=== PATIENT | female | born 1975 | race African-American/Black ===

== ENCOUNTER 2024-06-27 07:28 | Inpatient (IN) | payer OTHER, SELFPAY ==
[2024-06-27 07:33] VITALS: BP 136/72; PULSE 70; O2SAT 98
[2024-06-27 07:38] VITALS: BP 147/93; PULSE 77; RESP 19; TEMP 36.6; O2SAT 98; BMI 24.4
[2024-06-27 08:40] LABS: Appearance Urine Clear; Color Urine Yellow; Glucose Urine UA Negative (Negative); Leukocyte Esterase Urine Moderate (2+) (Negative); Nitrite Urine Negative (Negative); UMIC TRIGGER UACC YES; Urine Blood Trace (Negative); Urine Ketones Negative (Negative); Urine Protein Negative (Neg-Trace)
[2024-06-27 08:43] LABS: Bacteria Urine None Seen (None Seen); Hyaline Casts Urine 0-2 /LPF (0-2); RBC Urine 0-2 /HPF (0-2); UACC Culture Trigger YES
--- NOTE | 2024-06-27 08:45 | ED.PSYCH ---
HPI - Psych General Chief Complaint: Psychiatric Symptoms Stated Complaint: SI and psych issues from HPD OD last night Time Seen by Provider: 06/27/24 08:44 Source: patient Mode of arrival: EMS Limitations: no limitations History of Present Illness ED Provider: Dr. Raf Thayer HPI Narrative: 48-year-old female with a history of diabetes mellitus, depression, anxiety, PTSD, insomnia who is currently living in a sober house for 2 months who presents emergency department for evaluation increased depression, suicidal ideation, suicide attempt and not feeling safe. Patient states that she snorted fentanyl yesterday around 16:00 hours. She states she was trying to intentionally kill herself by using fentanyl. She states that this morning, she was feeling unsafe and came to the emergency department by ambulance for a crisis evaluation. Related Data Home Medications ?Medication ?Instructions ?Recorded ?Confirmed benztropine 1 mg tablet 1 mg PO DAILY 06/27/24 06/27/24 buprenorphine 8 mg-naloxone 2 mg 1 film sublingual BID 06/27/24 06/27/24 sublingual film bupropion HCl 300 mg 24 hr tablet, 300 mg PO DAILY 06/27/24 06/27/24 extended release gabapentin 800 mg tablet 800 mg PO TID 06/27/24 06/27/24 insulin glargine 100 unit/mL (3 30 unit subcut BEDTIME 06/27/24 06/27/24 mL) subcutaneous pen (Lantus Solostar U-100 Insulin) loratadine 10 mg tablet 10 mg PO DAILY 06/27/24 06/27/24 quetiapine 400 mg tablet 400 mg PO BEDTIME 06/27/24 06/27/24 sertraline 100 mg tablet 100 mg PO DAILY 06/27/24 06/27/24 Allergies Allergy/AdvReac Type Severity Reaction Status Date / Time No Known Allergies Allergy Verified 06/27/24 07:42 Review of Systems Review of Systems: Yes all other systems are reviewed and are negative [facility] Past Medical History [facility] Narrative: Social history: She is currently living at a sober nursing home house. She does smoke cigarettes. She denies alcohol use. She admits to using crack cocaine and intranasal opiates. Social History Social History Alcohol intake: never Use of substances other than those prescribed or required for medical reasons: Yes Substance Use Type: Crack/Cocaine and Heroin Substance Use Frequency: Occasionally Last Used Substance: Hours (ago) Any prior treatment program specific to substance use: Yes Advance Directives: No Advance Directives Information Provided: Yes Do you have a plan to hurt others: No Plan Physical Exam Vital Signs: Vital Signs: Last Vital Signs Temp 98.1 F 06/27/24 16:34 Pulse 69 06/27/24 16:34 Resp 16 06/27/24 16:34 BP 112/68 06/27/24 16:34 Pulse Ox 100 06/27/24 16:34 O2 Del Method Room Air 06/27/24 16:34 BMI result Body Mass Index 24.4 ANCA morning vital signs revealed an elevated blood pressure of 147/93 Exam: General: Awake, alert in no distress Head: Normocephalic, atraumatic EENT: PERRL, Lids normal, sclera normal, conjunctiva normal, nose normal , ears normal, throat without erythema or exudates Neck: Supple, no adenopathy Lung: breath sounds symmetric, no wheezing, rales or rhonchi Chest: symmetric movement, nontender Heart: regular rate and rhythm, normal S1, S2 no murmurs or rubs Abdomen: soft, non-tender, nondistended, normal bowel sounds Back: no vertebral tenderness, no CVAT Extremities: no deformities, moves all extremities symmetrically Neuro: Awake, alert, oriented, normal speech, cranial nerves intact, moves all extremities symmetrically Psych: Pleasant, cooperative Medications Administered Generic Name Dose Route Start Last Admin Trade Name Freq PRN Reason Stop Dose Admin Benztropine Mesylate 1 mg 06/27/24 11:30 06/27/24 12:04 Benztropine Mesylate 1 Mg Tablet PO 1 mg DAILY SHARATH Administration Bupropion HCl 300 mg 06/27/24 11:45 06/27/24 12:04 Bupropion Hcl Xl 300 Mg Tab.Er.24h PO 300 mg DAILY SHARATH Administration Loratadine 10 mg 06/27/24 11:30 06/27/24 12:03 Loratadine 10 Mg Tablet PO 10 mg DAILY SHARATH Administration Sertraline HCl 100 mg 06/27/24 11:30 06/27/24 12:04 Sertraline Hcl 100 Mg Tablet PO 100 mg DAILY SHARATH Administration Medical Decision Making Medical Decision Making MDM Narrative: 48-year-old female with a history of diabetes mellitus, depression, anxiety, PTSD, insomnia who is currently living in a sober nursing home house for 2 months who presents emergency department for evaluation increased depression, suicidal ideation, suicide attempt and not feeling safe. Patient states she tried to kill herself yesterday by snorting fentanyl around 16:00 hours. This morning she was feeling unsafe so she came to the emergency department by ambulance for crisis evaluation. Vital signs did reveal an elevated blood pressure otherwise unremarkable. Exam was unremarkable. Differential diagnosis: ?Includes but is not limited to depression, anxiety, suicidal ideation, suicide attempt, opiate use, electrolyte abnormalities, anemia Following evaluation was ordered: CBC, CMP, lipase, COVID-19, influenza, RSV, drug screen urine, ethanol level Course: 12:10 Urine tox screen was positive for opiates, buprenorphine, fentanyl and cocaine. Alcohol was below detectable limits. Urinalysis was positive but microscopic does not support urinary tract infection. Patient was been seen by the care team and she will be made in in-patient bed search for depression with suicidal ideation and suicide attempt. Patient was medically cleared and was seen by the care team specialist who felt that the patient does meet inpatient criteria for further treatment. Patient was placed on a Section 12 and there is a bed available here at [facility]. 13:55 hours The patient's 12 EKG did reveal inverted T-waves in leads 3, V1 through V4 with no old EKG for comparison. I did add a high ensitive troponin I to the person's initial blood draw at 09:47 hours and the troponin was elevated at 70.7, therefore I ordered a troponin for now which is greater than 3 hours after the initial troponin. 17:35 hours: Patient's repeat troponin was 47.7 which is very reassuring suggesting that she was not had myocardial injury. Patient's EKG changes are most likely chronic. Patient was medically cleared for psychiatric admission. Admission/Observation Consideration of admission/observation: Escalation of care including admission/observation considered Consult Healthcare Provider Management of the patient was discussed with: Behavioral Health Provider Lab Data MDM Lab Attestation statement: I reviewed the patient's lab results. My independent interpretation patient's laboratory evaluation is as follows: Urinalysis positive for blood and leukocyte esterase. Microscopic 0-2 RBCs, 6-10 WBCs 6-10 squamous cells with no bacteria-this is a non clean catch specimen and does not support diagnosis of urinary tract infection. Urine tox screen was positive for opiates, buprenorphine, fentanyl and cocaine. CBC was normal. Glucose was elevated 235. COVID-19, influenza and RSV were negative. Alcohol was below detectable limits. 06/27/24 09:47 06/27/24 09:47 Labs: Lab Results 06/27/24 06/27/24 06/27/24 Range/Units 08:29 09:47 13:13 WBC 8.0 (4.8-10.8) X10*3/uL RBC 4.42 (4.20-5.50) X10*6/uL Hgb 12.8 (12.0-16.0) g/dl Hct 38.0 (37.0-47.0) % MCV 86.0 (80.0-98.0) fL MCH 29.0 (27.0-33.0) pg MCHC 33.7 (31.0-35.0) g/dl RDW 12.5 (11.0-16.0) % Plt Count 236 (160-400) X10*3/uL MPV 10.0 (9.4-12.3) fL Immature Gran % (Auto) 0.3 (0.0-0.4) % Neut % (Auto) 76.2 H (45-73) % Lymph % (Auto) 17.4 L (20-40) % [place] % (Auto) 4.9 (2-11) % Eos % (Auto) 0.9 (0-4) % Baso % (Auto) 0.3 (0-2) % Lymph # (Auto) 1.4 (1.2-4.9) X10*3/uL [place] # (Auto) 0.4 (0.1-1.2) X10*3/uL Eos # (Auto) 0.1 (0.0-0.4) X10*3/uL Baso # (Auto) 0.0 (0.0-0.2) X10*3/uL Abs Immat Gran (auto) 0.02 (0.00-0.03) X10*3/uL Absolute Neuts (auto) 6.1 (2.0-8.3) x10*3/uL Absolute Nucleated RBC 0.000 (0.0-0.012) X10*3/uL Nucleated RBC % (auto) 0.0 (0.0-0.2) /100WBC Sodium 138 (135-145) mmol/L Potassium 4.1 (3.3-5.1) mmol/L Chloride 103 (96-108) mmol/L Carbon Dioxide 27 (22-29) mmol/L Anion Gap 12 (12-20) BUN 8 L (9-16) mg/dL Creatinine 0.76 (0.5-1.4) mg/dL Estim Creat Clear Calc 96.6 Estimated GFR > 60 POC Glucose 115 (60-115) mg/dL Random Glucose 235 H (60-115) mg/dL Calcium 9.4 (8.4-10.2) mg/dL Total Bilirubin 0.6 (0.0-1.0) mg/dL AST 31 (5-31) U/L ALT 16 (0-31) U/L Alkaline Phosphatase 109 (39-117) U/L Troponin I High Sens 70.7 H* (<3.5-17.0) ng/L Total Protein 7.5 (6.5-8.0) g/dL Albumin 4.0 (3.5-5.0) g/dL Lipase 5 L (8-78) U/L Urine Color Yellow Urine Appearance Clear Urine pH 6.0 (5.0-9.0) Ur Specific [place] 1.010 (1.005-1.025) Urine Protein Negative (Neg-Trace) mg/dL Urine Glucose (UA) Negative (Negative) mg/dL Urine Ketones Negative (Negative) mg/dL Urine Blood Trace H (Negative) Urine Nitrite Negative (Negative) Ur Leukocyte Esterase Moderate (2+) H (Negative) Urine RBC 0-2 (0-2) /HPF Urine WBC 6-10 H (0-5) /HPF Ur Squamous Epith Cells 6-10 (0-2) /HPF Urine Bacteria None Seen (None Seen) Hyaline Casts 0-2 (0-2) /LPF Urine Test NEGATIVE (NEGATIVE) Urine Opiates Screen POSITIVE H (Not Detect) Ur Buprenorphine Scrn Positive H (Not Detect) ng/mL Ur Oxycodone Screen Not Detected (Not Detect) ng/mL Urine Methadone Screen Not Detected (Not Detect) ng/mL Urine Fentanyl Screen POSITIVE H (Not Detect) Ur Barbiturates Screen Not Detected (Not Detect) Ur Phencyclidine Scrn Not Detected (Not Detect) Ur Amphetamines Screen Not Detected (Not Detect) U Benzodiazepines Scrn Not Detected (Not Detect) Urine Cocaine Screen POSITIVE H (Not Detect) U Marijuana (THC) Screen Not Detected (Not Detect) Ethyl Alcohol < 10 mg/dL Influenza Type A (PCR) NEGATIVE (Negative) Influenza Type B (PCR) NEGATIVE (Negative) RSV RNA Qual (PCR) NEGATIVE (Negative) SARS-CoV-2 RNA (RT-PCR) NEGATIVE (Negative) 06/27/24 Range/Units 14:06 WBC (4.8-10.8) X10*3/uL RBC (4.20-5.50) X10*6/uL Hgb (12.0-16.0) g/dl Hct (37.0-47.0) % MCV (80.0-98.0) fL MCH (27.0-33.0) pg MCHC (31.0-35.0) g/dl RDW (11.0-16.0) % Plt Count (160-400) X10*3/uL MPV (9.4-12.3) fL Immature Gran % (Auto) (0.0-0.4) % Neut % (Auto) (45-73) % Lymph % (Auto) (20-40) % [place] % (Auto) (2-11) % Eos % (Auto) (0-4) % Baso % (Auto) (0-2) % Lymph # (Auto) (1.2-4.9) X10*3/uL [place] # (Auto) (0.1-1.2) X10*3/uL Eos # (Auto) (0.0-0.4) X10*3/uL Baso # (Auto) (0.0-0.2) X10*3/uL Abs Immat Gran (auto) (0.00-0.03) X10*3/uL Absolute Neuts (auto) (2.0-8.3) x10*3/uL Absolute Nucleated RBC (0.0-0.012) X10*3/uL Nucleated RBC % (auto) (0.0-0.2) /100WBC Sodium (135-145) mmol/L Potassium (3.3-5.1) mmol/L Chloride (96-108) mmol/L Carbon Dioxide (22-29) mmol/L Anion Gap (12-20) BUN (9-16) mg/dL Creatinine (0.5-1.4) mg/dL Estim Creat Clear Calc Estimated GFR POC Glucose (60-115) mg/dL Random Glucose (60-115) mg/dL Calcium (8.4-10.2) mg/dL Total Bilirubin (0.0-1.0) mg/dL AST (5-31) U/L ALT (0-31) U/L Alkaline Phosphatase (39-117) U/L Troponin I High Sens 47.7 H (<3.5-17.0) ng/L Total Protein (6.5-8.0) g/dL Albumin (3.5-5.0) g/dL Lipase (8-78) U/L Urine Color Urine Appearance Urine pH (5.0-9.0) Ur Specific [place] (1.005-1.025) Urine Protein (Neg-Trace) mg/dL Urine Glucose (UA) (Negative) mg/dL Urine Ketones (Negative) mg/dL Urine Blood (Negative) Urine Nitrite (Negative) Ur Leukocyte Esterase (Negative) Urine RBC (0-2) /HPF Urine WBC (0-5) /HPF Ur Squamous Epith Cells (0-2) /HPF Urine Bacteria (None Seen) Hyaline Casts (0-2) /LPF Urine Test (NEGATIVE) Urine Opiates Screen (Not Detect) Ur Buprenorphine Scrn (Not Detect) ng/mL Ur Oxycodone Screen (Not Detect) ng/mL Urine Methadone Screen (Not Detect) ng/mL Urine Fentanyl Screen (Not Detect) Ur Barbiturates Screen (Not Detect) Ur Phencyclidine Scrn (Not Detect) Ur Amphetamines Screen (Not Detect) U Benzodiazepines Scrn (Not Detect) Urine Cocaine Screen (Not Detect) U Marijuana (THC) Screen (Not Detect) Ethyl Alcohol mg/dL Influenza Type A (PCR) (Negative) Influenza Type B (PCR) (Negative) RSV RNA Qual (PCR) (Negative) SARS-CoV-2 RNA (RT-PCR) (Negative) Chronic Conditions Patient?s care impacted by: Diabetes Discharge Plan Discharge Clinical Impression: Suicidal ideation, Depression, Suicide attempt Patient Disposition: Admitted As Inpatient Interventions: [place]-Suicide Risk Severity Scale Last Done: 06/27/24 08:47 Print Language: [place] Leonean
[2024-06-27 08:46] LABS: UPreg QC Valid YES; Urine Pregnancy NEGATIVE (NEGATIVE)
[2024-06-27 08:49] LABS: Amphetamine Screen Urine Not Detected (Not Detect); Barbiturates, Urine Not Detected (Not Detect); Benzodiazepines Screen Urine Not Detected (Not Detect); Buprenorphine Scr Positive (Not Detect); Cannabinoid Screen Urine Not Detected (Not Detect); Cocaine Screen Urine POSITIVE (Not Detect); Fentanyl, urine POSITIVE (Not Detect); Methadone Screen, Urine Not Detected (Not Detect); Opiate Screen Urine POSITIVE (Not Detect); Oxycodone Screen Urine Not Detected (Not Detect); Phencyclidine Screen Urine Not Detected (Not Detect)
--- NOTE | 2024-06-27 09:43 | ECG_ITS ---
Test Reason : check prolong qt Blood Pressure : / mmHG Vent. Rate : 063 BPM Atrial Rate : 063 BPM P-R Int : 148 ms QRS Dur : 092 ms QT Int : 482 ms P-R-T Axes : 148 179 186 degrees QTc Int : 493 ms Suspect limb lead reversal, interpretation assumes no reversal Unusual P axis, possible ectopic atrial rhythm Incomplete right bundle branch block Inferior infarct , age undetermined Anterolateral infarct , age undetermined Abnormal ECG No previous ECGs available Referred By: Raf Thayer Electronically Signed By:JUSTIN CHRISTINE
[2024-06-27 09:54] LABS: MANUAL DIFF FLAG NO
[2024-06-27 09:57] LABS: Basophils Percent Auto 0.3 % (0-2); Eosinophils Absolute Auto 0.1 X10*3/uL (0.0-0.4); Eosinophils Percent Auto 0.9 % (0-4); Hemoglobin 12.8 g/dl (12.0-16.0); Imm Gran Abs Auto 0.02 X10*3/uL (0.00-0.03); Imm Gran Pct Auto 0.3 % (0.0-0.4); Lymphocytes Absolute Auto 1.4 X10*3/uL (1.2-4.9); Lymphocytes Percent Auto 17.4 % (20-40); Mean Corpuscular HGB Conc 33.7 g/dl (31.0-35.0); Monocytes Absolute Auto 0.4 X10*3/uL (0.1-1.2); Monocytes Percent Auto 4.9 % (2-11); Neutrophils Absolute Auto 6.1 x10*3/uL (2.0-8.3); Neutrophils Percent Auto 76.2 % (45-73); Platelet Count 236 X10*3/uL (160-400); Red Blood Count 4.42 X10*6/uL (4.20-5.50); Red Cell Distribution Width 12.5 % (11.0-16.0)
[2024-06-27 10:10] LABS: Ethanol < 10 mg/dL
[2024-06-27 10:23] LABS: Alanine Aminotransferase 16 U/L (0-31); Alkaline Phosphatase 109 U/L (39-117); Anion Gap 12 (12-20); Aspartate Amino Transferase 31 U/L (5-31); Blood Urea Nitrogen 8 mg/dL (9-16); Calcium 9.4 mg/dL (8.4-10.2); Carbon Dioxide 27 mmol/L (22-29); Chloride 103 mmol/L (96-108); Creatinine Clr Calc Pharmacy 96.6; Estimated Glomerular Filt Rate > 60; Glucose Random 235 mg/dL (60-115); Lipase 5 U/L (8-78); Potassium 4.1 mmol/L (3.3-5.1); Sodium 138 mmol/L (135-145); Total Protein 7.5 g/dL (6.5-8.0)
[2024-06-27 10:33] LABS: Influenza A PCR NEGATIVE (Negative); Influenza B PCR NEGATIVE (Negative); Resp Syncy Virus RNA Qual PCR NEGATIVE (Negative); SARS COV2 PCR INHOUSE NEGATIVE (Negative)
[2024-06-27 11:46] LABS: Bilirubin Total 0.6 mg/dL (0.0-1.0)
[2024-06-27] MEDS: Loratadine 10 MG TABLET PO (12:03)
[2024-06-27] MEDS: buPROPion HCl XL 300 MG TAB.ER.24H PO (12:04)
[2024-06-27] MEDS: Benztropine Mesylate 1 MG TABLET PO (12:04)
[2024-06-27] MEDS: Sertraline HCL 100 MG TABLET PO (12:04)
--- NOTE | 2024-06-27 12:25 | PHA.MEDREC ---
Pharmacy Consult ? Medication Reconciliation Pharmacy has completed the medication reconciliation. Changed NF med that nurse entered to show correctly in med rec. All med matched claim history
--- NOTE | 2024-06-27 12:52 | ECG_ITS ---
Test Reason : check prolong qt Blood Pressure : / mmHG Vent. Rate : 062 BPM Atrial Rate : 062 BPM P-R Int : 154 ms QRS Dur : 094 ms QT Int : 488 ms P-R-T Axes : 036 003 000 degrees QTc Int : 495 ms Normal sinus rhythm Incomplete right bundle branch block Cannot rule out Inferior infarct (cited on or before 27-JUN-2024) Anterior infarct (cited on or before 27-JUN-2024) Abnormal ECG When compared with ECG of 27-JUN-2024 12:50, Sinus rhythm has replaced Ectopic atrial rhythm QRS axis Shifted left Questionable change in initial forces of Inferior leads Referred By: Raf Thayer Electronically Signed By:JUSTIN CHRISTINE
[2024-06-27 13:17] LABS: Glucose, Whole Blood 115 mg/dL (60-115)
[2024-06-27 13:43] LABS: Troponin-I High Sensitivity 70.7 ng/L (<3.5-17.0)
[2024-06-27 14:38] LABS: Troponin-I High Sensitivity 47.7 ng/L (<3.5-17.0)
[2024-06-27 16:34] VITALS: BP 112/68; PULSE 69; RESP 16; TEMP 36.7; O2SAT 100
[2024-06-27 17:55] LABS: Glucose, Whole Blood 115 mg/dL (60-115)
--- NOTE | 2024-06-27 19:02 | PC.NURSE ---
patient appears to remain at rest presently respirations are even and unlabored patient appears in no distress
[2024-06-27 21:01] LABS: Glucose, Whole Blood 149 mg/dL (60-115)
[2024-06-27] MEDS: Insulin Glargine,Hum.rec.anlog 100 UNIT/ML 10 ML VIAL 30 UNIT SUBCUT (21:01)
[2024-06-27] MEDS: Gabapentin 400 MG CAPSULE 800 MG PO (21:02)
[2024-06-27] MEDS: QUEtiapine Fumarate 400 MG TABLET PO (21:02)
[2024-06-27] MEDS: Prazosin HCL 1 MG CAPSULE PO (21:17)
--- NOTE | 2024-06-28 00:54 | PC.NURSE ---
Took report from off-going RN at 2300 hrs. Pt is a 48 y/o female who presents for thoughts of SI and an overdose on fentanyl. Pt is calm and cooperative, appropriate with staff. Easily arousable with verbal stimuli. Pt has been evaluated by care team and pending admission.
--- NOTE | 2024-06-28 04:24 | PC.NURSE ---
Pt has been sleeping most of the shift, appears comfortable and changes positions independently as desired. Pt is easily arousable with verbal stimulli, calm, cooperative, and appropriate with staff. No acute distress observed. Safety checks have been ongoing every 15 min since 2300 hrs. Will contiue to monitor to monitor for any changes.
[2024-06-28 06:10] VITALS: BP 122/64; PULSE 81; RESP 16; TEMP 37.2; O2SAT 96
[2024-06-28 07:04] LABS: Glucose, Whole Blood 111 mg/dL (60-115)
[2024-06-28] MEDS: Loratadine 10 MG TABLET PO (09:27)
[2024-06-28] MEDS: Benztropine Mesylate 1 MG TABLET PO (09:27)
[2024-06-28] MEDS: buPROPion HCl XL 300 MG TAB.ER.24H PO (09:27)
[2024-06-28] MEDS: Sertraline HCL 100 MG TABLET PO (09:27)
[2024-06-28] MEDS: Buprenorphine/Naloxone 8/2 mg FILM 1 FILM SUBLINGUAL ×2 (09:27→21:19)
[2024-06-28] MEDS: Gabapentin 400 MG CAPSULE 800 MG PO ×3 (09:27→21:19)
[2024-06-28 13:26] LABS: Glucose, Whole Blood 157 mg/dL (60-115)
[2024-06-28] MEDS: LORazepam 1 MG TABLET 2 MG PO (13:42)
[2024-06-28 18:40] VITALS: BP 132/61; PULSE 89; RESP 16; TEMP 36.6; O2SAT 98
[2024-06-28 18:40] LABS: Glucose, Whole Blood 155 mg/dL (60-115)
--- NOTE | 2024-06-28 19:21 | PC.NURSE ---
patient appears to remain at rest at present respirations are even and unlabored patient appears in no distress.
--- NOTE | 2024-06-28 20:58 | PC.NURSE ---
patient came out of room with head scarf on which she did not have in her posession yesterday, apparently during the day client saw peer with headscarf on and desired her own. patient was apparently allowed this by prior staff and became agitated when we stated she could not have it in this area. unfortunately we did not have a safe facsimile to provide. patient became mildly escalated after, and offered medication which client declined, rocking to herself in room and mildly tearful. offered also non medicinal soothing items. will continue to monitor.
[2024-06-28 21:19] VITALS: BP 132/61
[2024-06-28] MEDS: Prazosin HCL 1 MG CAPSULE PO (21:19)
[2024-06-28] MEDS: QUEtiapine Fumarate 400 MG TABLET PO (21:20)
--- NOTE | 2024-06-28 21:24 | PC.NURSE ---
patient who had been previously agitated by limit setting of staff made a self harming gesture of wrapping a pillowcase in a longslim lnegth and began to wrap cloeth around neck, staff intervened and removed item, patient placed on close obs status for the time being (informally) until patient presentation changes. patient declined accucheck pre lantus.
[2024-06-28] MEDS: Insulin Glargine,Hum.rec.anlog 100 UNIT/ML 10 ML VIAL 30 UNIT SUBCUT (22:38)
[2024-06-28 22:44] LABS: Glucose, Whole Blood 92 mg/dL (60-115)
[2024-06-29 06:20] VITALS: BP 101/50; PULSE 67; RESP 16; TEMP 36.4; O2SAT 97
--- NOTE | 2024-06-29 06:58 | PC.NURSE ---
Assumed care of patient at 0645, patient appears to be sleeping, respirations even and unlabored, no apparent distress noted. Continue plan of care for inpatient bedsearch on section 12a
[2024-06-29 07:43] LABS: Glucose, Whole Blood 128 mg/dL (60-115)
[2024-06-29] MEDS: buPROPion HCl XL 300 MG TAB.ER.24H PO (09:23)
[2024-06-29] MEDS: Loratadine 10 MG TABLET PO (09:23)
[2024-06-29] MEDS: Benztropine Mesylate 1 MG TABLET PO (09:23)
[2024-06-29] MEDS: Gabapentin 400 MG CAPSULE 800 MG PO ×3 (09:24→20:12)
[2024-06-29] MEDS: Buprenorphine/Naloxone 8/2 mg FILM 1 FILM SUBLINGUAL ×2 (09:24→20:12)
[2024-06-29] MEDS: Sertraline HCL 100 MG TABLET PO (09:24)
[2024-06-29] MEDS: LORazepam 1 MG TABLET 2 MG PO (10:34)
[2024-06-29] MEDS: hydrOXYzine HCL 25 MG TABLET PO ×2 (12:27→20:10)
[2024-06-29 14:29] VITALS: BP 116/69; PULSE 73; RESP 18; TEMP 37.2; O2SAT 96
--- NOTE | 2024-06-29 19:03 | PC.NURSE ---
patient appears ot remain at rest presently respirations are even and unlabored patient appears in no distress.
[2024-06-29 19:42] VITALS: BP 134/80; PULSE 65; RESP 18; TEMP 36.6; O2SAT 96
[2024-06-29] MEDS: QUEtiapine Fumarate 400 MG TABLET PO (20:12)
[2024-06-29 20:13] VITALS: BP 134/80
[2024-06-29] MEDS: Insulin Glargine,Hum.rec.anlog 100 UNIT/ML 10 ML VIAL 30 UNIT SUBCUT (20:13)
[2024-06-29] MEDS: Prazosin HCL 1 MG CAPSULE PO (20:13)
[2024-06-29 20:29] LABS: Glucose, Whole Blood 127 mg/dL (60-115)
--- NOTE | 2024-06-30 | ECG_ITS ---
Test Reason : REPEAT Blood Pressure : / mmHG Vent. Rate : 062 BPM Atrial Rate : 062 BPM P-R Int : 154 ms QRS Dur : 088 ms QT Int : 484 ms P-R-T Axes : 040 003 -12 degrees QTc Int : 491 ms Normal sinus rhythm T wave abnormality, consider anterior ischemia Prolonged QT Abnormal ECG When compared with ECG of 27-JUN-2024 12:52, Minimal criteria for Inferior infarct are no longer Present Referred By: Generic ED Physician Electronically Signed By:JUSTIN CHRISTINE
[2024-06-30 06:04] VITALS: BP 117/70; PULSE 72; RESP 16; TEMP 36.4; O2SAT 98
[2024-06-30 06:56] LABS: Glucose, Whole Blood 79 mg/dL (60-115)
[2024-06-30] MEDS: Ibuprofen 400 MG TABLET PO ×2 (07:13→18:15)
[2024-06-30] MEDS: Buprenorphine/Naloxone 8/2 mg FILM 1 FILM SUBLINGUAL ×2 (08:27→20:30)
[2024-06-30] MEDS: Benztropine Mesylate 1 MG TABLET PO (08:27)
[2024-06-30] MEDS: Loratadine 10 MG TABLET PO (08:27)
[2024-06-30] MEDS: Gabapentin 400 MG CAPSULE 800 MG PO ×3 (08:27→20:31)
[2024-06-30] MEDS: Sertraline HCL 100 MG TABLET PO (08:27)
[2024-06-30] MEDS: buPROPion HCl XL 300 MG TAB.ER.24H PO (08:27)
[2024-06-30] MEDS: LORazepam 1 MG TABLET PO ×2 (11:06→17:39)
[2024-06-30 11:41] LABS: Glucose, Whole Blood 94 mg/dL (60-115)
[2024-06-30 12:57] VITALS: BP 124/66; PULSE 63; RESP 14; TEMP 36.3; O2SAT 97
[2024-06-30 15:30] VITALS: BP 127/80; PULSE 80; RESP 18; TEMP 36.6; O2SAT 97
[2024-06-30] MEDS: Nicotine Polacrilex 2 MG GUM 4 MG BUCCAL (17:09)
[2024-06-30] MEDS: hydrOXYzine HCL 25 MG TABLET PO (17:09)
[2024-06-30 17:54] LABS: Glucose, Whole Blood 115 mg/dL (60-115)
--- NOTE | 2024-06-30 18:20 | PC.ADMIT ---
Henna arrived to the unit at [address] [facility] ED pod via wheelchair. Skin check done upon arrival, skin appears intact. Met with Dr. Mcallister, signed condition al voluntary. Upon approach she is calm and pleasant, reports endorsing anxiety and depression, when asked if she had any thoughts of wanting to hurt self stated No not right now, she then stated I just don't feel safe. When asked if she ws hearing voices stated I hear them, but not right now, she denied visual hallucinations. She reports she came to the hospital because she wants Something better for my life, she reports she relapsed afster being six months clean stated I have been drinking half of pint for the last month, reports her last drink was on , she also reports she relapsed a day prior to coming to the hospital on fentanyl and crack/cocaine. Henna appears sad, per assessment she presented via ambulance secondary to intentionally overdosing on fentanyl in a suicide attempt. She reported increased depression and anxiety causing her to relapse and overdose. Henna reported that she had a disagreement with staff and another resident in the [facility] that she is currently residing on causing her to leave and intentionally overdose on fentanyl. She is currently on 15 minute checks.
[2024-06-30 20:15] VITALS: BP 111/60; PULSE 70; RESP 16; TEMP 36.8; O2SAT 97
[2024-06-30 20:30] VITALS: BP 130/69
[2024-06-30 20:30] LABS: Glucose, Whole Blood 103 mg/dL (60-115)
[2024-06-30] MEDS: Prazosin HCL 1 MG CAPSULE PO (20:30)
[2024-06-30] MEDS: QUEtiapine Fumarate 400 MG TABLET PO (20:31)
[2024-06-30] MEDS: Insulin Glargine,Hum.rec.anlog 100 UNIT/ML 10 ML VIAL 30 UNIT SUBCUT (20:51)
[2024-07-01 07:48] VITALS: BMI 26.0
[2024-07-01 08:00] VITALS: BP 130/70; PULSE 72; RESP 18; TEMP 36.7; O2SAT 98
--- NOTE | 2024-07-01 08:29 | HO.PSYADMNOT ---
HPI Date of Service: 07/01/24 Chief Complaint: Depression Sources of Information: patient interviewed, chart reviewed and crisis/core team assessment reviewed HPI Subjective Notes: Ferrer Warning and Conditional Voluntary Narrative: Pt is 48 year old female with history schizoaffective disorder, PTSD, cocaine/fentanyl/alcohol use disorder who self presents for worsening depression and SI following suicide attempt by overdose. Patient reports that she was overall doing okay, sober for 6 months, on current medication regimen; she still would have manic and depressive episodes but they were not severe. About a month ago patient's mood started to worsen as the 1 year anniversary of her sister's was approaching; she moved into a sober housing establishment where there was an increase in psychosocial stressors. She started drinking though not every day. At the housing, initially staff told people to come forward with their problems; however patient found the reality was that staff instead were not interested in talking with client's and give a very clear message to keep their problems to themselves; patient felt more and more isolated and drinking increased to about 1/2 pt of vodka more days than not. This past week, patient had a 3 or 4 day mild manic episode after which her depression further worsened, which is typical; patient was bullied by a peer and feeling marginalized and in despair, left the house and for the 1st time in 6 months used crack and fentanyl, wanting to numb herself; she accidentally overdosed and was Narcan. On regaining consciousness she had thoughts that she would have been better off and intentionally tried to overdose on crack and fentanyl over the next day. She says God must have a plan because she did not overdose and so instead self presented to come to the hospital, saying she wanted to get help before it got worse. Patient reports distinct manic episodes that can last anywhere from 3 or 4 days to 2 weeks and very in intensity, during which time she is talking fast, racing mind too fast to write her thoughts down or get her words out, cleaning and re-cleaning excessively, does not sleep, going from project to project, stealing which is very out of character and done without any tact at all; such episodes are typically followed by a depressive episode. Patient endorses AH; she is not sure if it is her own voice and it varies in intensity depending on her mood but is present even when mood is stable, saying words like you are no good, you are worthless, people do not like you and then sometimes escalating to stab yourself, cut yourself. Patient has been consistent on her medication regimen. Past Psychiatric History: last psych admission 1 year ago Medical Evaluation Reviewed: Yes COUNTS INCLUDE 234 BEDS AT THE [facility] Medical History (Updated 07/02/24 @ 09:10 by Padilla Mcallister MD) Opioid use disorder Cocaine use disorder Alcohol use disorder PTSD (post-traumatic stress disorder) Schizoaffective disorder, bipolar type Family History: Sister: from alcoholism Social History: Born in [place], grew up in [place]; moved here 10 years ago with her parents with whom she finds supportive Sister a year ago from alcoholism Substance History: Cocaine/fentanyl abuse; intermittent alcohol abuse Trauma History: Positive trauma history; did not discuss details Diagnostics Vital Signs (24Hr): Vital Signs - 24 hr 06/30/24 12:57 06/30/24 15:30 06/30/24 20:15 Temperature 97.4 F 97.8 F 98.2 F Pulse Rate 63 80 70 Respiratory Rate 14 18 16 Blood Pressure 124/66 127/80 111/60 Pulse Oximetry 97 97 97 Oxygen Delivery Method Room Air Room Air Room Air 06/30/24 20:30 Temperature Pulse Rate Respiratory Rate Blood Pressure 130/69 Pulse Oximetry Oxygen Delivery Method BMI result Body Mass Index 26.0 Labs 06/27/24 09:47 06/27/24 09:47 Labs: Laboratory Results - last 48 hr 06/29/24 06/30/24 06/30/24 20:26 06:52 11:37 POC Glucose 127 H 79 94 06/30/24 06/30/24 17:50 20:26 POC Glucose 115 103 Meds/Allergies Meds Home Medications ?Medication ?Instructions ?Recorded ?Confirmed ?Type benztropine 1 mg tablet 1 mg PO DAILY 06/27/24 06/27/24 History buprenorphine 8 mg-naloxone 2 mg 1 film sublingual BID 06/27/24 06/27/24 History sublingual film bupropion HCl 300 mg 24 hr tablet, 300 mg PO DAILY 06/27/24 06/27/24 History extended release gabapentin 800 mg tablet 800 mg PO TID 06/27/24 06/27/24 History insulin glargine 100 unit/mL (3 30 unit subcut BEDTIME 06/27/24 06/27/24 History mL) subcutaneous pen (Lantus Solostar U-100 Insulin) loratadine 10 mg tablet 10 mg PO DAILY 06/27/24 06/27/24 History quetiapine 400 mg tablet 400 mg PO BEDTIME 06/27/24 06/27/24 History sertraline 100 mg tablet 100 mg PO DAILY 06/27/24 06/27/24 History Allergies Allergies Allergy/AdvReac Type Severity Reaction Status Date / Time No Known Allergies Allergy Verified 06/27/24 07:42 Mental Status Exam Mental Status Exam Narrative: Pt is alert and oriented; behavior is anxious, bouncing legs, cooperative, reticent but friendly on approach; patient is not in distress; dressed in casual attire with adequate hygiene; mood is described as anxious... Depressed and affect congruent; eye contact appropriate; Speech is normal rate, volume and prosody and not pressured; some of both psychomotor agitation/retardation present; thought process is organized and goal directed; Thought content is on intermittent passive wish, her sister; tx; otherwise pertinent to relevant topics and without any delusional content, paranoid ideations or grandiosity; intermittent passive SI/no HI; intermittent AH. Patients insight and judgment impaired Assessment & Plan Assessment & Plan (1) Schizoaffective disorder, bipolar type: Status: Acute Code(s): F25.0 - Schizoaffective disorder, bipolar type (2) PTSD (post-traumatic stress disorder): Status: Acute Code(s): F43.10 - Post-traumatic stress disorder, unspecified (3) Alcohol use disorder: Status: Acute Code(s): F10.90 - Alcohol use, unspecified, uncomplicated (4) Cocaine use disorder: Status: Acute Code(s): F14.10 - Cocaine abuse, uncomplicated (5) Opioid use disorder: Status: Acute Code(s): F11.90 - Opioid use, unspecified, uncomplicated Plan Pt is 48 year old female with history schizoaffective disorder, PTSD, cocaine/fentanyl/alcohol use disorder who self presents for worsening depression and SI following suicide attempt by overdose. Patient reports that she was overall doing okay, sober for 6 months, on current medication regimen; she still would have manic and depressive episodes but they were not severe. About a month ago patient's mood started to worsen as the 1 year anniversary of her sister's was approaching; she moved into a sober housing establishment where there was an increase in psychosocial stressors. She started drinking though not every day. At the housing, initially staff told people to come forward with their problems; however patient found the reality was that staff instead were not interested in talking with client's and give a very clear message to keep their problems to themselves; patient felt more and more isolated and drinking increased to about 1/2 pt of vodka more days than not. This past week, patient had a 3 or 4 day mild manic episode after which her depression further worsened, which is typical; patient was bullied by a peer and feeling marginalized and in despair, left the house and for the 1st time in 6 months used crack and fentanyl, wanting to numb herself; she accidentally overdosed and was Narcan. On regaining consciousness she had thoughts that she would have been better off and intentionally tried to overdose on crack and fentanyl over the next day. She says God must have a plan because she did not overdose and so instead self presented to come to the hospital, saying she wanted to get help before it got worse. Patient reports distinct manic episodes that can last anywhere from 3 or 4 days to 2 weeks and very in intensity, during which time she is talking fast, racing mind too fast to write her thoughts down or get her words out, cleaning and re-cleaning excessively, does not sleep, going from project to project, stealing which is very out of character and done without any tact at all; such episodes are typically followed by a depressive episode. Patient endorses AH; she is not sure if it is her own voice and it varies in intensity depending on her mood but is present even when mood is stable, saying words like you are no good, you are worthless, people do not like you and then sometimes escalating to stab yourself, cut yourself. Patient has been consistent on her medication regimen. Formulation/clinical reasoning: Patient is only partially treated with current medication regimen as she continues to have both manic and depressive episodes, both of which induced relapse. Patient is no longer suicidal and is trying to regain hope that she can get back to sobriety and improve mood. Thoroughly reviewed medication history and patient would like to get back on Risperdal despite her experience side effect of galactorrhea, because it was very helpful in stopping manic episodes. She has been on both Risperdal and Seroquel simultaneously and wants to remain on Seroquel, finding the combination helpful and needing Seroquel for sleep; reviewed risks/side effects of being on 2 antipsychotics however patient feels that the benefit outweighs the risk (also considered was Latuda, lithium, Abilify, Depakote...); patient feels that Wellbutrin has also helped her depression and so will remain on this; Zoloft started only a month or 2 ago and has not been helpful. Patient has some mild withdrawal and so will start Ativan taper; no need for CIWA. Regarding diagnosis, patient reports AH even when mood is stable at which time she can ignore it; when depression worsens AH becomes more intense. Patient is not sure if it is her own voice or not but it remains chronically persistent and patient meets criteria for schizoaffective disorder Plan: CV Q 15 minute checks Ativan taper initiated Start Risperdal 2 mg q.h.s.; patient used to be at about 4 mg in the past Continue Seroquel 400 q.h.s. continue Wellbutrin XL 300 mg daily DC zoloft: started 4 months ago, no benefit Will make Andi p.r.n.; she said on some medication she was getting muscle twitches but she is not on that medication anymore Continue Suboxone 8/2 mg b.i.d. Continue prazosin 1 mg q.h.s. Continue gabapentin 800 mg t.i.d. Med trial Hx: mirtazpine: Not effective for depression prozac: Not effective for depression celexa (partially helpful but was discontinued due to theoretical concern for QTC prolongation and switched to Lexapro; not sure of effectiveness) thorazine: Only partially helpful depakote: Does not remember efficacy Newborn: only 2 weeks; thinks she had a side effect Risperdal 4-5mg total (plus seroquel): working well, no manic episodes, but gallatorhea but tolerable Abilify: partially helpful Zyprexa; partially helpful seroquel: helps with sleep (but does not prevent alexandro or depression) Latuda: partially helpful; on it a few months ago; helped with depression, but still had manic episodes Patient educated on: diagnosis, medication risk/benefits, substance abuse and therapeutic strategies Informed Consent: understands Reason for continued inpatient stay Substantial Risk for: rapid decompensation Statement Statement: I have reviewed the history and physical and performed a pertinent examination on my patient. No changes have occurred unless specified. If the History and Physical was not performed prior to admission, the Hospitalist's service will be consulted for completing the admission physical. Time Spent With Patient Time: Total time managing care of this patient today ____ minutes.
[2024-07-01 08:36] LABS: Estimated Average Glucose 123 mg/dL; Hemoglobin A1c % 5.9 % (<6.0)
[2024-07-01 08:40] LABS: Cholesterol 180 mg/dL (<200); HDL Cholesterol 57 mg/dL (>40); LDL Cholesterol Calculated 92 mg/dL (<100); Triglycerides 158 mg/dL (<150)
[2024-07-01] MEDS: Sertraline HCL 100 MG TABLET PO (08:40)
[2024-07-01] MEDS: buPROPion HCl XL 300 MG TAB.ER.24H PO (08:40)
[2024-07-01] MEDS: Gabapentin 400 MG CAPSULE 800 MG PO ×3 (08:40→21:01)
[2024-07-01] MEDS: Loratadine 10 MG TABLET PO (08:40)
[2024-07-01] MEDS: Benztropine Mesylate 1 MG TABLET PO (08:40)
[2024-07-01] MEDS: Buprenorphine/Naloxone 8/2 mg FILM 1 FILM SUBLINGUAL ×2 (08:40→21:01)
[2024-07-01 08:46] LABS: Glucose, Whole Blood 117 mg/dL (60-115)
[2024-07-01] MEDS: hydrOXYzine HCL 25 MG TABLET PO (10:27)
[2024-07-01] MEDS: LORazepam 1 MG TABLET PO ×3 (12:20→21:02)
[2024-07-01 20:00] VITALS: BP 128/68; PULSE 67; TEMP 36.4; O2SAT 99
[2024-07-01 21:02] VITALS: BP 119/64
[2024-07-01] MEDS: risperiDONE 2 MG TABLET PO (21:02)
[2024-07-01] MEDS: QUEtiapine Fumarate 400 MG TABLET PO (21:02)
[2024-07-01] MEDS: Prazosin HCL 1 MG CAPSULE PO (21:02)
[2024-07-01] MEDS: Insulin Glargine,Hum.rec.anlog 100 UNIT/ML 10 ML VIAL 30 UNIT SUBCUT (21:19)
[2024-07-01 21:28] LABS: Glucose, Whole Blood 146 mg/dL (60-115)
[2024-07-02 08:00] VITALS: BP 114/59; PULSE 65; RESP 18; TEMP 36.8; O2SAT 98
[2024-07-02 08:22] LABS: Glucose, Whole Blood 102 mg/dL (60-115)
[2024-07-02] MEDS: LORazepam 1 MG TABLET PO ×3 (08:42→20:29)
[2024-07-02] MEDS: Buprenorphine/Naloxone 8/2 mg FILM 1 FILM SUBLINGUAL ×2 (08:42→20:30)
[2024-07-02] MEDS: Gabapentin 400 MG CAPSULE 800 MG PO ×3 (08:42→20:29)
[2024-07-02] MEDS: buPROPion HCl XL 300 MG TAB.ER.24H PO (08:42)
[2024-07-02] MEDS: Loratadine 10 MG TABLET PO (08:42)
--- NOTE | 2024-07-02 09:21 | P.PNPSI_ITS ---
Subjective Subjective Date of Service: 07/02/24 Reason For Visit: Depression Interim History: Met with patient; discussed with team Patient reports that she is ... Okay .. Surviving. She remains depressed with intermittent SI, trying to challenge it. She continues to have auditory hallucinations that are bothersome and she is trying to ignore them. There saying over and over run in front of a car, run in front of a car.. Patient says that she has been seeing a therapist for while and has learned coping skills it is just that depression makes it harder to combat them. Discussed medication again and patient feels that given her 3 main medications, Risperdal, Seroquel and Wellbutrin, Wellbutrin has been the most helpful for curbing her depression and asks for an increased dose. She also would like Risperdal to be increased but wants to give current dose a little bit longer to work. Says 1st drank alcohol a month ago to cope with symptoms, hoping that it was the Lesser of 2 evils. And that it would help her refrain from cocaine/fentanyl Talked about struggles of sober living, dealing with multiple personalities, bullies; patient said that she has come a long way in the past she would fight people but now has much more able to keep herself in behavioral control Mental Status Exam Mental Status Exam Narrative: Pt is alert and oriented; behavior is quiet, cooperative, reticent but friendly on approach; patient is not in distress; dressed in casual attire with adequate hygiene; mood is described as surviving and affect congruent; eye contact appropriate, downcast; Speech is normal rate, volume and prosody and not pressured; some of both psychomotor retardation present; thought process is organized and goal directed; Thought content is on intermittent passive wish, dealing with AH, her sister; tx; otherwise pertinent to relevant topics and without any delusional content, paranoid ideations or grandiosity; intermittent passive SI/no HI; intermittent AH. Patients insight and judgment impaired but improving Diagnostics Vital Signs (24Hr): Vital Signs - 24 hr 07/01/24 20:00 07/01/24 21:02 Temperature 97.6 F Pulse Rate 67 Blood Pressure 128/68 119/64 Pulse Oximetry 99 Oxygen Delivery Method Room Air BMI result Body Mass Index 26.0 Labs 06/27/24 09:47 06/27/24 09:47 Labs: Laboratory Results - last 48 hr 06/30/24 06/30/24 06/30/24 11:37 17:50 20:26 POC Glucose 94 115 103 Estimat Average Glucose Hemoglobin A1c % Triglycerides Cholesterol LDL Cholesterol, Calc HDL Cholesterol 07/01/24 07/01/24 07/01/24 08:12 08:39 21:11 POC Glucose 117 H 146 H Estimat Average Glucose 123 Hemoglobin A1c % 5.9 Triglycerides 158 H Cholesterol 180 LDL Cholesterol, Calc 92 HDL Cholesterol 57 07/02/24 08:17 POC Glucose 102 Estimat Average Glucose Hemoglobin A1c % Triglycerides Cholesterol LDL Cholesterol, Calc HDL Cholesterol Medications Medications Current Medications Acetaminophen (Acetaminophen 325 Mg Tablet) 650 mg PO Q6H PRN PRN Reason: Headache/Pain Mild Scale (1-3) Al Hydroxide/Mg Hydroxide (Magnesium Hydrox/Alum Hydrox 30 Ml Oral.Susp) 30 ml PO Q6H PRN PRN Reason: Heartburn/Nausea Benztropine Mesylate (Benztropine Mesylate 0.5 Mg Tablet) 0.5 mg PO BID PRN PRN Reason: EPS Buprenorphine/Naloxone (Buprenorphine/Naloxone 8/2 Mg Film) 1 film SUBLINGUAL BID [facility] Last Admin: 07/02/24 08:42 Dose: 1 film Bupropion HCl (Bupropion Hcl Xl 300 Mg Tab.Er.24h) 300 mg PO DAILY [facility] Last Admin: 07/02/24 08:42 Dose: 300 mg Clonidine HCl (Clonidine Hcl 0.1 Mg Tablet) 0.1 mg PO Q4H PRN; Protocol PRN Reason: anxiety Famotidine (Famotidine 20 Mg Tablet) 20 mg PO BID [facility] Gabapentin (Gabapentin 400 Mg Capsule) 800 mg PO TID [facility] Last Admin: 07/02/24 08:42 Dose: 800 mg Glucose (Glucose Gel 15 Gm Gel..Gram.) 15 gm PO Q15M PRN; Protocol PRN Reason: per Hypoglycemia Standing Ord. Hydroxyzine HCl (Hydroxyzine Hcl 25 Mg Tablet) 25 mg PO TID PRN PRN Reason: Anxiety, agitation Last Admin: 07/01/24 10:27 Dose: 25 mg Ibuprofen (Ibuprofen 400 Mg Tablet) 400 mg PO TID PRN PRN Reason: Pain, Moderate(Pain Scale 4-6) Last Admin: 06/30/24 18:15 Dose: 400 mg Insulin Glargine (Insulin Glargine,Hum.Rec.Anlog 100 Unit/Ml 10 Ml Vial) 30 unit SUBCUT BEDTIME [facility] Last Admin: 07/01/24 21:19 Dose: 30 unit Loratadine (Loratadine 10 Mg Tablet) 10 mg PO DAILY [facility] Last Admin: 07/02/24 08:42 Dose: 10 mg Lorazepam (Lorazepam 1 Mg Tablet) 1 mg PO TID [facility] Stop: 07/02/24 23:00 Last Admin: 07/02/24 08:42 Dose: 1 mg Lorazepam (Lorazepam 1 Mg Tablet) 1 mg PO BID [facility] Stop: 07/04/24 23:00 Magnesium Hydroxide (Milk Of Magnesia 30 Ml Oral.Susp) 30 ml PO DAILY PRN PRN Reason: Constipation Nicotine (Nicotine 21 Mg Patch.Td24) 21 mg TRANSDERMA DAILY PRN PRN Reason: smoking cessation Nicotine Polacrilex (Nicotine Polacrilex 2 Mg Gum) 4 mg BUCCAL Q2H PRN PRN Reason: Nicotine Cravings Last Admin: 06/30/24 17:09 Dose: 4 mg Prazosin HCl (Prazosin Hcl 1 Mg Capsule) 1 mg PO BEDTIME [facility]; Protocol Last Admin: 07/01/24 21:02 Dose: 1 mg Quetiapine Fumarate (Quetiapine Fumarate 400 Mg Tablet) 400 mg PO BEDTIME [facility] Last Admin: 07/01/24 21:02 Dose: 400 mg Risperidone (Risperidone 2 Mg Tablet) 2 mg PO BEDTIME [facility] Last Admin: 07/01/24 21:02 Dose: 2 mg Trazodone HCl (Trazodone Hcl 50 Mg Tablet) 50 mg PO BEDTIME MRX1 PRN PRN Reason: Insomnia Allergies Allergies Allergy/AdvReac Type Severity Reaction Status Date / Time No Known Allergies Allergy Verified 06/27/24 07:42 Assessment & Plan Assessment & Plan (1) Schizoaffective disorder, bipolar type: Status: Acute Code(s): F25.0 - Schizoaffective disorder, bipolar type (2) PTSD (post-traumatic stress disorder): Status: Acute Code(s): F43.10 - Post-traumatic stress disorder, unspecified (3) Alcohol use disorder: Status: Acute Code(s): F10.90 - Alcohol use, unspecified, uncomplicated (4) Cocaine use disorder: Status: Acute Code(s): F14.10 - Cocaine abuse, uncomplicated (5) Opioid use disorder: Status: Acute Code(s): F11.90 - Opioid use, unspecified, uncomplicated Plan Pt is 48 year old female with history schizoaffective disorder, PTSD, cocaine/fentanyl/alcohol use disorder who self presents for worsening depression and SI following suicide attempt by overdose. Patient reports that she was overall doing okay, sober for 6 months, on current medication regimen; she still would have manic and depressive episodes but they were not severe. About a month ago patient's mood started to worsen as the 1 year anniversary of her sister's was approaching; she moved into a sober housing establishment where there was an increase in psychosocial stressors. She started drinking though not every day. At the housing, initially staff told people to come forward with their problems; however patient found the reality was that staff instead were not interested in talking with client's and give a very clear message to keep their problems to themselves; patient felt more and more isolated and drinking increased to about 1/2 pt of vodka more days than not. This past week, patient had a 3 or 4 day mild manic episode after which her depression further worsened, which is typical; patient was bullied by a peer and feeling marginalized and in despair, left the house and for the 1st time in 6 months used crack and fentanyl, wanting to numb herself; she accidentally overdosed and was Narcan. On regaining consciousness she had thoughts that she would have been better off and intentionally tried to overdose on crack and fentanyl over the next day. She says God must have a plan because she did not overdose and so instead self presented to come to the hospital, saying she wanted to get help before it got worse. Patient reports distinct manic episodes that can last anywhere from 3 or 4 days to 2 weeks and very in intensity, during which time she is talking fast, racing mind too fast to write her thoughts down or get her words out, cleaning and re-cleaning excessively, does not sleep, going from project to project, stealing which is very out of character and done without any tact at all; such episodes are typically followed by a depressive episode. Patient endorses AH; she is not sure if it is her own voice and it varies in intensity depending on her mood but is present even when mood is stable, saying words like you are no good, you are worthless, people do not like you and then sometimes escalating to stab yourself, cut yourself. Patient has been consistent on her medication regimen. Formulation/clinical reasoning: Patient is only partially treated with current medication regimen as she continues to have both manic and depressive episodes, both of which induced relapse. Patient is no longer suicidal and is trying to regain hope that she can get back to sobriety and improve mood. Thoroughly reviewed medication history and patient would like to get back on Risperdal despite her experience side effect of galactorrhea, because it was very helpful in stopping manic episodes. She has been on both Risperdal and Seroquel simultaneously and wants to remain on Seroquel, finding the combination helpful and needing Seroquel for sleep; reviewed risks/side effects of being on 2 antipsychotics however patient feels that the benefit outweighs the risk (also considered was Latuda, lithium, Abilify, Depakote...); patient feels that Wellbutrin has also helped her depression and so will remain on this; Zoloft started only a month or 2 ago and has not been helpful. Patient has some mild withdrawal and so will start Ativan taper; no need for CIWA. Regarding diagnosis, patient reports AH even when mood is stable at which time she can ignore it; when depression worsens AH becomes more intense. Patient is not sure if it is her own voice or not but it remains chronically persistent and patient meets criteria for schizoaffective disorder Hospital course: 07/02 remains depressed and still with intermittent SI but not as bad as before; AH remain troublesome. Asks for Wellbutrin to be increased 1st to help with depression and then Risperdal; says she used to be on Wellbutrin b.i.d. which she prefers but will try long-acting now. Patient working on using coping skills that she has learned in therapy to challenge AH; she will tell herself it is not true, it is just lies... Plan: CV Q 15 minute checks Ativan taper initiated Continue Risperdal 2 mg q.h.s.; patient used to be at about 4 mg in the past Continue Seroquel 400 q.h.s. Increase to Wellbutrin XL 450 mg daily DC zoloft: started 4 months ago, no benefit Will make Andi renteria; she said on some medication she was getting muscle twitches but she is not on that medication anymore Continue Suboxone 8/2 mg b.i.d. Continue prazosin 1 mg q.h.s. Continue gabapentin 800 mg t.i.d. Started famotidine 20 mg b.i.d. for GERD; patient used to be on omeprazole, will try famotidine instead Med trial Hx: mirtazpine: Not effective for depression prozac: Not effective for depression celexa (partially helpful but was discontinued due to theoretical concern for QTC prolongation and switched to Lexapro; not sure of effectiveness) thorazine: Only partially helpful depakote: Does not remember efficacy [place]: only 2 weeks; thinks she had a side effect Risperdal 4-5mg total (plus seroquel): working well, no manic episodes, but gallatorhea but tolerable Abilify: partially helpful Zyprexa; partially helpful seroquel: helps with sleep (but does not prevent alexandro or depression) Latuda: partially helpful; on it a few months ago; helped with depression, but still had manic episodes Patient educated on: diagnosis, medication risk/benefits, substance abuse and therapeutic strategies Informed Consent: understands Reason for continued inpatient stay Substantial Risk for: harm to self and rapid decompensation Time Spent With Patient Time: Total time managing care of this patient today ____ minutes.
[2024-07-02] MEDS: Famotidine 20 MG TABLET PO ×2 (09:30→20:30)
--- NOTE | 2024-07-02 09:37 | MHC.RECOVRN ---
AUDIT-C?Brief Intervention Pt had positive screen for unhealthy alcohol use on admission, subsequently met with t/w to discuss alcohol use and recovery supports/options. Pt voices concern regarding alcohol use and is aware that drinking at unhealthy levels is known to increase risk of alcohol related health problems. Pt reports Drinking 1 pint of vodka daily. Pt expresses how alcohol use has impacted health, including negative impact on her living situation and drug use . Discussed risk reduction strategies including drinking below the recommended limit. Provided pt with written resources including information on inpatient and outpatient treatment, PJ, harm reduction, and recovery coaching. Pt plans to continue at [facility], and look into TSS/CSS options, she also expressed interest in our care at [facility]. Pt provided with t/w contact information if questions or concerns arise. Denies other questions or concerns at this time.?
[2024-07-02] MEDS: hydrOXYzine HCL 25 MG TABLET PO (11:33)
[2024-07-02] MEDS: Ibuprofen 400 MG TABLET PO ×2 (13:29→20:29)
[2024-07-02] MEDS: buPROPion HCl XL 150 MG TAB.ER.24H PO (13:29)
[2024-07-02] MEDS: Fluticasone Propionate Nasal 16 GM SPRAY 1 SPRAY NOSTRIL-B (14:22)
[2024-07-02 17:13] LABS: Glucose, Whole Blood 141 mg/dL (60-115)
[2024-07-02 20:00] VITALS: BP 117/64; PULSE 82; RESP 16; TEMP 36.8; O2SAT 99
[2024-07-02] MEDS: risperiDONE 2 MG TABLET PO (20:29)
[2024-07-02 20:30] VITALS: BP 117/64
[2024-07-02] MEDS: QUEtiapine Fumarate 400 MG TABLET PO (20:30)
[2024-07-02] MEDS: Prazosin HCL 1 MG CAPSULE PO (20:30)
[2024-07-02] MEDS: Insulin Glargine,Hum.rec.anlog 100 UNIT/ML 10 ML VIAL 30 UNIT SUBCUT (21:01)
[2024-07-02 21:29] LABS: Glucose, Whole Blood 227 mg/dL (60-115)
[2024-07-03 07:00] VITALS: BMI 25.8
[2024-07-03 07:54] LABS: Glucose, Whole Blood 111 mg/dL (60-115)
[2024-07-03 08:00] VITALS: BP 108/63; PULSE 68; RESP 16; TEMP 36.8; O2SAT 100
[2024-07-03] MEDS: Fluticasone Propionate Nasal 16 GM SPRAY 1 SPRAY NOSTRIL-B (09:11)
[2024-07-03] MEDS: Famotidine 20 MG TABLET PO ×2 (09:12→20:24)
[2024-07-03] MEDS: LORazepam 1 MG TABLET PO ×2 (09:12→20:23)
[2024-07-03] MEDS: Buprenorphine/Naloxone 8/2 mg FILM 1 FILM SUBLINGUAL ×2 (09:12→20:25)
[2024-07-03] MEDS: Gabapentin 400 MG CAPSULE 800 MG PO ×3 (09:12→20:23)
[2024-07-03] MEDS: Loratadine 10 MG TABLET PO (09:12)
[2024-07-03] MEDS: buPROPion HCl XL 150 MG TAB.ER.24H 450 MG PO (09:12)
--- NOTE | 2024-07-03 09:25 | HO.PSYCHPN ---
Subjective Subjective Date of Service: 07/03/24 Reason For Visit: Depression Interim History: Met with Patient; discussed with team very sad, tearful, rocking back and forth, wishing she were ; says missing her sister very much. Pt reports overwhelmed with self-deprecating thoughts, says 6months sober and all ruined in one day... Did CBT exercise regarding automatic thoughts; pt said she would try to realize she is not a loser. Discussed medications more and pt agreed to retry lithium; in hindsight, she thinks maybe she did not have an actual side-effect (hair loss). Will hold risperdal Mental Status Exam Mental Status Exam Narrative: Pt is alert and oriented; behavior is exceedingly anxious, rocking in the chair, tearful; patient is not in distress; dressed in hospital attire with adequate hygiene; mood is described as I am a loser and affect congruent, downcast, tearful; eye contact avoidant; Speech is slow, soft; some of both psychomotor agitation/retardation present; thought process is organized and goal directed; Thought content is on self-deprecating thoughts, passive wish, dealing with AH, her sister; tx; otherwise pertinent to relevant topics and without any delusional content, paranoid ideations or grandiosity; intermittent passive SI/no HI; intermittent AH. Patients insight and judgment impaired Diagnostics Vital Signs (24Hr): Vital Signs - 24 hr 07/02/24 20:00 07/02/24 20:30 07/03/24 08:00 Temperature 98.2 F 98.2 F Pulse Rate 82 68 Respiratory Rate 16 16 Blood Pressure 117/64 117/64 108/63 Pulse Oximetry 99 100 Oxygen Delivery Method Room Air Room Air BMI result Body Mass Index 26.0 Labs 06/27/24 09:47 06/27/24 09:47 Labs: Laboratory Results - last 48 hr 07/01/24 07/02/24 07/02/24 21:11 08:17 17:09 POC Glucose 146 H 102 141 H 07/02/24 07/03/24 21:23 07:50 POC Glucose 227 H 111 Medications Medications Current Medications Acetaminophen (Acetaminophen 325 Mg Tablet) 650 mg PO Q6H PRN PRN Reason: Headache/Pain Mild Scale (1-3) Al Hydroxide/Mg Hydroxide (Magnesium Hydrox/Alum Hydrox 30 Ml Oral.Susp) 30 ml PO Q6H PRN PRN Reason: Heartburn/Nausea Benztropine Mesylate (Benztropine Mesylate 0.5 Mg Tablet) 0.5 mg PO BID PRN PRN Reason: EPS Buprenorphine/Naloxone (Buprenorphine/Naloxone 8/2 Mg Film) 1 film SUBLINGUAL BID [facility] Last Admin: 07/03/24 09:12 Dose: 1 film Bupropion HCl (Bupropion Hcl Xl 150 Mg Tab.Er.24h) 450 mg PO DAILY [facility] Last Admin: 07/03/24 09:12 Dose: 450 mg Clonidine HCl (Clonidine Hcl 0.1 Mg Tablet) 0.1 mg PO Q4H PRN; Protocol PRN Reason: anxiety Famotidine (Famotidine 20 Mg Tablet) 20 mg PO BID [facility] Last Admin: 07/03/24 09:12 Dose: 20 mg Fluticasone Propionate (Fluticasone Propionate Nasal 16 Gm [place]) 1 spray NOSTRIL-B DAILY PRN PRN Reason: nasal congestion Last Admin: 07/03/24 09:11 Dose: 1 spray Gabapentin (Gabapentin 400 Mg Capsule) 800 mg PO TID [facility] Last Admin: 07/03/24 09:12 Dose: 800 mg Glucose (Glucose Gel 15 Gm Gel..Gram.) 15 gm PO Q15M PRN; Protocol PRN Reason: per Hypoglycemia Standing Ord. Hydroxyzine HCl (Hydroxyzine Hcl 25 Mg Tablet) 25 mg PO TID PRN PRN Reason: Anxiety, agitation Last Admin: 07/02/24 11:33 Dose: 25 mg Ibuprofen (Ibuprofen 400 Mg Tablet) 400 mg PO TID PRN PRN Reason: Pain, Moderate(Pain Scale 4-6) Last Admin: 07/02/24 20:29 Dose: 400 mg Insulin Glargine (Insulin Glargine,Hum.Rec.Anlog 100 Unit/Ml 10 Ml Vial) 30 unit SUBCUT BEDTIME [facility] Last Admin: 07/02/24 21:01 Dose: 30 unit Loratadine (Loratadine 10 Mg Tablet) 10 mg PO DAILY [facility] Last Admin: 07/03/24 09:12 Dose: 10 mg Lorazepam (Lorazepam 1 Mg Tablet) 1 mg PO BID [facility] Stop: 07/04/24 23:00 Last Admin: 07/03/24 09:12 Dose: 1 mg Magnesium Hydroxide (Milk Of Magnesia 30 Ml Oral.Susp) 30 ml PO DAILY PRN PRN Reason: Constipation Nicotine (Nicotine 21 Mg Patch.Td24) 21 mg TRANSDERMA DAILY PRN PRN Reason: smoking cessation Nicotine Polacrilex (Nicotine Polacrilex 2 Mg Gum) 4 mg BUCCAL Q2H PRN PRN Reason: Nicotine Cravings Last Admin: 06/30/24 17:09 Dose: 4 mg Prazosin HCl (Prazosin Hcl 1 Mg Capsule) 1 mg PO BEDTIME [place]ARATH; Protocol Last Admin: 07/02/24 20:30 Dose: 1 mg Quetiapine Fumarate (Quetiapine Fumarate 400 Mg Tablet) 400 mg PO BEDTIME SHARATH Last Admin: 07/02/24 20:30 Dose: 400 mg Risperidone (Risperidone 2 Mg Tablet) 2 mg PO BEDTIME SHARATH Last Admin: 07/02/24 20:29 Dose: 2 mg Trazodone HCl (Trazodone Hcl 50 Mg Tablet) 50 mg PO BEDTIME MRX1 PRN PRN Reason: Insomnia Allergies Allergies Allergy/AdvReac Type Severity Reaction Status Date / Time No Known Allergies Allergy Verified 06/27/24 07:42 Assessment & Plan Assessment & Plan (1) Schizoaffective disorder, bipolar type: Status: Acute Code(s): F25.0 - Schizoaffective disorder, bipolar type (2) PTSD (post-traumatic stress disorder): Status: Acute Code(s): F43.10 - Post-traumatic stress disorder, unspecified (3) Alcohol use disorder: Status: Acute Code(s): F10.90 - Alcohol use, unspecified, uncomplicated (4) Cocaine use disorder: Status: Acute Code(s): F14.10 - Cocaine abuse, uncomplicated (5) Opioid use disorder: Status: Acute Code(s): F11.90 - Opioid use, unspecified, uncomplicated Plan Pt is 48 year old female with history schizoaffective disorder, PTSD, cocaine/fentanyl/alcohol use disorder who self presents for worsening depression and SI following suicide attempt by overdose. Patient reports that she was overall doing okay, sober for 6 months, on current medication regimen; she still would have manic and depressive episodes but they were not severe. About a month ago patient's mood started to worsen as the 1 year anniversary of her sister's was approaching; she moved into a sober housing establishment where there was an increase in psychosocial stressors. She started drinking though not every day. At the housing, initially staff told people to come forward with their problems; however patient found the reality was that staff instead were not interested in talking with client's and give a very clear message to keep their problems to themselves; patient felt more and more isolated and drinking increased to about 1/2 pt of vodka more days than not. This past week, patient had a 3 or 4 day mild manic episode after which her depression further worsened, which is typical; patient was bullied by a peer and feeling marginalized and in despair, left the house and for the 1st time in 6 months used crack and fentanyl, wanting to numb herself; she accidentally overdosed and was Narcan. On regaining consciousness she had thoughts that she would have been better off and intentionally tried to overdose on crack and fentanyl over the next day. She says God must have a plan because she did not overdose and so instead self presented to come to the hospital, saying she wanted to get help before it got worse. Patient reports distinct manic episodes that can last anywhere from 3 or 4 days to 2 weeks and very in intensity, during which time she is talking fast, racing mind too fast to write her thoughts down or get her words out, cleaning and re-cleaning excessively, does not sleep, going from project to project, stealing which is very out of character and done without any tact at all; such episodes are typically followed by a depressive episode. Patient endorses AH; she is not sure if it is her own voice and it varies in intensity depending on her mood but is present even when mood is stable, saying words like you are no good, you are worthless, people do not like you and then sometimes escalating to stab yourself, cut yourself. Patient has been consistent on her medication regimen. Formulation/clinical reasoning: Patient is only partially treated with current medication regimen as she continues to have both manic and depressive episodes, both of which induced relapse. Patient is no longer suicidal and is trying to regain hope that she can get back to sobriety and improve mood. Thoroughly reviewed medication history and patient would like to get back on Risperdal despite her experience side effect of galactorrhea, because it was very helpful in stopping manic episodes. She has been on both Risperdal and Seroquel simultaneously and wants to remain on Seroquel, finding the combination helpful and needing Seroquel for sleep; reviewed risks/side effects of being on 2 antipsychotics however patient feels that the benefit outweighs the risk (also considered was Latuda, lithium, Abilify, Depakote...); patient feels that Wellbutrin has also helped her depression and so will remain on this; Zoloft started only a month or 2 ago and has not been helpful. Patient has some mild withdrawal and so will start Ativan taper; no need for CIWA. Regarding diagnosis, patient reports AH even when mood is stable at which time she can ignore it; when depression worsens AH becomes more intense. Patient is not sure if it is her own voice or not but it remains chronically persistent and patient meets criteria for schizoaffective disorder Hospital course: 07/02 remains depressed and still with intermittent SI but not as bad as before; AH remain troublesome. Asks for Wellbutrin to be increased 1st to help with depression and then Risperdal; says she used to be on Wellbutrin b.i.d. which she prefers but will try long-acting now. Patient working on using coping skills that she has learned in therapy to challenge AH; she will tell herself it is not true, it is just lies... 07/03 very sad, tearful, rocking back and forth, wishing she were ; says missing her sister very much. Pt reports overwhelmed with self-deprecating thoughts, says 6months sober and all ruined in one day... Did CBT exercise regarding automatic thoughts; pt said she would try to realize she is not a loser. Discussed medications more and pt agreed to retry lithium; in hindsight, she thinks maybe she did not have an actual side-effect (hair loss). Will hold risperdal Plan: CV Q 15 minute checks Ativan taper and DC START [place] ER 600mg qhs DC Risperdal 2 mg q.h.s.; may need to restart but will see given new medication lithium (patient used to be at about 4 mg in the past) Changing Wellbutrin XL (to how pt took in past) -Wellbutrin XL 300 mg daily -Wellbutrin XL 150 mg Q 1400 Continue Seroquel 400 q.h.s. DC zoloft: started 4 months ago, no benefit Will make Andi renteria; she said on some medication she was getting muscle twitches but she is not on that medication anymore Continue Suboxone 8/2 mg b.i.d. Continue prazosin 1 mg q.h.s. Continue gabapentin 800 mg t.i.d. Started famotidine 20 mg b.i.d. for GERD; patient used to be on omeprazole, will try famotidine instead Med trial Hx: mirtazpine: Not effective for depression prozac: Not effective for depression celexa (partially helpful but was discontinued due to theoretical concern for QTC prolongation and switched to Lexapro; not sure of effectiveness) thorazine: Only partially helpful depakote: Does not remember efficacy [place]: only 2 weeks; thinks she had a side effect Risperdal 4-5mg total (plus seroquel): working well, no manic episodes, but gallatorhea but tolerable Abilify: partially helpful Zyprexa; partially helpful seroquel: helps with sleep (but does not prevent alexandro or depression) Latuda: partially helpful; on it a few months ago; helped with depression, but still had manic episodes Patient educated on: diagnosis, medication risk/benefits, substance abuse and therapeutic strategies Informed Consent: understands and further education needed Reason for continued inpatient stay Substantial Risk for: inability to function and rapid decompensation Time Spent With Patient Time: Total time managing care of this patient today ____ minutes.
[2024-07-03] MEDS: Ibuprofen 400 MG TABLET PO ×2 (11:34→20:22)
[2024-07-03] MEDS: Nicotine Polacrilex 2 MG GUM 4 MG BUCCAL (11:35)
[2024-07-03] MEDS: hydrOXYzine HCL 25 MG TABLET PO (14:49)
[2024-07-03] MEDS: risperiDONE 0.5 MG TABLET PO (16:24)
[2024-07-03 20:05] VITALS: BP 116/75; PULSE 92; RESP 16; TEMP 36.6; O2SAT 99
[2024-07-03] MEDS: Lithium Carbonate ER 300 MG TABLET.ER 600 MG PO (20:23)
[2024-07-03 20:24] VITALS: BP 116/75
[2024-07-03] MEDS: QUEtiapine Fumarate 400 MG TABLET PO (20:24)
[2024-07-03] MEDS: Prazosin HCL 1 MG CAPSULE PO (20:24)
[2024-07-03] MEDS: Insulin Glargine,Hum.rec.anlog 100 UNIT/ML 10 ML VIAL 30 UNIT SUBCUT (20:25)
[2024-07-04 07:55] VITALS: BP 127/65; PULSE 76; RESP 18; TEMP 36.8; O2SAT 96
[2024-07-04] MEDS: Famotidine 20 MG TABLET PO ×2 (08:10→20:26)
[2024-07-04] MEDS: Gabapentin 400 MG CAPSULE 800 MG PO ×3 (08:10→20:26)
[2024-07-04] MEDS: buPROPion HCl XL 300 MG TAB.ER.24H PO (08:10)
[2024-07-04] MEDS: LORazepam 1 MG TABLET PO ×2 (08:10→20:25)
[2024-07-04] MEDS: Loratadine 10 MG TABLET PO (08:10)
[2024-07-04] MEDS: Ibuprofen 400 MG TABLET PO ×2 (08:33→20:25)
[2024-07-04] MEDS: Buprenorphine/Naloxone 8/2 mg FILM 1 FILM SUBLINGUAL ×2 (08:33→20:25)
[2024-07-04] MEDS: Nicotine Polacrilex 2 MG GUM 4 MG BUCCAL ×2 (08:38→20:54)
[2024-07-04] MEDS: risperiDONE 1 MG TABLET PO ×2 (13:09→15:42)
[2024-07-04] MEDS: buPROPion HCl XL 150 MG TAB.ER.24H PO (13:09)
--- NOTE | 2024-07-04 13:16 | HO.PSYCHPN ---
Subjective Subjective Date of Service: 07/04/24 Reason For Visit: Depression Interim History: Met with patient; discussed with team Patient reports still quite depressed but doing a little better today, fighting to be hopeful. AH to kill herself but patient does not want to . Slept better with lithium. Discussed medication and patient agrees that she probably needs to be on Risperdal as well to deal with AH. Agreed to schedule it 1 mg a day with 1 mg as a p.r.n.. Mental Status Exam Mental Status Exam Narrative: Pt is alert and oriented; behavior is more calm; patient is not in distress; dressed in hospital attire with adequate hygiene; mood is described as depressed and affect congruent, still downcast, but less so and not tearful; eye contact appropriate; Speech is normal volume, rate and prosody; some psychomotor retardation present; thought process is organized and goal directed; Thought content is on trying to be hopeful; psychosocial stressors, treatment, dealing with AH, her sister; otherwise pertinent to relevant topics and without any delusional content, paranoid ideations or grandiosity; intermittent passive SI/no HI; intermittent AH. Patients insight and judgment impaired but seems to be improving Diagnostics Vital Signs (24Hr): Vital Signs - 24 hr 07/03/24 20:05 07/03/24 20:24 07/04/24 07:55 Temperature 97.8 F 98.2 F Pulse Rate 92 76 Respiratory Rate 16 18 Blood Pressure 116/75 116/75 127/65 Pulse Oximetry 99 96 Oxygen Delivery Method Room Air Room Air BMI result Body Mass Index 25.8 Labs 06/27/24 09:47 06/27/24 09:47 Labs: Laboratory Results - last 48 hr 07/02/24 07/02/24 07/03/24 17:09 21:23 07:50 POC Glucose 141 H 227 H 111 Medications Medications Current Medications Acetaminophen (Acetaminophen 325 Mg Tablet) 650 mg PO Q6H PRN PRN Reason: Headache/Pain Mild Scale (1-3) Al Hydroxide/Mg Hydroxide (Magnesium Hydrox/Alum Hydrox 30 Ml Oral.Susp) 30 ml PO Q6H PRN PRN Reason: Heartburn/Nausea Benztropine Mesylate (Benztropine Mesylate 0.5 Mg Tablet) 0.5 mg PO BID PRN PRN Reason: EPS Buprenorphine/Naloxone (Buprenorphine/Naloxone 8/2 Mg Film) 1 film SUBLINGUAL BID [facility] Last Admin: 07/04/24 08:33 Dose: 1 film Bupropion HCl (Bupropion Hcl Xl 300 Mg Tab.Er.24h) 300 mg PO DAILY [facility] Last Admin: 07/04/24 08:10 Dose: 300 mg Bupropion HCl (Bupropion Hcl Xl 150 Mg Tab.Er.24h) 150 mg PO DAILY@1400 [facility] Last Admin: 07/04/24 13:09 Dose: 150 mg Famotidine (Famotidine 20 Mg Tablet) 20 mg PO BID [facility] Last Admin: 07/04/24 08:10 Dose: 20 mg Fluticasone Propionate (Fluticasone Propionate Nasal 16 [address] [place]) 1 spray NOSTRIL-B DAILY PRN PRN Reason: nasal congestion Last Admin: 07/03/24 09:11 Dose: 1 spray Gabapentin (Gabapentin 400 Mg Capsule) 800 mg PO TID [facility] Last Admin: 07/04/24 08:10 Dose: 800 mg Glucose (Glucose Gel 15 Gm Gel..Gram.) 15 gm PO Q15M PRN; Protocol PRN Reason: per Hypoglycemia Standing Ord. Hydroxyzine HCl (Hydroxyzine Hcl 50 Mg Tablet) 50 mg PO TID PRN PRN Reason: Anxiety, agitation Ibuprofen (Ibuprofen 400 Mg Tablet) 400 mg PO TID PRN PRN Reason: Pain, Moderate(Pain Scale 4-6) Last Admin: 07/04/24 08:33 Dose: 400 mg Insulin Glargine (Insulin Glargine,Hum.Rec.Anlog 100 Unit/Ml 10 Ml Vial) 30 unit SUBCUT BEDTIME [facility] Last Admin: 07/03/24 20:25 Dose: 30 unit [place] Carbonate ([place] Carbonate Er 300 Mg Tablet.Er) 600 mg PO BEDTIME [facility] Last Admin: 07/03/24 20:23 Dose: 600 mg Loratadine (Loratadine 10 Mg Tablet) 10 mg PO DAILY [facility] Last Admin: 07/04/24 08:10 Dose: 10 mg Lorazepam (Lorazepam 1 Mg Tablet) 1 mg PO BID [facility] Stop: 07/04/24 23:00 Last Admin: 07/04/24 08:10 Dose: 1 mg Magnesium Hydroxide (Milk Of Magnesia 30 Ml Oral.Susp) 30 ml PO DAILY PRN PRN Reason: Constipation Nicotine (Nicotine 21 Mg Patch.Td24) 21 mg TRANSDERMA DAILY PRN PRN Reason: smoking cessation Nicotine Polacrilex (Nicotine Polacrilex 2 Mg Gum) 4 mg BUCCAL Q2H PRN PRN Reason: Nicotine Cravings Last Admin: 07/04/24 08:38 Dose: 4 mg Prazosin HCl (Prazosin Hcl 1 Mg Capsule) 1 mg PO BEDTIME SHARATH; Protocol Last Admin: 07/03/24 20:24 Dose: 1 mg Quetiapine Fumarate (Quetiapine Fumarate 400 Mg Tablet) 400 mg PO BEDTIME [facility] Last Admin: 07/03/24 20:24 Dose: 400 mg Risperidone (Risperidone 1 Mg Tablet) 1 mg PO DAILY PRN PRN Reason: AH/anxiety Risperidone (Risperidone 1 Mg Tablet) 1 mg PO DAILY [facility] Last Admin: 07/04/24 13:09 Dose: 1 mg Trazodone HCl (Trazodone Hcl 50 Mg Tablet) 50 mg PO BEDTIME MRX1 PRN PRN Reason: Insomnia Allergies Allergies Allergy/AdvReac Type Severity Reaction Status Date / Time No Known Allergies Allergy Verified 06/27/24 07:42 Assessment & Plan Assessment & Plan (1) Schizoaffective disorder, bipolar type: Status: Acute Code(s): F25.0 - Schizoaffective disorder, bipolar type (2) PTSD (post-traumatic stress disorder): Status: Acute Code(s): F43.10 - Post-traumatic stress disorder, unspecified (3) Alcohol use disorder: Status: Acute Code(s): F10.90 - Alcohol use, unspecified, uncomplicated (4) Cocaine use disorder: Status: Acute Code(s): F14.10 - Cocaine abuse, uncomplicated (5) Opioid use disorder: Status: Acute Code(s): F11.90 - Opioid use, unspecified, uncomplicated Plan Pt is 48 year old female with history schizoaffective disorder, PTSD, cocaine/fentanyl/alcohol use disorder who self presents for worsening depression and SI following suicide attempt by overdose. Patient reports that she was overall doing okay, sober for 6 months, on current medication regimen; she still would have manic and depressive episodes but they were not severe. About a month ago patient's mood started to worsen as the 1 year anniversary of her sister's was approaching; she moved into a sober housing establishment where there was an increase in psychosocial stressors. She started drinking though not every day. At the housing, initially staff told people to come forward with their problems; however patient found the reality was that staff instead were not interested in talking with client's and give a very clear message to keep their problems to themselves; patient felt more and more isolated and drinking increased to about 1/2 pt of vodka more days than not. This past week, patient had a 3 or 4 day mild manic episode after which her depression further worsened, which is typical; patient was bullied by a peer and feeling marginalized and in despair, left the house and for the 1st time in 6 months used crack and fentanyl, wanting to numb herself; she accidentally overdosed and was Narcan. On regaining consciousness she had thoughts that she would have been better off and intentionally tried to overdose on crack and fentanyl over the next day. She says God must have a plan because she did not overdose and so instead self presented to come to the hospital, saying she wanted to get help before it got worse. Patient reports distinct manic episodes that can last anywhere from 3 or 4 days to 2 weeks and very in intensity, during which time she is talking fast, racing mind too fast to write her thoughts down or get her words out, cleaning and re-cleaning excessively, does not sleep, going from project to project, stealing which is very out of character and done without any tact at all; such episodes are typically followed by a depressive episode. Patient endorses AH; she is not sure if it is her own voice and it varies in intensity depending on her mood but is present even when mood is stable, saying words like you are no good, you are worthless, people do not like you and then sometimes escalating to stab yourself, cut yourself. Patient has been consistent on her medication regimen. Formulation/clinical reasoning: Patient is only partially treated with current medication regimen as she continues to have both manic and depressive episodes, both of which induced relapse. Patient is no longer suicidal and is trying to regain hope that she can get back to sobriety and improve mood. Thoroughly reviewed medication history and patient would like to get back on Risperdal despite her experience side effect of galactorrhea, because it was very helpful in stopping manic episodes. She has been on both Risperdal and Seroquel simultaneously and wants to remain on Seroquel, finding the combination helpful and needing Seroquel for sleep; reviewed risks/side effects of being on 2 antipsychotics however patient feels that the benefit outweighs the risk (also considered was Latuda, lithium, Abilify, Depakote...); patient feels that Wellbutrin has also helped her depression and so will remain on this; Zoloft started only a month or 2 ago and has not been helpful. Patient has some mild withdrawal and so will start Ativan taper; no need for CIWA. Regarding diagnosis, patient reports AH even when mood is stable at which time she can ignore it; when depression worsens AH becomes more intense. Patient is not sure if it is her own voice or not but it remains chronically persistent and patient meets criteria for schizoaffective disorder Hospital course: 07/02 remains depressed and still with intermittent SI but not as bad as before; AH remain troublesome. Asks for Wellbutrin to be increased 1st to help with depression and then Risperdal; says she used to be on Wellbutrin b.i.d. which she prefers but will try long-acting now. Patient working on using coping skills that she has learned in therapy to challenge AH; she will tell herself it is not true, it is just lies... 07/03 very sad, tearful, rocking back and forth, wishing she were ; says missing her sister very much. Pt reports overwhelmed with self-deprecating thoughts, says 6months sober and all ruined in one day... Did CBT exercise regarding automatic thoughts; pt said she would try to realize she is not a loser. Discussed medications more and pt agreed to retry lithium; in hindsight, she thinks maybe she did not have an actual side-effect (hair loss). Will hold risperdal 07/04 depressed but little better today, fighting to be hopeful. AH to kill herself but patient does not want to . Slept better with lithium. Pt agrees needs some Risperdal for AH. Plan: CV Q 15 minute checks DC Ativan Continue [place] ER 600mg qhs Labs ordered Risperdal 1 mg daily Risperdal 1 mg daily p.r.n. for AH (used to be at about 4 mg in the past) -Wellbutrin XL 300 mg daily -Wellbutrin XL 150 mg Q 1400 Continue Seroquel 400 q.h.s. DC zoloft: started 4 months ago, no benefit Will make Andi renteria; she said on some medication she was getting muscle twitches but she is not on that medication anymore Continue Suboxone 8/2 mg b.i.d. Continue prazosin 1 mg q.h.s. Continue gabapentin 800 mg t.i.d. Started famotidine 20 mg b.i.d. for GERD; patient used to be on omeprazole, will try famotidine instead Med trial Hx: mirtazpine: Not effective for depression prozac: Not effective for depression celexa (partially helpful but was discontinued due to theoretical concern for QTC prolongation and switched to Lexapro; not sure of effectiveness) thorazine: Only partially helpful depakote: Does not remember efficacy [place]: only 2 weeks; thinks she had a side effect Risperdal 4-5mg total (plus seroquel): working well, no manic episodes, but gallatorhea but tolerable Abilify: partially helpful Zyprexa; partially helpful seroquel: helps with sleep (but does not prevent alexandro or depression) Latuda: partially helpful; on it a few months ago; helped with depression, but still had manic episodes Patient educated on: diagnosis, medication risk/benefits and therapeutic strategies Informed Consent: understands Reason for continued inpatient stay Substantial Risk for: rapid decompensation Time Spent With Patient Time: Total time managing care of this patient today ____ minutes.
[2024-07-04 20:00] VITALS: BP 137/70; PULSE 90; RESP 18; TEMP 36.9; O2SAT 100
[2024-07-04 20:26] VITALS: BP 137/70
[2024-07-04] MEDS: Lithium Carbonate ER 300 MG TABLET.ER 600 MG PO (20:26)
[2024-07-04] MEDS: Fluticasone Propionate Nasal 16 GM SPRAY 1 SPRAY NOSTRIL-B (20:26)
[2024-07-04] MEDS: Prazosin HCL 1 MG CAPSULE PO (20:26)
[2024-07-04] MEDS: QUEtiapine Fumarate 400 MG TABLET PO (20:26)
[2024-07-04 21:52] LABS: Glucose, Whole Blood 234 mg/dL (60-115)
[2024-07-04] MEDS: Insulin Glargine,Hum.rec.anlog 100 UNIT/ML 10 ML VIAL 30 UNIT SUBCUT (21:59)
[2024-07-05 08:00] VITALS: BP 119/62; PULSE 74; RESP 18; TEMP 36.8; O2SAT 96
[2024-07-05] MEDS: Gabapentin 400 MG CAPSULE 800 MG PO ×3 (08:30→20:34)
[2024-07-05] MEDS: buPROPion HCl XL 300 MG TAB.ER.24H PO (08:30)
[2024-07-05] MEDS: Famotidine 20 MG TABLET PO ×2 (08:30→20:34)
[2024-07-05] MEDS: Loratadine 10 MG TABLET PO (08:30)
[2024-07-05] MEDS: Buprenorphine/Naloxone 8/2 mg FILM 1 FILM SUBLINGUAL (08:30)
[2024-07-05] MEDS: risperiDONE 1 MG TABLET PO ×2 (08:31→12:34)
[2024-07-05 09:27] LABS: Glucose, Whole Blood 179 mg/dL (60-115)
--- NOTE | 2024-07-05 09:55 | HO.PSYCHPN ---
Subjective Subjective Date of Service: 07/05/24 Reason For Visit: Depression Subjective Notes: Conditional Voluntary Healthcare Proxy: No Guardianship: No Medical Problems Affecting Mental Status: No Interim History: 48 yo improving re presenting sys no ah/vh, still isolative, poor eye contact with staff, seemed better with thtis provider, staff reported small smile at joke Pt co anxiety , and tremor she has had for a year -up making her bed- has raised head of bed- discussed prn of risperidone for anxiety - said she already had that- but looks like it was 1mg/day and I broke it down to 0.5 tid prn - instead- might cover anxiety better Medication Compliance: Yes Side effects from medications: No (?tremor not witnesssed by provider) Attending Groups: Intermittent Review of Systems Acute medical concerns: No Medical Review of Systems: unchanged Mental Status Exam Mental Status Exam Narrative: dressed in pepe, showered Patient Appearance: Appropriate Patient Orientation: Person, Place, Time and Situation Level of Consciousness: Awake and Alert Patient Behavior: Appropriate, Guarded, Cooperative and Poor Eye Contact (untill she came out to ask me about anxiety again then good eye contact with provider) Mood Description: Calm and Apprehensive Affect Description: Blunted Patient Cognition Impaired: No Ability to Follow Directions: Fair Speech Pattern: Clear Thought Process: Intact and Rumination Thought Content: positive for Perseveration Depressive Symptoms: Increased Anxiety, Muscle Tension, Unhappiness and Difficulty Concentrating Abnormal Motor Activity Signs and Symptoms: Restlessness Judgement: Fair Diagnostics Vital Signs (24Hr): Vital Signs - 24 hr 07/04/24 20:00 07/04/24 20:26 07/05/24 08:00 Temperature 98.5 F 98.2 F Pulse Rate 90 74 Respiratory Rate 18 18 Blood Pressure 137/70 137/70 119/62 Pulse Oximetry 100 96 Oxygen Delivery Method Room Air Room Air BMI result Body Mass Index 25.8 Labs 06/27/24 09:47 06/27/24 09:47 Labs: Laboratory Results - last 48 hr 07/04/24 07/05/24 21:48 09:22 POC Glucose 234 H 179 H Medications Medications Current Medications Acetaminophen (Acetaminophen 325 Mg Tablet) 650 mg PO Q6H PRN PRN Reason: Headache/Pain Mild Scale (1-3) Al Hydroxide/Mg Hydroxide (Magnesium Hydrox/Alum Hydrox 30 Ml Oral.Susp) 30 ml PO Q6H PRN PRN Reason: Heartburn/Nausea Benztropine Mesylate (Benztropine Mesylate 0.5 Mg Tablet) 0.5 mg PO BID PRN PRN Reason: EPS Buprenorphine/Naloxone (Buprenorphine/Naloxone 8/2 Mg Film) 1 film SUBLINGUAL BID [facility] Last Admin: 07/05/24 08:30 Dose: 1 film Bupropion HCl (Bupropion Hcl Xl 300 Mg Tab.Er.24h) 300 mg PO DAILY [facility] Last Admin: 07/05/24 08:30 Dose: 300 mg Bupropion HCl (Bupropion Hcl Xl 150 Mg Tab.Er.24h) 150 mg PO DAILY@1400 [facility] Last Admin: 07/04/24 13:09 Dose: 150 mg Famotidine (Famotidine 20 Mg Tablet) 20 mg PO BID [facility] Last Admin: 07/05/24 08:30 Dose: 20 mg Fluticasone Propionate (Fluticasone Propionate Nasal [address] [place]) 1 spray NOSTRIL-B DAILY PRN PRN Reason: nasal congestion Last Admin: 07/04/24 20:26 Dose: 1 spray Gabapentin (Gabapentin 400 Mg Capsule) 800 mg PO TID [facility] Last Admin: 07/05/24 08:30 Dose: 800 mg Glucose (Glucose Gel 15 Gm Gel..Gram.) 15 gm PO Q15M PRN; Protocol PRN Reason: per Hypoglycemia Standing Ord. Hydroxyzine HCl (Hydroxyzine Hcl 50 Mg Tablet) 50 mg PO TID PRN PRN Reason: Anxiety, agitation Ibuprofen (Ibuprofen 400 Mg Tablet) 400 mg PO TID PRN PRN Reason: Pain, Moderate(Pain Scale 4-6) Last Admin: 07/04/24 20:25 Dose: 400 mg Insulin Glargine (Insulin Glargine,Hum.Rec.Anlog 100 Unit/Ml 10 Ml Vial) 30 unit SUBCUT BEDTIME [facility] Last Admin: 07/04/24 21:59 Dose: 30 unit [place] Carbonate ([place] Carbonate Er 300 Mg Tablet.Er) 600 mg PO BEDTIME [facility] Last Admin: 07/04/24 20:26 Dose: 600 mg Loratadine (Loratadine 10 Mg Tablet) 10 mg PO DAILY [facility] Last Admin: 07/05/24 08:30 Dose: 10 mg Magnesium Hydroxide (Milk Of Magnesia 30 Ml Oral.Susp) 30 ml PO DAILY PRN PRN Reason: Constipation Nicotine (Nicotine 21 Mg Patch.Td24) 21 mg TRANSDERMA DAILY PRN PRN Reason: smoking cessation Nicotine Polacrilex (Nicotine Polacrilex 2 Mg Gum) 4 mg BUCCAL Q2H PRN PRN Reason: Nicotine Cravings Last Admin: 07/04/24 20:54 Dose: 4 mg Prazosin HCl (Prazosin Hcl 1 Mg Capsule) 1 mg PO BEDTIME [facility]; Protocol Last Admin: 07/04/24 20:26 Dose: 1 mg Quetiapine Fumarate (Quetiapine Fumarate 400 Mg Tablet) 400 mg PO BEDTIME [facility] Last Admin: 07/04/24 20:26 Dose: 400 mg Risperidone (Risperidone 1 Mg Tablet) 1 mg PO DAILY PRN PRN Reason: AH/anxiety Last Admin: 07/04/24 15:42 Dose: 1 mg Risperidone (Risperidone 1 Mg Tablet) 1 mg PO DAILY [facility] Last Admin: 07/05/24 08:31 Dose: 1 mg Trazodone HCl (Trazodone Hcl 50 Mg Tablet) 50 mg PO BEDTIME MRX1 PRN PRN Reason: Insomnia Allergies Allergies Allergy/AdvReac Type Severity Reaction Status Date / Time No Known Allergies Allergy Verified 06/27/24 07:42 Assessment & Plan Assessment & Plan (1) Schizoaffective disorder, bipolar type: Status: Acute Code(s): F25.0 - Schizoaffective disorder, bipolar type (2) PTSD (post-traumatic stress disorder): Status: Acute Code(s): F43.10 - Post-traumatic stress disorder, unspecified (3) Alcohol use disorder: Status: Acute Code(s): F10.90 - Alcohol use, unspecified, uncomplicated (4) Cocaine use disorder: Status: Acute Code(s): F14.10 - Cocaine abuse, uncomplicated (5) Opioid use disorder: Status: Acute Code(s): F11.90 - Opioid use, unspecified, uncomplicated Plan Pt is 48 year old female with history schizoaffective disorder, PTSD, cocaine/fentanyl/alcohol use disorder who self presents for worsening depression and SI following suicide attempt by overdose. Patient reports that she was overall doing okay, sober for 6 months, on current medication regimen; she still would have manic and depressive episodes but they were not severe. About a month ago patient's mood started to worsen as the 1 year anniversary of her sister's was approaching; she moved into a sober housing establishment where there was an increase in psychosocial stressors. She started drinking though not every day. At the housing, initially staff told people to come forward with their problems; however patient found the reality was that staff instead were not interested in talking with client's and give a very clear message to keep their problems to themselves; patient felt more and more isolated and drinking increased to about 1/2 pt of vodka more days than not. This past week, patient had a 3 or 4 day mild manic episode after which her depression further worsened, which is typical; patient was bullied by a peer and feeling marginalized and in despair, left the house and for the 1st time in 6 months used crack and fentanyl, wanting to numb herself; she accidentally overdosed and was Narcan. On regaining consciousness she had thoughts that she would have been better off and intentionally tried to overdose on crack and fentanyl over the next day. She says God must have a plan because she did not overdose and so instead self presented to come to the hospital, saying she wanted to get help before it got worse. Patient reports distinct manic episodes that can last anywhere from 3 or 4 days to 2 weeks and very in intensity, during which time she is talking fast, racing mind too fast to write her thoughts down or get her words out, cleaning and re-cleaning excessively, does not sleep, going from project to project, stealing which is very out of character and done without any tact at all; such episodes are typically followed by a depressive episode. Patient endorses AH; she is not sure if it is her own voice and it varies in intensity depending on her mood but is present even when mood is stable, saying words like you are no good, you are worthless, people do not like you and then sometimes escalating to stab yourself, cut yourself. Patient has been consistent on her medication regimen. Formulation/clinical reasoning: Patient is only partially treated with current medication regimen as she continues to have both manic and depressive episodes, both of which induced relapse. Patient is no longer suicidal and is trying to regain hope that she can get back to sobriety and improve mood. Thoroughly reviewed medication history and patient would like to get back on Risperdal despite her experience side effect of galactorrhea, because it was very helpful in stopping manic episodes. She has been on both Risperdal and Seroquel simultaneously and wants to remain on Seroquel, finding the combination helpful and needing Seroquel for sleep; reviewed risks/side effects of being on 2 antipsychotics however patient feels that the benefit outweighs the risk (also considered was Latuda, lithium, Abilify, Depakote...); patient feels that Wellbutrin has also helped her depression and so will remain on this; Zoloft started only a month or 2 ago and has not been helpful. Patient has some mild withdrawal and so will start Ativan taper; no need for CIWA. Regarding diagnosis, patient reports AH even when mood is stable at which time she can ignore it; when depression worsens AH becomes more intense. Patient is not sure if it is her own voice or not but it remains chronically persistent and patient meets criteria for schizoaffective disorder Hospital course: 07/02 remains depressed and still with intermittent SI but not as bad as before; AH remain troublesome. Asks for Wellbutrin to be increased 1st to help with depression and then Risperdal; says she used to be on Wellbutrin b.i.d. which she prefers but will try long-acting now. Patient working on using coping skills that she has learned in therapy to challenge AH; she will tell herself it is not true, it is just lies... 07/03 very sad, tearful, rocking back and forth, wishing she were ; says missing her sister very much. Pt reports overwhelmed with self-deprecating thoughts, says 6months sober and all ruined in one day... Did CBT exercise regarding automatic thoughts; pt said she would try to realize she is not a loser. Discussed medications more and pt agreed to retry lithium; in hindsight, she thinks maybe she did not have an actual side-effect (hair loss). Will hold risperdal 07/04 depressed but little better today, fighting to be hopeful. AH to kill herself but patient does not want to . Slept better with lithium. Pt agrees needs some Risperdal for AH. 07/05 changed prn to 0.5mg tid, keep 1mg for ah which seems a bit better today Plan: CV Q 15 minute checks DC Ativan Continue [place] ER 600mg qhs Labs ordered Risperdal 1 mg daily Risperdal 1 mg daily p.r.n. for AH (used to be at about 4 mg in the past) -Wellbutrin XL 300 mg daily -Wellbutrin XL 150 mg Q 1400 Continue Seroquel 400 q.h.s. DC zoloft: started 4 months ago, no benefit Will make Linusentin p.r.n.; she said on some medication she was getting muscle twitches but she is not on that medication anymore Continue Suboxone 8/2 mg b.i.d. Continue prazosin 1 mg q.h.s. Continue gabapentin 800 mg t.i.d. Started famotidine 20 mg b.i.d. for GERD; patient used to be on omeprazole, will try famotidine instead Med trial Hx: mirtazpine: Not effective for depression prozac: Not effective for depression celexa (partially helpful but was discontinued due to theoretical concern for QTC prolongation and switched to Lexapro; not sure of effectiveness) thorazine: Only partially helpful depakote: Does not remember efficacy [place]: only 2 weeks; thinks she had a side effect Risperdal 4-5mg total (plus seroquel): working well, no manic episodes, but gallatorhea but tolerable Abilify: partially helpful Zyprexa; partially helpful seroquel: helps with sleep (but does not prevent alexandro or depression) Latuda: partially helpful; on it a few months ago; helped with depression, but still had manic episodes Patient educated on: medication risk/benefits Informed Consent: understands Reason for continued inpatient stay Substantial Risk for: harm to self and rapid decompensation Time Spent With Patient Time: Total time managing care of this patient today ____ minutes.
[2024-07-05] MEDS: hydrOXYzine HCL 50 MG TABLET PO (12:34)
[2024-07-05] MEDS: buPROPion HCl XL 150 MG TAB.ER.24H PO (12:35)
[2024-07-05 20:26] VITALS: BP 146/71; PULSE 93; RESP 18; TEMP 36.8; O2SAT 99
[2024-07-05] MEDS: Lithium Carbonate ER 300 MG TABLET.ER 600 MG PO (20:33)
[2024-07-05] MEDS: Prazosin HCL 1 MG CAPSULE PO (20:34)
[2024-07-05] MEDS: Ibuprofen 400 MG TABLET PO (20:34)
[2024-07-05] MEDS: QUEtiapine Fumarate 400 MG TABLET PO (20:34)
[2024-07-05] MEDS: Insulin Glargine,Hum.rec.anlog 100 UNIT/ML 10 ML VIAL 30 UNIT SUBCUT (20:50)
[2024-07-05 21:02] LABS: Glucose, Whole Blood 124 mg/dL (60-115)
[2024-07-06 09:02] VITALS: BP 113/61; PULSE 79; RESP 16; TEMP 37; O2SAT 97
[2024-07-06] MEDS: Buprenorphine/Naloxone 8/2 mg FILM 1 FILM SUBLINGUAL (09:12)
[2024-07-06] MEDS: risperiDONE 1 MG TABLET PO (09:12)
[2024-07-06] MEDS: Gabapentin 400 MG CAPSULE 800 MG PO ×3 (09:12→20:43)
[2024-07-06] MEDS: Famotidine 20 MG TABLET PO ×2 (09:12→20:42)
[2024-07-06] MEDS: buPROPion HCl XL 300 MG TAB.ER.24H PO (09:12)
[2024-07-06] MEDS: Loratadine 10 MG TABLET PO (09:12)
--- NOTE | 2024-07-06 11:11 | HO.PSYCHPN ---
Subjective Subjective Date of Service: 07/06/24 Reason For Visit: Depression Subjective Notes: Conditional Voluntary Healthcare Proxy: No Guardianship: No Medical Problems Affecting Mental Status: No Interim History: 48 yo reports inc anxiety, no cravings, no si slept ok - no side effects of medication - but later reported to nursing that none of meds helping with anxiety - requesting prn ativan aterax and risperidone don't Help- Medication Compliance: Yes Side effects from medications: No Attending Groups: Intermittent Review of Systems Acute medical concerns: No Medical Review of Systems: unchanged Mental Status Exam Mental Status Exam Narrative: moving from foot to foot like restless/or dancing- says she is just waiting to take something for her anxiety until after shower- she is next for shower Patient Appearance: Appropriate Patient Orientation: Person, Place, Time and Situation Level of Consciousness: Awake and Alert Patient Behavior: Appropriate and Cooperative Mood Description: Anxious Affect Description: Blunted Patient Cognition Impaired: No Ability to Follow Directions: Fair Speech Pattern: Clear Thought Process: Intact and Goal Oriented Thought Content: positive for Intact Depressive Symptoms: Increased Anxiety and Muscle Tension Abnormal Motor Activity Signs and Symptoms: Restlessness Judgement: Fair Diagnostics Vital Signs (24Hr): Vital Signs - 24 hr 07/05/24 20:26 07/06/24 09:02 Temperature 98.2 F 98.6 F Pulse Rate 93 79 Respiratory Rate 18 16 Blood Pressure 146/71 H 113/61 Pulse Oximetry 99 97 Oxygen Delivery Method Room Air Room Air BMI result Body Mass Index 25.8 Labs 06/27/24 09:47 06/27/24 09:47 Labs: Laboratory Results - last 48 hr 07/04/24 07/05/24 07/05/24 21:48 09:22 20:41 POC Glucose 234 H 179 H 124 H Medications Medications Current Medications Acetaminophen (Acetaminophen 325 Mg Tablet) 650 mg PO Q6H PRN PRN Reason: Headache/Pain Mild Scale (1-3) Al Hydroxide/Mg Hydroxide (Magnesium Hydrox/Alum Hydrox 30 Ml Oral.Susp) 30 ml PO Q6H PRN PRN Reason: Heartburn/Nausea Benztropine Mesylate (Benztropine Mesylate 0.5 Mg Tablet) 0.5 mg PO BID PRN PRN Reason: EPS Buprenorphine/Naloxone (Buprenorphine/Naloxone 8/2 Mg Film) 1 film SUBLINGUAL BID [facility] Last Admin: 07/06/24 09:12 Dose: 1 film Bupropion HCl (Bupropion Hcl Xl 300 Mg Tab.Er.24h) 300 mg PO DAILY [facility] Last Admin: 07/06/24 09:12 Dose: 300 mg Bupropion HCl (Bupropion Hcl Xl 150 Mg Tab.Er.24h) 150 mg PO DAILY@1400 [facility] Last Admin: 07/05/24 12:35 Dose: 150 mg Famotidine (Famotidine 20 Mg Tablet) 20 mg PO BID [facility] Last Admin: 07/06/24 09:12 Dose: 20 mg Fluticasone Propionate (Fluticasone Propionate Nasal 16 Gm [place]) 1 spray NOSTRIL-B DAILY PRN PRN Reason: nasal congestion Last Admin: 07/04/24 20:26 Dose: 1 spray Gabapentin (Gabapentin 400 Mg Capsule) 800 mg PO TID [facility] Last Admin: 07/06/24 09:12 Dose: 800 mg Glucose (Glucose Gel 15 Gm Gel..Gram.) 15 gm PO Q15M PRN; Protocol PRN Reason: per Hypoglycemia Standing Ord. Hydroxyzine HCl (Hydroxyzine Hcl 50 Mg Tablet) 50 mg PO TID PRN PRN Reason: Anxiety, agitation Last Admin: 07/05/24 12:34 Dose: 50 mg Ibuprofen (Ibuprofen 400 Mg Tablet) 400 mg PO TID PRN PRN Reason: Pain, Moderate(Pain Scale 4-6) Last Admin: 07/05/24 20:34 Dose: 400 mg Insulin Glargine (Insulin Glargine,Hum.Rec.Anlog 100 Unit/Ml 10 Ml Vial) 30 unit SUBCUT BEDTIME [facility] Last Admin: 07/05/24 20:50 Dose: 30 unit [place] Carbonate ([place] Carbonate Er 300 Mg Tablet.Er) 600 mg PO BEDTIME [facility] Last Admin: 07/05/24 20:33 Dose: 600 mg Loratadine (Loratadine 10 Mg Tablet) 10 mg PO DAILY [facility] Last Admin: 07/06/24 09:12 Dose: 10 mg Magnesium Hydroxide (Milk Of Magnesia 30 Ml Oral.Susp) 30 ml PO DAILY PRN PRN Reason: Constipation Nicotine (Nicotine 21 Mg Patch.Td24) 21 mg TRANSDERMA DAILY PRN PRN Reason: smoking cessation Nicotine Polacrilex (Nicotine Polacrilex 2 Mg Gum) 4 mg BUCCAL Q2H PRN PRN Reason: Nicotine Cravings Last Admin: 07/04/24 20:54 Dose: 4 mg Prazosin HCl (Prazosin Hcl 1 Mg Capsule) 1 mg PO BEDTIME [facility]; Protocol Last Admin: 07/05/24 20:34 Dose: 1 mg Quetiapine Fumarate (Quetiapine Fumarate 400 Mg Tablet) 400 mg PO BEDTIME [facility] Last Admin: 07/05/24 20:34 Dose: 400 mg Risperidone (Risperidone 1 Mg Tablet) 1 mg PO DAILY [facility] Last Admin: 07/06/24 09:12 Dose: 1 mg Risperidone (Risperidone 0.5 Mg Tablet) 0.5 mg PO TID PRN PRN Reason: AH/anxiety Trazodone HCl (Trazodone Hcl 50 Mg Tablet) 50 mg PO BEDTIME MRX1 PRN PRN Reason: Insomnia Allergies Allergies Allergy/AdvReac Type Severity Reaction Status Date / Time No Known Allergies Allergy Verified 06/27/24 07:42 Assessment & Plan Assessment & Plan (1) Schizoaffective disorder, bipolar type: Status: Acute Code(s): F25.0 - Schizoaffective disorder, bipolar type (2) PTSD (post-traumatic stress disorder): Status: Acute Code(s): F43.10 - Post-traumatic stress disorder, unspecified (3) Alcohol use disorder: Status: Acute Code(s): F10.90 - Alcohol use, unspecified, uncomplicated (4) Cocaine use disorder: Status: Acute Code(s): F14.10 - Cocaine abuse, uncomplicated (5) Opioid use disorder: Status: Acute Code(s): F11.90 - Opioid use, unspecified, uncomplicated Plan Pt is 48 year old female with history schizoaffective disorder, PTSD, cocaine/fentanyl/alcohol use disorder who self presents for worsening depression and SI following suicide attempt by overdose. Patient reports that she was overall doing okay, sober for 6 months, on current medication regimen; she still would have manic and depressive episodes but they were not severe. About a month ago patient's mood started to worsen as the 1 year anniversary of her sister's was approaching; she moved into a sober housing establishment where there was an increase in psychosocial stressors. She started drinking though not every day. At the housing, initially staff told people to come forward with their problems; however patient found the reality was that staff instead were not interested in talking with client's and give a very clear message to keep their problems to themselves; patient felt more and more isolated and drinking increased to about 1/2 pt of vodka more days than not. This past week, patient had a 3 or 4 day mild manic episode after which her depression further worsened, which is typical; patient was bullied by a peer and feeling marginalized and in despair, left the house and for the 1st time in 6 months used crack and fentanyl, wanting to numb herself; she accidentally overdosed and was Narcan. On regaining consciousness she had thoughts that she would have been better off and intentionally tried to overdose on crack and fentanyl over the next day. She says God must have a plan because she did not overdose and so instead self presented to come to the hospital, saying she wanted to get help before it got worse. Patient reports distinct manic episodes that can last anywhere from 3 or 4 days to 2 weeks and very in intensity, during which time she is talking fast, racing mind too fast to write her thoughts down or get her words out, cleaning and re-cleaning excessively, does not sleep, going from project to project, stealing which is very out of character and done without any tact at all; such episodes are typically followed by a depressive episode. Patient endorses AH; she is not sure if it is her own voice and it varies in intensity depending on her mood but is present even when mood is stable, saying words like you are no good, you are worthless, people do not like you and then sometimes escalating to stab yourself, cut yourself. Patient has been consistent on her medication regimen. Formulation/clinical reasoning: Patient is only partially treated with current medication regimen as she continues to have both manic and depressive episodes, both of which induced relapse. Patient is no longer suicidal and is trying to regain hope that she can get back to sobriety and improve mood. Thoroughly reviewed medication history and patient would like to get back on Risperdal despite her experience side effect of galactorrhea, because it was very helpful in stopping manic episodes. She has been on both Risperdal and Seroquel simultaneously and wants to remain on Seroquel, finding the combination helpful and needing Seroquel for sleep; reviewed risks/side effects of being on 2 antipsychotics however patient feels that the benefit outweighs the risk (also considered was Latuda, lithium, Abilify, Depakote...); patient feels that Wellbutrin has also helped her depression and so will remain on this; Zoloft started only a month or 2 ago and has not been helpful. Patient has some mild withdrawal and so will start Ativan taper; no need for CIWA. Regarding diagnosis, patient reports AH even when mood is stable at which time she can ignore it; when depression worsens AH becomes more intense. Patient is not sure if it is her own voice or not but it remains chronically persistent and patient meets criteria for schizoaffective disorder Hospital course: 07/02 remains depressed and still with intermittent SI but not as bad as before; AH remain troublesome. Asks for Wellbutrin to be increased 1st to help with depression and then Risperdal; says she used to be on Wellbutrin b.i.d. which she prefers but will try long-acting now. Patient working on using coping skills that she has learned in therapy to challenge AH; she will tell herself it is not true, it is just lies... 07/03 very sad, tearful, rocking back and forth, wishing she were ; says missing her sister very much. Pt reports overwhelmed with self-deprecating thoughts, says 6months sober and all ruined in one day... Did CBT exercise regarding automatic thoughts; pt said she would try to realize she is not a loser. Discussed medications more and pt agreed to retry lithium; in hindsight, she thinks maybe she did not have an actual side-effect (hair loss). Will hold risperdal 07/04 depressed but little better today, fighting to be hopeful. AH to kill herself but patient does not want to . Slept better with lithium. Pt agrees needs some Risperdal for AH. 07/05 changed prn to 0.5mg tid, keep 1mg for ah which seems a bit better today 07/06 less psychotic more anxious-but wanting ativan not what is being offered, doesn't seem oleary given hx polysub Plan: CV Q 15 minute checks DC Ativan Continue [place] ER 600mg qhs Labs ordered Risperdal 1 mg daily Risperdal 1 mg daily p.r.n. for AH (used to be at about 4 mg in the past) -Wellbutrin XL 300 mg daily -Wellbutrin XL 150 mg Q 1400 Continue Seroquel 400 q.h.s. DC zoloft: started 4 months ago, no benefit Will make Andi p.r.n.; she said on some medication she was getting muscle twitches but she is not on that medication anymore Continue Suboxone 8/2 mg b.i.d. Continue prazosin 1 mg q.h.s. Continue gabapentin 800 mg t.i.d. Started famotidine 20 mg b.i.d. for GERD; patient used to be on omeprazole, will try famotidine instead Med trial Hx: mirtazpine: Not effective for depression prozac: Not effective for depression celexa (partially helpful but was discontinued due to theoretical concern for QTC prolongation and switched to Lexapro; not sure of effectiveness) thorazine: Only partially helpful depakote: Does not remember efficacy [place]: only 2 weeks; thinks she had a side effect Risperdal 4-5mg total (plus seroquel): working well, no manic episodes, but gallatorhea but tolerable Abilify: partially helpful Zyprexa; partially helpful seroquel: helps with sleep (but does not prevent alexandro or depression) Latuda: partially helpful; on it a few months ago; helped with depression, but still had manic episodes Patient educated on: medication risk/benefits and therapeutic strategies Informed Consent: further education needed Reason for continued inpatient stay Substantial Risk for: rapid decompensation Time Spent With Patient Time: Total time managing care of this patient today ____ minutes.
[2024-07-06] MEDS: buPROPion HCl XL 150 MG TAB.ER.24H PO (14:32)
--- NOTE | 2024-07-06 16:05 | PC.NURSE ---
pt approached TW at 1540 and reported to be extremely anxious, what do I have ? TW explained she had hydroxyzine and risperidone prn for anxiety to which she responded, they don't work. I need the other one I was on, I'm not sure what it was called A-alyssa-van, I think . Pt was tapping her fingers and rocking back and forth while standing at the medication counter and presented as anxious, however, when she walked away, TW observed her laughing and joking with a peer in the hallway and making small talk with no visible signs of anxiety. Provider Yamilka made aware via tiger text. No other medications ordered. Pt is currently withdrawn to room and reading.
[2024-07-06] MEDS: risperiDONE 0.5 MG TABLET PO (17:19)
[2024-07-06] MEDS: hydrOXYzine HCL 50 MG TABLET PO (17:19)
[2024-07-06 20:00] VITALS: BP 131/78; PULSE 82; RESP 18; TEMP 36.7; O2SAT 98
[2024-07-06] MEDS: Insulin Glargine,Hum.rec.anlog 100 UNIT/ML 10 ML VIAL 30 UNIT SUBCUT (20:41)
[2024-07-06] MEDS: Lithium Carbonate ER 300 MG TABLET.ER 600 MG PO (20:42)
[2024-07-06] MEDS: QUEtiapine Fumarate 400 MG TABLET PO (20:42)
[2024-07-06] MEDS: Prazosin HCL 1 MG CAPSULE PO (20:43)
--- NOTE | 2024-07-06 21:16 | PC.NURSE ---
POC 193 prior to PM insulin admin
[2024-07-07 08:00] VITALS: BP 114/62; PULSE 75; RESP 18; TEMP 36.7; O2SAT 97
[2024-07-07 08:27] LABS: Glucose, Whole Blood 193 mg/dL (60-115)
[2024-07-07 08:27] LABS: Glucose, Whole Blood 215 mg/dL (60-115)
[2024-07-07] MEDS: Gabapentin 400 MG CAPSULE 800 MG PO ×3 (08:38→20:24)
[2024-07-07] MEDS: Famotidine 20 MG TABLET PO ×2 (08:38→20:24)
[2024-07-07] MEDS: Loratadine 10 MG TABLET PO (08:38)
[2024-07-07] MEDS: risperiDONE 1 MG TABLET PO ×2 (08:38→14:58)
[2024-07-07] MEDS: buPROPion HCl XL 300 MG TAB.ER.24H PO (08:38)
[2024-07-07] MEDS: Buprenorphine/Naloxone 8/2 mg FILM 1 FILM SUBLINGUAL ×2 (08:39→21:29)
[2024-07-07 08:40] LABS: Glucose, Whole Blood 145 mg/dL (60-115)
--- NOTE | 2024-07-07 09:46 | HO.PSYCHPN ---
Subjective Subjective Date of Service: 07/07/24 Reason For Visit: Depression Interim History: met with patient; discussed with team; reviewed chart mood is better; AH still bothersome and agrees to increase Risperdal. Expresses paranoid thinking, that nursing staff will do things to purposely cause her to lose control. Talked about how it's hard to trust people. Discussed meds Mental Status Exam Mental Status Exam Narrative: Pt is alert and oriented; behavior is more calm; patient is not in distress; dressed in hospital attire with adequate hygiene; mood is described as little better and affect congruent; eye contact appropriate; Speech is normal volume, rate and prosody; some psychomotor retardation present; thought process is organized and goal directed; Thought content is on trying to be hopeful; psychosocial stressors, treatment, dealing with AH, her sister; otherwise pertinent to relevant topics and without any delusional content, paranoid ideations or grandiosity; intermittent passive SI/no HI; intermittent AH. Patients insight and judgment impaired but seems to be improving Diagnostics Vital Signs (24Hr): Vital Signs - 24 hr 07/06/24 20:00 07/07/24 08:00 Temperature 98.0 F 98.1 F Pulse Rate 82 75 Respiratory Rate 18 18 Blood Pressure 131/78 114/62 Pulse Oximetry 98 97 Oxygen Delivery Method Room Air Room Air BMI result Body Mass Index 25.8 Labs 06/27/24 09:47 06/27/24 09:47 Labs: Laboratory Results - last 48 hr 07/05/24 07/06/24 07/06/24 20:41 08:13 20:36 POC Glucose 124 H 215 H 193 H 07/07/24 08:33 POC Glucose 145 H Medications Medications Current Medications Acetaminophen (Acetaminophen 325 Mg Tablet) 650 mg PO Q6H PRN PRN Reason: Headache/Pain Mild Scale (1-3) Al Hydroxide/Mg Hydroxide (Magnesium Hydrox/Alum Hydrox 30 Ml Oral.Susp) 30 ml PO Q6H PRN PRN Reason: Heartburn/Nausea Benztropine Mesylate (Benztropine Mesylate 0.5 Mg Tablet) 0.5 mg PO BID PRN PRN Reason: EPS Buprenorphine/Naloxone (Buprenorphine/Naloxone 8/2 Mg Film) 1 film SUBLINGUAL BID SHAR[facility] Last Admin: 07/07/24 08:39 Dose: 1 film Bupropion HCl (Bupropion Hcl Xl 300 Mg Tab.Er.24h) 300 mg PO DAILY [facility] Last Admin: 07/07/24 08:38 Dose: 300 mg Bupropion HCl (Bupropion Hcl Xl 150 Mg Tab.Er.24h) 150 mg PO DAILY@1400 [facility] Last Admin: 07/06/24 14:32 Dose: 150 mg Famotidine (Famotidine 20 Mg Tablet) 20 mg PO BID [facility] Last Admin: 07/07/24 08:38 Dose: 20 mg Fluticasone Propionate (Fluticasone Propionate Nasal 16 Gm [place]) 1 spray NOSTRIL-B DAILY PRN PRN Reason: nasal congestion Last Admin: 07/04/24 20:26 Dose: 1 spray Gabapentin (Gabapentin 400 Mg Capsule) 800 mg PO TID [facility] Last Admin: 07/07/24 08:38 Dose: 800 mg Glucose (Glucose Gel 15 Gm Gel..Gram.) 15 gm PO Q15M PRN; Protocol PRN Reason: per Hypoglycemia Standing Ord. Hydroxyzine HCl (Hydroxyzine Hcl 50 Mg Tablet) 50 mg PO TID PRN PRN Reason: Anxiety, agitation Last Admin: 07/06/24 17:19 Dose: 50 mg Ibuprofen (Ibuprofen 400 Mg Tablet) 400 mg PO TID PRN PRN Reason: Pain, Moderate(Pain Scale 4-6) Last Admin: 07/05/24 20:34 Dose: 400 mg Insulin Glargine (Insulin Glargine,Hum.Rec.Anlog 100 Unit/Ml 10 Ml Vial) 30 unit SUBCUT BEDTIME [facility] Last Admin: 07/06/24 20:41 Dose: 30 unit [place] Carbonate ([place] Carbonate Er 300 Mg Tablet.Er) 600 mg PO BEDTIME [facility] Last Admin: 07/06/24 20:42 Dose: 600 mg Loratadine (Loratadine 10 Mg Tablet) 10 mg PO DAILY [facility] Last Admin: 07/07/24 08:38 Dose: 10 mg Magnesium Hydroxide (Milk Of Magnesia 30 Ml Oral.Susp) 30 ml PO DAILY PRN PRN Reason: Constipation Nicotine (Nicotine 21 Mg Patch.Td24) 21 mg TRANSDERMA DAILY PRN PRN Reason: smoking cessation Nicotine Polacrilex (Nicotine Polacrilex 2 Mg Gum) 4 mg BUCCAL Q2H PRN PRN Reason: Nicotine Cravings Last Admin: 07/04/24 20:54 Dose: 4 mg Prazosin HCl (Prazosin Hcl 1 Mg Capsule) 1 mg PO BEDTIME [facility]; Protocol Last Admin: 07/06/24 20:43 Dose: 1 mg Quetiapine Fumarate (Quetiapine Fumarate 400 Mg Tablet) 400 mg PO BEDTIME [facility] Last Admin: 07/06/24 20:42 Dose: 400 mg Risperidone (Risperidone 1 Mg Tablet) 1 mg PO DAILY [facility] Last Admin: 07/07/24 08:38 Dose: 1 mg Risperidone (Risperidone 0.5 Mg Tablet) 0.5 mg PO TID PRN PRN Reason: AH/anxiety Last Admin: 07/06/24 17:19 Dose: 0.5 mg Trazodone HCl (Trazodone Hcl 50 Mg Tablet) 50 mg PO BEDTIME MRX1 PRN PRN Reason: Insomnia Allergies Allergies Allergy/AdvReac Type Severity Reaction Status Date / Time No Known Allergies Allergy Verified 06/27/24 07:42 Assessment & Plan Assessment & Plan (1) Schizoaffective disorder, bipolar type: Status: Acute Code(s): F25.0 - Schizoaffective disorder, bipolar type (2) PTSD (post-traumatic stress disorder): Status: Acute Code(s): F43.10 - Post-traumatic stress disorder, unspecified (3) Alcohol use disorder: Status: Acute Code(s): F10.90 - Alcohol use, unspecified, uncomplicated (4) Cocaine use disorder: Status: Acute Code(s): F14.10 - Cocaine abuse, uncomplicated (5) Opioid use disorder: Status: Acute Code(s): F11.90 - Opioid use, unspecified, uncomplicated Plan Pt is 48 year old female with history schizoaffective disorder, PTSD, cocaine/fentanyl/alcohol use disorder who self presents for worsening depression and SI following suicide attempt by overdose. Patient reports that she was overall doing okay, sober for 6 months, on current medication regimen; she still would have manic and depressive episodes but they were not severe. About a month ago patient's mood started to worsen as the 1 year anniversary of her sister's was approaching; she moved into a sober housing establishment where there was an increase in psychosocial stressors. She started drinking though not every day. At the housing, initially staff told people to come forward with their problems; however patient found the reality was that staff instead were not interested in talking with client's and give a very clear message to keep their problems to themselves; patient felt more and more isolated and drinking increased to about 1/2 pt of vodka more days than not. This past week, patient had a 3 or 4 day mild manic episode after which her depression further worsened, which is typical; patient was bullied by a peer and feeling marginalized and in despair, left the house and for the 1st time in 6 months used crack and fentanyl, wanting to numb herself; she accidentally overdosed and was Narcan. On regaining consciousness she had thoughts that she would have been better off and intentionally tried to overdose on crack and fentanyl over the next day. She says God must have a plan because she did not overdose and so instead self presented to come to the hospital, saying she wanted to get help before it got worse. Patient reports distinct manic episodes that can last anywhere from 3 or 4 days to 2 weeks and very in intensity, during which time she is talking fast, racing mind too fast to write her thoughts down or get her words out, cleaning and re-cleaning excessively, does not sleep, going from project to project, stealing which is very out of character and done without any tact at all; such episodes are typically followed by a depressive episode. Patient endorses AH; she is not sure if it is her own voice and it varies in intensity depending on her mood but is present even when mood is stable, saying words like you are no good, you are worthless, people do not like you and then sometimes escalating to stab yourself, cut yourself. Patient has been consistent on her medication regimen. Formulation/clinical reasoning: Patient is only partially treated with current medication regimen as she continues to have both manic and depressive episodes, both of which induced relapse. Patient is no longer suicidal and is trying to regain hope that she can get back to sobriety and improve mood. Thoroughly reviewed medication history and patient would like to get back on Risperdal despite her experience side effect of galactorrhea, because it was very helpful in stopping manic episodes. She has been on both Risperdal and Seroquel simultaneously and wants to remain on Seroquel, finding the combination helpful and needing Seroquel for sleep; reviewed risks/side effects of being on 2 antipsychotics however patient feels that the benefit outweighs the risk (also considered was Latuda, lithium, Abilify, Depakote...); patient feels that Wellbutrin has also helped her depression and so will remain on this; Zoloft started only a month or 2 ago and has not been helpful. Patient has some mild withdrawal and so will start Ativan taper; no need for CIWA. Regarding diagnosis, patient reports AH even when mood is stable at which time she can ignore it; when depression worsens AH becomes more intense. Patient is not sure if it is her own voice or not but it remains chronically persistent and patient meets criteria for schizoaffective disorder Hospital course: 07/02 remains depressed and still with intermittent SI but not as bad as before; AH remain troublesome. Asks for Wellbutrin to be increased 1st to help with depression and then Risperdal; says she used to be on Wellbutrin b.i.d. which she prefers but will try long-acting now. Patient working on using coping skills that she has learned in therapy to challenge AH; she will tell herself it is not true, it is just lies... 07/03 very sad, tearful, rocking back and forth, wishing she were ; says missing her sister very much. Pt reports overwhelmed with self-deprecating thoughts, says 6months sober and all ruined in one day... Did CBT exercise regarding automatic thoughts; pt said she would try to realize she is not a loser. Discussed medications more and pt agreed to retry lithium; in hindsight, she thinks maybe she did not have an actual side-effect (hair loss). Will hold risperdal 07/04 depressed but little better today, fighting to be hopeful. AH to kill herself but patient does not want to . Slept better with lithium. Pt agrees needs some Risperdal for AH. 07/05 changed prn to 0.5mg tid, keep 1mg for ah which seems a bit better today 07/06 less psychotic more anxious-but wanting ativan not what is being offered, doesn't seem oleary given hx polysub 07/07 mood is better; AH still bothersome and agrees to increase Risperdal. Expresses paranoid thinking, that nursing staff will do things to purposely cause her to lose control. Talked about how it's hard to trust people. Discussed meds -paranoia likely combination of ptsd and psychotic illness; despite paranoid thinking, pt able to remain in good behavioral control Plan: CV Q 15 minute checks DC Ativan Continue [place] ER 600mg qhs Labs ordered Risperdal 2 mg daily Risperdal 1 mg daily p.r.n. for AH (used to be at about 4 mg in the past) -Wellbutrin XL 300 mg daily -Wellbutrin XL 150 mg Q 1400 Continue Seroquel 400 q.h.s. DC zoloft: started 4 months ago, no benefit Will make Cogentin p.r.n.; she said on some medication she was getting muscle twitches but she is not on that medication anymore Continue Suboxone 8/2 mg b.i.d. Continue prazosin 1 mg q.h.s. Continue gabapentin 800 mg t.i.d. Started famotidine 20 mg b.i.d. for GERD; patient used to be on omeprazole, will try famotidine instead Med trial Hx: mirtazpine: Not effective for depression prozac: Not effective for depression celexa (partially helpful but was discontinued due to theoretical concern for QTC prolongation and switched to Lexapro; not sure of effectiveness) thorazine: Only partially helpful depakote: Does not remember efficacy [place]: only 2 weeks; thinks she had a side effect Risperdal 4-5mg total (plus seroquel): working well, no manic episodes, but gallatorhea but tolerable Abilify: partially helpful Zyprexa; partially helpful seroquel: helps with sleep (but does not prevent alexandro or depression) Latuda: partially helpful; on it a few months ago; helped with depression, but still had manic episodes Patient educated on: diagnosis, medication risk/benefits and therapeutic strategies Informed Consent: understands Reason for continued inpatient stay Substantial Risk for: stable for discharge and rapid decompensation Time Spent With Patient Time: Total time managing care of this patient today ____ minutes.
--- NOTE | 2024-07-07 10:19 | P.EN_ITS ---
Event Note Date of Service: 07/07/24 Event Note: Consult placed for evaluation of hyperglycemia. The patient came in with a hemoglobin A1c of 5.9%. She is now having intermittent elevated glucose levels in the mid 200s. Glucose level should be checked fasting every morning with goal between 90-130. Goal for glucose levels checked 2 hours after eating should be less than 180. If patient's are snacking within the two hours prior to POC check, then the POC obtained really cannot be accurately used. Would rec ommend diabetic diet and diabetic snacking. Add metformin 500 mg ER. However, patient's diabetes was very well controlled prior to arrival and efforts toward controlling diet should be made. Based on A1c she should not need meds added on discharge and should follow up with pcp to evaluate the need to 30 units of lantus nightly with a1c of 5.9%. Time Spent With Patient Time: Total time managing care of this patient today ____ minutes.
[2024-07-07] MEDS: risperiDONE 0.5 MG TABLET PO (14:07)
[2024-07-07] MEDS: hydrOXYzine HCL 50 MG TABLET PO (14:07)
[2024-07-07] MEDS: metFORMIN HCl ER 500 MG TAB.ER.24H PO (14:07)
[2024-07-07] MEDS: buPROPion HCl XL 150 MG TAB.ER.24H PO (14:07)
[2024-07-07] MEDS: QUEtiapine Fumarate 400 MG TABLET PO (20:24)
[2024-07-07] MEDS: Prazosin HCL 1 MG CAPSULE PO (20:24)
[2024-07-07] MEDS: Lithium Carbonate ER 300 MG TABLET.ER 600 MG PO (20:24)
[2024-07-07 20:30] VITALS: BP 138/72; PULSE 110; RESP 18; TEMP 36.6; O2SAT 97
[2024-07-07] MEDS: Insulin Glargine,Hum.rec.anlog 100 UNIT/ML 10 ML VIAL 30 UNIT SUBCUT (20:44)
[2024-07-07 20:59] LABS: Glucose, Whole Blood 145 mg/dL (60-115)
[2024-07-07] MEDS: Nicotine Polacrilex 2 MG GUM 4 MG BUCCAL (21:29)
[2024-07-08 08:00] VITALS: BP 102/51; PULSE 82; RESP 18; TEMP 36.8; O2SAT 98
[2024-07-08 08:27] LABS: Glucose, Whole Blood 134 mg/dL (60-115)
[2024-07-08] MEDS: Buprenorphine/Naloxone 8/2 mg FILM 1 FILM SUBLINGUAL ×2 (08:40→20:27)
[2024-07-08] MEDS: risperiDONE 2 MG TABLET PO (08:40)
[2024-07-08] MEDS: metFORMIN HCl ER 500 MG TAB.ER.24H PO (08:40)
[2024-07-08] MEDS: Famotidine 20 MG TABLET PO ×2 (08:40→20:27)
[2024-07-08] MEDS: Loratadine 10 MG TABLET PO (08:40)
[2024-07-08] MEDS: Gabapentin 400 MG CAPSULE 800 MG PO ×3 (08:40→20:26)
[2024-07-08] MEDS: buPROPion HCl XL 300 MG TAB.ER.24H PO (08:40)
[2024-07-08] MEDS: Ibuprofen 400 MG TABLET PO ×2 (09:02→14:00)
--- NOTE | 2024-07-08 09:44 | P.PNPSI_ITS ---
Subjective Subjective Date of Service: 07/08/24 Reason For Visit: Depression Interim History: met with patient; discussed with team Patient reports that she is doing okay but that auditory hallucinations are very bothersome. She agrees to increasing Risperdal. Discussed lithium and subtherapeutic level; patient agreed to increase; she asked for it to be given during the day however saying it does not make her that tired. Patient very helpful and caring towards another dysregulated peer Mental Status Exam Mental Status Exam Narrative: Pt is alert and oriented; behavior is more calm; patient is not in distress; dressed in hospital attire with adequate hygiene; mood is described as ok and affect congruent; eye contact appropriate; Speech is normal volume, rate and prosody; no psychomotor retardation/agitation present; thought process is organized and goal directed; Thought content is on treatment, more hopeful about aftercare; dealing with AH, missing her sister; otherwise pertinent to relevant topics and without any delusional content, paranoid ideations or grandiosity; intermittent passive SI/no HI; intermittent AH. Patients insight and judgment improving. Diagnostics Vital Signs (24Hr): Vital Signs - 24 hr 07/07/24 20:30 07/08/24 08:00 Temperature 97.8 F 98.2 F Pulse Rate 110 H 82 Respiratory Rate 18 18 Blood Pressure 138/72 102/51 L Pulse Oximetry 97 98 Oxygen Delivery Method Room Air Room Air BMI result Body Mass Index 25.8 Labs 06/27/24 09:47 07/08/24 10:31 Labs: Laboratory Results - last 48 hr 07/06/24 07/06/24 07/07/24 08:13 20:36 08:33 POC Glucose 215 H 193 H 145 H 07/07/24 07/08/24 20:38 08:23 POC Glucose 145 H 134 H Medications Medications Current Medications Acetaminophen (Acetaminophen 325 Mg Tablet) 650 mg PO Q6H PRN PRN Reason: Headache/Pain Mild Scale (1-3) Al Hydroxide/Mg Hydroxide (Magnesium Hydrox/Alum Hydrox 30 Ml Oral.Susp) 30 ml PO Q6H PRN PRN Reason: Heartburn/Nausea Benztropine Mesylate (Benztropine Mesylate 0.5 Mg Tablet) 0.5 mg PO BID PRN PRN Reason: EPS Buprenorphine/Naloxone (Buprenorphine/Naloxone 8/2 Mg Film) 1 film SUBLINGUAL BID SHARATH Last Admin: 07/08/24 08:40 Dose: 1 film Bupropion HCl (Bupropion Hcl Xl 300 Mg Tab.Er.24h) 300 mg PO DAILY [facility] Last Admin: 07/08/24 08:40 Dose: 300 mg Bupropion HCl (Bupropion Hcl Xl 150 Mg Tab.Er.24h) 150 mg PO DAILY@1400 [facility] Last Admin: 07/07/24 14:07 Dose: 150 mg Famotidine (Famotidine 20 Mg Tablet) 20 mg PO BID [facility] Last Admin: 07/08/24 08:40 Dose: 20 mg Fluticasone Propionate (Fluticasone Propionate Nasal 16 Gm Dyer) 1 spray NOSTRIL-B DAILY PRN PRN Reason: nasal congestion Last Admin: 07/04/24 20:26 Dose: 1 spray Gabapentin (Gabapentin 400 Mg Capsule) 800 mg PO TID [facility] Last Admin: 07/08/24 08:40 Dose: 800 mg Glucose (Glucose Gel 15 Gm Gel..Gram.) 15 gm PO Q15M PRN; Protocol PRN Reason: per Hypoglycemia Standing Ord. Hydroxyzine HCl (Hydroxyzine Hcl 50 Mg Tablet) 50 mg PO TID PRN PRN Reason: Anxiety, agitation Last Admin: 07/07/24 14:07 Dose: 50 mg Ibuprofen (Ibuprofen 400 Mg Tablet) 400 mg PO TID PRN PRN Reason: Pain, Moderate(Pain Scale 4-6) Last Admin: 07/08/24 09:02 Dose: 400 mg Insulin Glargine (Insulin Glargine,Hum.Rec.Anlog 100 Unit/Ml 10 Ml Vial) 30 unit SUBCUT BEDTIME [facility] Last Admin: 07/07/24 20:44 Dose: 30 unit [place] Carbonate ([place] Carbonate Er 300 Mg Tablet.Er) 600 mg PO BEDTIME [facility] Last Admin: 07/07/24 20:24 Dose: 600 mg Loratadine (Loratadine 10 Mg Tablet) 10 mg PO DAILY [facility] Last Admin: 07/08/24 08:40 Dose: 10 mg Magnesium Hydroxide (Milk Of Magnesia 30 Ml Oral.Susp) 30 ml PO DAILY PRN PRN Reason: Constipation Metformin HCl (Metformin Hcl Er 500 Mg Tab.Er.24h) 500 mg PO DAILY [facility] Last Admin: 07/08/24 08:40 Dose: 500 mg Nicotine (Nicotine 21 Mg Patch.Td24) 21 mg TRANSDERMA DAILY PRN PRN Reason: smoking cessation Nicotine Polacrilex (Nicotine Polacrilex 2 Mg Gum) 4 mg BUCCAL Q2H PRN PRN Reason: Nicotine Cravings Last Admin: 07/07/24 21:29 Dose: 4 mg Prazosin HCl (Prazosin Hcl 1 Mg Capsule) 1 mg PO BEDTIME SHARATH; Protocol Last Admin: 07/07/24 20:24 Dose: 1 mg Quetiapine Fumarate (Quetiapine Fumarate 400 Mg Tablet) 400 mg PO BEDTIME SHARATH Last Admin: 07/07/24 20:24 Dose: 400 mg Risperidone (Risperidone 1 Mg Tablet) 1 mg PO DAILY PRN PRN Reason: AH/anxiety Risperidone (Risperidone 2 Mg Tablet) 2 mg PO DAILY SHARATH Last Admin: 07/08/24 08:40 Dose: 2 mg Trazodone HCl (Trazodone Hcl 50 Mg Tablet) 50 mg PO BEDTIME MRX1 PRN PRN Reason: Insomnia Allergies Allergies Allergy/AdvReac Type Severity Reaction Status Date / Time No Known Allergies Allergy Verified 06/27/24 07:42 Assessment & Plan Assessment & Plan (1) Schizoaffective disorder, bipolar type: Status: Acute Code(s): F25.0 - Schizoaffective disorder, bipolar type (2) PTSD (post-traumatic stress disorder): Status: Acute Code(s): F43.10 - Post-traumatic stress disorder, unspecified (3) Alcohol use disorder: Status: Acute Code(s): F10.90 - Alcohol use, unspecified, uncomplicated (4) Cocaine use disorder: Status: Acute Code(s): F14.10 - Cocaine abuse, uncomplicated (5) Opioid use disorder: Status: Acute Code(s): F11.90 - Opioid use, unspecified, uncomplicated Plan Pt is 48 year old female with history schizoaffective disorder, PTSD, cocaine/fentanyl/alcohol use disorder who self presents for worsening depression and SI following suicide attempt by overdose. Patient reports that she was overall doing okay, sober for 6 months, on current medication regimen; she still would have manic and depressive episodes but they were not severe. About a month ago patient's mood started to worsen as the 1 year anniversary of her sister's was approaching; she moved into a sober housing establishment where there was an increase in psychosocial stressors. She started drinking though not every day. At the housing, initially staff told people to come forward with their problems; however patient found the reality was that staff instead were not interested in talking with client's and give a very clear message to keep their problems to themselves; patient felt more and more isolated and drinking increased to about 1/2 pt of vodka more days than not. This past week, patient had a 3 or 4 day mild manic episode after which her depression further worsened, which is typical; patient was bullied by a peer and feeling marginalized and in despair, left the house and for the 1st time in 6 months used crack and fentanyl, wanting to numb herself; she accidentally overdosed and was Narcan. On regaining consciousness she had thoughts that she would have been better off and intentionally tried to overdose on crack and fentanyl over the next day. She says God must have a plan because she did not overdose and so instead self presented to come to the hospital, saying she wanted to get help before it got worse. Patient reports distinct manic episodes that can last anywhere from 3 or 4 days to 2 weeks and very in intensity, during which time she is talking fast, racing mind too fast to write her thoughts down or get her words out, cleaning and re-cleaning excessively, does not sleep, going from project to project, stealing which is very out of character and done without any tact at all; such episodes are typically followed by a depressive episode. Patient endorses AH; she is not sure if it is her own voice and it varies in intensity depending on her mood but is present even when mood is stable, saying words like you are no good, you are worthless, people do not like you and then sometimes escalating to stab yourself, cut yourself. Patient has been consistent on her medication regimen. Formulation/clinical reasoning: Patient is only partially treated with current medication regimen as she continues to have both manic and depressive episodes, both of which induced relapse. Patient is no longer suicidal and is trying to regain hope that she can get back to sobriety and improve mood. Thoroughly reviewed medication history and patient would like to get back on Risperdal despite her experience side effect of galactorrhea, because it was very helpful in stopping manic episodes. She has been on both Risperdal and Seroquel simultaneously and wants to remain on Seroquel, finding the combination helpful and needing Seroquel for sleep; reviewed risks/side effects of being on 2 antipsychotics however patient feels that the benefit outweighs the risk (also considered was Latuda, lithium, Abilify, Depakote...); patient feels that Wellbutrin has also helped her depression and so will remain on this; Zoloft started only a month or 2 ago and has not been helpful. Patient has some mild withdrawal and so will start Ativan taper; no need for CIWA. Regarding diagnosis, patient reports AH even when mood is stable at which time she can ignore it; when depression worsens AH becomes more intense. Patient is not sure if it is her own voice or not but it remains chronically persistent and patient meets criteria for schizoaffective disorder Hospital course: 07/02 remains depressed and still with intermittent SI but not as bad as before; AH remain troublesome. Asks for Wellbutrin to be increased 1st to help with depression and then Risperdal; says she used to be on Wellbutrin b.i.d. which she prefers but will try long-acting now. Patient working on using coping skills that she has learned in therapy to challenge AH; she will tell herself it is not true, it is just lies... 07/03 very sad, tearful, rocking back and forth, wishing she were ; says missing her sister very much. Pt reports overwhelmed with self- deprecating thoughts, says 6months sober and all ruined in one day... Did CBT exercise regarding automatic thoughts; pt said she would try to realize she is not a loser. Discussed medications more and pt agreed to retry lithium; in hindsight, she thinks maybe she did not have an actual side-effect (hair loss). Will hold risperdal 07/04 depressed but little better today, fighting to be hopeful. AH to kill herself but patient does not want to . Slept better with lithium. Pt agrees needs some Risperdal for AH. 07/05 changed prn to 0.5mg tid, keep 1mg for ah which seems a bit better today 07/06 less psychotic more anxious-but wanting ativan not what is being offered, doesn't seem oleary given hx polysub 07/07 mood is better; AH still bothersome and agrees to increase Risperdal. Expresses paranoid thinking, that nursing staff will do things to purposely cause her to lose control. Talked about how it's hard to trust people. Discussed meds -paranoia likely combination of ptsd and psychotic illness; despite paranoid thinking, pt able to remain in good behavioral control 07/08 Patient reports that she is doing okay but that auditory hallucinations are very bothersome. She agrees to increasing Risperdal. Discussed lithium and subtherapeutic level; patient agreed to increase; she asked for it to be given during the day however saying it does not make her that tired. Patient very helpful and caring towards another dysregulated peer -increase Risperdal due to ongoing problematic AH -Increase lithium since current level subtherapeutic and very unlikely to prevent future manic/depressive episodes Plan: CV Q 15 minute checks DC Ativan Increase to [place] ER 900mg at 14:00 Labs ordered Increase to Risperdal 3mg daily Risperdal 1 mg daily p.r.n. for AH (used to be at about 4 mg in the past) -Wellbutrin XL 300 mg daily -Wellbutrin XL 150 mg Q 1400 Continue Seroquel 400 q.h.s. DC zoloft: started 4 months ago, no benefit Will make Cogentin p.r.n.; she said on some medication she was getting muscle twitches but she is not on that medication anymore Continue Suboxone 8/2 mg b.i.d. Continue prazosin 1 mg q.h.s. Continue gabapentin 800 mg t.i.d. Started famotidine 20 mg b.i.d. for GERD; patient used to be on omeprazole, will try famotidine instead Med trial Hx: mirtazpine: Not effective for depression prozac: Not effective for depression celexa (partially helpful but was discontinued due to theoretical concern for QTC prolongation and switched to Lexapro; not sure of effectiveness) thorazine: Only partially helpful depakote: Does not remember efficacy [place]: only 2 weeks; thinks she had a side effect Risperdal 4-5mg total (plus seroquel): working well, no manic episodes, but gallatorhea but tolerable Abilify: partially helpful Zyprexa; partially helpful seroquel: helps with sleep (but does not prevent alexandro or depression) Latuda: partially helpful; on it a few months ago; helped with depression, but still had manic episodes Patient educated on: diagnosis, medication risk/benefits and therapeutic strategies Informed Consent: understands Reason for continued inpatient stay Substantial Risk for: rapid decompensation Time Spent With Patient Time: Total time managing care of this patient today ____ minutes.
[2024-07-08 10:57] LABS: Lithium 0.41 mmol/L (0.60-1.20)
[2024-07-08 11:08] LABS: Blood Urea Nitrogen 12 mg/dL (9-16); Creatinine Clr Calc Pharmacy 94.2; Estimated Glomerular Filt Rate > 60
[2024-07-08 11:20] LABS: TSH reflex Free T4 1.76 uIU/mL (0.32-4.0)
[2024-07-08] MEDS: hydrOXYzine HCL 50 MG TABLET PO (12:31)
[2024-07-08] MEDS: buPROPion HCl XL 150 MG TAB.ER.24H PO (14:01)
[2024-07-08] MEDS: risperiDONE 1 MG TABLET PO (14:01)
[2024-07-08] MEDS: Nicotine Polacrilex 2 MG GUM 4 MG BUCCAL ×2 (17:00→21:24)
[2024-07-08] MEDS: Lithium Carbonate ER 450 MG TABLET.ER 900 MG PO (17:01)
[2024-07-08 17:36] LABS: Glucose, Whole Blood 138 mg/dL (60-115)
[2024-07-08 20:00] VITALS: BP 135/77; PULSE 90; RESP 18; TEMP 36.4; O2SAT 100
[2024-07-08 20:24] LABS: Glucose, Whole Blood 121 mg/dL (60-115)
[2024-07-08 20:26] VITALS: BP 135/77
[2024-07-08] MEDS: Prazosin HCL 1 MG CAPSULE PO (20:26)
[2024-07-08] MEDS: QUEtiapine Fumarate 400 MG TABLET PO (20:27)
[2024-07-08] MEDS: Insulin Glargine,Hum.rec.anlog 100 UNIT/ML 10 ML VIAL 30 UNIT SUBCUT (20:28)
[2024-07-09 07:54] LABS: Glucose, Whole Blood 156 mg/dL (60-115)
[2024-07-09 08:00] VITALS: BP 117/58; PULSE 78; TEMP 36.7; O2SAT 98
[2024-07-09] MEDS: Buprenorphine/Naloxone 8/2 mg FILM 1 FILM SUBLINGUAL ×2 (09:11→20:16)
[2024-07-09] MEDS: Gabapentin 400 MG CAPSULE 800 MG PO ×3 (09:11→20:16)
[2024-07-09] MEDS: risperiDONE 3 MG TABLET PO (09:12)
[2024-07-09] MEDS: metFORMIN HCl ER 500 MG TAB.ER.24H PO (09:12)
[2024-07-09] MEDS: Famotidine 20 MG TABLET PO ×2 (09:12→20:16)
[2024-07-09] MEDS: Loratadine 10 MG TABLET PO (09:12)
[2024-07-09] MEDS: buPROPion HCl XL 300 MG TAB.ER.24H PO (09:12)
[2024-07-09] MEDS: Ibuprofen 400 MG TABLET PO ×2 (09:54→20:16)
[2024-07-09] MEDS: buPROPion HCl XL 150 MG TAB.ER.24H PO (13:31)
[2024-07-09] MEDS: Lithium Carbonate ER 450 MG TABLET.ER 900 MG PO (13:31)
[2024-07-09 13:45] LABS: Glucose, Whole Blood 244 mg/dL (60-115)
[2024-07-09] MEDS: Nicotine 21 MG PATCH.TD24 TRANSDERMA (16:12)
[2024-07-09] MEDS: Nicotine Polacrilex 2 MG GUM 4 MG BUCCAL ×4 (16:12→23:26)
[2024-07-09] MEDS: hydrOXYzine HCL 50 MG TABLET PO ×2 (16:22→20:17)
[2024-07-09 16:58] LABS: Glucose, Whole Blood 107 mg/dL (60-115)
[2024-07-09] MEDS: risperiDONE 1 MG TABLET PO (17:59)
--- NOTE | 2024-07-09 18:48 | P.PNPSI_ITS ---
Subjective Subjective Date of Service: 07/09/24 Reason For Visit: Depression Interim History: Met with patient; discussed with team patient says she is feeling little better. Has an interview this afternoon with Esme for admission to [facility]. Patient is hopeful Mental Status Exam Mental Status Exam Narrative: Pt is alert and oriented; behavior is more calm; patient is not in distress; dressed in hospital attire with adequate hygiene; mood is described as ok and affect congruent; eye contact appropriate; Speech is normal volume, rate and prosody; no psychomotor retardation/agitation present; thought process is organized and goal directed; Thought content is on treatment, more hopeful about aftercare; dealing with AH, missing her sister; otherwise pertinent to relevant topics and without any delusional content, paranoid ideations or grandiosity; intermittent passive SI/no HI; intermittent AH. Patients insight and judgment fair. Diagnostics Vital Signs (24Hr): Vital Signs - 24 hr 07/08/24 20:00 07/08/24 20:26 07/09/24 08:00 Temperature 97.6 F 98.1 F Pulse Rate 90 78 Respiratory Rate 18 Blood Pressure 135/77 135/77 117/58 L Pulse Oximetry 100 98 Oxygen Delivery Method Room Air Room Air BMI result Body Mass Index 25.8 Labs 06/27/24 09:47 07/08/24 10:31 Labs: Laboratory Results - last 48 hr 07/07/24 07/08/24 07/08/24 20:38 08:23 10:31 BUN 12 Creatinine 0.78 Estim Creat Clear Calc 94.2 Estimated GFR > 60 POC Glucose 145 H 134 H TSH 1.76 [place] 0.41 L 07/08/24 07/08/24 07/09/24 17:33 20:20 07:45 BUN Creatinine Estim Creat Clear Calc Estimated GFR POC Glucose 138 H 121 H 156 H TSH [place] 07/09/24 07/09/24 13:41 16:53 BUN Creatinine Estim Creat Clear Calc Estimated GFR POC Glucose 244 H 107 TSH [place] Medications Medications Current Medications Acetaminophen (Acetaminophen 325 Mg Tablet) 650 mg PO Q6H PRN PRN Reason: Headache/Pain Mild Scale (1-3) Al Hydroxide/Mg Hydroxide (Magnesium Hydrox/Alum Hydrox 30 Ml Oral.Susp) 30 ml PO Q6H PRN PRN Reason: Heartburn/Nausea Benztropine Mesylate (Benztropine Mesylate 0.5 Mg Tablet) 0.5 mg PO BID PRN PRN Reason: EPS Buprenorphine/Naloxone (Buprenorphine/Naloxone 8/2 Mg Film) 1 film SUBLINGUAL BID [facility] Last Admin: 07/09/24 09:11 Dose: 1 film Bupropion HCl (Bupropion Hcl Xl 300 Mg Tab.Er.24h) 300 mg PO DAILY [facility] Last Admin: 07/09/24 09:12 Dose: 300 mg Bupropion HCl (Bupropion Hcl Xl 150 Mg Tab.Er.24h) 150 mg PO DAILY@1400 [facility] Last Admin: 07/09/24 13:31 Dose: 150 mg Famotidine (Famotidine 20 Mg Tablet) 20 mg PO BID [facility] Last Admin: 07/09/24 09:12 Dose: 20 mg Fluticasone Propionate (Fluticasone Propionate Nasal 16 Gm [place]) 1 spray NOSTRIL-B DAILY PRN PRN Reason: nasal congestion Last Admin: 07/04/24 20:26 Dose: 1 spray Gabapentin (Gabapentin 400 Mg Capsule) 800 mg PO TID [facility] Last Admin: 07/09/24 16:10 Dose: 800 mg Glucose (Glucose Gel 15 Gm Gel..Gram.) 15 gm PO Q15M PRN; Protocol PRN Reason: per Hypoglycemia Standing Ord. Hydroxyzine HCl (Hydroxyzine Hcl 50 Mg Tablet) 50 mg PO TID PRN PRN Reason: Anxiety, agitation Last Admin: 07/09/24 16:22 Dose: 50 mg Ibuprofen (Ibuprofen 400 Mg Tablet) 400 mg PO TID PRN PRN Reason: Pain, Moderate(Pain Scale 4-6) Last Admin: 07/09/24 09:54 Dose: 400 mg Insulin Glargine (Insulin Glargine,Hum.Rec.Anlog 100 Unit/Ml 10 Ml Vial) 30 unit SUBCUT BEDTIME [facility] Last Admin: 07/08/24 20:28 Dose: 30 unit [place] Carbonate ([place] Carbonate Er 450 Mg Tablet.Er) 900 mg PO DAILY@1400 [facility] Last Admin: 07/09/24 13:31 Dose: 900 mg Loratadine (Loratadine 10 Mg Tablet) 10 mg PO DAILY [facility] Last Admin: 07/09/24 09:12 Dose: 10 mg Magnesium Hydroxide (Milk Of Magnesia 30 Ml Oral.Susp) 30 ml PO DAILY PRN PRN Reason: Constipation Metformin HCl (Metformin Hcl Er 500 Mg Tab.Er.24h) 500 mg PO DAILY [facility] Last Admin: 07/09/24 09:12 Dose: 500 mg Nicotine (Nicotine 21 Mg Patch.Td24) 21 mg TRANSDERMA DAILY PRN PRN Reason: smoking cessation Last Admin: 07/09/24 16:12 Dose: 21 mg Nicotine Polacrilex (Nicotine Polacrilex 2 Mg Gum) 4 mg BUCCAL Q2H PRN PRN Reason: Nicotine Cravings Last Admin: 07/09/24 17:59 Dose: 4 mg Prazosin HCl (Prazosin Hcl 1 Mg Capsule) 1 mg PO BEDTIME [facility]; Protocol Last Admin: 07/08/24 20:26 Dose: 1 mg Quetiapine Fumarate (Quetiapine Fumarate 400 Mg Tablet) 400 mg PO BEDTIME [facility] Last Admin: 07/08/24 20:27 Dose: 400 mg Risperidone (Risperidone 1 Mg Tablet) 1 mg PO DAILY PRN PRN Reason: AH/anxiety Last Admin: 07/09/24 17:59 Dose: 1 mg Risperidone (Risperidone 3 Mg Tablet) 3 mg PO DAILY [facility] Last Admin: 07/09/24 09:12 Dose: 3 mg Trazodone HCl (Trazodone Hcl 50 Mg Tablet) 50 mg PO BEDTIME MRX1 PRN PRN Reason: Insomnia Allergies Allergies Allergy/AdvReac Type Severity Reaction Status Date / Time No Known Allergies Allergy Verified 06/27/24 07:42 Assessment & Plan Assessment & Plan (1) Schizoaffective disorder, bipolar type: Status: Acute Code(s): F25.0 - Schizoaffective disorder, bipolar type (2) PTSD (post-traumatic stress disorder): Status: Acute Code(s): F43.10 - Post-traumatic stress disorder, unspecified (3) Alcohol use disorder: Status: Acute Code(s): F10.90 - Alcohol use, unspecified, uncomplicated (4) Cocaine use disorder: Status: Acute Code(s): F14.10 - Cocaine abuse, uncomplicated (5) Opioid use disorder: Status: Acute Code(s): F11.90 - Opioid use, unspecified, uncomplicated Plan Pt is 48 year old female with history schizoaffective disorder, PTSD, cocaine/fentanyl/alcohol use disorder who self presents for worsening depression and SI following suicide attempt by overdose. Patient reports that she was overall doing okay, sober for 6 months, on current medication regimen; she still would have manic and depressive episodes but they were not severe. About a month ago patient's mood started to worsen as the 1 year anniversary of her sister's was approaching; she moved into a sober housing establishment where there was an increase in psychosocial stressors. She started drinking though not every day. At the housing, initially staff told people to come forward with their problems; however patient found the reality was that staff instead were not interested in talking with client's and give a very clear message to keep their problems to themselves; patient felt more and more isolated and drinking increased to about 1/2 pt of vodka more days than not. This past week, patient had a 3 or 4 day mild manic episode after which her depression further worsened, which is typical; patient was bullied by a peer and feeling marginalized and in despair, left the house and for the 1st time in 6 months used crack and fentanyl, wanting to numb herself; she accidentally overdosed and was Narcan. On regaining consciousness she had thoughts that she would have been better off and intentionally tried to overdose on crack and fentanyl over the next day. She says God must have a plan because she did not overdose and so instead self presented to come to the hospital, saying she wanted to get help before it got worse. Patient reports distinct manic episodes that can last anywhere from 3 or 4 days to 2 weeks and very in intensity, during which time she is talking fast, racing mind too fast to write her thoughts down or get her words out, cleaning and re-cleaning excessively, does not sleep, going from project to project, stealing which is very out of character and done without any tact at all; such episodes are typically followed by a depressive episode. Patient endorses AH; she is not sure if it is her own voice and it varies in intensity depending on her mood but is present even when mood is stable, saying words like you are no good, you are worthless, people do not like you and then sometimes escalating to stab yourself, cut yourself. Patient has been consistent on her medication regimen. Formulation/clinical reasoning: Patient is only partially treated with current medication regimen as she continues to have both manic and depressive episodes, both of which induced relapse. Patient is no longer suicidal and is trying to regain hope that she can get back to sobriety and improve mood. Thoroughly reviewed medication history and patient would like to get back on Risperdal despite her experience side effect of galactorrhea, because it was very helpful in stopping manic episodes. She has been on both Risperdal and Seroquel simultaneously and wants to remain on Seroquel, finding the combination helpful and needing Seroquel for sleep; reviewed risks/side effects of being on 2 antipsychotics however patient feels that the benefit outweighs the risk (also considered was Latuda, lithium, Abilify, Depakote...); patient feels that Wellbutrin has also helped her depression and so will remain on this; Zoloft started only a month or 2 ago and has not been helpful. Patient has some mild withdrawal and so will start Ativan taper; no need for CIWA. Regarding diagnosis, patient reports AH even when mood is stable at which time she can ignore it; when depression worsens AH becomes more intense. Patient is not sure if it is her own voice or not but it remains chronically persistent and patient meets criteria for schizoaffective disorder Hospital course: 07/02 remains depressed and still with intermittent SI but not as bad as before; AH remain troublesome. Asks for Wellbutrin to be increased 1st to help with depression and then Risperdal; says she used to be on Wellbutrin b.i.d. which she prefers but will try long-acting now. Patient working on using coping skills that she has learned in therapy to challenge AH; she will tell herself it is not true, it is just lies... 07/03 very sad, tearful, rocking back and forth, wishing she were ; says missing her sister very much. Pt reports overwhelmed with self- deprecating thoughts, says 6months sober and all ruined in one day... Did CBT exercise regarding automatic thoughts; pt said she would try to realize she is not a loser. Discussed medications more and pt agreed to retry lithium; in hindsight, she thinks maybe she did not have an actual side-effect (hair loss). Will hold risperdal 07/04 depressed but little better today, fighting to be hopeful. AH to kill herself but patient does not want to . Slept better with lithium. Pt agrees needs some Risperdal for AH. 07/05 changed prn to 0.5mg tid, keep 1mg for ah which seems a bit better today 07/06 less psychotic more anxious-but wanting ativan not what is being offered, doesn't seem oleary given hx polysub 07/07 mood is better; AH still bothersome and agrees to increase Risperdal. Expresses paranoid thinking, that nursing staff will do things to purposely cause her to lose control. Talked about how it's hard to trust people. Discussed meds -paranoia likely combination of ptsd and psychotic illness; despite paranoid thinking, pt able to remain in good behavioral control 07/08 Patient reports that she is doing okay but that auditory hallucinations are very bothersome. She agrees to increasing Risperdal. Discussed lithium and subtherapeutic level; patient agreed to increase; she asked for it to be given during the day however saying it does not make her that tired. Patient very helpful and caring towards another dysregulated peer -increase Risperdal due to ongoing problematic AH -Increase lithium since current level subtherapeutic and very unlikely to prevent future manic/depressive episodes 07/09 continue treatment plan Plan: CV Q 15 minute checks DC Ativan Increase to [place] ER 900mg at 14:00 Labs ordered Increase to Risperdal 3mg daily Risperdal 1 mg daily p.r.n. for AH (used to be at about 4 mg in the past) -Wellbutrin XL 300 mg daily -Wellbutrin XL 150 mg Q 1400 Continue Seroquel 400 q.h.s. DC zoloft: started 4 months ago, no benefit Will make Cogentin p.r.n.; she said on some medication she was getting muscle twitches but she is not on that medication anymore Continue Suboxone 8/2 mg b.i.d. Continue prazosin 1 mg q.h.s. Continue gabapentin 800 mg t.i.d. Started famotidine 20 mg b.i.d. for GERD; patient used to be on omeprazole, will try famotidine instead Med trial Hx: mirtazpine: Not effective for depression prozac: Not effective for depression celexa (partially helpful but was discontinued due to theoretical concern for QTC prolongation and switched to Lexapro; not sure of effectiveness) thorazine: Only partially helpful depakote: Does not remember efficacy [place]: only 2 weeks; thinks she had a side effect Risperdal 4-5mg total (plus seroquel): working well, no manic episodes, but gallatorhea but tolerable Abilify: partially helpful Zyprexa; partially helpful seroquel: helps with sleep (but does not prevent alexandro or depression) Latuda: partially helpful; on it a few months ago; helped with depression, but still had manic episodes Patient educated on: diagnosis Informed Consent: understands Reason for continued inpatient stay Substantial Risk for: stable for discharge and rapid decompensation Time Spent With Patient Time: Total time managing care of this patient today ____ minutes.
[2024-07-09 20:00] VITALS: BP 137/83; RESP 18; TEMP 36.7; O2SAT 97
[2024-07-09 20:16] VITALS: BP 137/83
[2024-07-09] MEDS: Prazosin HCL 1 MG CAPSULE PO (20:16)
[2024-07-09] MEDS: QUEtiapine Fumarate 400 MG TABLET PO (20:17)
[2024-07-09 20:48] LABS: Glucose, Whole Blood 148 mg/dL (60-115)
[2024-07-09] MEDS: Insulin Glargine,Hum.rec.anlog 100 UNIT/ML 10 ML VIAL 30 UNIT SUBCUT (21:02)
[2024-07-10 07:00] VITALS: BMI 27.0
[2024-07-10 08:00] VITALS: BP 117/61; PULSE 68; RESP 16; TEMP 36.8; O2SAT 97
[2024-07-10 08:10] LABS: Glucose, Whole Blood 110 mg/dL (60-115)
[2024-07-10] MEDS: Gabapentin 400 MG CAPSULE 800 MG PO ×3 (09:14→20:24)
[2024-07-10] MEDS: Buprenorphine/Naloxone 8/2 mg FILM 1 FILM SUBLINGUAL ×2 (09:15→20:24)
[2024-07-10] MEDS: metFORMIN HCl ER 500 MG TAB.ER.24H PO (09:15)
[2024-07-10] MEDS: Loratadine 10 MG TABLET PO (09:15)
[2024-07-10] MEDS: Famotidine 20 MG TABLET PO ×2 (09:15→20:24)
[2024-07-10] MEDS: risperiDONE 3 MG TABLET PO (09:15)
[2024-07-10] MEDS: buPROPion HCl XL 300 MG TAB.ER.24H PO (09:15)
[2024-07-10] MEDS: Ibuprofen 400 MG TABLET PO (11:19)
--- NOTE | 2024-07-10 11:51 | HO.PSYCHPN ---
Subjective Subjective Date of Service: 07/10/24 Reason For Visit: Depression Interim History: Met with patient; discussed with team Patient reports mood is steadily improving and she is feeling more in control. AH remains however she says it is a little less since increased Risperdal dose. Discussed approach and patient agrees to keep Risperdal where it is for now and see if there is an improving affect; she says in the past she down to place for she had no AH at all. Discussed aftercare and patient had a good conversation with [facility] and is hopeful that she will be able to go there. Mental Status Exam Mental Status Exam Narrative: Pt is alert and oriented; behavior is more calm; patient is not in distress; dressed in hospital attire with adequate hygiene; mood is described as ok and affect congruent; eye contact appropriate; Speech is normal volume, rate and prosody; no psychomotor retardation/agitation present; thought process is organized and goal directed; Thought content is on treatment, more hopeful about aftercare; dealing with AH, missing her sister; otherwise pertinent to relevant topics and without any delusional content, paranoid ideations or grandiosity; intermittent passive SI/no HI; intermittent AH. Patients insight and judgment fair. Diagnostics Vital Signs (24Hr): Vital Signs - 24 hr 07/09/24 20:00 07/09/24 20:16 07/10/24 08:00 Temperature 98.0 F 98.3 F Pulse Rate 68 Respiratory Rate 18 16 Blood Pressure 137/83 137/83 117/61 Pulse Oximetry 97 97 Oxygen Delivery Method Room Air Room Air BMI result Body Mass Index 27.0 Labs 06/27/24 09:47 07/08/24 10:31 Labs: Laboratory Results - last 48 hr 07/08/24 07/08/24 07/09/24 17:33 20:20 07:45 POC Glucose 138 H 121 H 156 H 07/09/24 07/09/24 07/09/24 13:41 16:53 20:43 POC Glucose 244 H 107 148 H 07/10/24 08:04 POC Glucose 110 Medications Medications Current Medications Acetaminophen (Acetaminophen 325 Mg Tablet) 650 mg PO Q6H PRN PRN Reason: Headache/Pain Mild Scale (1-3) Al Hydroxide/Mg Hydroxide (Magnesium Hydrox/Alum Hydrox 30 Ml Oral.Susp) 30 ml PO Q6H PRN PRN Reason: Heartburn/Nausea Benztropine Mesylate (Benztropine Mesylate 0.5 Mg Tablet) 0.5 mg PO BID PRN PRN Reason: EPS Buprenorphine/Naloxone (Buprenorphine/Naloxone 8/2 Mg Film) 1 film SUBLINGUAL BID [facility] Last Admin: 07/10/24 09:15 Dose: 1 film Bupropion HCl (Bupropion Hcl Xl 300 Mg Tab.Er.24h) 300 mg PO DAILY [facility] Last Admin: 07/10/24 09:15 Dose: 300 mg Bupropion HCl (Bupropion Hcl Xl 150 Mg Tab.Er.24h) 150 mg PO DAILY@1400 [facility] Last Admin: 07/09/24 13:31 Dose: 150 mg Famotidine (Famotidine 20 Mg Tablet) 20 mg PO BID [facility] Last Admin: 07/10/24 09:15 Dose: 20 mg Fluticasone Propionate (Fluticasone Propionate Nasal 16 Gm [place]) 1 spray NOSTRIL-B DAILY PRN PRN Reason: nasal congestion Last Admin: 07/04/24 20:26 Dose: 1 spray Gabapentin (Gabapentin 400 Mg Capsule) 800 mg PO TID [facility] Last Admin: 07/10/24 09:14 Dose: 800 mg Glucose (Glucose Gel 15 Gm Gel..Gram.) 15 gm PO Q15M PRN; Protocol PRN Reason: per Hypoglycemia Standing Ord. Hydroxyzine HCl (Hydroxyzine Hcl 50 Mg Tablet) 50 mg PO TID PRN PRN Reason: Anxiety, agitation Last Admin: 07/09/24 20:17 Dose: 50 mg Ibuprofen (Ibuprofen 400 Mg Tablet) 400 mg PO TID PRN PRN Reason: Pain, Moderate(Pain Scale 4-6) Last Admin: 07/10/24 11:19 Dose: 400 mg Insulin Glargine (Insulin Glargine,Hum.Rec.Anlog 100 Unit/Ml 10 Ml Vial) 30 unit SUBCUT BEDTIME [facility] Last Admin: 07/09/24 21:02 Dose: 30 unit [place] Carbonate ([place] Carbonate Er 450 Mg Tablet.Er) 900 mg PO DAILY@1400 [facility] Last Admin: 07/09/24 13:31 Dose: 900 mg Loratadine (Loratadine 10 Mg Tablet) 10 mg PO DAILY [facility] Last Admin: 07/10/24 09:15 Dose: 10 mg Magnesium Hydroxide (Milk Of Magnesia 30 Ml Oral.Susp) 30 ml PO DAILY PRN PRN Reason: Constipation Metformin HCl (Metformin Hcl Er 500 Mg Tab.Er.24h) 500 mg PO DAILY [facility] Last Admin: 07/10/24 09:15 Dose: 500 mg Nicotine (Nicotine 21 Mg Patch.Td24) 21 mg TRANSDERMA DAILY PRN PRN Reason: smoking cessation Last Admin: 07/09/24 16:12 Dose: 21 mg Nicotine Polacrilex (Nicotine Polacrilex 2 Mg Gum) 4 mg BUCCAL Q2H PRN PRN Reason: Nicotine Cravings Last Admin: 07/09/24 23:26 Dose: 4 mg Prazosin HCl (Prazosin Hcl 1 Mg Capsule) 1 mg PO BEDTIME [facility]; Protocol Last Admin: 07/09/24 20:16 Dose: 1 mg Quetiapine Fumarate (Quetiapine Fumarate 400 Mg Tablet) 400 mg PO BEDTIME [facility] Last Admin: 07/09/24 20:17 Dose: 400 mg Risperidone (Risperidone 1 Mg Tablet) 1 mg PO DAILY PRN PRN Reason: AH/anxiety Last Admin: 07/09/24 17:59 Dose: 1 mg Risperidone (Risperidone 3 Mg Tablet) 3 mg PO DAILY [facility] Last Admin: 07/10/24 09:15 Dose: 3 mg Trazodone HCl (Trazodone Hcl 50 Mg Tablet) 50 mg PO BEDTIME MRX1 PRN PRN Reason: Insomnia Allergies Allergies Allergy/AdvReac Type Severity Reaction Status Date / Time No Known Allergies Allergy Verified 06/27/24 07:42 Assessment & Plan Assessment & Plan (1) Schizoaffective disorder, bipolar type: Status: Acute Code(s): F25.0 - Schizoaffective disorder, bipolar type (2) PTSD (post-traumatic stress disorder): Status: Acute Code(s): F43.10 - Post-traumatic stress disorder, unspecified (3) Alcohol use disorder: Status: Acute Code(s): F10.90 - Alcohol use, unspecified, uncomplicated (4) Cocaine use disorder: Status: Acute Code(s): F14.10 - Cocaine abuse, uncomplicated (5) Opioid use disorder: Status: Acute Code(s): F11.90 - Opioid use, unspecified, uncomplicated Plan Pt is 48 year old female with history schizoaffective disorder, PTSD, cocaine/fentanyl/alcohol use disorder who self presents for worsening depression and SI following suicide attempt by overdose. Patient reports that she was overall doing okay, sober for 6 months, on current medication regimen; she still would have manic and depressive episodes but they were not severe. About a month ago patient's mood started to worsen as the 1 year anniversary of her sister's was approaching; she moved into a sober housing establishment where there was an increase in psychosocial stressors. She started drinking though not every day. At the housing, initially staff told people to come forward with their problems; however patient found the reality was that staff instead were not interested in talking with client's and give a very clear message to keep their problems to themselves; patient felt more and more isolated and drinking increased to about 1/2 pt of vodka more days than not. This past week, patient had a 3 or 4 day mild manic episode after which her depression further worsened, which is typical; patient was bullied by a peer and feeling marginalized and in despair, left the house and for the 1st time in 6 months used crack and fentanyl, wanting to numb herself; she accidentally overdosed and was Narcan. On regaining consciousness she had thoughts that she would have been better off and intentionally tried to overdose on crack and fentanyl over the next day. She says God must have a plan because she did not overdose and so instead self presented to come to the hospital, saying she wanted to get help before it got worse. Patient reports distinct manic episodes that can last anywhere from 3 or 4 days to 2 weeks and very in intensity, during which time she is talking fast, racing mind too fast to write her thoughts down or get her words out, cleaning and re-cleaning excessively, does not sleep, going from project to project, stealing which is very out of character and done without any tact at all; such episodes are typically followed by a depressive episode. Patient endorses AH; she is not sure if it is her own voice and it varies in intensity depending on her mood but is present even when mood is stable, saying words like you are no good, you are worthless, people do not like you and then sometimes escalating to stab yourself, cut yourself. Patient has been consistent on her medication regimen. Formulation/clinical reasoning: Patient is only partially treated with current medication regimen as she continues to have both manic and depressive episodes, both of which induced relapse. Patient is no longer suicidal and is trying to regain hope that she can get back to sobriety and improve mood. Thoroughly reviewed medication history and patient would like to get back on Risperdal despite her experience side effect of galactorrhea, because it was very helpful in stopping manic episodes. She has been on both Risperdal and Seroquel simultaneously and wants to remain on Seroquel, finding the combination helpful and needing Seroquel for sleep; reviewed risks/side effects of being on 2 antipsychotics however patient feels that the benefit outweighs the risk (also considered was Latuda, lithium, Abilify, Depakote...); patient feels that Wellbutrin has also helped her depression and so will remain on this; Zoloft started only a month or 2 ago and has not been helpful. Patient has some mild withdrawal and so will start Ativan taper; no need for CIWA. Regarding diagnosis, patient reports AH even when mood is stable at which time she can ignore it; when depression worsens AH becomes more intense. Patient is not sure if it is her own voice or not but it remains chronically persistent and patient meets criteria for schizoaffective disorder Hospital course: 07/02 remains depressed and still with intermittent SI but not as bad as before; AH remain troublesome. Asks for Wellbutrin to be increased 1st to help with depression and then Risperdal; says she used to be on Wellbutrin b.i.d. which she prefers but will try long-acting now. Patient working on using coping skills that she has learned in therapy to challenge AH; she will tell herself it is not true, it is just lies... 07/03 very sad, tearful, rocking back and forth, wishing she were ; says missing her sister very much. Pt reports overwhelmed with self-deprecating thoughts, says 6months sober and all ruined in one day... Did CBT exercise regarding automatic thoughts; pt said she would try to realize she is not a loser. Discussed medications more and pt agreed to retry lithium; in hindsight, she thinks maybe she did not have an actual side-effect (hair loss). Will hold risperdal 07/04 depressed but little better today, fighting to be hopeful. AH to kill herself but patient does not want to . Slept better with lithium. Pt agrees needs some Risperdal for AH. 07/05 changed prn to 0.5mg tid, keep 1mg for ah which seems a bit better today 07/06 less psychotic more anxious-but wanting ativan not what is being offered, doesn't seem oleary given hx polysub 07/07 mood is better; AH still bothersome and agrees to increase Risperdal. Expresses paranoid thinking, that nursing staff will do things to purposely cause her to lose control. Talked about how it's hard to trust people. Discussed meds -paranoia likely combination of ptsd and psychotic illness; despite paranoid thinking, pt able to remain in good behavioral control 07/08 Patient reports that she is doing okay but that auditory hallucinations are very bothersome. She agrees to increasing Risperdal. Discussed lithium and subtherapeutic level; patient agreed to increase; she asked for it to be given during the day however saying it does not make her that tired. Patient very helpful and caring towards another dysregulated peer -increase Risperdal due to ongoing problematic AH -Increase lithium since current level subtherapeutic and very unlikely to prevent future manic/depressive episodes 07/09 continue treatment plan 07/10 continue treatment plan; will see if current Risperdal dose can eliminate AH over the next several days; otherwise will titrate. Mood is improving and patient future oriented, hoping to get into TSS kind are Plan: CV Q 15 minute checks DC Ativan Continue [place] ER 900mg at 14:00 Labs ordered Continue Risperdal 3mg daily Risperdal 1 mg daily p.r.n. for AH (used to be at about 4 mg in the past) -Wellbutrin XL 300 mg daily -Wellbutrin XL 150 mg Q 1400 Continue Seroquel 400 q.h.s. DC zoloft: started 4 months ago, no benefit Will make Cogentin p.r.n.; she said on some medication she was getting muscle twitches but she is not on that medication anymore Continue Suboxone 8/2 mg b.i.d. Continue prazosin 1 mg q.h.s. Continue gabapentin 800 mg t.i.d. Started famotidine 20 mg b.i.d. for GERD; patient used to be on omeprazole, will try famotidine instead Med trial Hx: mirtazpine: Not effective for depression prozac: Not effective for depression celexa (partially helpful but was discontinued due to theoretical concern for QTC prolongation and switched to Lexapro; not sure of effectiveness) thorazine: Only partially helpful depakote: Does not remember efficacy [place]: only 2 weeks; thinks she had a side effect Risperdal 4-5mg total (plus seroquel): working well, no manic episodes, but gallatorhea but tolerable Abilify: partially helpful Zyprexa; partially helpful seroquel: helps with sleep (but does not prevent alexandro or depression) Latuda: partially helpful; on it a few months ago; helped with depression, but still had manic episodes Patient educated on: diagnosis, medication risk/benefits and substance abuse Informed Consent: understands Reason for continued inpatient stay Substantial Risk for: stable for discharge Time Spent With Patient Time: Total time managing care of this patient today ____ minutes.
[2024-07-10 12:42] LABS: Glucose, Whole Blood 163 mg/dL (60-115)
[2024-07-10] MEDS: buPROPion HCl XL 150 MG TAB.ER.24H PO (14:43)
[2024-07-10] MEDS: Nicotine Polacrilex 2 MG GUM 4 MG BUCCAL (14:43)
[2024-07-10] MEDS: Lithium Carbonate ER 450 MG TABLET.ER 900 MG PO (14:43)
[2024-07-10] MEDS: Nicotine 21 MG PATCH.TD24 TRANSDERMA (14:43)
[2024-07-10 17:34] LABS: Glucose, Whole Blood 71 mg/dL (60-115)
[2024-07-10] MEDS: risperiDONE 1 MG TABLET PO (17:57)
[2024-07-10] MEDS: Ibuprofen 800 MG TABLET PO (17:58)
[2024-07-10] MEDS: Fluticasone Propionate Nasal 16 GM SPRAY 1 SPRAY NOSTRIL-B (17:59)
[2024-07-10 20:00] VITALS: BP 115/77; PULSE 79; TEMP 36.6; O2SAT 99
[2024-07-10 20:17] LABS: Glucose, Whole Blood 167 mg/dL (60-115)
[2024-07-10] MEDS: Insulin Glargine,Hum.rec.anlog 100 UNIT/ML 10 ML VIAL 30 UNIT SUBCUT (20:23)
[2024-07-10 20:24] VITALS: BP 115/77
[2024-07-10] MEDS: Prazosin HCL 1 MG CAPSULE PO (20:24)
[2024-07-10] MEDS: QUEtiapine Fumarate 400 MG TABLET PO (20:24)
[2024-07-10] MEDS: hydrOXYzine HCL 50 MG TABLET PO (20:24)
[2024-07-11 08:00] VITALS: BP 175/77; PULSE 75; RESP 16; TEMP 37.1; O2SAT 99
[2024-07-11 08:07] LABS: Glucose, Whole Blood 184 mg/dL (60-115)
[2024-07-11] MEDS: buPROPion HCl XL 300 MG TAB.ER.24H PO (09:20)
[2024-07-11] MEDS: Famotidine 20 MG TABLET PO ×2 (09:21→20:25)
[2024-07-11] MEDS: risperiDONE 3 MG TABLET PO (09:21)
[2024-07-11] MEDS: Buprenorphine/Naloxone 8/2 mg FILM 1 FILM SUBLINGUAL ×2 (09:21→20:23)
[2024-07-11] MEDS: Loratadine 10 MG TABLET PO (09:21)
[2024-07-11] MEDS: Fluticasone Propionate Nasal 16 GM SPRAY 1 SPRAY NOSTRIL-B (09:21)
[2024-07-11] MEDS: metFORMIN HCl ER 500 MG TAB.ER.24H PO (09:21)
--- NOTE | 2024-07-11 09:24 | HO.PSYCHPN ---
Subjective Subjective Date of Service: 07/11/24 Reason For Visit: Depression Interim History: Met with patient; discussed with team AH remains but lower, more of a whisper and tolerable. Mood up and down some but overall says remains much better. 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 tremor b/l which pt says is new; discussed possible side-effect of [place] which she wants to continue anyway; agrees to add propranolol Diagnostics Vital Signs (24Hr): Vital Signs - 24 hr 07/10/24 20:00 07/10/24 20:24 Temperature 97.8 F Pulse Rate 79 Blood Pressure 115/77 115/77 Pulse Oximetry 99 Oxygen Delivery Method Room Air BMI result Body Mass Index 27.0 Labs 06/27/24 09:47 07/08/24 10:31 Labs: Laboratory Results - last 48 hr 07/09/24 07/09/24 07/09/24 13:41 16:53 20:43 POC Glucose 244 H 107 148 H 07/10/24 07/10/24 07/10/24 08:04 12:38 17:29 POC Glucose 110 163 H 71 07/10/24 07/11/24 20:12 08:01 POC Glucose 167 H 184 H Medications Medications Current Medications Acetaminophen (Acetaminophen 325 Mg Tablet) 650 mg PO Q6H PRN PRN Reason: Headache/Pain Mild Scale (1-3) Al Hydroxide/Mg Hydroxide (Magnesium Hydrox/Alum Hydrox 30 Ml Oral.Susp) 30 ml PO Q6H PRN PRN Reason: Heartburn/Nausea Benztropine Mesylate (Benztropine Mesylate 0.5 Mg Tablet) 0.5 mg PO BID PRN PRN Reason: EPS Buprenorphine/Naloxone (Buprenorphine/Naloxone 8/2 Mg Film) 1 film SUBLINGUAL BID [facility] Last Admin: 07/11/24 09:21 Dose: 1 film Bupropion HCl (Bupropion Hcl Xl 300 Mg Tab.Er.24h) 300 mg PO DAILY [facility] Last Admin: 07/11/24 09:20 Dose: 300 mg Bupropion HCl (Bupropion Hcl Xl 150 Mg Tab.Er.24h) 150 mg PO DAILY@1400 [facility] Last Admin: 07/10/24 14:43 Dose: 150 mg Famotidine (Famotidine 20 Mg Tablet) 20 mg PO BID [facility] Last Admin: 07/11/24 09:21 Dose: 20 mg Fluticasone Propionate (Fluticasone Propionate Nasal 16 Gm [place]) 1 spray NOSTRIL-B DAILY PRN PRN Reason: nasal congestion Last Admin: 07/11/24 09:21 Dose: 1 spray Gabapentin (Gabapentin 400 Mg Capsule) 800 mg PO TID [facility] Last Admin: 07/10/24 20:24 Dose: 800 mg Glucose (Glucose Gel 15 Gm Gel..Gram.) 15 gm PO Q15M PRN; Protocol PRN Reason: per Hypoglycemia Standing Ord. Hydroxyzine HCl (Hydroxyzine Hcl 50 Mg Tablet) 50 mg PO TID PRN PRN Reason: Anxiety, agitation Last Admin: 07/10/24 20:24 Dose: 50 mg Ibuprofen (Ibuprofen 800 Mg Tablet) 800 mg PO TID PRN PRN Reason: Pain, Moderate(Pain Scale 4-6) Last Admin: 07/10/24 17:58 Dose: 800 mg Insulin Glargine (Insulin Glargine,Hum.Rec.Anlog 100 Unit/Ml 10 Ml Vial) 30 unit SUBCUT BEDTIME [facility] Last Admin: 07/10/24 20:23 Dose: 30 unit [place] Carbonate ([place] Carbonate Er 450 Mg Tablet.Er) 900 mg PO DAILY@1400 [facility] Last Admin: 07/10/24 14:43 Dose: 900 mg Loratadine (Loratadine 10 Mg Tablet) 10 mg PO DAILY [facility] Last Admin: 07/11/24 09:21 Dose: 10 mg Magnesium Hydroxide (Milk Of Magnesia 30 Ml Oral.Susp) 30 ml PO DAILY PRN PRN Reason: Constipation Metformin HCl (Metformin Hcl Er 500 Mg Tab.Er.24h) 500 mg PO DAILY [facility] Last Admin: 07/11/24 09:21 Dose: 500 mg Nicotine (Nicotine 21 Mg Patch.Td24) 21 mg TRANSDERMA DAILY PRN PRN Reason: smoking cessation Last Admin: 07/10/24 14:43 Dose: 21 mg Nicotine Polacrilex (Nicotine Polacrilex 2 Mg Gum) 4 mg BUCCAL Q2H PRN PRN Reason: Nicotine Cravings Last Admin: 07/10/24 14:43 Dose: 4 mg Prazosin HCl (Prazosin Hcl 1 Mg Capsule) 1 mg PO BEDTIME [facility]; Protocol Last Admin: 07/10/24 20:24 Dose: 1 mg Quetiapine Fumarate (Quetiapine Fumarate 400 Mg Tablet) 400 mg PO BEDTIME [facility] Last Admin: 07/10/24 20:24 Dose: 400 mg Risperidone (Risperidone 1 Mg Tablet) 1 mg PO DAILY PRN PRN Reason: AH/anxiety Last Admin: 07/10/24 17:57 Dose: 1 mg Risperidone (Risperidone 3 Mg Tablet) 3 mg PO DAILY [facility] Last Admin: 07/11/24 09:21 Dose: 3 mg Trazodone HCl (Trazodone Hcl 50 Mg Tablet) 50 mg PO BEDTIME MRX1 PRN PRN Reason: Insomnia Allergies Allergies Allergy/AdvReac Type Severity Reaction Status Date / Time No Known Allergies Allergy Verified 06/27/24 07:42 Assessment & Plan Assessment & Plan (1) Schizoaffective disorder, bipolar type: Status: Acute Code(s): F25.0 - Schizoaffective disorder, bipolar type (2) PTSD (post-traumatic stress disorder): Status: Acute Code(s): F43.10 - Post-traumatic stress disorder, unspecified (3) Alcohol use disorder: Status: Acute Code(s): F10.90 - Alcohol use, unspecified, uncomplicated (4) Cocaine use disorder: Status: Acute Code(s): F14.10 - Cocaine abuse, uncomplicated (5) Opioid use disorder: Status: Acute Code(s): F11.90 - Opioid use, unspecified, uncomplicated Plan Pt is 48 year old female with history schizoaffective disorder, PTSD, cocaine/fentanyl/alcohol use disorder who self presents for worsening depression and SI following suicide attempt by overdose. Patient reports that she was overall doing okay, sober for 6 months, on current medication regimen; she still would have manic and depressive episodes but they were not severe. About a month ago patient's mood started to worsen as the 1 year anniversary of her sister's was approaching; she moved into a sober housing establishment where there was an increase in psychosocial stressors. She started drinking though not every day. At the housing, initially staff told people to come forward with their problems; however patient found the reality was that staff instead were not interested in talking with client's and give a very clear message to keep their problems to themselves; patient felt more and more isolated and drinking increased to about 1/2 pt of vodka more days than not. This past week, patient had a 3 or 4 day mild manic episode after which her depression further worsened, which is typical; patient was bullied by a peer and feeling marginalized and in despair, left the house and for the 1st time in 6 months used crack and fentanyl, wanting to numb herself; she accidentally overdosed and was Narcan. On regaining consciousness she had thoughts that she would have been better off and intentionally tried to overdose on crack and fentanyl over the next day. She says God must have a plan because she did not overdose and so instead self presented to come to the hospital, saying she wanted to get help before it got worse. Patient reports distinct manic episodes that can last anywhere from 3 or 4 days to 2 weeks and very in intensity, during which time she is talking fast, racing mind too fast to write her thoughts down or get her words out, cleaning and re-cleaning excessively, does not sleep, going from project to project, stealing which is very out of character and done without any tact at all; such episodes are typically followed by a depressive episode. Patient endorses AH; she is not sure if it is her own voice and it varies in intensity depending on her mood but is present even when mood is stable, saying words like you are no good, you are worthless, people do not like you and then sometimes escalating to stab yourself, cut yourself. Patient has been consistent on her medication regimen. Formulation/clinical reasoning: Patient is only partially treated with current medication regimen as she continues to have both manic and depressive episodes, both of which induced relapse. Patient is no longer suicidal and is trying to regain hope that she can get back to sobriety and improve mood. Thoroughly reviewed medication history and patient would like to get back on Risperdal despite her experience side effect of galactorrhea, because it was very helpful in stopping manic episodes. She has been on both Risperdal and Seroquel simultaneously and wants to remain on Seroquel, finding the combination helpful and needing Seroquel for sleep; reviewed risks/side effects of being on 2 antipsychotics however patient feels that the benefit outweighs the risk (also considered was Latuda, lithium, Abilify, Depakote...); patient feels that Wellbutrin has also helped her depression and so will remain on this; Zoloft started only a month or 2 ago and has not been helpful. Patient has some mild withdrawal and so will start Ativan taper; no need for CIWA. Regarding diagnosis, patient reports AH even when mood is stable at which time she can ignore it; when depression worsens AH becomes more intense. Patient is not sure if it is her own voice or not but it remains chronically persistent and patient meets criteria for schizoaffective disorder Hospital course: 07/02 remains depressed and still with intermittent SI but not as bad as before; AH remain troublesome. Asks for Wellbutrin to be increased 1st to help with depression and then Risperdal; says she used to be on Wellbutrin b.i.d. which she prefers but will try long-acting now. Patient working on using coping skills that she has learned in therapy to challenge AH; she will tell herself it is not true, it is just lies... 07/03 very sad, tearful, rocking back and forth, wishing she were ; says missing her sister very much. Pt reports overwhelmed with self-deprecating thoughts, says 6months sober and all ruined in one day... Did CBT exercise regarding automatic thoughts; pt said she would try to realize she is not a loser. Discussed medications more and pt agreed to retry lithium; in hindsight, she thinks maybe she did not have an actual side-effect (hair loss). Will hold risperdal 07/04 depressed but little better today, fighting to be hopeful. AH to kill herself but patient does not want to . Slept better with lithium. Pt agrees needs some Risperdal for AH. 07/05 changed prn to 0.5mg tid, keep 1mg for ah which seems a bit better today 07/06 less psychotic more anxious-but wanting ativan not what is being offered, doesn't seem oleary given hx polysub 07/07 mood is better; AH still bothersome and agrees to increase Risperdal. Expresses paranoid thinking, that nursing staff will do things to purposely cause her to lose control. Talked about how it's hard to trust people. Discussed meds -paranoia likely combination of ptsd and psychotic illness; despite paranoid thinking, pt able to remain in good behavioral control 07/08 Patient reports that she is doing okay but that auditory hallucinations are very bothersome. She agrees to increasing Risperdal. Discussed lithium and subtherapeutic level; patient agreed to increase; she asked for it to be given during the day however saying it does not make her that tired. Patient very helpful and caring towards another dysregulated peer -increase Risperdal due to ongoing problematic AH -Increase lithium since current level subtherapeutic and very unlikely to prevent future manic/depressive episodes 07/09 continue treatment plan 07/10 continue treatment plan; will see if current Risperdal dose can eliminate AH over the next several days; otherwise will titrate. Mood is improving and patient future oriented, hoping to get into TSS kind are 07/11 AH remains but lower, more of a whisper and tolerable. Mood up and down some but overall says remains much better. 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 for AH (used to be at about 4 mg in the past) -Wellbutrin XL 300 mg daily -Wellbutrin XL 150 mg Q 1400 Continue Seroquel 400 q.h.s. DC zoloft: started 4 months ago, no benefit Will make Cogentin p.r.n.; she said on some medication she was getting muscle twitches but she is not on that medication anymore Continue Suboxone 8/2 mg b.i.d. Continue prazosin 1 mg q.h.s. Continue gabapentin 800 mg t.i.d. Started famotidine 20 mg b.i.d. for GERD; patient used to be on omeprazole, will try famotidine instead Med trial Hx: mirtazpine: Not effective for depression prozac: Not effective for depression celexa (partially helpful but was discontinued due to theoretical concern for QTC prolongation and switched to Lexapro; not sure of effectiveness) thorazine: Only partially helpful depakote: Does not remember efficacy [place]: only 2 weeks; thinks she had a side effect Risperdal 4-5mg total (plus seroquel): working well, no manic episodes, but gallatorhea but tolerable Abilify: partially helpful Zyprexa; partially helpful seroquel: helps with sleep (but does not prevent alexandro or depression) Latuda: partially helpful; on it a few months ago; helped with depression, but still had manic episodes Patient educated on: diagnosis, medication risk/benefits and substance abuse Informed Consent: understands Reason for continued inpatient stay Substantial Risk for: stable for discharge Time Spent With Patient Time: Total time managing care of this patient today ____ minutes.
[2024-07-11] MEDS: Ibuprofen 800 MG TABLET PO (09:27)
[2024-07-11] MEDS: Gabapentin 400 MG CAPSULE 800 MG PO ×3 (09:28→20:24)
[2024-07-11 12:39] LABS: Glucose, Whole Blood 137 mg/dL (60-115)
[2024-07-11] MEDS: Nicotine Polacrilex 2 MG GUM 4 MG BUCCAL ×2 (13:14→18:18)
[2024-07-11] MEDS: Nicotine 21 MG PATCH.TD24 TRANSDERMA (13:14)
[2024-07-11] MEDS: Lithium Carbonate ER 450 MG TABLET.ER 900 MG PO (14:11)
[2024-07-11] MEDS: risperiDONE 1 MG TABLET PO (14:11)
[2024-07-11] MEDS: buPROPion HCl XL 150 MG TAB.ER.24H PO (14:11)
[2024-07-11] MEDS: hydrOXYzine HCL 50 MG TABLET PO (14:12)
[2024-07-11 17:08] VITALS: BP 142/84; PULSE 76
[2024-07-11] MEDS: LORazepam 1 MG TABLET PO (17:08)
[2024-07-11] MEDS: Propranolol HCL 10 MG TABLET PO ×2 (17:08→20:24)
[2024-07-11 19:45] VITALS: BP 127/72; PULSE 64; TEMP 36.4; O2SAT 99
[2024-07-11] MEDS: Prazosin HCL 1 MG CAPSULE PO (20:24)
[2024-07-11] MEDS: Insulin Glargine,Hum.rec.anlog 100 UNIT/ML 10 ML VIAL 30 UNIT SUBCUT (20:24)
[2024-07-11] MEDS: QUEtiapine Fumarate 400 MG TABLET PO (20:25)
[2024-07-11 21:23] LABS: Glucose, Whole Blood 141 mg/dL (60-115)
[2024-07-12 08:06] VITALS: BP 120/70; PULSE 64; RESP 16; TEMP 36.8; O2SAT 99
[2024-07-12] MEDS: Buprenorphine/Naloxone 8/2 mg FILM 1 FILM SUBLINGUAL ×2 (08:28→20:36)
[2024-07-12] MEDS: Famotidine 20 MG TABLET PO ×2 (08:28→20:39)
[2024-07-12] MEDS: buPROPion HCl XL 300 MG TAB.ER.24H PO (08:28)
[2024-07-12] MEDS: Gabapentin 400 MG CAPSULE 800 MG PO ×3 (08:28→20:36)
[2024-07-12] MEDS: metFORMIN HCl ER 500 MG TAB.ER.24H PO (08:28)
[2024-07-12] MEDS: risperiDONE 3 MG TABLET PO (08:29)
[2024-07-12] MEDS: Loratadine 10 MG TABLET PO (08:29)
[2024-07-12] MEDS: Propranolol HCL 10 MG TABLET PO ×2 (08:29→20:37)
[2024-07-12 08:42] LABS: Glucose, Whole Blood 156 mg/dL (60-115)
[2024-07-12] MEDS: Ibuprofen 800 MG TABLET PO (08:42)
--- NOTE | 2024-07-12 10:21 | P.PNPSI_ITS ---
Subjective Subjective Date of Service: 07/12/24 Reason For Visit: Depression Interim History: Met with patient; discussed with team Reports overall doing better; AH not bothersome; tremor seems to have resolved with propranolol. Patient anticipating discharge on Sunday to program Mental Status Exam Mental Status Exam Narrative: Pt is alert and oriented; behavior is more calm; patient is not in distress; dressed in casual attire with adequate hygiene; mood is described as ok and affect congruent; eye contact appropriate; Speech is normal volume, rate and prosody; no psychomotor retardation/agitation present; thought process is organized and goal directed; Thought content is on treatment, more hopeful about aftercare; dealing with AH, missing her sister; otherwise pertinent to relevant topics and without any delusional content, paranoid ideations or grandiosity; intermittent passive SI/no HI; intermittent AH. Patients insight and judgment fair. Diagnostics Vital Signs (24Hr): Vital Signs - 24 hr 07/11/24 17:08 07/11/24 19:45 07/12/24 08:06 Temperature 97.6 F 98.2 F Pulse Rate 76 64 64 Respiratory Rate 16 Blood Pressure 142/84 H 127/72 120/70 Pulse Oximetry 99 99 Oxygen Delivery Method Room Air Room Air BMI result Body Mass Index 27.0 Labs 06/27/24 09:47 07/08/24 10:31 Labs: Laboratory Results - last 48 hr 07/10/24 07/10/24 07/10/24 12:38 17:29 20:12 POC Glucose 163 H 71 167 H 07/11/24 07/11/24 07/11/24 08:01 12:35 21:20 POC Glucose 184 H 137 H 141 H 07/12/24 08:34 POC Glucose 156 H Medications Medications Current Medications Acetaminophen (Acetaminophen 325 Mg Tablet) 650 mg PO Q6H PRN PRN Reason: Headache/Pain Mild Scale (1-3) Al Hydroxide/Mg Hydroxide (Magnesium Hydrox/Alum Hydrox 30 Ml Oral.Susp) 30 ml PO Q6H PRN PRN Reason: Heartburn/Nausea Benztropine Mesylate (Benztropine Mesylate 0.5 Mg Tablet) 0.5 mg PO BID PRN PRN Reason: EPS Buprenorphine/Naloxone (Buprenorphine/Naloxone 8/2 Mg Film) 1 film SUBLINGUAL BID SHARATH Last Admin: 07/12/24 08:28 Dose: 1 film Bupropion HCl (Bupropion Hcl Xl 300 Mg Tab.Er.24h) 300 mg PO DAILY [facility] Last Admin: 07/12/24 08:28 Dose: 300 mg Bupropion HCl (Bupropion Hcl Xl 150 Mg Tab.Er.24h) 150 mg PO DAILY@1400 [facility] Last Admin: 07/11/24 14:11 Dose: 150 mg Famotidine (Famotidine 20 Mg Tablet) 20 mg PO BID [facility] Last Admin: 07/12/24 08:28 Dose: 20 mg Fluticasone Propionate (Fluticasone Propionate Nasal 16 Gm [place]) 1 spray NOSTRIL-B DAILY PRN PRN Reason: nasal congestion Last Admin: 07/11/24 09:21 Dose: 1 spray Gabapentin (Gabapentin 400 Mg Capsule) 800 mg PO TID [facility] Last Admin: 07/12/24 08:28 Dose: 800 mg Glucose (Glucose Gel 15 Gm Gel..Gram.) 15 gm PO Q15M PRN; Protocol PRN Reason: per Hypoglycemia Standing Ord. Hydroxyzine HCl (Hydroxyzine Hcl 50 Mg Tablet) 50 mg PO TID PRN PRN Reason: Anxiety, agitation Last Admin: 07/11/24 14:12 Dose: 50 mg Ibuprofen (Ibuprofen 800 Mg Tablet) 800 mg PO TID PRN PRN Reason: Pain, Moderate(Pain Scale 4-6) Last Admin: 07/12/24 08:42 Dose: 800 mg Insulin Glargine (Insulin Glargine,Hum.Rec.Anlog 100 Unit/Ml 10 Ml Vial) 30 unit SUBCUT BEDTIME [facility] Last Admin: 07/11/24 20:24 Dose: 30 unit [place] Carbonate ([place] Carbonate Er 450 Mg Tablet.Er) 900 mg PO DAILY@1400 [facility] Last Admin: 07/11/24 14:11 Dose: 900 mg Loratadine (Loratadine 10 Mg Tablet) 10 mg PO DAILY [facility] Last Admin: 07/12/24 08:29 Dose: 10 mg Lorazepam (Lorazepam 1 Mg Tablet) 1 mg PO DAILY PRN PRN Reason: moderate to severe anxiety Last Admin: 07/11/24 17:08 Dose: 1 mg Magnesium Hydroxide (Milk Of Magnesia 30 Ml Oral.Susp) 30 ml PO DAILY PRN PRN Reason: Constipation Metformin HCl (Metformin Hcl Er 500 Mg Tab.Er.24h) 500 mg PO DAILY [facility] Last Admin: 07/12/24 08:28 Dose: 500 mg Nicotine (Nicotine 21 Mg Patch.Td24) 21 mg TRANSDERMA DAILY PRN PRN Reason: smoking cessation Last Admin: 07/11/24 13:14 Dose: 21 mg Nicotine Polacrilex (Nicotine Polacrilex 2 Mg Gum) 4 mg BUCCAL Q2H PRN PRN Reason: Nicotine Cravings Last Admin: 07/11/24 18:18 Dose: 4 mg Prazosin HCl (Prazosin Hcl 1 Mg Capsule) 1 mg PO BEDTIME SHARATH; Protocol Last Admin: 07/11/24 20:24 Dose: 1 mg Propranolol HCl (Propranolol Hcl 10 Mg Tablet) 10 mg PO BID SHARATH; Protocol Last Admin: 07/12/24 08:29 Dose: 10 mg Quetiapine Fumarate (Quetiapine Fumarate 400 Mg Tablet) 400 mg PO BEDTIME [facility] Last Admin: 07/11/24 20:25 Dose: 400 mg Risperidone (Risperidone 1 Mg Tablet) 1 mg PO DAILY PRN PRN Reason: AH/anxiety Last Admin: 07/11/24 14:11 Dose: 1 mg Risperidone (Risperidone 3 Mg Tablet) 3 mg PO DAILY [facility] Last Admin: 07/12/24 08:29 Dose: 3 mg Trazodone HCl (Trazodone Hcl 50 Mg Tablet) 50 mg PO BEDTIME MRX1 PRN PRN Reason: Insomnia Allergies Allergies Allergy/AdvReac Type Severity Reaction Status Date / Time No Known Allergies Allergy Verified 06/27/24 07:42 Assessment & Plan Assessment & Plan (1) Schizoaffective disorder, bipolar type: Status: Acute Code(s): F25.0 - Schizoaffective disorder, bipolar type (2) PTSD (post-traumatic stress disorder): Status: Acute Code(s): F43.10 - Post-traumatic stress disorder, unspecified (3) Alcohol use disorder: Status: Acute Code(s): F10.90 - Alcohol use, unspecified, uncomplicated (4) Cocaine use disorder: Status: Acute Code(s): F14.10 - Cocaine abuse, uncomplicated (5) Opioid use disorder: Status: Acute Code(s): F11.90 - Opioid use, unspecified, uncomplicated Plan Pt is 48 year old female with history schizoaffective disorder, PTSD, cocaine/fentanyl/alcohol use disorder who self presents for worsening depression and SI following suicide attempt by overdose. Patient reports that she was overall doing okay, sober for 6 months, on current medication regimen; she still would have manic and depressive episodes but they were not severe. About a month ago patient's mood started to worsen as the 1 year anniversary of her sister's was approaching; she moved into a sober housing establishment where there was an increase in psychosocial stressors. She started drinking though not every day. At the housing, initially staff told people to come forward with their problems; however patient found the reality was that staff instead were not interested in talking with client's and give a very clear message to keep their problems to themselves; patient felt more and more isolated and drinking increased to about 1/2 pt of vodka more days than not. This past week, patient had a 3 or 4 day mild manic episode after which her depression further worsened, which is typical; patient was bullied by a peer and feeling marginalized and in despair, left the house and for the 1st time in 6 months used crack and fentanyl, wanting to numb herself; she accidentally overdosed and was Narcan. On regaining consciousness she had thoughts that she would have been better off and intentionally tried to overdose on crack and fentanyl over the next day. She says God must have a plan because she did not overdose and so instead self presented to come to the hospital, saying she wanted to get help before it got worse. Patient reports distinct manic episodes that can last anywhere from 3 or 4 days to 2 weeks and very in intensity, during which time she is talking fast, racing mind too fast to write her thoughts down or get her words out, cleaning and re-cleaning excessively, does not sleep, going from project to project, stealing which is very out of character and done without any tact at all; such episodes are typically followed by a depressive episode. Patient endorses AH; she is not sure if it is her own voice and it varies in intensity depending on her mood but is present even when mood is stable, saying words like you are no good, you are worthless, people do not like you and then sometimes escalating to stab yourself, cut yourself. Patient has been consistent on her medication regimen. Formulation/clinical reasoning: Patient is only partially treated with current medication regimen as she continues to have both manic and depressive episodes, both of which induced relapse. Patient is no longer suicidal and is trying to regain hope that she can get back to sobriety and improve mood. Thoroughly reviewed medication history and patient would like to get back on Risperdal despite her experience side effect of galactorrhea, because it was very helpful in stopping manic episodes. She has been on both Risperdal and Seroquel simultaneously and wants to remain on Seroquel, finding the combination helpful and needing Seroquel for sleep; reviewed risks/side effects of being on 2 antipsychotics however patient feels that the benefit outweighs the risk (also considered was Latuda, lithium, Abilify, Depakote...); patient feels that Wellbutrin has also helped her depression and so will remain on this; Zoloft started only a month or 2 ago and has not been helpful. Patient has some mild withdrawal and so will start Ativan taper; no need for CIWA. Regarding diagnosis, patient reports AH even when mood is stable at which time she can ignore it; when depression worsens AH becomes more intense. Patient is not sure if it is her own voice or not but it remains chronically persistent and patient meets criteria for schizoaffective disorder Hospital course: 07/02 remains depressed and still with intermittent SI but not as bad as before; AH remain troublesome. Asks for Wellbutrin to be increased 1st to help with depression and then Risperdal; says she used to be on Wellbutrin b.i.d. which she prefers but will try long-acting now. Patient working on using coping skills that she has learned in therapy to challenge AH; she will tell herself it is not true, it is just lies... 07/03 very sad, tearful, rocking back and forth, wishing she were ; says missing her sister very much. Pt reports overwhelmed with self- deprecating thoughts, says 6months sober and all ruined in one day... Did CBT exercise regarding automatic thoughts; pt said she would try to realize she is not a loser. Discussed medications more and pt agreed to retry lithium; in hindsight, she thinks maybe she did not have an actual side-effect (hair loss). Will hold risperdal 07/04 depressed but little better today, fighting to be hopeful. AH to kill herself but patient does not want to . Slept better with lithium. Pt agrees needs some Risperdal for AH. 07/05 changed prn to 0.5mg tid, keep 1mg for ah which seems a bit better today 07/06 less psychotic more anxious-but wanting ativan not what is being offered, doesn't seem oleary given hx polysub 07/07 mood is better; AH still bothersome and agrees to increase Risperdal. Expresses paranoid thinking, that nursing staff will do things to purposely cause her to lose control. Talked about how it's hard to trust people. Discussed meds -paranoia likely combination of ptsd and psychotic illness; despite paranoid thinking, pt able to remain in good behavioral control 07/08 Patient reports that she is doing okay but that auditory hallucinations are very bothersome. She agrees to increasing Risperdal. Discussed lithium and subtherapeutic level; patient agreed to increase; she asked for it to be given during the day however saying it does not make her that tired. Patient very helpful and caring towards another dysregulated peer -increase Risperdal due to ongoing problematic AH -Increase lithium since current level subtherapeutic and very unlikely to prevent future manic/depressive episodes 07/09 continue treatment plan 07/10 continue treatment plan; will see if current Risperdal dose can eliminate AH over the next several days; otherwise will titrate. Mood is improving and patient future oriented, hoping to get into TSS kind are 07/11 AH remains but lower, more of a whisper and tolerable. Mood up and down some but overall says remains much better. Asks for ativan daily prn for breakthrough anxiety secondary to AH flare; health technical writer agrees -tremor b/l which pt says is new; discussed possible side-effect of [place] which she wants to continue anyway; agrees to add propranolol -elevated BP; normally WNL 07/12 remains in good behavioral and impulse control, polite and appropriate with peers and staff and engaged in treatment. Tremor seems to have resolved with propranolol. Mood is good and patient is future oriented anticipating discharge Sunday to program Plan: CV Q 15 minute checks add Ativan 1mg daily prn for breakthrough anxiety related to AH (pt still stabilizing; discharging to structured environment that handles her meds) add propranolol 10mg bid for tremor Continue [place] ER 900mg at 14:00 Labs ordered Continue Risperdal 3mg daily Risperdal 1 mg daily p.r.n. for AH (used to be at about 4 mg in the past) -Wellbutrin XL 300 mg daily -Wellbutrin XL 150 mg Q 1400 Continue Seroquel 400 q.h.s. DC zoloft: started 4 months ago, no benefit Will make Linusentin p.r.n.; she said on some medication she was getting muscle twitches but she is not on that medication anymore Continue Suboxone 8/2 mg b.i.d. Continue prazosin 1 mg q.h.s. Continue gabapentin 800 mg t.i.d. Started famotidine 20 mg b.i.d. for GERD; patient used to be on omeprazole, will try famotidine instead Med trial Hx: mirtazpine: Not effective for depression prozac: Not effective for depression celexa (partially helpful but was discontinued due to theoretical concern for QTC prolongation and switched to Lexapro; not sure of effectiveness) thorazine: Only partially helpful depakote: Does not remember efficacy [place]: only 2 weeks; thinks she had a side effect Risperdal 4-5mg total (plus seroquel): working well, no manic episodes, but gallatorhea but tolerable Abilify: partially helpful Zyprexa; partially helpful seroquel: helps with sleep (but does not prevent alexandro or depression) Latuda: partially helpful; on it a few months ago; helped with depression, but still had manic episodes Patient educated on: diagnosis, medication risk/benefits, substance abuse and medical condition Informed Consent: understands Reason for continued inpatient stay Substantial Risk for: stable for discharge Time Spent With Patient Time: Total time managing care of this patient today ____ minutes.
[2024-07-12] MEDS: hydrOXYzine HCL 50 MG TABLET PO (14:42)
[2024-07-12] MEDS: buPROPion HCl XL 150 MG TAB.ER.24H PO (14:42)
[2024-07-12] MEDS: risperiDONE 1 MG TABLET PO (14:42)
[2024-07-12] MEDS: Lithium Carbonate ER 450 MG TABLET.ER 900 MG PO (14:43)
[2024-07-12] MEDS: Nicotine 21 MG PATCH.TD24 TRANSDERMA (14:44)
[2024-07-12] MEDS: Nicotine Polacrilex 2 MG GUM 4 MG BUCCAL (14:45)
[2024-07-12] MEDS: Acetaminophen 325 MG TABLET 650 MG PO (15:21)
[2024-07-12] MEDS: LORazepam 1 MG TABLET PO (15:55)
[2024-07-12 17:17] LABS: Glucose, Whole Blood 100 mg/dL (60-115)
[2024-07-12 20:00] VITALS: BP 165/90; PULSE 83; TEMP 36.4; O2SAT 98
[2024-07-12 20:36] VITALS: BP 165/90
[2024-07-12] MEDS: QUEtiapine Fumarate 400 MG TABLET PO (20:36)
[2024-07-12] MEDS: traZODone HCL 50 MG TABLET PO (20:36)
[2024-07-12] MEDS: Prazosin HCL 1 MG CAPSULE PO (20:36)
[2024-07-12 20:37] VITALS: BP 165/90; PULSE 83
[2024-07-12] MEDS: Insulin Glargine,Hum.rec.anlog 100 UNIT/ML 10 ML VIAL 30 UNIT SUBCUT (20:37)
[2024-07-12 22:21] LABS: Glucose, Whole Blood 465 mg/dL (60-115)
--- NOTE | 2024-07-13 00:12 | PC.NURSE ---
Patient POC at was 465. Hospitalist notified. Patient had been eating throughout the evening including pancakes, juices and ice cream. Will continue to monitorl
[2024-07-13 07:56] LABS: Glucose, Whole Blood 147 mg/dL (60-115)
[2024-07-13 08:05] VITALS: BP 112/57; PULSE 72; RESP 16; TEMP 36.7; O2SAT 99
--- NOTE | 2024-07-13 08:21 | P.PNPSI_ITS ---
Subjective Subjective Date of Service: 07/13/24 Reason For Visit: Depression Interim History: Met with patient; discussed with team Remains doing well, overall good mood, anxiety down, AH low and tolerable; patient feels good about medication regimen and does not want to change it. Again discussed risks/side effects of lithium and need to avoid NSAIDs, ibuprofen etc which she says she understands and only takes for 2-3 days a month during her menses. Discussed Lantus and patient says she also takes sliding scale NovoLog. Feeling ready to discharge program. Expressing thanks for help received Mental Status Exam Mental Status Exam Narrative: Pt is alert and oriented; behavior is calm, cooperative, friendly; patient is not in distress; dressed in casual attire with adequate hygiene; mood is described as good and affect congruent; eye contact appropriate; Speech is normal volume, rate and prosody; no psychomotor retardation/agitation present; thought process is organized and goal directed; Thought content is on treatment, aftercare; otherwise pertinent to relevant topics and without any delusional content, paranoid ideations or grandiosity; no SI/no HI; intermittent AH which is minimal and able to be ignored. Patients insight and judgment fair. Diagnostics Vital Signs (24Hr): Vital Signs - 24 hr 07/12/24 20:00 07/12/24 20:36 07/12/24 20:37 Temperature 97.5 F Pulse Rate 83 83 Respiratory Rate Blood Pressure 165/90 H 165/90 H 165/90 H Pulse Oximetry 98 Oxygen Delivery Method Room Air 07/13/24 08:05 Temperature 98.1 F Pulse Rate 72 Respiratory Rate 16 Blood Pressure 112/57 L Pulse Oximetry 99 Oxygen Delivery Method Room Air BMI result Body Mass Index 27.0 Labs 06/27/24 09:47 07/08/24 10:31 Labs: Laboratory Results - last 48 hr 07/11/24 07/11/24 07/12/24 12:35 21:20 08:34 POC Glucose 137 H 141 H 156 H 07/12/24 07/12/24 07/13/24 17:13 22:18 07:52 POC Glucose 100 465 H* 147 H Medications Medications Current Medications Acetaminophen (Acetaminophen 325 Mg Tablet) 650 mg PO Q6H PRN PRN Reason: Headache/Pain Mild Scale (1-3) Last Admin: 07/12/24 15:21 Dose: 650 mg Al Hydroxide/Mg Hydroxide (Magnesium Hydrox/Alum Hydrox 30 Ml Oral.Susp) 30 ml PO Q6H PRN PRN Reason: Heartburn/Nausea Benztropine Mesylate (Benztropine Mesylate 0.5 Mg Tablet) 0.5 mg PO BID PRN PRN Reason: EPS Buprenorphine/Naloxone (Buprenorphine/Naloxone 8/2 Mg Film) 1 film SUBLINGUAL BID [facility] [place] Last Admin: 07/12/24 20:36 Dose: 1 film Bupropion HCl (Bupropion Hcl Xl 300 Mg Tab.Er.24h) 300 mg PO DAILY [facility] [place] Last Admin: 07/12/24 08:28 Dose: 300 mg Bupropion HCl (Bupropion Hcl Xl 150 Mg Tab.Er.24h) 150 mg PO DAILY@1400 [facility] [place] Last Admin: 07/12/24 14:42 Dose: 150 mg Famotidine (Famotidine 20 Mg Tablet) 20 mg PO BID [facility] [place] Last Admin: 07/12/24 20:39 Dose: 20 mg Fluticasone Propionate (Fluticasone Propionate Nasal 16 Gm [place]) 1 spray NOSTRIL-B DAILY PRN PRN Reason: nasal congestion Last Admin: 07/11/24 09:21 Dose: 1 spray Gabapentin (Gabapentin 400 Mg Capsule) 800 mg PO TID [facility] [place] Last Admin: 07/12/24 20:36 Dose: 800 mg Glucose (Glucose Gel 15 Gm Gel..Gram.) 15 gm PO Q15M PRN; Protocol PRN Reason: per Hypoglycemia Standing Ord. Hydroxyzine HCl (Hydroxyzine Hcl 50 Mg Tablet) 50 mg PO TID PRN PRN Reason: Anxiety, agitation Last Admin: 07/12/24 14:42 Dose: 50 mg Ibuprofen (Ibuprofen 800 Mg Tablet) 800 mg PO TID PRN PRN Reason: Pain, Moderate(Pain Scale 4-6) Last Admin: 07/12/24 08:42 Dose: 800 mg Insulin Glargine (Insulin Glargine,Hum.Rec.Anlog 100 Unit/Ml 10 Ml Vial) 30 unit SUBCUT BEDTIME [facility] [place] Last Admin: 07/12/24 20:37 Dose: 30 unit Blossom Carbonate (Blossom Carbonate Er 450 Mg Tablet.Er) 900 mg PO DAILY@1400 [facility] [place] Last Admin: 07/12/24 14:43 Dose: 900 mg Loratadine (Loratadine 10 Mg Tablet) 10 mg PO DAILY [facility] [place] Last Admin: 07/12/24 08:29 Dose: 10 mg Lorazepam (Lorazepam 1 Mg Tablet) 1 mg PO DAILY PRN PRN Reason: moderate to severe anxiety Last Admin: 07/12/24 15:55 Dose: 1 mg Magnesium Hydroxide (Milk Of Magnesia 30 Ml Oral.Susp) 30 ml PO DAILY PRN PRN Reason: Constipation Metformin HCl (Metformin Hcl Er 500 Mg Tab.Er.24h) 500 mg PO DAILY [facility] Last Admin: 07/12/24 08:28 Dose: 500 mg Nicotine (Nicotine 21 Mg Patch.Td24) 21 mg TRANSDERMA DAILY PRN PRN Reason: smoking cessation Last Admin: 07/12/24 14:44 Dose: 21 mg Nicotine Polacrilex (Nicotine Polacrilex 2 Mg Gum) 4 mg BUCCAL Q2H PRN PRN Reason: Nicotine Cravings Last Admin: 07/12/24 14:45 Dose: 4 mg Prazosin HCl (Prazosin Hcl 1 Mg Capsule) 1 mg PO BEDTIME [facility]; Protocol Last Admin: 07/12/24 20:36 Dose: 1 mg Propranolol HCl (Propranolol Hcl 10 Mg Tablet) 10 mg PO BID [facility]; Protocol Last Admin: 07/12/24 20:37 Dose: 10 mg Quetiapine Fumarate (Quetiapine Fumarate 400 Mg Tablet) 400 mg PO BEDTIME [facility] Last Admin: 07/12/24 20:36 Dose: 400 mg Risperidone (Risperidone 1 Mg Tablet) 1 mg PO DAILY PRN PRN Reason: AH/anxiety Last Admin: 07/12/24 14:42 Dose: 1 mg Risperidone (Risperidone 3 Mg Tablet) 3 mg PO DAILY [facility] Last Admin: 07/12/24 08:29 Dose: 3 mg Trazodone HCl (Trazodone Hcl 50 Mg Tablet) 50 mg PO BEDTIME MRX1 PRN PRN Reason: Insomnia Last Admin: 07/12/24 20:36 Dose: 50 mg Allergies Allergies Allergy/AdvReac Type Severity Reaction Status Date / Time No Known Allergies Allergy Verified 06/27/24 07:42 Assessment & Plan Assessment & Plan (1) Schizoaffective disorder, bipolar type: Status: Acute Code(s): F25.0 - Schizoaffective disorder, bipolar type (2) PTSD (post-traumatic stress disorder): Status: Acute Code(s): F43.10 - Post-traumatic stress disorder, unspecified (3) Alcohol use disorder: Status: Acute Code(s): F10.90 - Alcohol use, unspecified, uncomplicated (4) Cocaine use disorder: Status: Acute Code(s): F14.10 - Cocaine abuse, uncomplicated (5) Opioid use disorder: Status: Acute Code(s): F11.90 - Opioid use, unspecified, uncomplicated Plan Pt is 48 year old female with history schizoaffective disorder, PTSD, cocaine/fentanyl/alcohol use disorder who self presents for worsening depression and SI following suicide attempt by overdose. Patient reports that she was overall doing okay, sober for 6 months, on current medication regimen; she still would have manic and depressive episodes but they were not severe. About a month ago patient's mood started to worsen as the 1 year anniversary of her sister's was approaching; she moved into a sober housing establishment where there was an increase in psychosocial stressors. She started drinking though not every day. At the housing, initially staff told people to come forward with their problems; however patient found the reality was that staff instead were not interested in talking with client's and give a very clear message to keep their problems to themselves; patient felt more and more isolated and drinking increased to about 1/2 pt of vodka more days than not. This past week, patient had a 3 or 4 day mild manic episode after which her depression further worsened, which is typical; patient was bullied by a peer and feeling marginalized and in despair, left the house and for the 1st time in 6 months used crack and fentanyl, wanting to numb herself; she accidentally overdosed and was Narcan. On regaining consciousness she had thoughts that she would have been better off and intentionally tried to overdose on crack and fentanyl over the next day. She says God must have a plan because she did not overdose and so instead self presented to come to the hospital, saying she wanted to get help before it got worse. Patient reports distinct manic episodes that can last anywhere from 3 or 4 days to 2 weeks and very in intensity, during which time she is talking fast, racing mind too fast to write her thoughts down or get her words out, cleaning and re-cleaning excessively, does not sleep, going from project to project, stealing which is very out of character and done without any tact at all; such episodes are typically followed by a depressive episode. Patient endorses AH; she is not sure if it is her own voice and it varies in intensity depending on her mood but is present even when mood is stable, saying words like you are no good, you are worthless, people do not like you and then sometimes escalating to stab yourself, cut yourself. Patient has been consistent on her medication regimen. Formulation/clinical reasoning: Patient is only partially treated with current medication regimen as she continues to have both manic and depressive episodes, both of which induced relapse. Patient is no longer suicidal and is trying to regain hope that she can get back to sobriety and improve mood. Thoroughly reviewed medication history and patient would like to get back on Risperdal despite her experience side effect of galactorrhea, because it was very helpful in stopping manic episodes. She has been on both Risperdal and Seroquel simultaneously and wants to remain on Seroquel, finding the combination helpful and needing Seroquel for sleep; reviewed risks/side effects of being on 2 antipsychotics however patient feels that the benefit outweighs the risk (also considered was Latuda, lithium, Abilify, Depakote...); patient feels that Wellbutrin has also helped her depression and so will remain on this; Zoloft started only a month or 2 ago and has not been helpful. Patient has some mild withdrawal and so will start Ativan taper; no need for CIWA. Regarding diagnosis, patient reports AH even when mood is stable at which time she can ignore it; when depression worsens AH becomes more intense. Patient is not sure if it is her own voice or not but it remains chronically persistent and patient meets criteria for schizoaffective disorder Hospital course: 07/02 remains depressed and still with intermittent SI but not as bad as before; AH remain troublesome. Asks for Wellbutrin to be increased 1st to help with depression and then Risperdal; says she used to be on Wellbutrin b.i.d. which she prefers but will try long-acting now. Patient working on using coping skills that she has learned in therapy to challenge AH; she will tell herself it is not true, it is just lies... 07/03 very sad, tearful, rocking back and forth, wishing she were ; says missing her sister very much. Pt reports overwhelmed with self- deprecating thoughts, says 6months sober and all ruined in one day... Did CBT exercise regarding automatic thoughts; pt said she would try to realize she is not a loser. Discussed medications more and pt agreed to retry lithium; in hindsight, she thinks maybe she did not have an actual side-effect (hair loss). Will hold risperdal 07/04 depressed but little better today, fighting to be hopeful. AH to kill herself but patient does not want to . Slept better with lithium. Pt agrees needs some Risperdal for AH. 07/05 changed prn to 0.5mg tid, keep 1mg for ah which seems a bit better today 07/06 less psychotic more anxious-but wanting ativan not what is being offered, doesn't seem oleary given hx polysub 07/07 mood is better; AH still bothersome and agrees to increase Risperdal. Expresses paranoid thinking, that nursing staff will do things to purposely cause her to lose control. Talked about how it's hard to trust people. Discussed meds -paranoia likely combination of ptsd and psychotic illness; despite paranoid thinking, pt able to remain in good behavioral control 07/08 Patient reports that she is doing okay but that auditory hallucinations are very bothersome. She agrees to increasing Risperdal. Discussed lithium and subtherapeutic level; patient agreed to increase; she asked for it to be given during the day however saying it does not make her that tired. Patient very helpful and caring towards another dysregulated peer -increase Risperdal due to ongoing problematic AH -Increase lithium since current level subtherapeutic and very unlikely to prevent future manic/depressive episodes 07/09 continue treatment plan 07/10 continue treatment plan; will see if current Risperdal dose can eliminate AH over the next several days; otherwise will titrate. Mood is improving and patient future oriented, hoping to get into TSS kind are 07/11 AH remains but lower, more of a whisper and tolerable. Mood up and down some but overall says remains much better. 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 Tremor seems to have resolved with propranolol. Mood is good and patient is future oriented anticipating discharge Sunday to program 07/13 Remains doing well, overall good mood, anxiety down, AH low and tolerable; patient feels good about medication regimen and does not want to change it. Again discussed risks/side effects of lithium and need to avoid NSAIDs, ibuprofen etc which she says she understands and only takes for 2-3 days a month during her menses. Discussed Lantus and patient says she also takes sliding scale NovoLog. Feeling ready to discharge program. Expressing thanks for help received -patient has done well, significantly improved; good mood, sleeping well, symptoms well controlled. Currently no SI however sometimes intermittent passive SI presents but patient feels it is easy to dismiss. Patient looking forward to discharging to her program. She has remained in good behavioral and impulse control throughout her time in the unit, engaged in treatment and appropriate with peers and staff. She is discharging to with structured environment for continued treatment. Patient is not in imminent risk for harm to self or others and appropriate to return to the community for treatment Plan: CV Q 15 minute checks add Ativan 1mg daily prn for breakthrough anxiety related to AH (pt still stabilizing; discharging to structured environment that handles her meds) add propranolol 10mg bid for tremor Continue Blossom ER 900mg at 14:00 Labs ordered Continue Risperdal 3mg daily Risperdal 1 mg daily p.r.n. for AH (used to be at about 4 mg in the past) -Wellbutrin XL 300 mg daily -Wellbutrin XL 150 mg Q 1400 Continue Seroquel 400 q.h.s. DC zoloft: started 4 months ago, no benefit Will make Cogentin p.r.n.; she said on some medication she was getting muscle twitches but she is not on that medication anymore Continue Suboxone 8/2 mg b.i.d. Continue prazosin 1 mg q.h.s. Continue gabapentin 800 mg t.i.d. Started famotidine 20 mg b.i.d. for GERD; patient used to be on omeprazole, will try famotidine instead Med trial Hx: mirtazpine: Not effective for depression prozac: Not effective for depression celexa (partially helpful but was discontinued due to theoretical concern for QTC prolongation and switched to Lexapro; not sure of effectiveness) thorazine: Only partially helpful depakote: Does not remember efficacy Blossom: only 2 weeks; thinks she had a side effect Risperdal 4-5mg total (plus seroquel): working well, no manic episodes, but gallatorhea but tolerable Abilify: partially helpful Zyprexa; partially helpful seroquel: helps with sleep (but does not prevent alexandro or depression) Latuda: partially helpful; on it a few months ago; helped with depression, but still had manic episodes Patient educated on: diagnosis, medication risk/benefits, substance abuse and medical condition Informed Consent: understands Reason for continued inpatient stay Substantial Risk for: stable for discharge Time Spent With Patient Time: Total time managing care of this patient today ____ minutes.
[2024-07-13] MEDS: Nicotine 21 MG PATCH.TD24 TRANSDERMA (08:41)
[2024-07-13] MEDS: Loratadine 10 MG TABLET PO (08:42)
[2024-07-13] MEDS: Propranolol HCL 10 MG TABLET PO ×2 (08:42→21:52)
[2024-07-13] MEDS: buPROPion HCl XL 300 MG TAB.ER.24H PO (08:42)
[2024-07-13] MEDS: Buprenorphine/Naloxone 8/2 mg FILM 1 FILM SUBLINGUAL ×2 (08:42→21:51)
[2024-07-13] MEDS: Gabapentin 400 MG CAPSULE 800 MG PO ×3 (08:42→21:53)
[2024-07-13] MEDS: risperiDONE 3 MG TABLET PO (08:42)
[2024-07-13] MEDS: Famotidine 20 MG TABLET PO ×2 (08:43→21:51)
[2024-07-13] MEDS: metFORMIN HCl ER 500 MG TAB.ER.24H PO (08:43)
[2024-07-13] MEDS: risperiDONE 1 MG TABLET PO (11:00)
[2024-07-13] MEDS: hydrOXYzine HCL 50 MG TABLET PO (11:01)
[2024-07-13 13:15] LABS: Glucose, Whole Blood 121 mg/dL (60-115)
[2024-07-13] MEDS: buPROPion HCl XL 150 MG TAB.ER.24H PO (14:00)
[2024-07-13] MEDS: Lithium Carbonate ER 450 MG TABLET.ER 900 MG PO (14:03)
[2024-07-13] MEDS: LORazepam 1 MG TABLET PO ×2 (14:03→17:04)
[2024-07-13 16:51] LABS: Glucose, Whole Blood 180 mg/dL (60-115)
[2024-07-13 20:00] VITALS: BP 143/75; PULSE 89; TEMP 36.7; O2SAT 98
[2024-07-13 21:49] LABS: Glucose, Whole Blood 182 mg/dL (60-115)
[2024-07-13] MEDS: QUEtiapine Fumarate 400 MG TABLET PO (21:51)
[2024-07-13 21:52] VITALS: BP 121/62
[2024-07-13] MEDS: Prazosin HCL 1 MG CAPSULE PO (21:52)
[2024-07-13] MEDS: Insulin Glargine,Hum.rec.anlog 100 UNIT/ML 10 ML VIAL 30 UNIT SUBCUT (21:53)
[2024-07-14 07:56] LABS: Glucose, Whole Blood 205 mg/dL (60-115)
[2024-07-14 08:04] VITALS: BP 116/59; PULSE 70; RESP 16; TEMP 37.1; O2SAT 100
[2024-07-14] MEDS: Buprenorphine/Naloxone 8/2 mg FILM 1 FILM SUBLINGUAL (08:21)
[2024-07-14] MEDS: Famotidine 20 MG TABLET PO (08:23)
[2024-07-14] MEDS: hydrOXYzine HCL 50 MG TABLET PO (08:23)
[2024-07-14] MEDS: metFORMIN HCl ER 500 MG TAB.ER.24H PO (08:23)
[2024-07-14] MEDS: Loratadine 10 MG TABLET PO (08:23)
[2024-07-14] MEDS: risperiDONE 3 MG TABLET PO (08:23)
[2024-07-14] MEDS: Gabapentin 400 MG CAPSULE 800 MG PO (08:23)
[2024-07-14] MEDS: buPROPion HCl XL 300 MG TAB.ER.24H PO (08:23)
[2024-07-14] MEDS: Propranolol HCL 10 MG TABLET PO (08:24)
[2024-07-14 08:36] LABS: Lithium 0.56 mmol/L (0.60-1.20)
[2024-07-14 08:50] LABS: Blood Urea Nitrogen 8 mg/dL (9-16); Creatinine Clr Calc Pharmacy 110.8; Estimated Glomerular Filt Rate > 60
[2024-07-14 09:05] LABS: TSH reflex Free T4 2.04 uIU/mL (0.32-4.0)
--- NOTE | 2024-07-14 10:06 | PM.PSYDC ---
DS: Providers Provider Date of Service: 07/14/24 Date of admission: 06/30/24 14:04 Date of discharge: 07/14/24 Primary care physician: Unknown Physician Attending physician on admission: Padilla Mcallister Consults: 06/30/24 18:48 Addiction Medicine Routine Consulting Provider: Addiction Covering Reason for consultation: per policy 07/07/24 09:50 Consult to Hospitalist Routine Comment: Consulting Provider: Hospitalist Reason For Exam: chart review recs? hyperglycemia (avoid SS) Attending physician on discharge: aPdilla Mcallister DS: Diagnosis Discharge Diagnosis (1) Schizoaffective disorder, bipolar type: Status: Acute (2) PTSD (post-traumatic stress disorder): Status: Acute (3) Alcohol use disorder: Status: Acute (4) Cocaine use disorder: Status: Acute (5) Opioid use disorder: Status: Acute DS: Medications Discharge Medications Home Medications: Previous Rx's ?Medication ?Instructions ?Recorded benztropine 0.5 mg tablet 0.5 mg PO BID PRN 07/11/24 EPS/tremor/muscle twitch 30 days #60 tabs buprenorphine 8 mg-naloxone 2 mg 1 film sublingual BID 8 days #16 ea 07/11/24 sublingual film bupropion HCl 150 mg 24 hr tablet, 150 mg PO DAILY@1400 30 days #30 07/11/24 extended release tabs bupropion HCl 300 mg 24 hr tablet, 300 mg PO DAILY 30 days #30 tabs 07/11/24 extended release famotidine 20 mg tablet 20 mg PO BID 30 days #60 tabs 07/11/24 fluticasone propionate 50 1 spray intranasal DAILY PRN nasal 07/11/24 mcg/actuation nasal congestion 30 days #16 grams spray,suspension gabapentin 800 mg tablet 800 mg PO TID 30 days #90 tabs 07/11/24 hydroxyzine HCl 50 mg tablet 50 mg PO TID PRN milder Anxiety 30 07/11/24 days #90 tabs loratadine 10 mg tablet 10 mg PO DAILY 30 days #30 tabs 07/11/24 metformin 500 mg tablet,extended 500 mg PO DAILY 30 days #30 tabs 07/11/24 release 24 hr nicotine (polacrilex) 4 mg gum 4 mg buccal Q2H PRN nicotine 07/11/24 cravings 30 days #100 ea nicotine 21 mg/24 hr daily 21 mg transdermal DAILY PRN 07/11/24 transdermal patch smoking cessation 28 days #28 ea prazosin 1 mg capsule 1 mg PO BEDTIME 30 days #30 caps 07/11/24 quetiapine 400 mg tablet 400 mg PO BEDTIME 30 days #30 tabs 07/11/24 risperidone 1 mg tablet 1 mg PO DAILY PRN 07/11/24 AH/anxiety/agitation 30 days #30 tabs acetaminophen 325 mg tablet 650 mg (2 x 325 mg) PO Q6H PRN 07/13/24 Headache/Pain Mild Scale (1-3) #0 tabs lorazepam 1 mg tablet 1 mg PO DAILY PRN moderate to 07/13/24 severe anxiety 30 days #30 tabs propranolol 10 mg tablet 10 mg PO BID@0900,1400 30 days #60 07/13/24 tabs risperidone 3 mg tablet 3 mg PO DAILY 30 days #30 tabs 07/13/24 blood sugar diagnostic (Advanced #100 ea 07/14/24 Glucose Meter Test Strips) blood-glucose calibrat control #1 ea 07/14/24 (Assure 4 Control Solution combo pack) blood-glucose meter (Advanced #1 ea 07/14/24 Glucose Meter) insulin glargine 100 unit/mL (3 30 unit (0.3 mL) subcut BEDTIME 30 07/14/24 mL) subcutaneous pen (Lant days #9 mL Solostar U-100 Insulin) insulin lispro 100 unit/mL See Rx Instructions .Route 07/14/24 subcutaneous pen (Humalog KwikPen .COMPLEX 30 days #3 mL (U-100) Insulin) lancets (Lancets,Ultra Thin) #100 ea 07/14/24 lithium carbonate 450 mg 900 mg (2 x 450 mg) PO DAILY@1400 07/14/24 tablet,extended release 30 days #60 tabs pen needle, diabetic 32 gauge x #100 ea 07/14/24 5/32 (Pen Needle) Mental Status Exam Mental Status Exam Narrative: Pt is alert and oriented; behavior is calm, cooperative, friendly; patient is not in distress; dressed in casual attire with adequate hygiene; mood is described as good and affect congruent; eye contact appropriate; Speech is normal volume, rate and prosody; no psychomotor retardation/agitation present; thought process is organized and goal directed; Thought content is on treatment, aftercare; otherwise pertinent to relevant topics and without any delusional content, paranoid ideations or grandiosity; no SI/no HI; intermittent AH which is minimal and able to be ignored. Patients insight and judgment fair. Data Data Completed and Pending Completed studies during hospitalization [Text1]: 07/07/24 07/08/24 07/08/24 20:38 08:23 10:31 BUN 12 Creatinine 0.78 Estim Creat Clear Calc 94.2 Estimated GFR > 60 POC Glucose 145 H 134 H TSH 1.76 [place] 0.41 L 07/08/24 07/08/24 07/09/24 17:33 20:20 07:45 BUN Creatinine Estim Creat Clear Calc Estimated GFR POC Glucose 138 H 121 H 156 H TSH [place] 07/09/24 07/09/24 07/09/24 13:41 16:53 20:43 BUN Creatinine Estim Creat Clear Calc Estimated GFR POC Glucose 244 H 107 148 H TSH [place] 07/10/24 07/10/24 07/10/24 08:04 12:38 17:29 BUN Creatinine Estim Creat Clear Calc Estimated GFR POC Glucose 110 163 H 71 TSH [place] 07/10/24 07/11/24 07/11/24 20:12 08:01 12:35 BUN Creatinine Estim Creat Clear Calc Estimated GFR POC Glucose 167 H 184 H 137 H TSH [place] 07/11/24 07/12/24 07/12/24 21:20 08:34 17:13 BUN Creatinine Estim Creat Clear Calc Estimated GFR POC Glucose 141 H 156 H 100 TSH [place] 07/12/24 07/13/24 07/13/24 22:18 07:52 13:12 BUN Creatinine Estim Creat Clear Calc Estimated GFR POC Glucose 465 H* 147 H 121 H TSH [place] 07/13/24 07/13/24 07/14/24 16:47 21:44 07:53 BUN Creatinine Estim Creat Clear Calc Estimated GFR POC Glucose 180 H 182 H 205 H TSH [place] 07/14/24 08:18 BUN 8 L Creatinine 0.73 Estim Creat Clear Calc 110.8 Estimated GFR > 60 POC Glucose TSH 2.04 [place] 0.56 L 06/27/24 Unknown Urine clean catch - Clean Catch Midstream Urine Culture - Final DS: Summary Hospital Course Hospital Course: HPI: Pt is 48 year old female with history schizoaffective disorder, PTSD, cocaine/fentanyl/alcohol use disorder who self presents for worsening depression and SI following suicide attempt by overdose. Patient reports that she was overall doing okay, sober for 6 months, on current medication regimen; she still would have manic and depressive episodes but they were not severe. About a month ago patient's mood started to worsen as the 1 year anniversary of her sister's was approaching; she moved into a sober housing establishment where there was an increase in psychosocial stressors. She started drinking though not every day. At the housing, initially staff told people to come forward with their problems; however patient found the reality was that staff instead were not interested in talking with client's and give a very clear message to keep their problems to themselves; patient felt more and more isolated and drinking increased to about 1/2 pt of vodka more days than not. This past week, patient had a 3 or 4 day mild manic episode after which her depression further worsened, which is typical; patient was bullied by a peer and feeling marginalized and in despair, left the house and for the 1st time in 6 months used crack and fentanyl, wanting to numb herself; she accidentally overdosed and was Narcan. On regaining consciousness she had thoughts that she would have been better off and intentionally tried to overdose on crack and fentanyl over the next day. She says God must have a plan because she did not overdose and so instead self presented to come to the hospital, saying she wanted to get help before it got worse. Patient reports distinct manic episodes that can last anywhere from 3 or 4 days to 2 weeks and very in intensity, during which time she is talking fast, racing mind too fast to write her thoughts down or get her words out, cleaning and re-cleaning excessively, does not sleep, going from project to project, stealing which is very out of character and done without any tact at all; such episodes are typically followed by a depressive episode. Patient endorses AH; she is not sure if it is her own voice and it varies in intensity depending on her mood but is present even when mood is stable, saying words like you are no good, you are worthless, people do not like you and then sometimes escalating to stab yourself, cut yourself. Patient has been consistent on her medication regimen. Formulation/clinical reasoning: Patient is only partially treated with current medication regimen (Seroquel) as she continues to have both manic and depressive episodes, both of which induced relapse. Patient is no longer suicidal and is trying to regain hope that she can get back to sobriety and improve mood. Thoroughly reviewed medication history and patient would like to get back on Risperdal despite her experience side effect of galactorrhea, because it was very helpful in stopping manic episodes. She has been on both Risperdal and Seroquel simultaneously and wants to remain on Seroquel, finding the combination helpful and needing Seroquel for sleep; reviewed risks/side effects of being on 2 antipsychotics however patient feels that the benefit outweighs the risk (also considered was Latuda, lithium, Abilify, Depakote...); patient feels that Wellbutrin has also helped her depression and so will remain on this; Zoloft started only a month or 2 ago and has not been helpful. Patient has some mild withdrawal and so will start Ativan taper; no need for CIWA. Regarding diagnosis, patient reports AH even when mood is stable at which time she can ignore it; when depression worsens AH becomes more intense. Patient is not sure if it is her own voice or not but it remains chronically persistent and patient meets criteria for schizoaffective disorder Hospital course: 07/02 remains depressed and still with intermittent SI but not as bad as before; AH remain troublesome. Asks for Wellbutrin to be increased 1st to help with depression and then Risperdal; says she used to be on Wellbutrin b.i.d. which she prefers but will try long-acting now. Patient working on using coping skills that she has learned in therapy to challenge AH; she will tell herself it is not true, it is just lies... 07/03 very sad, tearful, rocking back and forth, wishing she were ; says missing her sister very much. Pt reports overwhelmed with self-deprecating thoughts, says 6months sober and all ruined in one day... Did CBT exercise regarding automatic thoughts; pt said she would try to realize she is not a loser. Discussed medications more and pt agreed to retry lithium; in hindsight, she thinks maybe she did not have an actual side-effect (hair loss). Will hold risperdal 07/04 depressed but little better today, fighting to be hopeful. AH to kill herself but patient does not want to . Slept better with lithium. Pt agrees needs some Risperdal for AH. 07/07 mood is better; AH still bothersome and agrees to increase Risperdal. Expresses paranoid thinking, that nursing staff will do things to purposely cause her to lose control. Talked about how it's hard to trust people. Discussed meds -paranoia likely combination of ptsd and psychotic illness; despite paranoid thinking, pt able to remain in good behavioral control 07/08 Patient reports that she is doing okay but that auditory hallucinations are very bothersome. She agrees to increasing Risperdal. Discussed lithium and subtherapeutic level; patient agreed to increase; she asked for it to be given during the day however saying it does not make her that tired. Patient very helpful and caring towards another dysregulated peer -increase Risperdal due to ongoing problematic AH -Increase lithium since current level subtherapeutic and very unlikely to prevent future manic/depressive episodes 07/11 AH remains but lower, more of a whisper and tolerable. Mood up and down some but overall says remains much better. Asks for ativan daily prn for breakthrough anxiety secondary to AH flare; business writer agrees -tremor b/l which pt says is new; discussed possible side-effect of [place] which she wants to continue anyway; agrees to add propranolol -elevated BP; normally WNL 07/12 remains in good behavioral and impulse control, polite and appropriate with peers and staff and engaged in treatment. Tremor seems to have resolved with propranolol. Mood is good and patient is future oriented anticipating discharge Sunday to program 07/13 Remains doing well, overall good mood, anxiety down, AH low and tolerable; patient feels good about medication regimen and does not want to change it. Again discussed risks/side effects of lithium and need to avoid NSAIDs, ibuprofen etc which she says she understands and only takes for 2-3 days a month during her menses. Discussed Lantus and patient says she also takes sliding scale NovoLog. Feeling ready to discharge program. Expressing thanks for help received patient has done well, significantly improved; good mood, sleeping well, symptoms well controlled. Currently no SI; sometimes experiences intermittent passive SI but it is fleeting, chronic and patient feels it is easy to dismiss. Patient looking forward to discharging to her program. She has remained in good behavioral and impulse control throughout her time in the unit, engaged in treatment and appropriate with peers and staff. She is discharging to a structured environment ([facility]) for continued treatment. Patient is not in imminent risk for harm to self or others and appropriate to return to the community for treatment Medications: STARTED on [place] ER 900mg at 14:00 STARTED on propranolol 10mg bid for tremor (possibly due to [place]) STARTED on Risperdal 3mg daily and Risperdal 1 mg daily p.r.n. for breakthrough AH STARTED on famotidine 20 mg b.i.d. STARTED on Metformin Ativan 1mg daily prn for breakthrough anxiety related to AH Wellbutrin XL 300 mg daily Wellbutrin XL 150 mg at 1400 Continue Seroquel 400 q.h.s. Cogentin 0.5mg p.r.n.; she said on some medication she was getting muscle twitches but she is not on that medication anymore Suboxone 8/2 mg b.i.d. prazosin 1 mg q.h.s. gabapentin 800 mg t.i.d. DC'd zoloft Med trial Hx: mirtazpine: Not effective for depression prozac: Not effective for depression celexa (partially helpful but was discontinued due to theoretical concern for QTC prolongation and switched to Lexapro; not sure of effectiveness) thorazine: Only partially helpful depakote: Does not remember efficacy [place]: only 2 weeks; thinks she had a side effect Risperdal 4-5mg total (plus seroquel): working well, no manic episodes, but gallatorhea but tolerable Abilify: partially helpful Zyprexa; partially helpful seroquel: helps with sleep (but does not prevent alexandro or depression) Latuda: partially helpful; on it a few months ago; helped with depression, but still had manic episodes Time spent discussing smoking cessation with patient: 3 to 10 minutes Status at Discharge Functional status at discharge: independent ambulation Overall status at discharge: patient is back to baseline Time Spent with Patient Time attestation: Total time managing care of this patient today __45__ minutes. Time spent: Greater than 30 minutes Specific discharge activities: Met with patient; discussed with team; prescriptions, charting Discharge Plan Discharge Anticipated Discharge Date/Time: 07/14/24 10:45 Patient Disposition: Senior Care Discharge Diagnosis: Schizoaffective disorder, bipolar type, most recently depressed, in full remission Referrals: [facility] Suboxone Appt jennifer Paalejandra[place] [Other] - 07/21/24 3:30 pm (This will be a one hour appointment. ) Physician,Unknown J [Primary Care Provider] - 1 Week Discharge Medications: New nicotine 21 mg/24 hr Patch 24 Hour 21 mg transdermal DAILY PRN (Reason: smoking cessation) 28 Days Qty: 28 1RF nicotine (polacrilex) 4 mg gum 4 mg buccal Q2H PRN (Reason: nicotine cravings) 30 Days Qty: 100 1RF prazosin 1 mg Capsule 1 mg PO BEDTIME 30 Days Qty: 30 1RF Protocol: Hold for SBP< HOLD for SBP < : 90 bupropion HCl 150 mg Tablet Extended Release 24 Hr 150 mg PO DAILY@1400 30 Days Qty: 30 1RF hydroxyzine HCl 50 mg Tablet 50 mg PO TID PRN (Reason: milder Anxiety) 30 Days Qty: 90 1RF risperidone 1 mg Tablet 1 mg PO DAILY PRN (Reason: AH/anxiety/agitation) 30 Days Qty: 30 1RF fluticasone propionate 50 mcg/actuation [place],Suspension 1 spray intranasal DAILY PRN (Reason: nasal congestion) 30 Days Qty: 16 1RF famotidine 20 mg Tablet 20 mg PO BID 30 Days Qty: 60 1RF metformin 500 mg Tablet Extended Release 24 Hr 500 mg PO DAILY 30 Days Qty: 30 1RF propranolol 10 mg Tablet 10 mg PO BID@0900,1400 30 Days Qty: 60 1RF Protocol: Hold for SBP/HR < HOLD for SBP < : 90 HOLD for HR < : 60 acetaminophen 325 mg Tablet 650 mg PO Q6H PRN (Reason: Headache/Pain Mild Scale (1-3)) Qty: 0 0RF lorazepam 1 mg Tablet 1 mg PO DAILY PRN (Reason: moderate to severe anxiety) 30 Days Qty: 30 1RF risperidone 3 mg Tablet 3 mg PO DAILY 30 Days Qty: 30 1RF lithium carbonate 450 mg Tablet Extended Release 900 mg PO DAILY@1400 30 Days Qty: 60 1RF insulin lispro [Humalog KwikPen Insulin] 100 unit/mL insulin pen See Rx Instructions .ROUTE .COMPLEX 30 Days Qty: 3 1RF Rx Instructions: quantity 1 pen give units as needed before each meal according to sliding scale below Less than or equal to 110 ---- Give (units): 0 111 to 150 Give (units): 0 151 to 200 Give (units): 2 201 to 250 Give (units): 4 251 to 300 Give (units): 6 301 to 350 Give (units): 8 Greater than 350 Give (units): 10 Call your PCP if Blood Glucose is at or over:350 (DME) blood-glucose meter [Advanced Glucose Meter] [facility] [place] See Rx Instructions .Route Qty: 1 0RF Rx Instructions: As directed: use 4x a day before meals and at bedtime to assess insulin (DME) Advanced Gluc Meter Test Strip Strip See Rx Instructions .Route Qty: 100 1RF Rx Instructions: As directed: use 4x a day before meals and at bedtime to assess insulin (DME) lancets [Lancets,Ultra Thin] [facility] See Rx Instructions .Route Qty: 100 1RF Rx Instructions: As directed: use 4xday before meals and bedtime as needed for administering insulin (DME) pen needle, diabetic [Pen Needle] 32 gauge x 5/32 needle See Rx Instructions .Route Qty: 100 1RF Rx Instructions: As directed: use 4xday before meals and bedtime as needed for administering insulin (DME) Assure 4 Control Solution Combo Pack See Rx Instructions .Route Qty: 1 1RF Rx Instructions: As directed: use monthly or when starting new test strips Continued gabapentin 800 mg tablet 800 mg PO TID 30 Days Qty: 90 1RF loratadine 10 mg tablet 10 mg PO DAILY 30 Days Qty: 30 1RF bupropion HCl 300 mg tablet extended release 24 hr 300 mg PO DAILY 30 Days Qty: 30 1RF quetiapine 400 mg tablet 400 mg PO BEDTIME 30 Days Qty: 30 1RF buprenorphine-naloxone 8-2 mg film 1 film sublingual BID 8 Days Qty: 16 0RF insulin glargine [Lantus Solostar U-100 Insulin] 100 unit/mL (3 mL) insulin pen 30 unit subcut BEDTIME 30 Days Qty: 9 1RF Rx Instructions: quantity 3 pens Changed benztropine 0.5 mg tablet 0.5 mg PO BID PRN (Reason: EPS/tremor/muscle twitch) 30 Days Qty: 60 1RF Discontinued sertraline 100 mg tablet 100 mg PO DAILY Discharge Orders: Discharge Order (Routine); Ordered 07/14/24 Ordered By: Padilla Mcallister Diet: Diabetic diet Activity on Discharge: As tolerated Stand Alone Forms: Patient Portal Discharge page, Community Support Print Language: Hebrew Care Plan Goals: Maintain mood and safe behaviors Take medications as prescribed Continue to pursue sobriety Practice coping skills Continue with outpatient providers and reach out to them as needed Health Concerns: Mood stability and behaviors Sobriety Diabetes Chronic leg pain Plan of Treatment: Follow up with your PCP, psychiatric provider and other outpatient providers regarding above concerns Take medications as prescribed Assessment: Risk assessment at time of discharge:? Patient was interviewed prior to discharge and found to be fully oriented and without any SI or HI. Patient has improved insight and judgment and wants to continue treatment. Patient is not in imminent risk of harm to self or others and has a safety plan that includes presenting to the closest ER or calling 911 if feeling unsafe.? Patient has been observed closely by nursing and unit staff throughout admission; patient has not engaged in any behaviors that suggest dangerousness to self or others and has demonstrated appropriate behaviors and impulse control Discharge Date/Time: 07/14/24 10:42
[2024-07-14] MEDS: Naloxone HCl Nasal TAKE HOME 4 MG SPRAY 8 MG NOSTRILALT (10:13)
== END 2024-07-14 10:42 | disposition home or self-care (01) | DRG 885 ==
LOC: HO.ED 13:38 → HO.PM5 06-30 14:17
PROVIDERS: Admitting Provider Psychiatry & Neurology Psychiatry; Emergency Provider Emergency Medicine Emergency Medical Services; Visit Provider Psychiatry & Neurology Psychiatry
DX: F25.0 Schizoaffective disorder, bipolar type (principal); R45.851 Suicidal ideations; Z59.02 Unsheltered homelessness; F11.20 Opioid dependence, uncomplicated; F43.10 Post-traumatic stress disorder, unspecified; F10.90 Alcohol use, unspecified, uncomplicated; F14.10 Cocaine abuse, uncomplicated; F17.210 Nicotine dependence, cigarettes, uncomplicated; Z71.6 Tobacco abuse counseling; Z20.822 Contact with and (suspected) exposure to COVID-19; Z91.51 Personal history of suicidal behavior; Z79.4 Long term (current) use of insulin; Z79.899 Other long term (current) drug therapy
CPT/HCPCS: 0241U; 36415; 80053; 80061; 80178; 80307; 81001; 81025; 82565; 82947; 83036; 83690; 84443; 84484; 84520; 85025; 87086; 93005; 99285; S9485

== ENCOUNTER → 2024-06-30 14:04 | Outpatient (BNV) | payer OTHER, SELFPAY | PROVIDERS: Admitting Provider Psychiatry & Neurology Psychiatry; Emergency Provider Emergency Medicine Emergency Medical Services; Visit Provider Psychiatry & Neurology Psychiatry | DX: F25.0 Schizoaffective disorder, bipolar type (principal); F14.10 Cocaine abuse, uncomplicated; F10.90 Alcohol use, unspecified, uncomplicated; F43.11 Post-traumatic stress disorder, acute; F11.90 Opioid use, unspecified, uncomplicated | CPT/HCPCS: 90792; 99231; 99232; 99239 ==

== ENCOUNTER 2024-07-23 20:41 | Inpatient (IN) | payer OTHER, SELFPAY ==
--- NOTE | 2024-07-23 20:43 | ED_ITS ---
HPI - Psych General Chief Complaint: Psychiatric Symptoms Stated Complaint: crisis Time Seen by Provider: 07/23/24 21:29 Source: patient and old records reviewed Mode of arrival: ambulatory Limitations: no limitations History of Present Illness ED Provider: SHANNON MAHAJAN Narrative: 48 yo female with PMH of depression, opioid use disorder, ETOH abuse, PTSD, schizoaffective disorder, here with c/o not feeling safe and AH stating that she should overdose and cut herself. She states she is not safe and needs help. Denies any medical complaints. She denies substance abuse withdrawal concerns. MD complaint: suicidal ideation and feels depressed Onset (ago): week(s) Duration: intermittent History of same: Yes Relieving factors: none Exacerbating factors: other Context: significant life stressor Associated psychiatric symptoms: depression and suicidal ideation Associated symptoms: denies other symptoms Treatments prior to arrival: none If self harm: admits thoughts of self harm Related Data Previous Rx's ?Medication ?Instructions ?Recorded benztropine 0.5 mg tablet 0.5 mg PO BID PRN 07/11/24 EPS/tremor/muscle twitch 30 days #60 tabs buprenorphine 8 mg-naloxone 2 mg 1 film sublingual BID 8 days #16 ea 07/11/24 sublingual film bupropion HCl 150 mg 24 hr tablet, 150 mg PO DAILY@1400 30 days #30 07/11/24 extended release tabs bupropion HCl 300 mg 24 hr tablet, 300 mg PO DAILY 30 days #30 tabs 07/11/24 extended release famotidine 20 mg tablet 20 mg PO BID 30 days #60 tabs 07/11/24 fluticasone propionate 50 1 spray intranasal DAILY PRN nasal 07/11/24 mcg/actuation nasal congestion 30 days #16 grams spray,suspension gabapentin 800 mg tablet 800 mg PO TID 30 days #90 tabs 07/11/24 hydroxyzine HCl 50 mg tablet 50 mg PO TID PRN milder Anxiety 30 07/11/24 days #90 tabs loratadine 10 mg tablet 10 mg PO DAILY 30 days #30 tabs 07/11/24 metformin 500 mg tablet,extended 500 mg PO DAILY 30 days #30 tabs 07/11/24 release 24 hr nicotine (polacrilex) 4 mg gum 4 mg buccal Q2H PRN nicotine 07/11/24 cravings 30 days #100 ea nicotine 21 mg/24 hr daily 21 mg transdermal DAILY PRN 07/11/24 transdermal patch smoking cessation 28 days #28 ea prazosin 1 mg capsule 1 mg PO BEDTIME 30 days #30 caps 07/11/24 quetiapine 400 mg tablet 400 mg PO BEDTIME 30 days #30 tabs 07/11/24 risperidone 1 mg tablet 1 mg PO DAILY PRN 07/11/24 AH/anxiety/agitation 30 days #30 tabs acetaminophen 325 mg tablet 650 mg (2 x 325 mg) PO Q6H PRN 07/13/24 Headache/Pain Mild Scale (1-3) #0 tabs lorazepam 1 mg tablet 1 mg PO DAILY PRN moderate to 07/13/24 severe anxiety 30 days #30 tabs propranolol 10 mg tablet 10 mg PO BID@0900,1400 30 days #60 07/13/24 tabs risperidone 3 mg tablet 3 mg PO DAILY 30 days #30 tabs 07/13/24 blood sugar diagnostic (Advanced #100 ea 07/14/24 Glucose Meter Test Strips) blood-glucose calibrat control #1 ea 07/14/24 (Assure 4 Control Solution combo pack) blood-glucose meter (Advanced #1 ea 07/14/24 Glucose Meter) insulin glargine 100 unit/mL (3 30 unit (0.3 mL) subcut BEDTIME 30 07/14/24 mL) subcutaneous pen (Lan #9 mL Solostar U-100 Insulin) insulin lispro 100 unit/mL See Rx Instructions .Route 07/14/24 subcutaneous pen (Humalog KwikPen .COMPLEX 30 days #3 mL (U-100) Insulin) lancets (Lancets,Ultra Thin) #100 ea 07/14/24 lithium carbonate 450 mg 900 mg (2 x 450 mg) PO DAILY@1400 07/14/24 tablet,extended release 30 days #60 tabs pen needle, diabetic 32 gauge x #100 ea 07/14/24 5/32 (Pen Needle) Allergies Allergy/AdvReac Type Severity Reaction Status Date / Time No Known Allergies Allergy Verified 07/23/24 20:47 Review of Systems 2 Review of Systems: Constitutional : No Fever, No Chills ENT/Mouth : No Ear Pain, No Nasal Congestion, No sore throat Eyes: No Eye Pain, No Swelling, No Redness Cardiovascular : No Chest Pain, No SOB Respiratory : No Cough, No Sputum, No Dyspnea Gastrointestinal : No Nausea, No Vomiting, No Diarrhea, No Hematochezia, No Melena Genitourinary : No Dysuria, No Urinary Frequency, No Hematuria Musculoskeletal : No Myalgias Skin : No Skin Lesions, No rash Neuro : No Weakness, No Numbness, No Paresthesias, No Dizziness, No Headache Psych : positive Anxiety, positive Depression, positive SI no HI Heme/Lymph: No Lymphadenopathy Endocrine : No Polyuria, No Polydipsia All other systems reviewed and are negative PMFSH Past Medical History Attestation statement: The following information was validated with the patient. Source: old records reviewed Medical History Diabetes Opioid use disorder Cocaine use disorder Alcohol use disorder PTSD (post-traumatic stress disorder) Schizoaffective disorder, bipolar type Social History Social History Household Members: Other Household Members Other:: Homeless Housing: Homeless Do you presently have visiting nurse or other home services: No Alcohol intake: never Patient Tobacco Use Status: Current everyday Tobacco user Tobacco use type: Cigarette Cigarettes Per Day: 4 Years Smoked: Many Substance Use Type: Crack/Cocaine Advance Directives: No Advance Directives Information Provided: No service: No Sexual orientation: Unable to collect Physical Exam 2 Vital Signs: Vital Signs: Last Vital Signs Temp 97.9 F 07/24/24 09:17 Pulse 70 07/24/24 09:56 Resp 18 07/24/24 09:56 BP 102/60 07/24/24 09:56 Pulse Ox 98 07/24/24 09:56 O2 Del Method Room Air 07/24/24 09:56 BMI result Body Mass Index 27.8 Appearance: Alert. Oriented X3. No acute distress. Eyes: Pupils equal, round and reactive to light. ENT: Pharynx normal. Neck: Normal inspection. Neck supple. CVS: Normal heart rate and rhythm. Pulses normal. Respiratory: No respiratory distress. Breath sounds normal. Abdomen: Soft and nontender. Skin: Skin warm and dry. Normal skin color. Normal skin turgor. Extremities: No lower extremity edema. No calf ttp Neuro: Oriented X 3. No motor deficit. No sensory deficit. CN2-12 intact Course Course Course Narrative: This is a rapid medical exam performed by C. Carlee, [employer] INSPECTOR: Additional HPI, ROS, PE not included below will be deferred to primary provider. Patient is a 48-year-old female with history of PTSD, schizoaffective disorder, depression, cocaine and opioid use disorder presenting to the emergency department with complaint of not feeling safe. States she is having auditory hallucinations of voices telling her to hurt herself by cutting wrists, jumping in front of traffic, overdosing. Denies HI or voices telling her to harm others. States has new medications including lithium. Plan: med clearance, then CARE team eval Reevaluation(s) Reevaluation #1: urine contaminated would wait on culture has no urinary symptoms inaptient bed search Medications Administered Generic Name Dose Route Start Last Admin Trade Name Freq PRN Reason Stop Dose Admin Buprenorphine/Naloxone 1 film 07/24/24 09:00 07/24/24 09:56 Buprenorphine/Naloxone 8/2 Mg Film SUBLINGUAL 1 film BID SHARATH Administration Famotidine 20 mg 07/24/24 09:00 07/24/24 09:56 Famotidine 20 Mg Tablet PO 20 mg BID SHARATH Administration Gabapentin 800 mg 07/24/24 09:00 07/24/24 10:27 Gabapentin 400 Mg Capsule PO 800 mg TID SHARATH Administration Hydroxyzine HCl 50 mg 07/24/24 00:15 07/24/24 03:51 Hydroxyzine Hcl 50 Mg Tablet PO 50 mg TID PRN Administration milder Anxiety Insulin Human Lispro 0 - 10 unit 07/24/24 07:30 07/24/24 08:09 Insulin Lispro 100 Unit/Ml 3 Ml Vial SUBCUT Not Given TIDAC SHARATH Protocol Loratadine 10 mg 07/24/24 09:00 07/24/24 09:56 Loratadine 10 Mg Tablet PO 10 mg DAILY SHARATH Administration Lorazepam 1 mg 07/24/24 00:15 07/24/24 03:51 Lorazepam 1 Mg Tablet PO 1 mg DAILY PRN Administration moderate to severe anxiety Metformin HCl 500 mg 07/24/24 09:00 07/24/24 09:56 Metformin Hcl Er 500 Mg Tab.Er.24h PO 500 mg DAILY SHARATH Administration Propranolol HCl 10 mg 07/24/24 09:00 07/24/24 09:56 Propranolol Hcl 10 Mg Tablet PO 10 mg BID@0900,1400 SHARATH Administration Protocol Risperidone 1 mg 07/24/24 00:15 07/24/24 03:51 Risperidone 1 Mg Tablet PO 1 mg DAILY PRN Administration AH/anxiety/agitation Risperidone 3 mg 07/24/24 09:00 07/24/24 10:28 Risperidone 3 Mg Tablet PO 3 mg DAILY SHARATH Administration Medical Decision Making Medical Decision Making [facility] Narrative: 48 yo female with PMH of depression, opioid use disorder, ETOH abuse, PTSD, schizoaffective disorder, here with c/o SI and depression at this time will basic labs and CARE team consult. She denies any medical issues or complaints. Differential Diagnosis Differential Diagnoses: The differential diagnosis associated with the presentation includes SI, depression Admission/Observation Consideration of admission/observation: Escalation of care including admission/observation considered physician observation started at 958pm Consult Healthcare Provider Management of the patient was discussed with: Behavioral Health Provider Lab Data [facility] Lab Attestation statement: I reviewed the patient's lab results. 07/24/24 09:48 07/24/24 09:05 Labs: Lab Results 07/23/24 07/23/24 07/24/24 Range/Units 20:59 21:33 08:08 WBC 9.9 (4.8-10.8) X10*3/uL RBC 4.28 (4.20-5.50) X10*6/uL Hgb 12.4 (12.0-16.0) g/dl Hct 36.2 L (37.0-47.0) % MCV 84.6 (80.0-98.0) fL MCH 29.0 (27.0-33.0) pg MCHC 34.3 (31.0-35.0) g/dl RDW 13.1 (11.0-16.0) % Plt Count 307 D (160-400) X10*3/uL MPV 9.6 (9.4-12.3) fL Immature Gran % (Auto) 0.4 (0.0-0.4) % Neut % (Auto) 63.5 (45-73) % Lymph % (Auto) 25.9 (20-40) % [place] % (Auto) 6.6 (2-11) % Eos % (Auto) 3.4 (0-4) % Baso % (Auto) 0.2 (0-2) % Lymph # (Auto) 2.6 (1.2-4.9) X10*3/uL [place] # (Auto) 0.7 (0.1-1.2) X10*3/uL Eos # (Auto) 0.3 (0.0-0.4) X10*3/uL Baso # (Auto) 0.0 (0.0-0.2) X10*3/uL Abs Immat Gran (auto) 0.04 H (0.00-0.03) X10*3/uL Absolute Neuts (auto) 6.3 (2.0-8.3) x10*3/uL Absolute Nucleated RBC 0.000 (0.0-0.012) X10*3/uL Nucleated RBC % (auto) 0.0 (0.0-0.2) /100WBC Sodium 137 (135-145) mmol/L Potassium 3.9 (3.3-5.1) mmol/L Chloride 102 (96-108) mmol/L Carbon Dioxide 27 (22-29) mmol/L Anion Gap 12 (12-20) BUN 13 (9-16) mg/dL Creatinine 0.83 (0.5-1.4) mg/dL Estim Creat Clear Calc 98.7 Estimated GFR > 60 POC Glucose 109 (60-115) mg/dL Random Glucose 113 (60-115) mg/dL Calcium 9.8 (8.4-10.2) mg/dL Total Bilirubin 0.6 (0.0-1.0) mg/dL Direct Bilirubin (0.0-0.5) mg/dL AST 18 (5-31) U/L ALT 11 (0-31) U/L Alkaline Phosphatase 102 (39-117) U/L Total Protein 8.7 H (6.5-8.0) g/dL Albumin 4.4 (3.5-5.0) g/dL Beta HCG, Quant < 2 mIU/mL Urine Color Yellow Urine Appearance Cloudy Urine pH 5.5 (5.0-9.0) Ur Specific [place] 1.025 (1.005-1.025) Urine Protein Negative (Neg-Trace) mg/dL Urine Glucose (UA) Negative (Negative) mg/dL Urine Ketones Negative (Negative) mg/dL Urine Blood Trace H (Negative) Urine Nitrite Negative (Negative) Ur Leukocyte Esterase Large (3+) H (Negative) Urine RBC 3-5 H (0-2) /HPF Urine WBC >50 H (0-5) /HPF Ur Squamous Epith Cells >20 (0-2) /HPF Urine Bacteria 3+ (None Seen) Hyaline Casts 0-2 (0-2) /LPF Salicylates (15-30) mg/dL Urine Opiates Screen Not Detected (Not Detect) Ur Buprenorphine Scrn Positive H (Not Detect) ng/mL Ur Oxycodone Screen Not Detected (Not Detect) ng/mL Urine Methadone Screen Not Detected (Not Detect) ng/mL Urine Fentanyl Screen Not Detected (Not Detect) Acetaminophen (<30) mcg/mL Ur Barbiturates Screen Not Detected (Not Detect) Ur Phencyclidine Scrn Not Detected (Not Detect) Ur Amphetamines Screen POSITIVE H (Not Detect) U Benzodiazepines Scrn Not Detected (Not Detect) [place] 0.70 (0.60-1.20) mmol/L Urine Cocaine Screen POSITIVE H (Not Detect) U Marijuana (THC) Screen Not Detected (Not Detect) Ethyl Alcohol < 10 mg/dL 07/24/24 07/24/24 Range/Units 09:05 09:48 WBC 7.5 (4.8-10.8) X10*3/uL RBC 4.03 L (4.20-5.50) X10*6/uL Hgb 11.6 L (12.0-16.0) g/dl Hct 35.0 L (37.0-47.0) % MCV 86.8 (80.0-98.0) fL MCH 28.8 (27.0-33.0) pg MCHC 33.1 (31.0-35.0) g/dl RDW 12.8 (11.0-16.0) % Plt Count 215 D (160-400) X10*3/uL MPV 10.0 (9.4-12.3) fL Immature Gran % (Auto) 0.1 (0.0-0.4) % Neut % (Auto) 52.7 (45-73) % Lymph % (Auto) 31.3 (20-40) % [place] % (Auto) 11.5 H (2-11) % Eos % (Auto) 4.1 H (0-4) % Baso % (Auto) 0.3 (0-2) % Lymph # (Auto) 2.4 (1.2-4.9) X10*3/uL [place] # (Auto) 0.9 (0.1-1.2) X10*3/uL Eos # (Auto) 0.3 (0.0-0.4) X10*3/uL Baso # (Auto) 0.0 (0.0-0.2) X10*3/uL Abs Immat Gran (auto) 0.01 (0.00-0.03) X10*3/uL Absolute Neuts (auto) 4.0 (2.0-8.3) x10*3/uL Absolute Nucleated RBC 0.000 (0.0-0.012) X10*3/uL Nucleated RBC % (auto) 0.0 (0.0-0.2) /100WBC Sodium 138 (135-145) mmol/L Potassium 4.0 (3.3-5.1) mmol/L Chloride 106 (96-108) mmol/L Carbon Dioxide 24 (22-29) mmol/L Anion Gap 12 (12-20) BUN 13 (9-16) mg/dL Creatinine 0.74 (0.5-1.4) mg/dL Estim Creat Clear Calc 110.7 Estimated GFR > 60 POC Glucose (60-115) mg/dL Random Glucose 106 (60-115) mg/dL Calcium 9.2 D (8.4-10.2) mg/dL Total Bilirubin 0.7 (0.0-1.0) mg/dL Direct Bilirubin 0.3 (0.0-0.5) mg/dL AST 17 (5-31) U/L ALT 10 (0-31) U/L Alkaline Phosphatase 98 (39-117) U/L Total Protein 7.7 (6.5-8.0) g/dL Albumin 3.8 (3.5-5.0) g/dL Beta HCG, Quant mIU/mL Urine Color Urine Appearance Urine pH (5.0-9.0) Ur Specific [place] (1.005-1.025) Urine Protein (Neg-Trace) mg/dL Urine Glucose (UA) (Negative) mg/dL Urine Ketones (Negative) mg/dL Urine Blood (Negative) Urine Nitrite (Negative) Ur Leukocyte Esterase (Negative) Urine RBC (0-2) /HPF Urine WBC (0-5) /HPF Ur Squamous Epith Cells (0-2) /HPF Urine Bacteria (None Seen) Hyaline Casts (0-2) /LPF Salicylates < 5.0 L (15-30) mg/dL Urine Opiates Screen (Not Detect) Ur Buprenorphine Scrn (Not Detect) ng/mL Ur Oxycodone Screen (Not Detect) ng/mL Urine Methadone Screen (Not Detect) ng/mL Urine Fentanyl Screen (Not Detect) Acetaminophen < 3 (<30) mcg/mL Ur Barbiturates Screen (Not Detect) Ur Phencyclidine Scrn (Not Detect) Ur Amphetamines Screen (Not Detect) U Benzodiazepines Scrn (Not Detect) [place] 0.58 L (0.60-1.20) mmol/L Urine Cocaine Screen (Not Detect) U Marijuana (THC) Screen (Not Detect) Ethyl Alcohol < 10 mg/dL External Record Review External record reviewed: Inpatient record Social Determinants Patient?s care significantly limited by Social Determinants of Health including: Problems related to primary support group Discharge Plan Discharge Clinical Impression: Suicidal ideation Patient Disposition: Still a Patient Prescriptions: No Action nicotine 21 mg/24 hr Patch 24 Hour 21 mg transdermal DAILY PRN (Reason: smoking cessation) 28 Days Qty: 28 1RF nicotine (polacrilex) 4 mg gum 4 mg buccal Q2H PRN (Reason: nicotine cravings) 30 Days Qty: 100 1RF prazosin 1 mg Capsule 1 mg PO BEDTIME 30 Days Qty: 30 1RF Protocol: Hold for SBP< HOLD for SBP < : 90 bupropion HCl 150 mg Tablet Extended Release 24 Hr 150 mg PO DAILY@1400 30 Days Qty: 30 1RF hydroxyzine HCl 50 mg Tablet 50 mg PO TID PRN (Reason: milder Anxiety) 30 Days Qty: 90 1RF risperidone 1 mg Tablet 1 mg PO DAILY PRN (Reason: AH/anxiety/agitation) 30 Days Qty: 30 1RF fluticasone propionate 50 mcg/actuation [place],Suspension 1 spray intranasal DAILY PRN (Reason: nasal congestion) 30 Days Qty: 16 1RF famotidine 20 mg Tablet 20 mg PO BID 30 Days Qty: 60 1RF metformin 500 mg Tablet Extended Release 24 Hr 500 mg PO DAILY 30 Days Qty: 30 1RF benztropine 0.5 mg tablet 0.5 mg PO BID PRN (Reason: EPS/tremor/muscle twitch) 30 Days Qty: 60 1RF gabapentin 800 mg tablet 800 mg PO TID 30 Days Qty: 90 1RF loratadine 10 mg tablet 10 mg PO DAILY 30 Days Qty: 30 1RF bupropion HCl 300 mg tablet extended release 24 hr 300 mg PO DAILY 30 Days Qty: 30 1RF quetiapine 400 mg tablet 400 mg PO BEDTIME 30 Days Qty: 30 1RF buprenorphine-naloxone 8-2 mg film 1 film sublingual BID 8 Days Qty: 16 0RF propranolol 10 mg Tablet 10 mg PO BID@0900,1400 30 Days Qty: 60 1RF Protocol: Hold for SBP/HR < HOLD for SBP < : 90 HOLD for HR < : 60 acetaminophen 325 mg Tablet 650 mg PO Q6H PRN (Reason: Headache/Pain Mild Scale (1-3)) Qty: 0 0RF lorazepam 1 mg Tablet 1 mg PO DAILY PRN (Reason: moderate to severe anxiety) 30 Days Qty: 30 1RF risperidone 3 mg Tablet 3 mg PO DAILY 30 Days Qty: 30 1RF lithium carbonate 450 mg Tablet Extended Release 900 mg PO DAILY@1400 30 Days Qty: 60 1RF insulin glargine [Lantus Solostar U-100 Insulin] 100 unit/mL (3 mL) insulin pen 30 unit subcut BEDTIME 30 Days Qty: 9 1RF Rx Instructions: quantity 3 pens insulin lispro [Humalog KwikPen Insulin] 100 unit/mL insulin pen See Rx Instructions .ROUTE .COMPLEX 30 Days Qty: 3 1RF Rx Instructions: quantity 1 pen give units as needed before each meal according to sliding scale below Less than or equal to 110 ---- Give (units): 0 111 to 150 Give (units): 0 151 to 200 Give (units): 2 201 to 250 Give (units): 4 251 to 300 Give (units): 6 301 to 350 Give (units): 8 Greater than 350 Give (units): 10 Call your PCP if Blood Glucose is at or over:350 (DME) blood-glucose meter [Advanced Glucose Meter] Misc See Rx Instructions .Route Qty: 1 0RF Rx Instructions: As directed: use 4x a day before meals and at bedtime to assess insulin (DME) Advanced Gluc Meter Test Strip Strip See Rx Instructions .Route Qty: 100 1RF Rx Instructions: As directed: use 4x a day before meals and at bedtime to assess insulin (DME) lancets [Lancets,Ultra Thin] Misc See Rx Instructions .Route Qty: 100 1RF Rx Instructions: As directed: use 4xday before meals and bedtime as needed for administering insulin (DME) pen needle, diabetic [Pen Needle] 32 gauge x 5/32 needle See Rx Instructions .Route Qty: 100 1RF Rx Instructions: As directed: use 4xday before meals and bedtime as needed for administering insulin (DME) Assure 4 Control Solution Combo Pack See Rx Instructions .Route Qty: 1 1RF Rx Instructions: As directed: use monthly or when starting new test strips Interventions: [place]-Suicide Risk Severity Scale Last Done: 07/23/24 22:25 Print Language: Persian ED Observation ED Observation Admit Comment: 07/24/24 Found with pills in her room in the pod and more somnolent than expected. She admits to marijuana and cocaine use. She denies taking any substances. We will send new labs and check vitals more frequently ED Observation Clinical Results Other Testing: Results ED Observation Discharge Plan Exam: Labs were all normal found with vape pen and pills looks okay somnolent but easily arousable . I will continue to be seen.
[2024-07-23 20:44] VITALS: BP 135/86; PULSE 100; RESP 18; TEMP 36.3; O2SAT 98; BMI 27.8
[2024-07-23 21:04] LABS: MANUAL DIFF FLAG NO
[2024-07-23 21:14] LABS: Basophils Percent Auto 0.2 % (0-2); Eosinophils Absolute Auto 0.3 X10*3/uL (0.0-0.4); Eosinophils Percent Auto 3.4 % (0-4); Hematocrit 36.2 % (37.0-47.0); Hemoglobin 12.4 g/dl (12.0-16.0); Imm Gran Abs Auto 0.04 X10*3/uL (0.00-0.03); Imm Gran Pct Auto 0.4 % (0.0-0.4); Lymphocytes Absolute Auto 2.6 X10*3/uL (1.2-4.9); Lymphocytes Percent Auto 25.9 % (20-40); Mean Corpuscular HGB Conc 34.3 g/dl (31.0-35.0); Mean Corpuscular Volume 84.6 fL (80.0-98.0); Mean Platelet Volume 9.6 fL (9.4-12.3); Monocytes Absolute Auto 0.7 X10*3/uL (0.1-1.2); Monocytes Percent Auto 6.6 % (2-11); Neutrophils Absolute Auto 6.3 x10*3/uL (2.0-8.3); Neutrophils Percent Auto 63.5 % (45-73); Platelet Count 307 X10*3/uL (160-400); Red Blood Count 4.28 X10*6/uL (4.20-5.50); Red Cell Distribution Width 13.1 % (11.0-16.0); White Blood Count 9.9 X10*3/uL (4.8-10.8)
[2024-07-23 21:36] LABS: Alanine Aminotransferase 11 U/L (0-31); Albumin Level 4.4 g/dL (3.5-5.0); Alkaline Phosphatase 102 U/L (39-117); Anion Gap 12 (12-20); Aspartate Amino Transferase 18 U/L (5-31); Bilirubin Total 0.6 mg/dL (0.0-1.0); Blood Urea Nitrogen 13 mg/dL (9-16); Calcium 9.8 mg/dL (8.4-10.2); Carbon Dioxide 27 mmol/L (22-29); Chloride 102 mmol/L (96-108); Creatinine Clr Calc Pharmacy 98.7; Estimated Glomerular Filt Rate > 60; Ethanol < 10 mg/dL; Glucose Random 113 mg/dL (60-115); HCG Quantitative < 2 mIU/mL; Potassium 3.9 mmol/L (3.3-5.1); Sodium 137 mmol/L (135-145); Total Protein 8.7 g/dL (6.5-8.0)
[2024-07-23 21:44] LABS: Appearance Urine Cloudy; Color Urine Yellow; Glucose Urine UA Negative (Negative); Leukocyte Esterase Urine Large (3+) (Negative); Nitrite Urine Negative (Negative); PH 5.5 (5.0-9.0); Specific Gravity - Urine 1.025 (1.005-1.025); UMIC TRIGGER UACC YES; Urine Blood Trace (Negative); Urine Ketones Negative (Negative); Urine Protein Negative (Neg-Trace)
[2024-07-23 21:50] LABS: Amphetamine Screen Urine POSITIVE (Not Detect); Barbiturates, Urine Not Detected (Not Detect); Benzodiazepines Screen Urine Not Detected (Not Detect); Buprenorphine Scr Positive (Not Detect); Cannabinoid Screen Urine Not Detected (Not Detect); Cocaine Screen Urine POSITIVE (Not Detect); Fentanyl, urine Not Detected (Not Detect); Methadone Screen, Urine Not Detected (Not Detect); Opiate Screen Urine Not Detected (Not Detect); Oxycodone Screen Urine Not Detected (Not Detect); Phencyclidine Screen Urine Not Detected (Not Detect)
[2024-07-23 22:24] LABS: Bacteria Urine 3+ (None Seen); Hyaline Casts Urine 0-2 /LPF (0-2); Squamous Epithelial Cell Urine >20 /HPF (0-2); UACC Culture Trigger YES; WBC Urine >50 /HPF (0-5)
[2024-07-24] VITALS (7 sets, daily range): BP systolic 94–126; BP diastolic 46–71; PULSE 63–87; RESP 16–18; TEMP 36.4–37.1; O2SAT 94–99; BMI 27.0
[2024-07-24] MEDS: hydrOXYzine HCL 50 MG TABLET PO ×3 (03:51→21:13)
[2024-07-24] MEDS: risperiDONE 1 MG TABLET PO (03:51)
[2024-07-24] MEDS: LORazepam 1 MG TABLET PO ×2 (03:51→18:39)
--- NOTE | 2024-07-24 04:01 | PC.NURSE ---
client at least four times comes out to complain about what the client sees as lack of access to real foods ate pudding, mulitple sandwiches and asking only about food.
--- NOTE | 2024-07-24 04:14 | PC.NURSE ---
after making complaints of the amount of chicken salad in the sandwiches client tossed cups around her room and swore audibly about 4-5 times.
--- NOTE | 2024-07-24 07:20 | PC.NURSE ---
Assumed care of patient at 0645. At this time the patient is observed resting quietly in their bed. No signs of distress observed. Breathing is even and unlabored.
--- NOTE | 2024-07-24 07:53 | PC.NURSE ---
At approx. 0740 patient was observed to be vaping in her room. Security was notified and confiscated the vape. The patient was then observed to be grasping something in her right hand. Security opened her hand to find a small bag containing 8.5 assorted unknown pills. night cleaner was made aware and informed this RN to destroy pills in the RX destroyer. This RN informed the charge nurse that the patient appeared to be altered. It was decided that the patient would go to the main ED for observation. Security was made aware and seismology technical officer and Security escorted the patient to bed 22 in the main ED.
--- NOTE | 2024-07-24 08:09 | PC.NURSE ---
Pt. transferred from pod bed 3 to main ED bed 22 for question of overdose. Per EDUARDO Villegas in pod, pt. was found smoking a vape in the pod and holding a handful of pills. Pt. denies taking any of the pills, but per staff, pt. appears visibly altered and sleepy. Transferred to the main ED for observation of possible overdose. VSS, remains on 1:1 sitter, respirations intact at a rate of 18 per minute.
[2024-07-24 09:12] LABS: Glucose, Whole Blood 109 mg/dL (60-115)
[2024-07-24 09:29] LABS: Lithium 0.58 mmol/L (0.60-1.20)
[2024-07-24 09:42] LABS: Alanine Aminotransferase 10 U/L (0-31); Albumin Level 3.8 g/dL (3.5-5.0); Alkaline Phosphatase 98 U/L (39-117); Anion Gap 12 (12-20); Aspartate Amino Transferase 17 U/L (5-31); Bilirubin Direct 0.3 mg/dL (0.0-0.5); Bilirubin Total 0.7 mg/dL (0.0-1.0); Blood Urea Nitrogen 13 mg/dL (9-16); Calcium 9.2 mg/dL (8.4-10.2); Carbon Dioxide 24 mmol/L (22-29); Chloride 106 mmol/L (96-108); Creatinine Clr Calc Pharmacy 110.7; Estimated Glomerular Filt Rate > 60; Ethanol < 10 mg/dL; Glucose Random 106 mg/dL (60-115); Sodium 138 mmol/L (135-145); Total Protein 7.7 g/dL (6.5-8.0)
[2024-07-24 09:54] LABS: Basophils Percent Auto 0.3 % (0-2); Eosinophils Absolute Auto 0.3 X10*3/uL (0.0-0.4); Eosinophils Percent Auto 4.1 % (0-4); Hemoglobin 11.6 g/dl (12.0-16.0); Imm Gran Abs Auto 0.01 X10*3/uL (0.00-0.03); Imm Gran Pct Auto 0.1 % (0.0-0.4); Lymphocytes Absolute Auto 2.4 X10*3/uL (1.2-4.9); Lymphocytes Percent Auto 31.3 % (20-40); Mean Corpuscular HGB Conc 33.1 g/dl (31.0-35.0); Mean Corpuscular Hemoglobin 28.8 pg (27.0-33.0); Mean Corpuscular Volume 86.8 fL (80.0-98.0); Monocytes Absolute Auto 0.9 X10*3/uL (0.1-1.2); Monocytes Percent Auto 11.5 % (2-11); Neutrophils Percent Auto 52.7 % (45-73); Platelet Count 215 X10*3/uL (160-400); Red Blood Count 4.03 X10*6/uL (4.20-5.50); Red Cell Distribution Width 12.8 % (11.0-16.0); White Blood Count 7.5 X10*3/uL (4.8-10.8)
[2024-07-24] MEDS: Famotidine 20 MG TABLET PO ×2 (09:56→21:09)
[2024-07-24] MEDS: Buprenorphine/Naloxone 8/2 mg FILM 1 FILM SUBLINGUAL ×2 (09:56→21:10)
[2024-07-24] MEDS: Propranolol HCL 10 MG TABLET PO ×2 (09:56→15:12)
[2024-07-24] MEDS: Loratadine 10 MG TABLET PO (09:56)
[2024-07-24] MEDS: metFORMIN HCl ER 500 MG TAB.ER.24H PO (09:56)
[2024-07-24 10:09] LABS: Acetaminophen LAB < 3 mcg/mL (<30); Salicylate < 5.0 mg/dL (15-30)
[2024-07-24] MEDS: Gabapentin 400 MG CAPSULE 800 MG PO ×3 (10:27→21:09)
[2024-07-24] MEDS: risperiDONE 3 MG TABLET PO (10:28)
--- NOTE | 2024-07-24 10:33 | PC.NURSE ---
Awaiting 09:00 dose of Wellbutrin per pharmacy at this time.
[2024-07-24] MEDS: buPROPion HCl XL 300 MG TAB.ER.24H PO (10:49)
--- NOTE | 2024-07-24 11:40 | PC.NURSE ---
STATES PT IS MEDICALLY CLEARED FOR RETURN TO POD
[2024-07-24 12:29] LABS: Glucose, Whole Blood 111 mg/dL (60-115)
[2024-07-24] MEDS: Lithium Carbonate ER 450 MG TABLET.ER 900 MG PO (15:12)
[2024-07-24] MEDS: buPROPion HCl XL 150 MG TAB.ER.24H PO (15:12)
--- NOTE | 2024-07-24 20:47 | PC.ADMIT ---
Henna arrived to [facility] at 16:30. Ad[place] [facility] [place] SI with a plan. Henna was recently inpatient on M5 and was discharged to [facility]. Prior to today's admission she had left [facility] for an extended period of time, relapsed with drugs and was experiencing command AH to kill herself by overdose. Henna endorses frequent SI and multiple plans on how she would do this, such as jumping into traffic or in front of a train, overdose on drugs or shooting herself on the head. Henna states her AH say terrible things, telling her she's useless & should . You're so useless you probably can't even kill yourself right. Henna is pleasant and cooperative with admission process. Skin check done and unremarkable. Her mood is subdued and she endorses 10/10 both anxiety & depression. Henna signed herself in on a CV and is placed on 15min safety checks.
[2024-07-24] MEDS: QUEtiapine Fumarate 400 MG TABLET PO (21:09)
[2024-07-24] MEDS: Prazosin HCL 1 MG CAPSULE PO (21:09)
[2024-07-24] MEDS: Insulin Glargine,Hum.rec.anlog 100 UNIT/ML 10 ML VIAL 30 UNIT SUBCUT (21:50)
[2024-07-25 08:01] VITALS: BP 128/65; PULSE 61; TEMP 36.6; O2SAT 99
[2024-07-25 09:23] VITALS: PULSE 61
[2024-07-25] MEDS: Propranolol HCL 10 MG TABLET PO ×2 (09:23→14:02)
[2024-07-25] MEDS: risperiDONE 3 MG TABLET PO (09:23)
[2024-07-25] MEDS: buPROPion HCl XL 300 MG TAB.ER.24H PO (09:25)
[2024-07-25] MEDS: Loratadine 10 MG TABLET PO (09:26)
[2024-07-25] MEDS: metFORMIN HCl ER 500 MG TAB.ER.24H PO (09:26)
[2024-07-25] MEDS: Famotidine 20 MG TABLET PO ×2 (09:26→20:16)
[2024-07-25] MEDS: Gabapentin 400 MG CAPSULE 800 MG PO ×3 (09:27→20:16)
[2024-07-25] MEDS: Buprenorphine/Naloxone 8/2 mg FILM 1 FILM SUBLINGUAL ×2 (09:27→20:16)
[2024-07-25] MEDS: Nicotine Polacrilex 2 MG GUM 4 MG BUCCAL ×2 (09:44→19:16)
--- NOTE | 2024-07-25 09:47 | P.HPPS_ITS ---
HPI Date of Service: 07/25/24 Chief Complaint: psychosis Sources of Information: patient interviewed, chart reviewed and crisis/core team assessment reviewed HPI Subjective Notes: Conditional Voluntary Narrative: Pt is 48 year old female with history schizoaffective disorder, PTSD, cocaine/opioid use disorder who recently discharged from 07/14 and now self presents for worsening depression and SI following relapse. Patient reports that she was doing okay at the program, auditory hallucinations at a minimum. However this past , patient had an appointment to go to and was allowed to go alone which she knew was a mistake. Once on her own, away from the program she had cravings to use which fueled her AH which fueled her cravings; patient quickly found people with drugs and relapsed on cocaine. Patient quickly felt depressed add AH worsened further. She started feeling suicidal and night, presented to the hospital for safety. Denies any alcohol or other substance abuse. Patient seen around 14:00 Past Psychiatric History: Previous psych admissions Medical Evaluation Reviewed: Yes [facility] Medical History (Updated 07/23/24 @ 21:58 by Jazzy Hodges DO) Homeless Diabetes Opioid use disorder Cocaine use disorder Alcohol use disorder PTSD (post-traumatic stress disorder) Schizoaffective disorder, bipolar type Family History: Sister: from alcoholism Social History: Born in [place], grew up in [place]; moved here 10 years ago with her parents with whom she finds supportive Sister a year ago from alcoholism Substance History: Recent cocaine use; history of opioid cocaine, alcohol abuse Trauma History: Positive trauma history; did not discuss details Diagnostics Vital Signs (24Hr): Vital Signs - 24 hr 07/24/24 09:56 07/24/24 11:19 07/24/24 16:32 Temperature 97.5 F 98.3 F Pulse Rate 70 70 77 Respiratory Rate 18 16 16 Blood Pressure 102/60 94/51 L 126/69 Pulse Oximetry 98 98 98 Oxygen Delivery Method Room Air Room Air Room Air 07/24/24 20:00 07/25/24 08:01 07/25/24 09:23 Temperature 98.5 F 97.8 F Pulse Rate 63 61 61 Respiratory Rate 16 Blood Pressure 117/71 128/65 Pulse Oximetry 97 99 Oxygen Delivery Method Room Air Room Air BMI result Body Mass Index 27.0 Labs 07/24/24 09:48 07/24/24 09:05 Labs: Laboratory Results - last 48 hr 07/23/24 07/23/24 07/24/24 20:59 21:33 08:08 WBC 9.9 RBC 4.28 Hgb 12.4 Hct 36.2 L MCV 84.6 MCH 29.0 MCHC 34.3 RDW 13.1 Plt Count 307 D MPV 9.6 Immature Gran % (Auto) 0.4 Neut % (Auto) 63.5 Lymph % (Auto) 25.9 [place] % (Auto) 6.6 Eos % (Auto) 3.4 Baso % (Auto) 0.2 Lymph # (Auto) 2.6 [place] # (Auto) 0.7 Eos # (Auto) 0.3 Baso # (Auto) 0.0 Abs Immat Gran (auto) 0.04 H Absolute Neuts (auto) 6.3 Absolute Nucleated RBC 0.000 Nucleated RBC % (auto) 0.0 Sodium 137 Potassium 3.9 Chloride 102 Carbon Dioxide 27 Anion Gap 12 BUN 13 Creatinine 0.83 Estim Creat Clear Calc 98.7 Estimated GFR > 60 POC Glucose 109 Random Glucose 113 Calcium 9.8 Total Bilirubin 0.6 Direct Bilirubin AST 18 ALT 11 Alkaline Phosphatase 102 Total Protein 8.7 H Albumin 4.4 Beta HCG, Quant < 2 Urine Color Yellow Urine Appearance Cloudy Urine pH 5.5 Ur Specific [place] 1.025 Urine Protein Negative Urine Glucose (UA) Negative Urine Ketones Negative Urine Blood Trace H Urine Nitrite Negative Ur Leukocyte Esterase Large (3+) H Urine RBC 3-5 H Urine WBC >50 H Ur Squamous Epith Cells >20 Urine Bacteria 3+ Hyaline Casts 0-2 Salicylates Urine Opiates Screen Not Detected Ur Buprenorphine Scrn Positive H Ur Oxycodone Screen Not Detected Urine Methadone Screen Not Detected Urine Fentanyl Screen Not Detected Acetaminophen Ur Barbiturates Screen Not Detected Ur Phencyclidine Scrn Not Detected Ur Amphetamines Screen POSITIVE H U Benzodiazepines Scrn Not Detected [place] 0.70 Urine Cocaine Screen POSITIVE H U Marijuana (THC) Screen Not Detected Ethyl Alcohol < 10 07/24/24 07/24/24 07/24/24 09:05 09:48 12:26 WBC 7.5 RBC 4.03 L Hgb 11.6 L Hct 35.0 L MCV 86.8 MCH 28.8 MCHC 33.1 RDW 12.8 Plt Count 215 D MPV 10.0 Immature Gran % (Auto) 0.1 Neut % (Auto) 52.7 Lymph % (Auto) 31.3 [place] % (Auto) 11.5 H Eos % (Auto) 4.1 H Baso % (Auto) 0.3 Lymph # (Auto) 2.4 [place] # (Auto) 0.9 Eos # (Auto) 0.3 Baso # (Auto) 0.0 Abs Immat Gran (auto) 0.01 Absolute Neuts (auto) 4.0 Absolute Nucleated RBC 0.000 Nucleated RBC % (auto) 0.0 Sodium 138 Potassium 4.0 Chloride 106 Carbon Dioxide 24 Anion Gap 12 BUN 13 Creatinine 0.74 Estim Creat Clear Calc 110.7 Estimated GFR > 60 POC Glucose 111 Random Glucose 106 Calcium 9.2 D Total Bilirubin 0.7 Direct Bilirubin 0.3 AST 17 ALT 10 Alkaline Phosphatase 98 Total Protein 7.7 Albumin 3.8 Beta HCG, Quant Urine Color Urine Appearance Urine pH Ur Specific [place] Urine Protein Urine Glucose (UA) Urine Ketones Urine Blood Urine Nitrite Ur Leukocyte Esterase Urine RBC Urine WBC Ur Squamous Epith Cells Urine Bacteria Hyaline Casts Salicylates < 5.0 L Urine Opiates Screen Ur Buprenorphine Scrn Ur Oxycodone Screen Urine Methadone Screen Urine Fentanyl Screen Acetaminophen < 3 Ur Barbiturates Screen Ur Phencyclidine Scrn Ur Amphetamines Screen U Benzodiazepines Scrn [place] 0.58 L Urine Cocaine Screen U Marijuana (THC) Screen Ethyl Alcohol < 10 Meds/Allergies Allergies Allergies Allergy/AdvReac Type Severity Reaction Status Date / Time No Known Allergies Allergy Verified 07/23/24 20:47 Mental Status Exam Mental Status Exam Narrative: Pt is alert and oriented; behavior is quiet, cooperative, reticent; patient is not in distress; dressed in casual attire with adequate hygiene; mood is described as depressed and affect congruent, downcast; eye contact limited; Speech is normal rate, volume and prosody and not pressured; psychomotor retardation present; thought process is organized and goal directed; Thought content is on intermittent passive wish, dealing with AH, tx; otherwise pertinent to relevant topics and without any delusional content, paranoid ideations or grandiosity; intermittent passive SI/no HI; intermittent AH. Patients insight and judgment impaired Assessment & Plan Assessment & Plan (1) Schizoaffective disorder, bipolar type: Status: Acute Code(s): F25.0 - Schizoaffective disorder, bipolar type (2) PTSD (post-traumatic stress disorder): Status: Acute Code(s): F43.10 - Post-traumatic stress disorder, unspecified (3) Cocaine use disorder: Status: Acute Code(s): F14.10 - Cocaine abuse, uncomplicated (4) Diabetes: Status: Acute Code(s): E11.9 - Type 2 diabetes mellitus without complications (5) Homeless: Status: Acute Code(s): Z59.00 - Homelessness unspecified Plan Pt is 48 year old female with history schizoaffective disorder, PTSD, cocaine/opioid use disorder who recently discharged from 07/14 and now self presents for worsening depression and SI following relapse. Patient reports that she was doing okay at the program, auditory hallucinations at a minimum. However this past , patient had an appointment to go to and was allowed to go alone which she knew was a mistake. Once on her own, away from the program she had cravings to use which fueled her AH which fueled her cravings; patient quickly found people with drugs and relapsed on cocaine. Patient quickly felt depressed add AH worsened further. She started feeling suicidal and night, presented to the hospital for safety. Denies any alcohol or other substance abuse. Formulation/clinical reasoning: Discussed medications and patient felt that current regimen was overall effective and she wants to remain on it. Plan: CV Q 15 minute checks Wellbutrin 300 mg daily; 150 mg at 14:00 Gabapentin 800 mg t.i.d. [place] 900 mg daily at 14:00 Prazosin 1 mg q.h.s. Seroquel 400 mg q.h.s. Risperdal 3 mg daily Suboxone 8/2 mg b.i.d. Lantus/ lispro sliding scale Metformin Propranolol Famotidine Patient educated on: diagnosis, medication risk/benefits, substance abuse and therapeutic strategies Informed Consent: understands Reason for continued inpatient stay Substantial Risk for: rapid decompensation Statement Statement: I have reviewed the history and physical and performed a pertinent examination on my patient. No changes have occurred unless specified. If the History and Physical was not performed prior to admission, the Hospitalist's service will be consulted for completing the admission physical. Time Spent With Patient Time: Total time managing care of this patient today ____ minutes.
[2024-07-25 11:00] LABS: Glucose, Whole Blood 179 mg/dL (60-115)
[2024-07-25 12:45] LABS: Glucose, Whole Blood 130 mg/dL (60-115)
[2024-07-25 14:02] VITALS: BP 118/68; PULSE 71
[2024-07-25] MEDS: hydrOXYzine HCL 50 MG TABLET PO ×2 (14:02→18:56)
[2024-07-25] MEDS: buPROPion HCl XL 150 MG TAB.ER.24H PO (14:02)
[2024-07-25] MEDS: Lithium Carbonate ER 450 MG TABLET.ER 900 MG PO (14:02)
[2024-07-25] MEDS: LORazepam 1 MG TABLET PO (14:03)
[2024-07-25] MEDS: Nicotine 21 MG PATCH.TD24 TRANSDERMA (14:03)
[2024-07-25 17:38] LABS: Glucose, Whole Blood 105 mg/dL (60-115)
[2024-07-25 20:00] VITALS: BP 134/67; PULSE 76; RESP 16; TEMP 36.9; O2SAT 99
[2024-07-25] MEDS: Insulin Glargine,Hum.rec.anlog 100 UNIT/ML 10 ML VIAL 30 UNIT SUBCUT (20:14)
[2024-07-25] MEDS: Docusate Sodium 100 MG CAPSULE PO (20:16)
[2024-07-25] MEDS: QUEtiapine Fumarate 400 MG TABLET PO (20:16)
[2024-07-25 20:22] VITALS: BP 134/67
[2024-07-25] MEDS: Prazosin HCL 1 MG CAPSULE PO (20:22)
[2024-07-25 20:34] LABS: Glucose, Whole Blood 143 mg/dL (60-115)
[2024-07-26] MEDS: Nicotine Polacrilex 2 MG GUM 4 MG BUCCAL ×4 (05:11→20:57)
[2024-07-26 07:49] LABS: Glucose, Whole Blood 168 mg/dL (60-115)
[2024-07-26 08:00] VITALS: BP 120/70; PULSE 71; TEMP 36.8; O2SAT 99
[2024-07-26] MEDS: Gabapentin 400 MG CAPSULE 800 MG PO ×3 (08:34→20:48)
[2024-07-26] MEDS: polyethylene glycoL 3350 17 GM POWD.PACK PO ×6 (08:34→20:45)
[2024-07-26] MEDS: Buprenorphine/Naloxone 8/2 mg FILM 1 FILM SUBLINGUAL ×2 (08:34→20:45)
[2024-07-26 08:35] VITALS: BP 120/70; PULSE 71
[2024-07-26] MEDS: Propranolol HCL 10 MG TABLET PO ×2 (08:35→13:32)
[2024-07-26] MEDS: buPROPion HCl XL 300 MG TAB.ER.24H PO (08:35)
[2024-07-26] MEDS: risperiDONE 3 MG TABLET PO (08:35)
[2024-07-26] MEDS: metFORMIN HCl ER 500 MG TAB.ER.24H PO (08:35)
[2024-07-26] MEDS: Loratadine 10 MG TABLET PO (08:36)
[2024-07-26] MEDS: Famotidine 20 MG TABLET PO ×2 (08:36→21:04)
--- NOTE | 2024-07-26 09:04 | P.PNPSI_ITS ---
Subjective Subjective Date of Service: 07/26/24 Reason For Visit: psychosis Interim History: Met With patient; discussed with team feeling better; voices remain but tolerable.Discussed medications, whether to increase Risperdal; agreed pt needs more time on current dose. very constipated; discussed bowel regimen Mental Status Exam Mental Status Exam Narrative: Pt is alert and oriented; behavior is quiet, cooperative, reticent; patient is not in distress; dressed in casual attire with adequate hygiene; mood is described as depressed and affect congruent, downcast; eye contact limited; Speech is normal rate, volume and prosody and not pressured; psychomotor retardation present; thought process is organized and goal directed; Thought content is on intermittent passive wish, dealing with AH, tx; otherwise pertinent to relevant topics and without any delusional content, paranoid ideations or grandiosity; intermittent passive SI/no HI; intermittent AH. Patients insight and judgment impaired Diagnostics Vital Signs (24Hr): Vital Signs - 24 hr 07/25/24 09:23 07/25/24 14:02 07/25/24 20:00 Temperature 98.4 F Pulse Rate 61 71 76 Respiratory Rate 16 Blood Pressure 118/68 134/67 Pulse Oximetry 99 Oxygen Delivery Method Room Air 07/25/24 20:22 07/26/24 08:35 Temperature Pulse Rate 71 Respiratory Rate Blood Pressure 134/67 120/70 Pulse Oximetry Oxygen Delivery Method BMI result Body Mass Index 27.0 Labs 07/24/24 09:48 07/24/24 09:05 Labs: Laboratory Results - last 48 hr 07/24/24 07/24/24 07/24/24 08:08 09:05 09:48 WBC 7.5 RBC 4.03 L Hgb 11.6 L Hct 35.0 L MCV 86.8 MCH 28.8 MCHC 33.1 RDW 12.8 Plt Count 215 D MPV 10.0 Immature Gran % (Auto) 0.1 Neut % (Auto) 52.7 Lymph % (Auto) 31.3 [place] % (Auto) 11.5 H Eos % (Auto) 4.1 H Baso % (Auto) 0.3 Lymph # (Auto) 2.4 [place] # (Auto) 0.9 Eos # (Auto) 0.3 Baso # (Auto) 0.0 Abs Immat Gran (auto) 0.01 Absolute Neuts (auto) 4.0 Absolute Nucleated RBC 0.000 Nucleated RBC % (auto) 0.0 Sodium 138 Potassium 4.0 Chloride 106 Carbon Dioxide 24 Anion Gap 12 BUN 13 Creatinine 0.74 Estim Creat Clear Calc 110.7 Estimated GFR > 60 POC Glucose 109 Random Glucose 106 Calcium 9.2 D Total Bilirubin 0.7 Direct Bilirubin 0.3 AST 17 ALT 10 Alkaline Phosphatase 98 Total Protein 7.7 Albumin 3.8 Salicylates < 5.0 L Acetaminophen < 3 [place] 0.58 L Ethyl Alcohol < 10 07/24/24 07/25/24 07/25/24 12:26 10:56 12:41 WBC RBC Hgb Hct MCV MCH MCHC RDW Plt Count MPV Immature Gran % (Auto) Neut % (Auto) Lymph % (Auto) [place] % (Auto) Eos % (Auto) Baso % (Auto) Lymph # (Auto) [place] # (Auto) Eos # (Auto) Baso # (Auto) Abs Immat Gran (auto) Absolute Neuts (auto) Absolute Nucleated RBC Nucleated RBC % (auto) Sodium Potassium Chloride Carbon Dioxide Anion Gap BUN Creatinine Estim Creat Clear Calc Estimated GFR POC Glucose 111 179 H 130 H Random Glucose Calcium Total Bilirubin Direct Bilirubin AST ALT Alkaline Phosphatase Total Protein Albumin Salicylates Acetaminophen [place] Ethyl Alcohol 07/25/24 07/25/24 07/26/24 17:34 20:07 07:45 WBC RBC Hgb Hct MCV MCH MCHC RDW Plt Count MPV Immature Gran % (Auto) Neut % (Auto) Lymph % (Auto) [place] % (Auto) Eos % (Auto) Baso % (Auto) Lymph # (Auto) [place] # (Auto) Eos # (Auto) Baso # (Auto) Abs Immat Gran (auto) Absolute Neuts (auto) Absolute Nucleated RBC Nucleated RBC % (auto) Sodium Potassium Chloride Carbon Dioxide Anion Gap BUN Creatinine Estim Creat Clear Calc Estimated GFR POC Glucose 105 143 H 168 H Random Glucose Calcium Total Bilirubin Direct Bilirubin AST ALT Alkaline Phosphatase Total Protein Albumin Salicylates Acetaminophen [place] Ethyl Alcohol Medications Medications Current Medications Acetaminophen (Acetaminophen 325 Mg Tablet) 650 mg PO Q6H PRN PRN Reason: Headache/Pain Mild Scale (1-3) Al Hydroxide/Mg Hydroxide (Magnesium Hydrox/Alum Hydrox 30 Ml Oral.Susp) 30 ml PO Q6H PRN PRN Reason: Heartburn/Nausea Benztropine Mesylate (Benztropine Mesylate 0.5 Mg Tablet) 0.5 mg PO BID PRN PRN Reason: EPS/tremor/muscle twitch Buprenorphine/Naloxone (Buprenorphine/Naloxone 8/2 Mg Film) 1 film SUBLINGUAL BID [facility] Last Admin: 07/26/24 08:34 Dose: 1 film Bupropion HCl (Bupropion Hcl Xl 150 Mg Tab.Er.24h) 150 mg PO DAILY@1400 [facility] Last Admin: 07/25/24 14:02 Dose: 150 mg Bupropion HCl (Bupropion Hcl Xl 300 Mg Tab.Er.24h) 300 mg PO DAILY [facility] Last Admin: 07/26/24 08:35 Dose: 300 mg Docusate Sodium (Docusate Sodium 100 Mg Capsule) 100 mg PO BEDTIME [facility] Last Admin: 07/25/24 20:16 Dose: 100 mg Famotidine (Famotidine 20 Mg Tablet) 20 mg PO BID [facility] Last Admin: 07/26/24 08:36 Dose: 20 mg Fluticasone Propionate (Fluticasone Propionate Nasal 16 Gm [place]) 1 spray NOSTRIL-B DAILY PRN PRN Reason: nasal congestion Gabapentin (Gabapentin 400 Mg Capsule) 800 mg PO TID [facility] Last Admin: 07/26/24 08:34 Dose: 800 mg Hydroxyzine HCl (Hydroxyzine Hcl 50 Mg Tablet) 50 mg PO TID PRN PRN Reason: milder Anxiety Last Admin: 07/25/24 18:56 Dose: 50 mg Hydroxyzine HCl (Hydroxyzine Hcl 25 Mg Tablet) 25 mg PO Q6H PRN PRN Reason: Anxiety Insulin Glargine (Insulin Glargine,Hum.Rec.Anlog 100 Unit/Ml 10 Ml Vial) 30 unit SUBCUT BEDTIME [facility] Last Admin: 07/25/24 20:14 Dose: 30 unit Insulin Human Lispro (Insulin Lispro 100 Unit/Ml 3 Ml Vial) 0 - 10 unit SUBCUT TIDAC [facility]; Protocol Last Admin: 07/25/24 17:38 Dose: Not Given [place] Carbonate ([place] Carbonate Er 450 Mg Tablet.Er) 900 mg PO DAILY@1400 [facility] Last Admin: 07/25/24 14:02 Dose: 900 mg Loratadine (Loratadine 10 Mg Tablet) 10 mg PO DAILY [facility] Last Admin: 07/26/24 08:36 Dose: 10 mg Lorazepam (Lorazepam 1 Mg Tablet) 1 mg PO DAILY PRN PRN Reason: moderate to severe anxiety Last Admin: 07/25/24 14:03 Dose: 1 mg Magnesium Hydroxide (Milk Of Magnesia 30 Ml Oral.Susp) 30 ml PO DAILY PRN PRN Reason: Constipation Metformin HCl (Metformin Hcl Er 500 Mg Tab.Er.24h) 500 mg PO DAILY [facility] Last Admin: 07/26/24 08:35 Dose: 500 mg Nicotine (Nicotine 21 Mg Patch.Td24) 21 mg TRANSDERMA DAILY PRN PRN Reason: smoking cessation Last Admin: 07/25/24 14:03 Dose: 21 mg Nicotine Polacrilex (Nicotine Polacrilex 2 Mg Gum) 4 mg BUCCAL Q2H PRN PRN Reason: nicotine cravings Last Admin: 07/26/24 05:11 Dose: 4 mg Nicotine Polacrilex (Nicotine Polacrilex 2 Mg Gum) 4 mg BU[place]AL Q2H PRN PRN Reason: Nicotine Cravings Last Admin: 07/25/24 09:44 Dose: 4 mg Polyethylene Glycol (Polyethylene Glycol 3350 17 Gm Powd.Pack) 17 gm PO DAILY [facility] Last Admin: 07/26/24 08:34 Dose: 17 gm Prazosin HCl (Prazosin Hcl 1 Mg Capsule) 1 mg PO BEDTIME [facility]; Protocol Last Admin: 07/25/24 20:22 Dose: 1 mg Propranolol HCl (Propranolol Hcl 10 Mg Tablet) 10 mg PO BID@0900,1400 [facility]; Protocol Last Admin: 07/26/24 08:35 Dose: 10 mg Quetiapine Fumarate (Quetiapine Fumarate 400 Mg Tablet) 400 mg PO BEDTIME [facility] Last Admin: 07/25/24 20:16 Dose: 400 mg Quetiapine Fumarate (Quetiapine Fumarate 100 Mg Tablet) 100 mg PO BEDTIME PRN PRN Reason: insomnia Risperidone (Risperidone 1 Mg Tablet) 1 mg PO DAILY PRN PRN Reason: AH/anxiety/agitation Last Admin: 07/24/24 03:51 Dose: 1 mg Risperidone (Risperidone 3 Mg Tablet) 3 mg PO DAILY [facility] Last Admin: 07/26/24 08:35 Dose: 3 mg Trazodone HCl (Trazodone Hcl 50 Mg Tablet) 50 mg PO BEDTIME MRX1 PRN PRN Reason: Insomnia Allergies Allergies Allergy/AdvReac Type Severity Reaction Status Date / Time No Known Allergies Allergy Verified 07/23/24 20:47 Assessment & Plan Assessment & Plan (1) Schizoaffective disorder, bipolar type: Status: Acute Code(s): F25.0 - Schizoaffective disorder, bipolar type (2) PTSD (post-traumatic stress disorder): Status: Acute Code(s): F43.10 - Post-traumatic stress disorder, unspecified (3) Cocaine use disorder: Status: Acute Code(s): F14.10 - Cocaine abuse, uncomplicated (4) Diabetes: Status: Acute Code(s): E11.9 - Type 2 diabetes mellitus without complications (5) Homeless: Status: Acute Code(s): Z59.00 - Homelessness unspecified Plan Pt is 48 year old female with history schizoaffective disorder, PTSD, cocaine/opioid use disorder who recently discharged from 07/14 and now self presents for worsening depression and SI following relapse. Patient reports that she was doing okay at the program, auditory hallucinations at a minimum. However this past , patient had an appointment to go to and was allowed to go alone which she knew was a mistake. Once on her own, away from the program she had cravings to use which fueled her AH which fueled her cravings; patient quickly found people with drugs and relapsed on cocaine. Patient quickly felt depressed add AH worsened further. She started feeling suicidal and night, presented to the hospital for safety. Denies any alcohol or other substance abuse. Formulation/clinical reasoning: Discussed medications and patient felt that current regimen was overall effective and she wants to remain on it. Hospital plan: 07/26 depressed; no SI. dealing with AH Plan: CV Q 15 minute checks Wellbutrin 300 mg daily; 150 mg at 14:00 Gabapentin 800 mg t.i.d. [place] 900 mg daily at 14:00 Prazosin 1 mg q.h.s. Seroquel 400 mg q.h.s. Risperdal 3 mg daily Suboxone 8/2 mg b.i.d. Lantus/ lispro sliding scale Metformin Propranolol Famotidine Patient educated on: medication risk/benefits and medical condition Informed Consent: understands Reason for continued inpatient stay Substantial Risk for: rapid decompensation Time Spent With Patient Time: Total time managing care of this patient today ____ minutes.
[2024-07-26 12:34] LABS: Glucose, Whole Blood 145 mg/dL (60-115)
[2024-07-26] MEDS: buPROPion HCl XL 150 MG TAB.ER.24H PO (13:31)
[2024-07-26 13:32] VITALS: BP 120/64; PULSE 76
[2024-07-26] MEDS: Lithium Carbonate ER 450 MG TABLET.ER 900 MG PO (13:32)
[2024-07-26] MEDS: risperiDONE 1 MG TABLET PO (13:32)
[2024-07-26] MEDS: hydrOXYzine HCL 50 MG TABLET PO (13:33)
[2024-07-26] MEDS: LORazepam 1 MG TABLET PO (15:27)
[2024-07-26 17:06] LABS: Glucose, Whole Blood 126 mg/dL (60-115)
[2024-07-26] MEDS: hydrOXYzine HCL 25 MG TABLET PO (18:23)
[2024-07-26] MEDS: chlorproMAZINE HCl 25 MG TABLET 50 MG PO (18:51)
[2024-07-26 20:00] VITALS: BP 155/74; PULSE 72; RESP 16; TEMP 36.6; O2SAT 99
[2024-07-26] MEDS: Insulin Glargine,Hum.rec.anlog 100 UNIT/ML 10 ML VIAL 30 UNIT SUBCUT (20:42)
[2024-07-26 20:44] VITALS: BP 155/74
[2024-07-26] MEDS: Prazosin HCL 1 MG CAPSULE PO (20:44)
[2024-07-26] MEDS: QUEtiapine Fumarate 400 MG TABLET PO (20:44)
[2024-07-26] MEDS: Docusate Sodium 100 MG CAPSULE PO (20:44)
[2024-07-26 22:22] LABS: Glucose, Whole Blood 137 mg/dL (60-115)
[2024-07-27 07:30] LABS: Glucose, Whole Blood 155 mg/dL (60-115)
[2024-07-27] MEDS: Insulin Lispro 100 UNIT/ML 3 ML VIAL SUBCUT (08:00)
[2024-07-27] MEDS: buPROPion HCl XL 300 MG TAB.ER.24H PO (08:13)
[2024-07-27] MEDS: polyethylene glycoL 3350 17 GM POWD.PACK PO ×3 (08:13→12:00)
[2024-07-27] MEDS: Sennosides 8.6 MG TABLET 17.2 MG PO (08:13)
[2024-07-27 08:14] VITALS: BP 112/66; PULSE 60
[2024-07-27] MEDS: Loratadine 10 MG TABLET PO (08:14)
[2024-07-27] MEDS: Buprenorphine/Naloxone 8/2 mg FILM 1 FILM SUBLINGUAL ×2 (08:14→20:46)
[2024-07-27] MEDS: risperiDONE 3 MG TABLET PO (08:14)
[2024-07-27] MEDS: Gabapentin 400 MG CAPSULE 800 MG PO ×3 (08:14→20:46)
[2024-07-27] MEDS: Propranolol HCL 10 MG TABLET PO ×2 (08:14→14:36)
[2024-07-27] MEDS: Famotidine 20 MG TABLET PO ×2 (08:14→20:47)
[2024-07-27] MEDS: Docusate Sodium 100 MG CAPSULE PO ×2 (08:14→20:47)
[2024-07-27] MEDS: metFORMIN HCl ER 500 MG TAB.ER.24H PO (08:14)
[2024-07-27 08:46] VITALS: BP 112/66; PULSE 59; RESP 16; TEMP 36.8; O2SAT 100
[2024-07-27] MEDS: Acetaminophen 325 MG TABLET 650 MG PO (09:23)
[2024-07-27] MEDS: Nicotine 21 MG PATCH.TD24 TRANSDERMA (09:44)
[2024-07-27] MEDS: Milk of Magnesia 30 ML ORAL.SUSP PO (09:45)
--- NOTE | 2024-07-27 10:13 | P.PNPSI_ITS ---
Subjective Subjective Date of Service: 07/27/24 Reason For Visit: psychosis Interim History: Met with patient; discussed with team Patient very triggered last night with high acuity on the unit and had significant flashbacks to past trauma; patient talked it through with nurse and benefited from p.r.n. Thorazine. Otherwise she is feeling overall pretty good and says AH is on the lower side; wants a program Mental Status Exam Mental Status Exam Narrative: Pt is alert and oriented; behavior is calm, cooperative, friendly; patient is not in distress; dressed in casual attire with adequate hygiene; mood is described as better and affect congruent; eye contact appropriate; Speech is normal rate, volume and prosody and not pressured; less psychomotor retardation present; thought process is organized and goal directed; Thought content is on treatment; intermittent passive wish, dealing with AH, tx; otherwise pertinent to relevant topics and without any delusional content, paranoid ideations or grandiosity; intermittent passive SI/no HI; intermittent AH. Patients insight and judgment impaired but improving Diagnostics Vital Signs (24Hr): Vital Signs - 24 hr 07/26/24 13:32 07/26/24 20:00 07/26/24 20:44 Temperature 97.8 F Pulse Rate 76 72 Respiratory Rate 16 Blood Pressure 120/64 155/74 H 155/74 H Pulse Oximetry 99 Oxygen Delivery Method Room Air 07/27/24 08:14 07/27/24 08:46 Temperature 98.2 F Pulse Rate 60 59 Respiratory Rate 16 Blood Pressure 112/66 112/66 Pulse Oximetry 100 Oxygen Delivery Method Room Air BMI result Body Mass Index 27.0 Labs 07/24/24 09:48 07/24/24 09:05 Labs: Laboratory Results - last 48 hr 07/25/24 07/25/24 07/25/24 10:56 12:41 17:34 POC Glucose 179 H 130 H 105 07/25/24 07/26/24 07/26/24 20:07 07:45 12:31 POC Glucose 143 H 168 H 145 H 07/26/24 07/26/24 07/27/24 17:02 20:31 07:27 POC Glucose 126 H 137 H 155 H Medications Medications Current Medications Acetaminophen (Acetaminophen 325 Mg Tablet) 650 mg PO Q6H PRN PRN Reason: Headache/Pain Mild Scale (1-3) Last Admin: 07/27/24 09:23 Dose: 650 mg Al Hydroxide/Mg Hydroxide (Magnesium Hydrox/Alum Hydrox 30 Ml Oral.Susp) 30 ml PO Q6H PRN PRN Reason: Heartburn/Nausea Benztropine Mesylate (Benztropine Mesylate 0.5 Mg Tablet) 0.5 mg PO BID PRN PRN Reason: EPS/tremor/muscle twitch Buprenorphine/Naloxone (Buprenorphine/Naloxone 8/2 Mg Film) 1 film SUBLINGUAL BID [facility] Last Admin: 07/27/24 08:14 Dose: 1 film Bupropion HCl (Bupropion Hcl Xl 150 Mg Tab.Er.24h) 150 mg PO DAILY@1400 [facility] Last Admin: 07/26/24 13:31 Dose: 150 mg Bupropion HCl (Bupropion Hcl Xl 300 Mg Tab.Er.24h) 300 mg PO DAILY [facility] Last Admin: 07/27/24 08:13 Dose: 300 mg Docusate Sodium (Docusate Sodium 100 Mg Capsule) 100 mg PO BID [facility] Last Admin: 07/27/24 08:14 Dose: 100 mg Famotidine (Famotidine 20 Mg Tablet) 20 mg PO BID [facility] Last Admin: 07/27/24 08:14 Dose: 20 mg Fluticasone Propionate (Fluticasone Propionate Nasal 16 Gm [place]) 1 spray NOSTRIL-B DAILY PRN PRN Reason: nasal congestion Gabapentin (Gabapentin 400 Mg Capsule) 800 mg PO TID [facility] Last Admin: 07/27/24 08:14 Dose: 800 mg Hydroxyzine HCl (Hydroxyzine Hcl 50 Mg Tablet) 50 mg PO TID PRN PRN Reason: milder Anxiety Last Admin: 07/26/24 13:33 Dose: 50 mg Hydroxyzine HCl (Hydroxyzine Hcl 25 Mg Tablet) 25 mg PO Q6H PRN PRN Reason: Anxiety Last Admin: 07/26/24 18:23 Dose: 25 mg Insulin Glargine (Insulin Glargine,Hum.Rec.Anlog 100 Unit/Ml 10 Ml Vial) 30 unit SUBCUT BEDTIME [facility] Last Admin: 07/26/24 20:42 Dose: 30 unit Insulin Human Lispro (Insulin Lispro 100 Unit/Ml 3 Ml Vial) 0 - 10 unit SUBCUT TIDAC [facility]; Protocol Last Admin: 07/27/24 08:00 Dose: 2 unit [place] Carbonate ([place] Carbonate Er 450 Mg Tablet.Er) 900 mg PO DAILY@1400 [facility] Last Admin: 07/26/24 13:32 Dose: 900 mg Loratadine (Loratadine 10 Mg Tablet) 10 mg PO DAILY [facility] Last Admin: 07/27/24 08:14 Dose: 10 mg Lorazepam (Lorazepam 1 Mg Tablet) 1 mg PO DAILY PRN PRN Reason: moderate to severe anxiety Last Admin: 07/26/24 15:27 Dose: 1 mg Magnesium Hydroxide (Milk Of Magnesia 30 Ml Oral.Susp) 30 ml PO DAILY PRN PRN Reason: Constipation Last Admin: 07/27/24 09:45 Dose: 30 ml Metformin HCl (Metformin Hcl Er 500 Mg Tab.Er.24h) 500 mg PO DAILY [facility] Last Admin: 07/27/24 08:14 Dose: 500 mg Nicotine (Nicotine 21 Mg Patch.Td24) 21 mg TRANSDERMA DAILY PRN PRN Reason: smoking cessation Last Admin: 07/27/24 09:44 Dose: 21 mg Nicotine Polacrilex (Nicotine Polacrilex 2 Mg Gum) 4 mg BUCCAL Q2H PRN PRN Reason: Nicotine Cravings Last Admin: 07/26/24 20:57 Dose: 4 mg Polyethylene Glycol (Polyethylene Glycol 3350 17 Gm Powd.Pack) 17 gm PO DAILY [facility] Last Admin: 07/27/24 08:13 Dose: 17 gm Polyethylene Glycol (Polyethylene Glycol 3350 17 Gm Powd.Pack) 17 gm PO QID [facility] Last Admin: 07/27/24 08:51 Dose: 17 gm Prazosin HCl (Prazosin Hcl 1 Mg Capsule) 1 mg PO BEDTIME [facility]; Protocol Last Admin: 07/26/24 20:44 Dose: 1 mg Propranolol HCl (Propranolol Hcl 10 Mg Tablet) 10 mg PO BID@0900,1400 [facility]; Protocol Last Admin: 07/27/24 08:14 Dose: 10 mg Quetiapine Fumarate (Quetiapine Fumarate 400 Mg Tablet) 400 mg PO BEDTIME [facility] Last Admin: 07/26/24 20:44 Dose: 400 mg Quetiapine Fumarate (Quetiapine Fumarate 100 Mg Tablet) 100 mg PO BEDTIME PRN PRN Reason: insomnia Risperidone (Risperidone 1 Mg Tablet) 1 mg PO DAILY PRN PRN Reason: AH/anxiety/agitation Last Admin: 07/26/24 13:32 Dose: 1 mg Risperidone (Risperidone 3 Mg Tablet) 3 mg PO DAILY [facility] Last Admin: 07/27/24 08:14 Dose: 3 mg Trazodone HCl (Trazodone Hcl 50 Mg Tablet) 50 mg PO BEDTIME MRX1 PRN PRN Reason: Insomnia Allergies Allergies Allergy/AdvReac Type Severity Reaction Status Date / Time No Known Allergies Allergy Verified 07/23/24 20:47 Assessment & Plan Assessment & Plan (1) Schizoaffective disorder, bipolar type: Status: Acute Code(s): F25.0 - Schizoaffective disorder, bipolar type (2) PTSD (post-traumatic stress disorder): Status: Acute Code(s): F43.10 - Post-traumatic stress disorder, unspecified (3) Cocaine use disorder: Status: Acute Code(s): F14.10 - Cocaine abuse, uncomplicated (4) Diabetes: Status: Acute Code(s): E11.9 - Type 2 diabetes mellitus without complications (5) Homeless: Status: Acute Code(s): Z59.00 - Homelessness unspecified Plan Pt is 48 year old female with history schizoaffective disorder, PTSD, cocaine/opioid use disorder who recently discharged from 07/14 and now self presents for worsening depression and SI following relapse. Patient reports that she was doing okay at the program, auditory hallucinations at a minimum. However this past , patient had an appointment to go to and was allowed to go alone which she knew was a mistake. Once on her own, away from the program she had cravings to use which fueled her AH which fueled her cravings; patient quickly found people with drugs and relapsed on cocaine. Patient quickly felt depressed add AH worsened further. She started feeling suicidal and night, presented to the hospital for safety. Denies any alcohol or other substance abuse. Formulation/clinical reasoning: Discussed medications and patient felt that current regimen was overall effective and she wants to remain on it. Hospital plan: 07/26 depressed; no SI. dealing with AH 07/27 Patient very triggered last night with high acuity on the unit and had significant flashbacks to past trauma; patient talked it through with nurse and benefited from p.r.nGil Thorazine. Otherwise she is feeling overall pretty good and says AH is on the lower side; wants a program Patient remains in good behavioral and impulse control on the unit; she has a appropriate with peers and staff and engaged in treatment, attending groups and forthcoming in 1 on 1 sessions. Patient is stable on current medication regimen Plan: CV Q 15 minute checks Wellbutrin 300 mg daily; 150 mg at 14:00 Gabapentin 800 mg t.i.d. [place] 900 mg daily at 14:00 Prazosin 1 mg q.h.s. Seroquel 400 mg q.h.s. Risperdal 3 mg daily Suboxone 8/2 mg b.i.d. Lantus/ lispro sliding scale Metformin Propranolol Famotidine Patient educated on: diagnosis, medication risk/benefits and therapeutic strategies Informed Consent: understands Reason for continued inpatient stay Substantial Risk for: stable for discharge and rapid decompensation Time Spent With Patient Time: Total time managing care of this patient today ____ minutes.
[2024-07-27] MEDS: risperiDONE 1 MG TABLET PO (12:01)
[2024-07-27] MEDS: hydrOXYzine HCL 25 MG TABLET PO (12:01)
[2024-07-27 12:10] LABS: Glucose, Whole Blood 195 mg/dL (60-115)
[2024-07-27] MEDS: Lithium Carbonate ER 450 MG TABLET.ER 900 MG PO (14:35)
[2024-07-27 14:36] VITALS: BP 120/68
[2024-07-27] MEDS: buPROPion HCl XL 150 MG TAB.ER.24H PO (14:36)
[2024-07-27] MEDS: Nicotine Polacrilex 2 MG GUM 4 MG BUCCAL (14:36)
[2024-07-27] MEDS: LORazepam 1 MG TABLET PO (14:36)
[2024-07-27] MEDS: hydrOXYzine HCL 50 MG TABLET PO (17:22)
[2024-07-27 17:32] LABS: Glucose, Whole Blood 159 mg/dL (60-115)
[2024-07-27 20:00] VITALS: BP 120/61; PULSE 90; RESP 16; TEMP 36.6; O2SAT 99
[2024-07-27 20:35] LABS: Glucose, Whole Blood 97 mg/dL (60-115)
[2024-07-27] MEDS: Insulin Glargine,Hum.rec.anlog 100 UNIT/ML 10 ML VIAL 30 UNIT SUBCUT (20:44)
[2024-07-27] MEDS: Prazosin HCL 1 MG CAPSULE PO (20:46)
[2024-07-27] MEDS: QUEtiapine Fumarate 400 MG TABLET PO (20:46)
[2024-07-28 08:00] VITALS: BP 123/74; PULSE 74; RESP 16; TEMP 36.6; O2SAT 96
[2024-07-28 08:14] LABS: Glucose, Whole Blood 109 mg/dL (60-115)
[2024-07-28] MEDS: metFORMIN HCl ER 500 MG TAB.ER.24H PO (08:29)
[2024-07-28] MEDS: Gabapentin 400 MG CAPSULE 800 MG PO ×3 (08:29→20:38)
[2024-07-28] MEDS: Famotidine 20 MG TABLET PO ×2 (08:29→20:37)
[2024-07-28] MEDS: Propranolol HCL 10 MG TABLET PO ×2 (08:29→13:33)
[2024-07-28] MEDS: buPROPion HCl XL 300 MG TAB.ER.24H PO (08:29)
[2024-07-28] MEDS: Loratadine 10 MG TABLET PO (08:29)
[2024-07-28] MEDS: risperiDONE 3 MG TABLET PO (08:29)
[2024-07-28] MEDS: Docusate Sodium 100 MG CAPSULE PO ×2 (08:30→20:38)
[2024-07-28] MEDS: Buprenorphine/Naloxone 8/2 mg FILM 1 FILM SUBLINGUAL ×2 (09:41→20:39)
--- NOTE | 2024-07-28 09:41 | PC.NURSE ---
suboxone; unable to administer within parameters due to pt sleeping and then eating. Pt requested late administration
--- NOTE | 2024-07-28 09:45 | P.PNPSI_ITS ---
Subjective Subjective Date of Service: 07/28/24 Reason For Visit: psychosis Interim History: Met with patient; discussed with team Patient reports her mood is good and that she is overall doing well. Discussed medication and continued intermittent AH. She feels that current Risperdal dose may become more effective given a few more weeks as it has not reached his full potential; currently she wants to leave it at its current dose to which clinical writer agrees. Regarding Seroquel, it does not really make her sleepy and so it is not ineffective p.r.n. for anxiety; she says rather, it is for mood stability. She does like Thorazine as a p.r.n. for when she is getting very dysregulated. Assignment Officer discussed that patient is on 2 antipsychotics with a 3rd as a p.r.n., combined to significantly increase her risk of side effects. Patient understands but feels that the benefit far outweighs the risks as she is doing better. Mental Status Exam Mental Status Exam Narrative: Pt is alert and oriented; behavior is calm, cooperative, friendly; patient is not in distress; dressed in casual attire with adequate hygiene; mood is described as good and affect congruent; eye contact appropriate; Speech is normal rate, volume and prosody and not pressured; no psychomotor retardation present; thought process is organized and goal directed; Thought content is on treatment; intermittent passive wish which is chronic, dealing with AH, tx; otherwise pertinent to relevant topics and without any delusional content, paranoid ideations or grandiosity; intermittent, chronic passive SI/no HI; intermittent AH. Patients insight and judgment fair Diagnostics Vital Signs (24Hr): Vital Signs - 24 hr 07/27/24 14:36 07/27/24 20:00 07/28/24 08:00 Temperature 97.8 F 97.9 F Pulse Rate 90 74 Respiratory Rate 16 16 Blood Pressure 120/68 120/61 123/74 Pulse Oximetry 99 96 Oxygen Delivery Method Room Air Room Air BMI result Body Mass Index 27.0 Labs 07/24/24 09:48 07/24/24 09:05 Labs: Laboratory Results - last 48 hr 07/26/24 07/26/24 07/26/24 12:31 17:02 20:31 POC Glucose 145 H 126 H 137 H 07/27/24 07/27/24 07/27/24 07:27 12:06 17:27 POC Glucose 155 H 195 H 159 H 07/27/24 07/28/24 20:32 08:02 POC Glucose 97 109 Medications Medications Current Medications Acetaminophen (Acetaminophen 325 Mg Tablet) 650 mg PO Q6H PRN PRN Reason: Headache/Pain Mild Scale (1-3) Last Admin: 07/27/24 09:23 Dose: 650 mg Al Hydroxide/Mg Hydroxide (Magnesium Hydrox/Alum Hydrox 30 Ml Oral.Susp) 30 ml PO Q6H PRN PRN Reason: Heartburn/Nausea Benztropine Mesylate (Benztropine Mesylate 0.5 Mg Tablet) 0.5 mg PO BID PRN PRN Reason: EPS/tremor/muscle twitch Buprenorphine/Naloxone (Buprenorphine/Naloxone 8/2 Mg Film) 1 film SUBLINGUAL BID [facility] Last Admin: 07/28/24 09:41 Dose: 1 film Bupropion HCl (Bupropion Hcl Xl 150 Mg Tab.Er.24h) 150 mg PO DAILY@1400 [facility] Last Admin: 07/27/24 14:36 Dose: 150 mg Bupropion HCl (Bupropion Hcl Xl 300 Mg Tab.Er.24h) 300 mg PO DAILY [facility] Last Admin: 07/28/24 08:29 Dose: 300 mg Docusate Sodium (Docusate Sodium 100 Mg Capsule) 100 mg PO BID [facility] Last Admin: 07/28/24 08:30 Dose: 100 mg Famotidine (Famotidine 20 Mg Tablet) 20 mg PO BID [facility] Last Admin: 07/28/24 08:29 Dose: 20 mg Fluticasone Propionate (Fluticasone Propionate Nasal 16 Gm [place]) 1 spray NOSTRIL-B DAILY PRN PRN Reason: nasal congestion Gabapentin (Gabapentin 400 Mg Capsule) 800 mg PO TID [facility] Last Admin: 07/28/24 08:29 Dose: 800 mg Hydroxyzine HCl (Hydroxyzine Hcl 50 Mg Tablet) 50 mg PO TID PRN PRN Reason: milder Anxiety Last Admin: 07/27/24 17:22 Dose: 50 mg Hydroxyzine HCl (Hydroxyzine Hcl 25 Mg Tablet) 25 mg PO Q6H PRN PRN Reason: Anxiety Last Admin: 07/27/24 12:01 Dose: 25 mg Insulin Glargine (Insulin Glargine,Hum.Rec.Anlog 100 Unit/Ml 10 Ml Vial) 30 unit SUBCUT BEDTIME [facility] Last Admin: 07/27/24 20:44 Dose: 30 unit Insulin Human Lispro (Insulin Lispro 100 Unit/Ml 3 Ml Vial) 0 - 10 unit SUBCUT TIDAC [facility]; Protocol Last Admin: 07/28/24 08:33 Dose: Not Given [place] Carbonate ([place] Carbonate Er 450 Mg Tablet.Er) 900 mg PO DAILY@1400 [facility] Last Admin: 07/27/24 14:35 Dose: 900 mg Loratadine (Loratadine 10 Mg Tablet) 10 mg PO DAILY [facility] Last Admin: 07/28/24 08:29 Dose: 10 mg Lorazepam (Lorazepam 1 Mg Tablet) 1 mg PO DAILY PRN PRN Reason: moderate to severe anxiety Last Admin: 07/27/24 14:36 Dose: 1 mg Magnesium Hydroxide (Milk Of Magnesia 30 Ml Oral.Susp) 30 ml PO DAILY PRN PRN Reason: Constipation Last Admin: 07/27/24 09:45 Dose: 30 ml Metformin HCl (Metformin Hcl Er 500 Mg Tab.Er.24h) 500 mg PO DAILY [facility] Last Admin: 07/28/24 08:29 Dose: 500 mg Nicotine (Nicotine 21 Mg Patch.Td24) 21 mg TRANSDERMA DAILY PRN PRN Reason: smoking cessation Last Admin: 07/27/24 09:44 Dose: 21 mg Nicotine Polacrilex (Nicotine Polacrilex 2 Mg Gum) 4 mg BUCCAL Q2H PRN PRN Reason: Nicotine Cravings Last Admin: 07/27/24 14:36 Dose: 4 mg Polyethylene Glycol (Polyethylene Glycol 3350 17 Gm Powd.Pack) 17 gm PO DAILY [facility] Last Admin: 07/27/24 08:13 Dose: 17 gm Prazosin HCl (Prazosin Hcl 1 Mg Capsule) 1 mg PO BEDTIME [facility]; Protocol Last Admin: 07/27/24 20:46 Dose: 1 mg Propranolol HCl (Propranolol Hcl 10 Mg Tablet) 10 mg PO BID@0900,1400 [facility]; Protocol Last Admin: 07/28/24 08:29 Dose: 10 mg Quetiapine Fumarate (Quetiapine Fumarate 400 Mg Tablet) 400 mg PO BEDTIME [facility] Last Admin: 07/27/24 20:46 Dose: 400 mg Quetiapine Fumarate (Quetiapine Fumarate 100 Mg Tablet) 100 mg PO BEDTIME PRN PRN Reason: insomnia Risperidone (Risperidone 1 Mg Tablet) 1 mg PO DAILY PRN PRN Reason: AH/anxiety/agitation Last Admin: 07/27/24 12:01 Dose: 1 mg Risperidone (Risperidone 3 Mg Tablet) 3 mg PO DAILY [facility] Last Admin: 07/28/24 08:29 Dose: 3 mg Trazodone HCl (Trazodone Hcl 50 Mg Tablet) 50 mg PO BEDTIME MRX1 PRN PRN Reason: Insomnia Allergies Allergies Allergy/AdvReac Type Severity Reaction Status Date / Time No Known Allergies Allergy Verified 07/23/24 20:47 Assessment & Plan Assessment & Plan (1) Schizoaffective disorder, bipolar type: Status: Acute Code(s): F25.0 - Schizoaffective disorder, bipolar type (2) PTSD (post-traumatic stress disorder): Status: Acute Code(s): F43.10 - Post-traumatic stress disorder, unspecified (3) Cocaine use disorder: Status: Acute Code(s): F14.10 - Cocaine abuse, uncomplicated (4) Diabetes: Status: Acute Code(s): E11.9 - Type 2 diabetes mellitus without complications (5) Homeless: Status: Acute Code(s): Z59.00 - Homelessness unspecified Plan Pt is 48 year old female with history schizoaffective disorder, PTSD, cocaine/opioid use disorder who recently discharged from 07/14 and now self presents for worsening depression and SI following relapse. Patient reports that she was doing okay at the program, auditory hallucinations at a minimum. However this past , patient had an appointment to go to and was allowed to go alone which she knew was a mistake. Once on her own, away from the program she had cravings to use which fueled her AH which fueled her cravings; patient quickly found people with drugs and relapsed on cocaine. Patient quickly felt depressed add AH worsened further. She started feeling suicidal and night, presented to the hospital for safety. Denies any alcohol or other substance abuse. Formulation/clinical reasoning: Discussed medications and patient felt that current regimen was overall effective and she wants to remain on it. Hospital plan: 07/26 depressed; no SI. dealing with AH 07/27 Patient very triggered last night with high acuity on the unit and had significant flashbacks to past trauma; patient talked it through with nurse and benefited from p.r.n. Thorazine. Otherwise she is feeling overall pretty good and says AH is on the lower side; wants a program 07/28 Patient reports her mood is good and that she is overall doing well. Discussed medication and continued intermittent AH. She feels that current Risperdal dose may become more effective given a few more weeks as it has not reached his full potential; currently she wants to leave it at its current dose to which clinical writer agrees. Regarding Seroquel, it does not really make her sleepy and so it is not ineffective p.r.n. for anxiety; she says rather, it is for mood stability. She does like Thorazine as a p.r.n. for when she is getting very dysregulated. Assignment Officer discussed that patient is on 2 scheduled antipsychotics with a 3rd as a p.r.n., and the combination significantly increases her risk of side effects. Patient understands this well but feels that the benefit far outweighs the risks as she is doing better. clinical reasoning Seroquel 400 mg q.h.s.: For bipolar depression; does not make her tired and is not effective as a p.r.n. Risperdal 3 mg daily: For treating AH Thorazine 50 mg p.r.n.: Used as a p.r.n. for agitation, panic attacks, PTSD flashbacks Patient remains in good behavioral and impulse control on the unit; she has a appropriate with peers and staff and engaged in treatment, attending groups and forthcoming in 1 on 1 sessions. Patient is stable on current medication regimen Plan: CV Q 15 minute checks Wellbutrin 300 mg daily; 150 mg at 14:00 Gabapentin 800 mg t.i.d. [place] 900 mg daily at 14:00 Prazosin 1 mg q.h.s. Seroquel 400 mg q.h.s. Risperdal 3 mg daily Suboxone 8/2 mg b.i.d. Lantus/ lispro sliding scale Metformin Propranolol Famotidine Patient educated on: diagnosis, medication risk/benefits and therapeutic strategies Informed Consent: understands Reason for continued inpatient stay Substantial Risk for: rapid decompensation and med/psych decompensation Time Spent With Patient Time: Total time managing care of this patient today ____ minutes.
[2024-07-28] MEDS: polyethylene glycoL 3350 17 GM POWD.PACK PO (11:31)
[2024-07-28 12:25] LABS: Glucose, Whole Blood 171 mg/dL (60-115)
[2024-07-28] MEDS: Lithium Carbonate ER 450 MG TABLET.ER 900 MG PO (13:32)
[2024-07-28] MEDS: buPROPion HCl XL 150 MG TAB.ER.24H PO (13:33)
[2024-07-28] MEDS: Nicotine Polacrilex 2 MG GUM 4 MG BUCCAL (14:49)
[2024-07-28] MEDS: chlorproMAZINE HCl 25 MG TABLET 50 MG PO (16:45)
[2024-07-28] MEDS: risperiDONE 1 MG TABLET PO (16:45)
[2024-07-28 17:24] LABS: Glucose, Whole Blood 171 mg/dL (60-115)
[2024-07-28 20:00] VITALS: BP 131/78; PULSE 80; TEMP 36.6; O2SAT 98
[2024-07-28 20:32] LABS: Glucose, Whole Blood 200 mg/dL (60-115)
[2024-07-28 20:36] VITALS: BP 131/78
[2024-07-28] MEDS: Prazosin HCL 1 MG CAPSULE PO (20:36)
[2024-07-28] MEDS: QUEtiapine Fumarate 400 MG TABLET PO (20:38)
[2024-07-28] MEDS: Insulin Glargine,Hum.rec.anlog 100 UNIT/ML 10 ML VIAL 30 UNIT SUBCUT (20:41)
[2024-07-29 08:17] VITALS: BP 105/58; PULSE 66; TEMP 36.9; O2SAT 97
[2024-07-29 08:30] LABS: Glucose, Whole Blood 195 mg/dL (60-115)
[2024-07-29] MEDS: Buprenorphine/Naloxone 8/2 mg FILM 1 FILM SUBLINGUAL ×2 (09:01→20:39)
[2024-07-29] MEDS: Nicotine 21 MG PATCH.TD24 TRANSDERMA (09:01)
[2024-07-29] MEDS: buPROPion HCl XL 300 MG TAB.ER.24H PO (09:01)
[2024-07-29] MEDS: Gabapentin 400 MG CAPSULE 800 MG PO ×3 (09:02→20:38)
[2024-07-29] MEDS: Docusate Sodium 100 MG CAPSULE PO ×2 (09:02→20:38)
[2024-07-29] MEDS: Insulin Lispro 100 UNIT/ML 3 ML VIAL SUBCUT (09:02)
[2024-07-29] MEDS: risperiDONE 3 MG TABLET PO (09:02)
[2024-07-29] MEDS: metFORMIN HCl ER 500 MG TAB.ER.24H PO (09:02)
[2024-07-29] MEDS: Loratadine 10 MG TABLET PO (09:02)
[2024-07-29] MEDS: Famotidine 20 MG TABLET PO ×2 (09:02→20:38)
[2024-07-29] MEDS: Propranolol HCL 10 MG TABLET PO ×2 (09:02→13:11)
[2024-07-29] MEDS: polyethylene glycoL 3350 17 GM POWD.PACK PO (09:02)
--- NOTE | 2024-07-29 09:52 | HO.PSYCHPN ---
Subjective Subjective Date of Service: 07/29/24 Reason For Visit: psychosis Interim History: Met with patient; discussed with team Patient reports overall doing well. Hoping to get into TSS program which is now postponed, waiting for a bed to open. Patient reports coping with AH. Patient felt trigger today and had some racing thoughts and asked for help how to manage them Mental Status Exam Mental Status Exam Narrative: Pt is alert and oriented; behavior is calm, cooperative, friendly; patient is not in distress; dressed in casual attire with adequate hygiene; mood is described as good and affect congruent; eye contact appropriate; Speech is normal rate, volume and prosody and not pressured; no psychomotor retardation present; thought process is organized and goal directed; Thought content is on treatment; intermittent passive wish which is chronic, dealing with AH, tx; otherwise pertinent to relevant topics and without any delusional content, paranoid ideations or grandiosity; intermittent, chronic passive SI/no HI; intermittent AH. Patients insight and judgment fair Diagnostics Vital Signs (24Hr): Vital Signs - 24 hr 07/28/24 20:00 07/28/24 20:36 07/29/24 08:17 Temperature 97.8 F 98.4 F Pulse Rate 80 66 Blood Pressure 131/78 131/78 105/58 L Pulse Oximetry 98 97 Oxygen Delivery Method Room Air Room Air BMI result Body Mass Index 27.0 Labs 07/24/24 09:48 07/30/24 08:26 Labs: Laboratory Results - last 48 hr 07/27/24 07/27/24 07/27/24 12:06 17:27 20:32 POC Glucose 195 H 159 H 97 07/28/24 07/28/24 07/28/24 08:02 12:21 17:20 POC Glucose 109 171 H 171 H 07/28/24 07/29/24 20:27 08:25 POC Glucose 200 H 195 H Medications Medications Current Medications Acetaminophen (Acetaminophen 325 Mg Tablet) 650 mg PO Q6H PRN PRN Reason: Headache/Pain Mild Scale (1-3) Last Admin: 07/27/24 09:23 Dose: 650 mg Al Hydroxide/Mg Hydroxide (Magnesium Hydrox/Alum Hydrox 30 Ml Oral.Susp) 30 ml PO Q6H PRN PRN Reason: Heartburn/Nausea Benztropine Mesylate (Benztropine Mesylate 0.5 Mg Tablet) 0.5 mg PO BID PRN PRN Reason: EPS/tremor/muscle twitch Buprenorphine/Naloxone (Buprenorphine/Naloxone 8/2 Mg Film) 1 film SUBLINGUAL BID [facility] Last Admin: 07/29/24 09:01 Dose: 1 film Bupropion HCl (Bupropion Hcl Xl 150 Mg Tab.Er.24h) 150 mg PO DAILY@1400 [facility] Last Admin: 07/28/24 13:33 Dose: 150 mg Bupropion HCl (Bupropion Hcl Xl 300 Mg Tab.Er.24h) 300 mg PO DAILY [facility] Last Admin: 07/29/24 09:01 Dose: 300 mg Chlorpromazine HCl (Chlorpromazine Hcl 25 Mg Tablet) 50 mg PO TID PRN PRN Reason: agitation Last Admin: 07/28/24 16:45 Dose: 50 mg Docusate Sodium (Docusate Sodium 100 Mg Capsule) 100 mg PO BID [facility] Last Admin: 07/29/24 09:02 Dose: 100 mg Famotidine (Famotidine 20 Mg Tablet) 20 mg PO BID [facility] Last Admin: 07/29/24 09:02 Dose: 20 mg Fluticasone Propionate (Fluticasone Propionate Nasal 16 Gm [place]) 1 spray NOSTRIL-B DAILY PRN PRN Reason: nasal congestion Gabapentin (Gabapentin 400 Mg Capsule) 800 mg PO TID [facility] Last Admin: 07/29/24 09:02 Dose: 800 mg Hydroxyzine HCl (Hydroxyzine Hcl 50 Mg Tablet) 50 mg PO TID PRN PRN Reason: milder Anxiety Last Admin: 07/27/24 17:22 Dose: 50 mg Hydroxyzine HCl (Hydroxyzine Hcl 25 Mg Tablet) 25 mg PO Q6H PRN PRN Reason: Anxiety Last Admin: 07/27/24 12:01 Dose: 25 mg Insulin Glargine (Insulin Glargine,Hum.Rec.Anlog 100 Unit/Ml 10 Ml Vial) 30 unit SUBCUT BEDTIME [facility] Last Admin: 07/28/24 20:41 Dose: 30 unit Insulin Human Lispro (Insulin Lispro 100 Unit/Ml 3 Ml Vial) 0 - 10 unit SUBCUT TIDAC [facility]; Protocol Last Admin: 07/29/24 09:02 Dose: 2 unit [place] Carbonate ([place] Carbonate Er 450 Mg Tablet.Er) 900 mg PO DAILY@1400 [facility] Last Admin: 07/28/24 13:32 Dose: 900 mg Loratadine (Loratadine 10 Mg Tablet) 10 mg PO DAILY [facility] Last Admin: 07/29/24 09:02 Dose: 10 mg Lorazepam (Lorazepam 1 Mg Tablet) 1 mg PO DAILY PRN PRN Reason: moderate to severe anxiety Last Admin: 07/27/24 14:36 Dose: 1 mg Magnesium Hydroxide (Milk Of Magnesia 30 Ml Oral.Susp) 30 ml PO DAILY PRN PRN Reason: Constipation Last Admin: 07/27/24 09:45 Dose: 30 ml Metformin HCl (Metformin Hcl Er 500 Mg Tab.Er.24h) 500 mg PO DAILY [facility] Last Admin: 07/29/24 09:02 Dose: 500 mg Nicotine (Nicotine 21 Mg Patch.Td24) 21 mg TRANSDERMA DAILY PRN PRN Reason: smoking cessation Last Admin: 07/29/24 09:01 Dose: 21 mg Nicotine Polacrilex (Nicotine Polacrilex 2 Mg Gum) 4 mg BUCCAL Q2H PRN PRN Reason: Nicotine Cravings Last Admin: 07/28/24 14:49 Dose: 4 mg Polyethylene Glycol (Polyethylene Glycol 3350 17 Gm Powd.Pack) 17 gm PO DAILY [facility] Last Admin: 07/29/24 09:02 Dose: 17 gm Prazosin HCl (Prazosin Hcl 1 Mg Capsule) 1 mg PO BEDTIME [facility]; Protocol Last Admin: 07/28/24 20:36 Dose: 1 mg Propranolol HCl (Propranolol Hcl 10 Mg Tablet) 10 mg PO BID@0900,1400 [facility]; Protocol Last Admin: 07/29/24 09:02 Dose: 10 mg Quetiapine Fumarate (Quetiapine Fumarate 400 Mg Tablet) 400 mg PO BEDTIME [facility] Last Admin: 07/28/24 20:38 Dose: 400 mg Quetiapine Fumarate (Quetiapine Fumarate 100 Mg Tablet) 100 mg PO BEDTIME PRN PRN Reason: insomnia Risperidone (Risperidone 1 Mg Tablet) 1 mg PO DAILY PRN PRN Reason: AH/anxiety/agitation Last Admin: 07/28/24 16:45 Dose: 1 mg Risperidone (Risperidone 3 Mg Tablet) 3 mg PO DAILY [facility] Last Admin: 07/29/24 09:02 Dose: 3 mg Trazodone HCl (Trazodone Hcl 50 Mg Tablet) 50 mg PO BEDTIME MRX1 PRN PRN Reason: Insomnia Allergies Allergies Allergy/AdvReac Type Severity Reaction Status Date / Time No Known Allergies Allergy Verified 07/23/24 20:47 Assessment & Plan Assessment & Plan (1) Schizoaffective disorder, bipolar type: Status: Acute Code(s): F25.0 - Schizoaffective disorder, bipolar type (2) PTSD (post-traumatic stress disorder): Status: Acute Code(s): F43.10 - Post-traumatic stress disorder, unspecified (3) Cocaine use disorder: Status: Acute Code(s): F14.10 - Cocaine abuse, uncomplicated (4) Diabetes: Status: Acute Code(s): E11.9 - Type 2 diabetes mellitus without complications (5) Homeless: Status: Acute Code(s): Z59.00 - Homelessness unspecified Plan Pt is 48 year old female with history schizoaffective disorder, PTSD, cocaine/opioid use disorder who recently discharged from 07/14 and now self presents for worsening depression and SI following relapse. Patient reports that she was doing okay at the program, auditory hallucinations at a minimum. However this past , patient had an appointment to go to and was allowed to go alone which she knew was a mistake. Once on her own, away from the program she had cravings to use which fueled her AH which fueled her cravings; patient quickly found people with drugs and relapsed on cocaine. Patient quickly felt depressed add AH worsened further. She started feeling suicidal and night, presented to the hospital for safety. Denies any alcohol or other substance abuse. Formulation/clinical reasoning: Discussed medications and patient felt that current regimen was overall effective and she wants to remain on it. Hospital plan: 07/26 depressed; no SI. dealing with AH 07/27 Patient very triggered last night with high acuity on the unit and had significant flashbacks to past trauma; patient talked it through with nurse and benefited from p.r.n. Thorazine. Otherwise she is feeling overall pretty good and says AH is on the lower side; wants a program 07/28 Patient reports her mood is good and that she is overall doing well. Discussed medication and continued intermittent AH. She feels that current Risperdal dose may become more effective given a few more weeks as it has not reached his full potential; currently she wants to leave it at its current dose to which business writer agrees. Regarding Seroquel, it does not really make her sleepy and so it is not ineffective p.r.n. for anxiety; she says rather, it is for mood stability. She does like Thorazine as a p.r.n. for when she is getting very dysregulated. Paint Booth Operator discussed that patient is on 2 scheduled antipsychotics with a 3rd as a p.r.n., and the combination significantly increases her risk of side effects. Patient understands this well but feels that the benefit far outweighs the risks as she is doing better. clinical reasoning Seroquel 400 mg q.h.s.: For bipolar depression; does not make her tired and is not effective as a p.r.n. Risperdal 3 mg daily: For treating AH Thorazine 50 mg p.r.n.: Used as a p.r.n. for agitation, panic attacks, PTSD flashbacks 07/29 patient remains doing well, coping with AH, utilizing resources, engaged in treatment. Open for TSS Patient remains in good behavioral and impulse control on the unit; she has a appropriate with peers and staff and engaged in treatment, attending groups and forthcoming in 1 on 1 sessions. Patient is stable on current medication regimen Plan: CV Q 15 minute checks Wellbutrin 300 mg daily; 150 mg at 14:00 Gabapentin 800 mg t.i.d. [place] 900 mg daily at 14:00 Prazosin 1 mg q.h.s. Seroquel 400 mg q.h.s. Risperdal 3 mg daily Suboxone 8/2 mg b.i.d. Lantus/ lispro sliding scale Metformin Propranolol Famotidine Patient educated on: diagnosis, medication risk/benefits and therapeutic strategies Informed Consent: understands Reason for continued inpatient stay Substantial Risk for: stable for discharge Time Spent With Patient Time: Total time managing care of this patient today ____ minutes.
[2024-07-29 12:50] LABS: Glucose, Whole Blood 129 mg/dL (60-115)
[2024-07-29 13:11] VITALS: BP 132/68; PULSE 73
[2024-07-29] MEDS: buPROPion HCl XL 150 MG TAB.ER.24H PO (13:11)
[2024-07-29] MEDS: Lithium Carbonate ER 450 MG TABLET.ER 900 MG PO (13:11)
[2024-07-29] MEDS: risperiDONE 1 MG TABLET PO (15:34)
[2024-07-29] MEDS: hydrOXYzine HCL 50 MG TABLET PO ×2 (16:36→20:39)
[2024-07-29 17:21] LABS: Glucose, Whole Blood 163 mg/dL (60-115)
[2024-07-29] MEDS: LORazepam 1 MG TABLET PO (17:52)
[2024-07-29] MEDS: Nicotine Polacrilex 2 MG GUM 4 MG BUCCAL (18:12)
[2024-07-29 19:57] LABS: Glucose, Whole Blood 161 mg/dL (60-115)
[2024-07-29 20:00] VITALS: BP 123/76; PULSE 71; RESP 16; TEMP 37; O2SAT 99
[2024-07-29 20:38] VITALS: BP 123/76
[2024-07-29] MEDS: QUEtiapine Fumarate 400 MG TABLET PO (20:38)
[2024-07-29] MEDS: Prazosin HCL 1 MG CAPSULE PO (20:38)
[2024-07-29] MEDS: Insulin Glargine,Hum.rec.anlog 100 UNIT/ML 10 ML VIAL 30 UNIT SUBCUT (20:39)
[2024-07-30 07:57] VITALS: BP 133/64; PULSE 70; TEMP 36.8; O2SAT 100
[2024-07-30 08:49] LABS: Glucose, Whole Blood 258 mg/dL (60-115)
[2024-07-30] MEDS: Insulin Lispro 100 UNIT/ML 3 ML VIAL SUBCUT (08:57)
[2024-07-30] MEDS: Gabapentin 400 MG CAPSULE 800 MG PO ×3 (08:59→21:38)
[2024-07-30 09:00] VITALS: BP 133/64; PULSE 70
[2024-07-30] MEDS: Famotidine 20 MG TABLET PO ×2 (09:00→21:38)
[2024-07-30] MEDS: Docusate Sodium 100 MG CAPSULE PO ×2 (09:00→21:38)
[2024-07-30] MEDS: buPROPion HCl XL 300 MG TAB.ER.24H PO (09:00)
[2024-07-30] MEDS: Propranolol HCL 10 MG TABLET PO ×2 (09:00→13:33)
[2024-07-30] MEDS: risperiDONE 3 MG TABLET PO (09:00)
[2024-07-30] MEDS: metFORMIN HCl ER 500 MG TAB.ER.24H PO (09:01)
[2024-07-30] MEDS: Loratadine 10 MG TABLET PO (09:01)
[2024-07-30] MEDS: Buprenorphine/Naloxone 8/2 mg FILM 1 FILM SUBLINGUAL ×2 (09:01→21:38)
[2024-07-30 09:03] LABS: Creatinine Clr Calc Pharmacy 96.2; Estimated Glomerular Filt Rate > 60
[2024-07-30 12:35] LABS: Glucose, Whole Blood 120 mg/dL (60-115)
[2024-07-30] MEDS: Nicotine Polacrilex 2 MG GUM 4 MG BUCCAL ×3 (13:00→21:42)
[2024-07-30] MEDS: Lithium Carbonate ER 450 MG TABLET.ER 900 MG PO (13:34)
[2024-07-30] MEDS: buPROPion HCl XL 150 MG TAB.ER.24H PO (13:34)
[2024-07-30] MEDS: chlorproMAZINE HCl 25 MG TABLET 50 MG PO (16:32)
[2024-07-30] MEDS: risperiDONE 1 MG TABLET PO (16:32)
[2024-07-30] MEDS: Nicotine 21 MG PATCH.TD24 TRANSDERMA (16:32)
[2024-07-30] MEDS: LORazepam 1 MG TABLET PO (16:32)
--- NOTE | 2024-07-30 17:27 | P.PNPSI_ITS ---
Subjective Subjective Date of Service: 07/30/24 Reason For Visit: psychosis Interim History: Met with patient; discussed with team Patient triggered by interaction with the staff member however plan to her room to process it and realized that the interaction just reminded her of something from her childhood. Slime Plant Operator Helper and patient engaged in CBT exercise looking at automatic thoughts and how it triggers feelings and behaviors. Exercise resonating with patient who wants to see if she can apply this throughout the day. Mental Status Exam Mental Status Exam Narrative: Pt is alert and oriented; behavior is calm, cooperative, friendly; patient is not in distress; dressed in casual attire with adequate hygiene; mood is described as good and affect congruent; eye contact appropriate; Speech is normal rate, volume and prosody and not pressured; no psychomotor retardation present; thought process is organized and goal directed; Thought content is on treatment; intermittent passive wish which is chronic, dealing with AH, tx; otherwise pertinent to relevant topics and without any delusional content, paranoid ideations or grandiosity; intermittent, chronic passive SI/no HI; intermittent AH. Patients insight and judgment fair Diagnostics Vital Signs (24Hr): Vital Signs - 24 hr 07/29/24 20:00 07/29/24 20:38 07/30/24 07:57 Temperature 98.6 F 98.3 F Pulse Rate 71 70 Respiratory Rate 16 Blood Pressure 123/76 123/76 133/64 Pulse Oximetry 99 100 Oxygen Delivery Method Room Air Room Air 07/30/24 09:00 Temperature Pulse Rate 70 Respiratory Rate Blood Pressure 133/64 Pulse Oximetry Oxygen Delivery Method BMI result Body Mass Index 27.0 Labs 07/24/24 09:48 07/30/24 08:26 Labs: Laboratory Results - last 48 hr 07/28/24 07/29/24 07/29/24 20:27 08:25 12:46 Creatinine Estim Creat Clear Calc Estimated GFR POC Glucose 200 H 195 H 129 H 07/29/24 07/29/24 07/30/24 17:17 19:51 08:26 Creatinine 0.84 Estim Creat Clear Calc 96.2 Estimated GFR > 60 POC Glucose 163 H 161 H 07/30/24 07/30/24 08:44 12:30 Creatinine Estim Creat Clear Calc Estimated GFR POC Glucose 258 H 120 H Medications Medications Current Medications Acetaminophen (Acetaminophen 325 Mg Tablet) 650 mg PO Q6H PRN PRN Reason: Headache/Pain Mild Scale (1-3) Last Admin: 07/27/24 09:23 Dose: 650 mg Al Hydroxide/Mg Hydroxide (Magnesium Hydrox/Alum Hydrox 30 Ml Oral.Susp) 30 ml PO Q6H PRN PRN Reason: Heartburn/Nausea Benztropine Mesylate (Benztropine Mesylate 0.5 Mg Tablet) 0.5 mg PO BID PRN PRN Reason: EPS/tremor/muscle twitch Buprenorphine/Naloxone (Buprenorphine/Naloxone 8/2 Mg Film) 1 film SUBLINGUAL BID [facility] Last Admin: 07/30/24 09:01 Dose: 1 film Bupropion HCl (Bupropion Hcl Xl 150 Mg Tab.Er.24h) 150 mg PO DAILY@1400 [facility] Last Admin: 07/30/24 13:34 Dose: 150 mg Bupropion HCl (Bupropion Hcl Xl 300 Mg Tab.Er.24h) 300 mg PO DAILY [facility] Last Admin: 07/30/24 09:00 Dose: 300 mg Chlorpromazine HCl (Chlorpromazine Hcl 25 Mg Tablet) 50 mg PO TID PRN PRN Reason: agitation Last Admin: 07/30/24 16:32 Dose: 50 mg Docusate Sodium (Docusate Sodium 100 Mg Capsule) 100 mg PO BID [facility] Last Admin: 07/30/24 09:00 Dose: 100 mg Famotidine (Famotidine 20 Mg Tablet) 20 mg PO BID [facility] Last Admin: 07/30/24 09:00 Dose: 20 mg Fluticasone Propionate (Fluticasone Propionate Nasal 16 Gm [place]) 1 spray NOSTRIL-B DAILY PRN PRN Reason: nasal congestion Gabapentin (Gabapentin 400 Mg Capsule) 800 mg PO TID [facility] Last Admin: 07/30/24 14:50 Dose: 800 mg Hydroxyzine HCl (Hydroxyzine Hcl 50 Mg Tablet) 50 mg PO TID PRN PRN Reason: milder Anxiety Last Admin: 07/29/24 20:39 Dose: 50 mg Hydroxyzine HCl (Hydroxyzine Hcl 25 Mg Tablet) 25 mg PO Q6H PRN PRN Reason: Anxiety Last Admin: 07/27/24 12:01 Dose: 25 mg Insulin Glargine (Insulin Glargine,Hum.Rec.Anlog 100 Unit/Ml 10 Ml Vial) 30 unit SUBCUT BEDTIME [facility] Last Admin: 07/29/24 20:39 Dose: 30 unit Insulin Human Lispro (Insulin Lispro 100 Unit/Ml 3 Ml Vial) 0 - 10 unit SUBCUT TIDAC [facility]; Protocol Last Admin: 07/30/24 13:03 Dose: Not Given [place] Carbonate ([place] Carbonate Er 450 Mg Tablet.Er) 900 mg PO DAILY@1400 [facility] Last Admin: 07/30/24 13:34 Dose: 900 mg Loratadine (Loratadine 10 Mg Tablet) 10 mg PO DAILY [facility] Last Admin: 07/30/24 09:01 Dose: 10 mg Lorazepam (Lorazepam 1 Mg Tablet) 1 mg PO DAILY PRN PRN Reason: moderate to severe anxiety Last Admin: 07/30/24 16:32 Dose: 1 mg Magnesium Hydroxide (Milk Of Magnesia 30 Ml Oral.Susp) 30 ml PO DAILY PRN PRN Reason: Constipation Last Admin: 07/27/24 09:45 Dose: 30 ml Metformin HCl (Metformin Hcl Er 500 Mg Tab.Er.24h) 500 mg PO DAILY [facility] Last Admin: 07/30/24 09:01 Dose: 500 mg Nicotine (Nicotine 21 Mg Patch.Td24) 21 mg TRANSDERMA DAILY PRN PRN Reason: smoking cessation Last Admin: 07/30/24 16:32 Dose: 21 mg Nicotine Polacrilex (Nicotine Polacrilex 2 Mg Gum) 4 mg BUCCAL Q2H PRN PRN Reason: Nicotine Cravings Last Admin: 07/30/24 16:32 Dose: 4 mg Polyethylene Glycol (Polyethylene Glycol 3350 17 Gm Powd.Pack) 17 gm PO DAILY [facility] Last Admin: 07/30/24 09:01 Dose: Not Given Prazosin HCl (Prazosin Hcl 1 Mg Capsule) 1 mg PO BEDTIME [facility]; Protocol Last Admin: 07/29/24 20:38 Dose: 1 mg Propranolol HCl (Propranolol Hcl 10 Mg Tablet) 10 mg PO BID@0900,1400 [facility]; Protocol Last Admin: 07/30/24 13:33 Dose: 10 mg Quetiapine Fumarate (Quetiapine Fumarate 400 Mg Tablet) 400 mg PO BEDTIME [facility] Last Admin: 07/29/24 20:38 Dose: 400 mg Quetiapine Fumarate (Quetiapine Fumarate 100 Mg Tablet) 100 mg PO BEDTIME PRN PRN Reason: insomnia Risperidone (Risperidone 1 Mg Tablet) 1 mg PO DAILY PRN PRN Reason: AH/anxiety/agitation Last Admin: 07/30/24 16:32 Dose: 1 mg Risperidone (Risperidone 3 Mg Tablet) 3 mg PO DAILY [facility] Last Admin: 07/30/24 09:00 Dose: 3 mg Trazodone HCl (Trazodone Hcl 50 Mg Tablet) 50 mg PO BEDTIME MRX1 PRN PRN Reason: Insomnia Allergies Allergies Allergy/AdvReac Type Severity Reaction Status Date / Time No Known Allergies Allergy Verified 07/23/24 20:47 Assessment & Plan Assessment & Plan (1) Schizoaffective disorder, bipolar type: Status: Acute Code(s): F25.0 - Schizoaffective disorder, bipolar type (2) PTSD (post-traumatic stress disorder): Status: Acute Code(s): F43.10 - Post-traumatic stress disorder, unspecified (3) Cocaine use disorder: Status: Acute Code(s): F14.10 - Cocaine abuse, uncomplicated (4) Diabetes: Status: Acute Code(s): E11.9 - Type 2 diabetes mellitus without complications (5) Homeless: Status: Acute Code(s): Z59.00 - Homelessness unspecified Plan Pt is 48 year old female with history schizoaffective disorder, PTSD, cocaine/opioid use disorder who recently discharged from 07/14 and now self presents for worsening depression and SI following relapse. Patient reports that she was doing okay at the program, auditory hallucinations at a minimum. However this past , patient had an appointment to go to and was allowed to go alone which she knew was a mistake. Once on her own, away from the program she had cravings to use which fueled her AH which fueled her cravings; patient quickly found people with drugs and relapsed on cocaine. Patient quickly felt depressed add AH worsened further. She started feeling suicidal and night, presented to the hospital for safety. Denies any alcohol or other substance abuse. Formulation/clinical reasoning: Discussed medications and patient felt that current regimen was overall effective and she wants to remain on it. Hospital plan: 07/26 depressed; no SI. dealing with AH 07/27 Patient very triggered last night with high acuity on the unit and had significant flashbacks to past trauma; patient talked it through with nurse and benefited from p.r.n. Thorazine. Otherwise she is feeling overall pretty good and says AH is on the lower side; wants a program 07/28 Patient reports her mood is good and that she is overall doing well. Discussed medication and continued intermittent AH. She feels that current Risperdal dose may become more effective given a few more weeks as it has not reached his full potential; currently she wants to leave it at its current dose to which video games storywriter agrees. Regarding Seroquel, it does not really make her sleepy and so it is not ineffective p.r.n. for anxiety; she says rather, it is for mood stability. She does like Thorazine as a p.r.n. for when she is getting very dysregulated. Slime Plant Operator Helper discussed that patient is on 2 scheduled antipsychotics with a 3rd as a p.r.n., and the combination significantly increases her risk of side effects. Patient understands this well but feels that the benefit far outweighs the risks as she is doing better. clinical reasoning Seroquel 400 mg q.h.s.: For bipolar depression; does not make her tired and is not effective as a p.r.n. Risperdal 3 mg daily: For treating AH Thorazine 50 mg p.r.n.: Used as a p.r.n. for agitation, panic attacks, PTSD flashbacks 07/29 patient remains doing well, coping with AH, utilizing resources, engaged in treatment. Open for TSS 07/30 remains doing well; did CBT exercise which resident with patient; patient will continue with CBT homework Patient remains in good behavioral and impulse control on the unit; she has a appropriate with peers and staff and engaged in treatment, attending groups and forthcoming in 1 on 1 sessions. Patient is stable on current medication regimen Plan: CV Q 15 minute checks Wellbutrin 300 mg daily; 150 mg at 14:00 Gabapentin 800 mg t.i.d. [place] 900 mg daily at 14:00 Prazosin 1 mg q.h.s. Seroquel 400 mg q.h.s. Risperdal 3 mg daily Suboxone 8/2 mg b.i.d. Lantus/ lispro sliding scale Metformin Propranolol Famotidine Patient educated on: diagnosis, medication risk/benefits and therapeutic strategies Informed Consent: understands Reason for continued inpatient stay Substantial Risk for: stable for discharge Time Spent With Patient Time: Total time managing care of this patient today ____ minutes.
[2024-07-30 17:30] LABS: Glucose, Whole Blood 103 mg/dL (60-115)
[2024-07-30 21:28] LABS: Glucose, Whole Blood 106 mg/dL (60-115)
[2024-07-30] MEDS: Insulin Glargine,Hum.rec.anlog 100 UNIT/ML 10 ML VIAL 30 UNIT SUBCUT (21:37)
[2024-07-30 21:38] VITALS: BP 129/74
[2024-07-30] MEDS: Prazosin HCL 1 MG CAPSULE PO (21:38)
[2024-07-30] MEDS: QUEtiapine Fumarate 400 MG TABLET PO (21:39)
[2024-07-31 07:00] VITALS: BMI 27.8
[2024-07-31 07:56] LABS: Glucose, Whole Blood 154 mg/dL (60-115)
[2024-07-31 08:00] VITALS: BP 123/73; PULSE 67; RESP 16; TEMP 36.5; O2SAT 99
[2024-07-31] MEDS: risperiDONE 3 MG TABLET PO (08:40)
[2024-07-31] MEDS: Docusate Sodium 100 MG CAPSULE PO ×2 (08:40→20:37)
[2024-07-31] MEDS: Propranolol HCL 10 MG TABLET PO ×2 (08:40→14:23)
[2024-07-31] MEDS: metFORMIN HCl ER 500 MG TAB.ER.24H PO (08:40)
[2024-07-31] MEDS: Famotidine 20 MG TABLET PO ×2 (08:40→20:37)
[2024-07-31] MEDS: Gabapentin 400 MG CAPSULE 800 MG PO ×3 (08:40→20:37)
[2024-07-31] MEDS: buPROPion HCl XL 300 MG TAB.ER.24H PO (08:41)
[2024-07-31] MEDS: Loratadine 10 MG TABLET PO (08:41)
[2024-07-31] MEDS: Buprenorphine/Naloxone 8/2 mg FILM 1 FILM SUBLINGUAL (09:03)
--- NOTE | 2024-07-31 09:44 | HO.PSYCHPN ---
Subjective Subjective Date of Service: 07/31/24 Reason For Visit: psychosis Interim History: met with pt; discussed with team pt doing well; shared CBT homework/excercise with fha underwriter and how it helped her cope with upsetting thought yesterday. expresses thanks for helped received. Mental Status Exam Mental Status Exam Narrative: Pt is alert and oriented; behavior is calm, cooperative, friendly; patient is not in distress; dressed in casual attire with adequate hygiene; mood is described as good and affect congruent; eye contact appropriate; Speech is normal rate, volume and prosody and not pressured; no psychomotor retardation present; thought process is organized and goal directed; Thought content is on treatment; intermittent passive wish which is chronic, dealing with AH, tx; otherwise pertinent to relevant topics and without any delusional content, paranoid ideations or grandiosity; intermittent, chronic passive SI/no HI; intermittent AH. Patients insight and judgment fair Diagnostics Vital Signs (24Hr): Vital Signs - 24 hr 07/30/24 21:38 07/31/24 08:00 Temperature 97.7 F Pulse Rate 67 Respiratory Rate 16 Blood Pressure 129/74 123/73 Pulse Oximetry 99 Oxygen Delivery Method Room Air BMI result Body Mass Index 27.0 Labs 07/24/24 09:48 07/30/24 08:26 Labs: Laboratory Results - last 48 hr 07/29/24 07/29/24 07/29/24 12:46 17:17 19:51 Creatinine Estim Creat Clear Calc Estimated GFR POC Glucose 129 H 163 H 161 H 07/30/24 07/30/24 07/30/24 08:26 08:44 12:30 Creatinine 0.84 Estim Creat Clear Calc 96.2 Estimated GFR > 60 POC Glucose 258 H 120 H 07/30/24 07/30/24 07/31/24 17:26 21:25 07:52 Creatinine Estim Creat Clear Calc Estimated GFR POC Glucose 103 106 154 H Medications Medications Current Medications Acetaminophen (Acetaminophen 325 Mg Tablet) 650 mg PO Q6H PRN PRN Reason: Headache/Pain Mild Scale (1-3) Last Admin: 07/27/24 09:23 Dose: 650 mg Al Hydroxide/Mg Hydroxide (Magnesium Hydrox/Alum Hydrox 30 Ml Oral.Susp) 30 ml PO Q6H PRN PRN Reason: Heartburn/Nausea Benztropine Mesylate (Benztropine Mesylate 0.5 Mg Tablet) 0.5 mg PO BID PRN PRN Reason: EPS/tremor/muscle twitch Buprenorphine/Naloxone (Buprenorphine/Naloxone 8/2 Mg Film) 1 film SUBLINGUAL BID [facility] Last Admin: 07/30/24 21:38 Dose: 1 film Bupropion HCl (Bupropion Hcl Xl 150 Mg Tab.Er.24h) 150 mg PO DAILY@1400 [facility] Last Admin: 07/30/24 13:34 Dose: 150 mg Bupropion HCl (Bupropion Hcl Xl 300 Mg Tab.Er.24h) 300 mg PO DAILY [facility] Last Admin: 07/31/24 08:41 Dose: 300 mg Chlorpromazine HCl (Chlorpromazine Hcl 25 Mg Tablet) 50 mg PO TID PRN PRN Reason: agitation Last Admin: 07/30/24 16:32 Dose: 50 mg Docusate Sodium (Docusate Sodium 100 Mg Capsule) 100 mg PO BID [facility] Last Admin: 07/31/24 08:40 Dose: 100 mg Famotidine (Famotidine 20 Mg Tablet) 20 mg PO BID [facility] Last Admin: 07/31/24 08:40 Dose: 20 mg Fluticasone Propionate (Fluticasone Propionate Nasal 16 Gm [place]) 1 spray NOSTRIL-B DAILY PRN PRN Reason: nasal congestion Gabapentin (Gabapentin 400 Mg Capsule) 800 mg PO TID [facility] Last Admin: 07/31/24 08:40 Dose: 800 mg Hydroxyzine HCl (Hydroxyzine Hcl 50 Mg Tablet) 50 mg PO TID PRN PRN Reason: milder Anxiety Last Admin: 07/29/24 20:39 Dose: 50 mg Hydroxyzine HCl (Hydroxyzine Hcl 25 Mg Tablet) 25 mg PO Q6H PRN PRN Reason: Anxiety Last Admin: 07/27/24 12:01 Dose: 25 mg Insulin Glargine (Insulin Glargine,Hum.Rec.Anlog 100 Unit/Ml 10 Ml Vial) 30 unit SUBCUT BEDTIME [facility] Last Admin: 07/30/24 21:37 Dose: 30 unit Insulin Human Lispro (Insulin Lispro 100 Unit/Ml 3 Ml Vial) 0 - 10 unit SUBCUT TIDAC [facility]; Protocol Last Admin: 07/31/24 07:54 Dose: Not Given [place] Carbonate ([place] Carbonate Er 450 Mg Tablet.Er) 900 mg PO DAILY@1400 [facility] Last Admin: 07/30/24 13:34 Dose: 900 mg Loratadine (Loratadine 10 Mg Tablet) 10 mg PO DAILY [facility] Last Admin: 07/31/24 08:41 Dose: 10 mg Lorazepam (Lorazepam 1 Mg Tablet) 1 mg PO DAILY PRN PRN Reason: moderate to severe anxiety Last Admin: 07/30/24 16:32 Dose: 1 mg Magnesium Hydroxide (Milk Of Magnesia 30 Ml Oral.Susp) 30 ml PO DAILY PRN PRN Reason: Constipation Last Admin: 07/27/24 09:45 Dose: 30 ml Metformin HCl (Metformin Hcl Er 500 Mg Tab.Er.24h) 500 mg PO DAILY [facility] Last Admin: 07/31/24 08:40 Dose: 500 mg Nicotine (Nicotine 21 Mg Patch.Td24) 21 mg TRANSDERMA DAILY PRN PRN Reason: smoking cessation Last Admin: 07/30/24 16:32 Dose: 21 mg Nicotine Polacrilex (Nicotine Polacrilex 2 Mg Gum) 4 mg BUCCAL Q2H PRN PRN Reason: Nicotine Cravings Last Admin: 07/30/24 21:42 Dose: 4 mg Polyethylene Glycol (Polyethylene Glycol 3350 17 Gm Powd.Pack) 17 gm PO DAILY [facility] Last Admin: 07/31/24 08:43 Dose: Not Given Prazosin HCl (Prazosin Hcl 1 Mg Capsule) 1 mg PO BEDTIME [facility]; Protocol Last Admin: 07/30/24 21:38 Dose: 1 mg Propranolol HCl (Propranolol Hcl 10 Mg Tablet) 10 mg PO BID@0900,1400 [facility]; Protocol Last Admin: 07/31/24 08:40 Dose: 10 mg Quetiapine Fumarate (Quetiapine Fumarate 400 Mg Tablet) 400 mg PO BEDTIME [facility] Last Admin: 07/30/24 21:39 Dose: 400 mg Quetiapine Fumarate (Quetiapine Fumarate 100 Mg Tablet) 100 mg PO BEDTIME PRN PRN Reason: insomnia Risperidone (Risperidone 1 Mg Tablet) 1 mg PO DAILY PRN PRN Reason: AH/anxiety/agitation Last Admin: 07/30/24 16:32 Dose: 1 mg Risperidone (Risperidone 3 Mg Tablet) 3 mg PO DAILY [facility] Last Admin: 07/31/24 08:40 Dose: 3 mg Trazodone HCl (Trazodone Hcl 50 Mg Tablet) 50 mg PO BEDTIME MRX1 PRN PRN Reason: Insomnia Allergies Allergies Allergy/AdvReac Type Severity Reaction Status Date / Time No Known Allergies Allergy Verified 07/23/24 20:47 Assessment & Plan Assessment & Plan (1) Schizoaffective disorder, bipolar type: Status: Acute Code(s): F25.0 - Schizoaffective disorder, bipolar type (2) PTSD (post-traumatic stress disorder): Status: Acute Code(s): F43.10 - Post-traumatic stress disorder, unspecified (3) Cocaine use disorder: Status: Acute Code(s): F14.10 - Cocaine abuse, uncomplicated (4) Diabetes: Status: Acute Code(s): E11.9 - Type 2 diabetes mellitus without complications (5) Homeless: Status: Acute Code(s): Z59.00 - Homelessness unspecified Plan Pt is 48 year old female with history schizoaffective disorder, PTSD, cocaine/opioid use disorder who recently discharged from 07/14 and now self presents for worsening depression and SI following relapse. Patient reports that she was doing okay at the program, auditory hallucinations at a minimum. However this past , patient had an appointment to go to and was allowed to go alone which she knew was a mistake. Once on her own, away from the program she had cravings to use which fueled her AH which fueled her cravings; patient quickly found people with drugs and relapsed on cocaine. Patient quickly felt depressed add AH worsened further. She started feeling suicidal and night, presented to the hospital for safety. Denies any alcohol or other substance abuse. Formulation/clinical reasoning: Discussed medications and patient felt that current regimen was overall effective and she wants to remain on it. Hospital plan: 07/26 depressed; no SI. dealing with AH 07/27 Patient very triggered last night with high acuity on the unit and had significant flashbacks to past trauma; patient talked it through with nurse and benefited from p.r.n. Thorazine. Otherwise she is feeling overall pretty good and says AH is on the lower side; wants a program 07/28 Patient reports her mood is good and that she is overall doing well. Discussed medication and continued intermittent AH. She feels that current Risperdal dose may become more effective given a few more weeks as it has not reached his full potential; currently she wants to leave it at its current dose to which fha underwriter agrees. Regarding Seroquel, it does not really make her sleepy and so it is not ineffective p.r.n. for anxiety; she says rather, it is for mood stability. She does like Thorazine as a p.r.n. for when she is getting very dysregulated. Vest Tailor discussed that patient is on 2 scheduled antipsychotics with a 3rd as a p.r.n., and the combination significantly increases her risk of side effects. Patient understands this well but feels that the benefit far outweighs the risks as she is doing better. clinical reasoning Seroquel 400 mg q.h.s.: For bipolar depression; does not make her tired and is not effective as a p.r.n. Risperdal 3 mg daily: For treating AH Thorazine 50 mg p.r.n.: Used as a p.r.n. for agitation, panic attacks, PTSD flashbacks 07/29 patient remains doing well, coping with AH, utilizing resources, engaged in treatment. Open for TSS 07/30 remains doing well; did CBT exercise which resident with patient; patient will continue with CBT homework 07/31 remains stable, doing well, engaged; waiting on open bed at tSS Patient remains in good behavioral and impulse control on the unit; she has a appropriate with peers and staff and engaged in treatment, attending groups and forthcoming in 1 on 1 sessions. Patient is stable on current medication regimen Plan: CV Q 15 minute checks Wellbutrin 300 mg daily; 150 mg at 14:00 Gabapentin 800 mg t.i.d. [place] 900 mg daily at 14:00 Prazosin 1 mg q.h.s. Seroquel 400 mg q.h.s. Risperdal 3 mg daily Suboxone 8/2 mg b.i.d. Lantus/ lispro sliding scale Metformin Propranolol Famotidine Patient educated on: diagnosis and therapeutic strategies Informed Consent: understands Reason for continued inpatient stay Substantial Risk for: stable for discharge Time Spent With Patient Time: Total time managing care of this patient today ____ minutes.
[2024-07-31 12:46] LABS: Glucose, Whole Blood 158 mg/dL (60-115)
[2024-07-31] MEDS: hydrOXYzine HCL 50 MG TABLET PO ×3 (12:55→21:36)
[2024-07-31] MEDS: chlorproMAZINE HCl 25 MG TABLET 50 MG PO ×2 (12:56→20:43)
[2024-07-31] MEDS: risperiDONE 1 MG TABLET PO (12:56)
[2024-07-31] MEDS: Lithium Carbonate ER 450 MG TABLET.ER 900 MG PO (14:20)
[2024-07-31] MEDS: buPROPion HCl XL 150 MG TAB.ER.24H PO (14:20)
[2024-07-31 14:23] VITALS: BP 134/63; PULSE 85
[2024-07-31] MEDS: Nicotine Polacrilex 2 MG GUM 4 MG BUCCAL ×2 (14:25→20:37)
[2024-07-31] MEDS: LORazepam 1 MG TABLET PO (16:08)
[2024-07-31 17:19] LABS: Glucose, Whole Blood 205 mg/dL (60-115)
[2024-07-31] MEDS: Insulin Lispro 100 UNIT/ML 3 ML VIAL SUBCUT (17:23)
[2024-07-31 19:43] VITALS: BP 133/63; PULSE 78; RESP 18; TEMP 36.7; O2SAT 98
[2024-07-31 20:28] LABS: Glucose, Whole Blood 123 mg/dL (60-115)
[2024-07-31] MEDS: QUEtiapine Fumarate 400 MG TABLET PO (20:37)
[2024-07-31] MEDS: Prazosin HCL 1 MG CAPSULE PO (20:37)
[2024-07-31] MEDS: Insulin Glargine,Hum.rec.anlog 100 UNIT/ML 10 ML VIAL 30 UNIT SUBCUT (20:38)
[2024-08-01 08:29] VITALS: BP 121/58; PULSE 71; TEMP 36.4; O2SAT 99
[2024-08-01 09:20] LABS: Glucose, Whole Blood 277 mg/dL (60-115)
[2024-08-01] MEDS: Insulin Lispro 100 UNIT/ML 3 ML VIAL SUBCUT (09:24)
[2024-08-01] MEDS: Gabapentin 400 MG CAPSULE 800 MG PO ×3 (09:54→21:16)
[2024-08-01 09:55] VITALS: BP 121/58; PULSE 71
[2024-08-01] MEDS: Propranolol HCL 10 MG TABLET PO ×2 (09:55→13:22)
[2024-08-01] MEDS: Famotidine 20 MG TABLET PO ×2 (09:55→21:16)
[2024-08-01] MEDS: buPROPion HCl XL 300 MG TAB.ER.24H PO (09:55)
[2024-08-01] MEDS: metFORMIN HCl ER 500 MG TAB.ER.24H PO (09:55)
[2024-08-01] MEDS: risperiDONE 3 MG TABLET PO (09:56)
[2024-08-01] MEDS: Docusate Sodium 100 MG CAPSULE PO ×2 (09:56→21:15)
[2024-08-01] MEDS: Loratadine 10 MG TABLET PO (09:57)
[2024-08-01] MEDS: Buprenorphine/Naloxone 8/2 mg FILM 1 FILM SUBLINGUAL ×2 (09:57→21:17)
[2024-08-01] MEDS: polyethylene glycoL 3350 17 GM POWD.PACK PO (10:22)
[2024-08-01] MEDS: Nicotine 21 MG PATCH.TD24 TRANSDERMA (10:22)
[2024-08-01] MEDS: Nicotine Polacrilex 2 MG GUM 4 MG BUCCAL ×3 (10:23→18:02)
[2024-08-01] MEDS: chlorproMAZINE HCl 25 MG TABLET 50 MG PO ×2 (10:23→21:21)
[2024-08-01 12:26] LABS: Glucose, Whole Blood 71 mg/dL (60-115)
--- NOTE | 2024-08-01 12:54 | HO.PSYCHPN ---
Subjective Subjective Date of Service: 08/01/24 Reason For Visit: psychosis Subjective Notes: Conditional Voluntary Interim History: Reviewed with Dr. Villela. Patient reports feeling okay today but reports some anxiety. She reports auditory hallucinations that are telling her she is a failure and hopeless . denies SI/HI/VH. Denies any other issues at this time. Medication Compliance: Yes Side effects from medications: No Review of Systems Review of Systems Constitutional : No Fever, No Chills ENT/Mouth : No Ear Pain, No Nasal Congestion, No sore throat Eyes: No Eye Pain, No Swelling, No Redness Cardiovascular : No Chest Pain, No SOB Respiratory : No Cough, No Sputum, No Dyspnea Gastrointestinal : No Nausea, No Vomiting, No Diarrhea, No Hematochezia, No Melena Genitourinary : No Dysuria, No Urinary Frequency, No Hematuria Musculoskeletal : No Myalgias Skin : No Skin Lesions, No rash Neuro : No Weakness, No Numbness, No Paresthesias, No Dizziness, No Headache Psych : positive Anxiety, positive Depression, positive SI no HI Heme/Lymph: No Lymphadenopathy Endocrine : No Polyuria, No Polydipsia All other systems reviewed and are negative Mental Status Exam Mental Status Exam Narrative: Pt is alert and oriented; behavior is calm, cooperative; dressed in casual attire; mood is described as anxious ; eye contact appropriate; Speech is normal rate, volume and not pressured; thought process is organized; Thought content is on treatment; denies SI/HI/VH. She reports auditory hallucinations. Diagnostics Vital Signs (24Hr): Vital Signs - 24 hr 07/31/24 14:23 07/31/24 19:43 08/01/24 08:29 Temperature 98.1 F 97.6 F Pulse Rate 85 78 71 Respiratory Rate 18 Blood Pressure 134/63 133/63 121/58 L Pulse Oximetry 98 99 Oxygen Delivery Method Room Air Room Air 08/01/24 09:55 Temperature Pulse Rate 71 Respiratory Rate Blood Pressure 121/58 L Pulse Oximetry Oxygen Delivery Method BMI result Body Mass Index 27.8 Labs 07/24/24 09:48 07/30/24 08:26 Labs: Laboratory Results - last 48 hr 07/30/24 07/30/24 07/31/24 17:26 21:25 07:52 POC Glucose 103 106 154 H 07/31/24 07/31/24 07/31/24 12:43 17:14 20:21 POC Glucose 158 H 205 H 123 H 08/01/24 08/01/24 09:15 12:21 POC Glucose 277 H 71 Medications Medications Current Medications Acetaminophen (Acetaminophen 325 Mg Tablet) 650 mg PO Q6H PRN PRN Reason: Headache/Pain Mild Scale (1-3) Last Admin: 07/27/24 09:23 Dose: 650 mg Al Hydroxide/Mg Hydroxide (Magnesium Hydrox/Alum Hydrox 30 Ml Oral.Susp) 30 ml PO Q6H PRN PRN Reason: Heartburn/Nausea Benztropine Mesylate (Benztropine Mesylate 0.5 Mg Tablet) 0.5 mg PO BID PRN PRN Reason: EPS/tremor/muscle twitch Buprenorphine/Naloxone (Buprenorphine/Naloxone 8/2 Mg Film) 1 film SUBLINGUAL BID [facility] Last Admin: 08/01/24 09:57 Dose: 1 film Bupropion HCl (Bupropion Hcl Xl 150 Mg Tab.Er.24h) 150 mg PO DAILY@1400 [facility] Last Admin: 07/31/24 14:20 Dose: 150 mg Bupropion HCl (Bupropion Hcl Xl 300 Mg Tab.Er.24h) 300 mg PO DAILY [facility] Last Admin: 08/01/24 09:55 Dose: 300 mg Chlorpromazine HCl (Chlorpromazine Hcl 25 Mg Tablet) 50 mg PO TID PRN PRN Reason: agitation Last Admin: 08/01/24 10:23 Dose: 50 mg Docusate Sodium (Docusate Sodium 100 Mg Capsule) 100 mg PO BID [facility] Last Admin: 08/01/24 09:56 Dose: 100 mg Famotidine (Famotidine 20 Mg Tablet) 20 mg PO BID [facility] Last Admin: 08/01/24 09:55 Dose: 20 mg Fluticasone Propionate (Fluticasone Propionate Nasal 16 Gm [place]) 1 spray NOSTRIL-B DAILY PRN PRN Reason: nasal congestion Gabapentin (Gabapentin 400 Mg Capsule) 800 mg PO TID [facility] Last Admin: 08/01/24 09:54 Dose: 800 mg Hydroxyzine HCl (Hydroxyzine Hcl 50 Mg Tablet) 50 mg PO TID PRN PRN Reason: milder Anxiety Last Admin: 07/31/24 21:36 Dose: 50 mg Hydroxyzine HCl (Hydroxyzine Hcl 25 Mg Tablet) 25 mg PO Q6H PRN PRN Reason: Anxiety Last Admin: 07/27/24 12:01 Dose: 25 mg Insulin Glargine (Insulin Glargine,Hum.Rec.Anlog 100 Unit/Ml 10 Ml Vial) 30 unit SUBCUT BEDTIME [facility] Last Admin: 07/31/24 20:38 Dose: 30 unit Insulin Human Lispro (Insulin Lispro 100 Unit/Ml 3 Ml Vial) 0 - 10 unit SUBCUT TIDAC [facility]; Protocol Last Admin: 08/01/24 09:24 Dose: 6 unit [place] Carbonate ([place] Carbonate Er 450 Mg Tablet.Er) 900 mg PO DAILY@1400 [facility] Last Admin: 07/31/24 14:20 Dose: 900 mg Loratadine (Loratadine 10 Mg Tablet) 10 mg PO DAILY [facility] Last Admin: 08/01/24 09:57 Dose: 10 mg Lorazepam (Lorazepam 1 Mg Tablet) 1 mg PO DAILY PRN PRN Reason: moderate to severe anxiety Last Admin: 07/31/24 16:08 Dose: 1 mg Magnesium Hydroxide (Milk Of Magnesia 30 Ml Oral.Susp) 30 ml PO DAILY PRN PRN Reason: Constipation Last Admin: 07/27/24 09:45 Dose: 30 ml Metformin HCl (Metformin Hcl Er 500 Mg Tab.Er.24h) 500 mg PO DAILY [facility] Last Admin: 08/01/24 09:55 Dose: 500 mg Nicotine (Nicotine 21 Mg Patch.Td24) 21 mg TRANSDERMA DAILY PRN PRN Reason: smoking cessation Last Admin: 08/01/24 10:22 Dose: 21 mg Nicotine Polacrilex (Nicotine Polacrilex 2 Mg Gum) 4 mg BUCCAL Q2H PRN PRN Reason: Nicotine Cravings Last Admin: 08/01/24 10:23 Dose: 4 mg Polyethylene Glycol (Polyethylene Glycol 3350 17 Gm Powd.Pack) 17 gm PO DAILY [facility] Last Admin: 08/01/24 10:22 Dose: 17 gm Prazosin HCl (Prazosin Hcl 1 Mg Capsule) 1 mg PO BEDTIME [facility]; Protocol Last Admin: 07/31/24 20:37 Dose: 1 mg Propranolol HCl (Propranolol Hcl 10 Mg Tablet) 10 mg PO BID@0900,1400 [facility]; Protocol Last Admin: 08/01/24 09:55 Dose: 10 mg Quetiapine Fumarate (Quetiapine Fumarate 400 Mg Tablet) 400 mg PO BEDTIME [facility] Last Admin: 07/31/24 20:37 Dose: 400 mg Quetiapine Fumarate (Quetiapine Fumarate 100 Mg Tablet) 100 mg PO BEDTIME PRN PRN Reason: insomnia Risperidone (Risperidone 1 Mg Tablet) 1 mg PO DAILY PRN PRN Reason: AH/anxiety/agitation Last Admin: 07/31/24 12:56 Dose: 1 mg Risperidone (Risperidone 3 Mg Tablet) 3 mg PO DAILY [facility] Last Admin: 08/01/24 09:56 Dose: 3 mg Trazodone HCl (Trazodone Hcl 50 Mg Tablet) 50 mg PO BEDTIME MRX1 PRN PRN Reason: Insomnia Allergies Allergies Allergy/AdvReac Type Severity Reaction Status Date / Time No Known Allergies Allergy Verified 07/23/24 20:47 Assessment & Plan Assessment & Plan (1) Schizoaffective disorder, bipolar type: Status: Acute Code(s): F25.0 - Schizoaffective disorder, bipolar type (2) PTSD (post-traumatic stress disorder): Status: Acute Code(s): F43.10 - Post-traumatic stress disorder, unspecified (3) Cocaine use disorder: Status: Acute Code(s): F14.10 - Cocaine abuse, uncomplicated (4) Diabetes: Status: Acute Code(s): E11.9 - Type 2 diabetes mellitus without complications (5) Homeless: Status: Acute Code(s): Z59.00 - Homelessness unspecified Plan Pt is 48 year old female with history schizoaffective disorder, PTSD, cocaine/opioid use disorder who recently discharged from 07/14 and now self presents for worsening depression and SI following relapse. Patient reports that she was doing okay at the program, auditory hallucinations at a minimum. However this past , patient had an appointment to go to and was allowed to go alone which she knew was a mistake. Once on her own, away from the program she had cravings to use which fueled her AH which fueled her cravings; patient quickly found people with drugs and relapsed on cocaine. Patient quickly felt depressed add AH worsened further. She started feeling suicidal and night, presented to the hospital for safety. Denies any alcohol or other substance abuse. Formulation/clinical reasoning: Discussed medications and patient felt that current regimen was overall effective and she wants to remain on it. Hospital plan: 07/26 depressed; no SI. dealing with AH 10/6 Patient very triggered last night with high acuity on the unit and had significant flashbacks to past trauma; patient talked it through with nurse and benefited from p.r.n. Thorazine. Otherwise she is feeling overall pretty good and says AH is on the lower side; wants a program 07/28 Patient reports her mood is good and that she is overall doing well. Discussed medication and continued intermittent AH. She feels that current Risperdal dose may become more effective given a few more weeks as it has not reached his full potential; currently she wants to leave it at its current dose to which typewriter ribbon winder agrees. Regarding Seroquel, it does not really make her sleepy and so it is not ineffective p.r.n. for anxiety; she says rather, it is for mood stability. She does like Thorazine as a p.r.n. for when she is getting very dysregulated. Machinist Wood discussed that patient is on 2 scheduled antipsychotics with a 3rd as a p.r.n., and the combination significantly increases her risk of side effects. Patient understands this well but feels that the benefit far outweighs the risks as she is doing better. clinical reasoning Seroquel 400 mg q.h.s.: For bipolar depression; does not make her tired and is not effective as a p.r.n. Risperdal 3 mg daily: For treating AH Thorazine 50 mg p.r.n.: Used as a p.r.n. for agitation, panic attacks, PTSD flashbacks 07/29 patient remains doing well, coping with AH, utilizing resources, engaged in treatment. Open for TSS 07/30 remains doing well; did CBT exercise which resident with patient; patient will continue with CBT homework 07/31 remains stable, doing well, engaged; waiting on open bed at tSS 08/01: Continue current tx plan. Patient remains in good behavioral and impulse control on the unit; she has a appropriate with peers and staff and engaged in treatment, attending groups and forthcoming in 1 on 1 sessions. Patient is stable on current medication regimen Plan: CV Q 15 minute checks Wellbutrin 300 mg daily; 150 mg at 14:00 Gabapentin 800 mg t.i.d. [place] 900 mg daily at 14:00 Prazosin 1 mg q.h.s. Seroquel 400 mg q.h.s. Risperdal 3 mg daily Suboxone 05/23 mg b.i.d. Lantus/ lispro sliding scale Metformin Propranolol Famotidine Patient educated on: diagnosis and medication risk/benefits Reason for continued inpatient stay Substantial Risk for: med/psych decompensation Time Spent With Patient Time: Total time managing care of this patient today _20___ minutes.
[2024-08-01 13:22] VITALS: PULSE 81
[2024-08-01] MEDS: buPROPion HCl XL 150 MG TAB.ER.24H PO (13:22)
[2024-08-01] MEDS: Lithium Carbonate ER 450 MG TABLET.ER 900 MG PO (13:23)
[2024-08-01 17:26] LABS: Glucose, Whole Blood 94 mg/dL (60-115)
[2024-08-01] MEDS: LORazepam 1 MG TABLET PO (18:05)
[2024-08-01] MEDS: risperiDONE 1 MG TABLET PO (18:09)
[2024-08-01 20:00] VITALS: BP 125/76; PULSE 80; TEMP 36.9; O2SAT 94
[2024-08-01 21:07] LABS: Glucose, Whole Blood 118 mg/dL (60-115)
[2024-08-01] MEDS: Magnesium Hydrox/Alum Hydrox 30 ML ORAL.SUSP PO (21:13)
[2024-08-01 21:15] VITALS: BP 125/76
[2024-08-01] MEDS: QUEtiapine Fumarate 400 MG TABLET PO (21:15)
[2024-08-01] MEDS: Prazosin HCL 1 MG CAPSULE PO (21:15)
[2024-08-01] MEDS: Insulin Glargine,Hum.rec.anlog 100 UNIT/ML 10 ML VIAL 30 UNIT SUBCUT (21:17)
[2024-08-01] MEDS: hydrOXYzine HCL 50 MG TABLET PO (21:22)
[2024-08-02 08:00] VITALS: BP 105/55; PULSE 81; RESP 16; TEMP 36.9; O2SAT 95
[2024-08-02 08:36] LABS: Glucose, Whole Blood 180 mg/dL (60-115)
[2024-08-02] MEDS: Famotidine 20 MG TABLET PO ×2 (09:30→20:26)
[2024-08-02] MEDS: metFORMIN HCl ER 500 MG TAB.ER.24H PO (09:30)
[2024-08-02] MEDS: Docusate Sodium 100 MG CAPSULE PO ×2 (09:30→20:26)
[2024-08-02] MEDS: Gabapentin 400 MG CAPSULE 800 MG PO ×3 (09:30→20:25)
[2024-08-02] MEDS: risperiDONE 3 MG TABLET PO (09:31)
[2024-08-02] MEDS: Buprenorphine/Naloxone 8/2 mg FILM 1 FILM SUBLINGUAL ×2 (09:31→21:30)
[2024-08-02] MEDS: buPROPion HCl XL 300 MG TAB.ER.24H PO (09:31)
[2024-08-02] MEDS: Loratadine 10 MG TABLET PO (09:31)
[2024-08-02] MEDS: polyethylene glycoL 3350 17 GM POWD.PACK PO (09:31)
[2024-08-02] MEDS: Insulin Lispro 100 UNIT/ML 3 ML VIAL SUBCUT ×2 (09:32→12:29)
[2024-08-02 10:01] VITALS: BP 105/55; PULSE 81
--- NOTE | 2024-08-02 10:54 | P.PNPSI_ITS ---
Subjective Subjective Date of Service: 08/02/24 Reason For Visit: psychosis Subjective Notes: Conditional Voluntary Interim History: Patient was seen and discussed in rounds today. Records and plans were reviewed. She has been eating and sleeping adequately, attending groups. Decrease in auditory hallucinations. She continues to feel very anxious and is requesting to increase her Ativan to 1 mg b.i.d. which I will do. No history of substance abuse. No dangerous behaviors. Attending Groups: Yes Review of Systems Review of Systems Yes all other systems are reviewed and are negative Mental Status Exam Mental Status Exam Narrative: In today's visit she is alert, oriented and pleasant. Normal speech. Good eye contact. Affect is appropriate and constricted. No acute signs of psychosis. Cognitively is grossly intact. Judgment is intact Diagnostics Vital Signs (24Hr): Vital Signs - 24 hr 08/01/24 13:22 08/01/24 20:00 08/01/24 21:15 Temperature 98.4 F Pulse Rate 81 80 Blood Pressure 125/76 125/76 Pulse Oximetry 94 Oxygen Delivery Method Room Air 08/02/24 10:01 Temperature Pulse Rate 81 Blood Pressure 105/55 L Pulse Oximetry Oxygen Delivery Method BMI result Body Mass Index 27.8 Labs 07/24/24 09:48 07/30/24 08:26 Labs: Laboratory Results - last 48 hr 07/31/24 07/31/24 07/31/24 12:43 17:14 20:21 POC Glucose 158 H 205 H 123 H 08/01/24 08/01/24 08/01/24 09:15 12:21 17:21 POC Glucose 277 H 71 94 08/01/24 08/02/24 21:03 08:30 POC Glucose 118 H 180 H Medications Medications Current Medications Acetaminophen (Acetaminophen 325 Mg Tablet) 650 mg PO Q6H PRN PRN Reason: Headache/Pain Mild Scale (1-3) Last Admin: 07/27/24 09:23 Dose: 650 mg Al Hydroxide/Mg Hydroxide (Magnesium Hydrox/Alum Hydrox 30 Ml Oral.Susp) 30 ml PO Q6H PRN PRN Reason: Heartburn/Nausea Last Admin: 08/01/24 21:13 Dose: 30 ml Benztropine Mesylate (Benztropine Mesylate 0.5 Mg Tablet) 0.5 mg PO BID PRN PRN Reason: EPS/tremor/muscle twitch Buprenorphine/Naloxone (Buprenorphine/Naloxone 8/2 Mg Film) 1 film SUBLINGUAL BID COUNTS INCLUDE 234 BEDS AT THE [facility] Last Admin: 08/02/24 09:31 Dose: 1 film Bupropion HCl (Bupropion Hcl Xl 150 Mg Tab.Er.24h) 150 mg PO DAILY@1400 COUNTS INCLUDE 234 BEDS AT THE [facility] Last Admin: 08/01/24 13:22 Dose: 150 mg Bupropion HCl (Bupropion Hcl Xl 300 Mg Tab.Er.24h) 300 mg PO DAILY COUNTS INCLUDE 234 BEDS AT THE [facility] Last Admin: 08/02/24 09:31 Dose: 300 mg Chlorpromazine HCl (Chlorpromazine Hcl 25 Mg Tablet) 50 mg PO TID PRN PRN Reason: agitation Last Admin: 08/01/24 21:21 Dose: 50 mg Docusate Sodium (Docusate Sodium 100 Mg Capsule) 100 mg PO BID COUNTS INCLUDE 234 BEDS AT THE [facility] Last Admin: 08/02/24 09:30 Dose: 100 mg Famotidine (Famotidine 20 Mg Tablet) 20 mg PO BID COUNTS INCLUDE 234 BEDS AT THE [facility] Last Admin: 08/02/24 09:30 Dose: 20 mg Fluticasone Propionate (Fluticasone Propionate Nasal 16 Gm [place]) 1 spray NOSTRIL-B DAILY PRN PRN Reason: nasal congestion Gabapentin (Gabapentin 400 Mg Capsule) 800 mg PO TID COUNTS INCLUDE 234 BEDS AT THE [facility] Last Admin: 08/02/24 09:30 Dose: 800 mg Hydroxyzine HCl (Hydroxyzine Hcl 50 Mg Tablet) 50 mg PO TID PRN PRN Reason: milder Anxiety Last Admin: 08/01/24 21:22 Dose: 50 mg Hydroxyzine HCl (Hydroxyzine Hcl 25 Mg Tablet) 25 mg PO Q6H PRN PRN Reason: Anxiety Last Admin: 07/27/24 12:01 Dose: 25 mg Insulin Glargine (Insulin Glargine,Hum.Rec.Anlog 100 Unit/Ml 10 Ml Vial) 30 unit SUBCUT BEDTIME COUNTS INCLUDE 234 BEDS AT THE [facility] Last Admin: 08/01/24 21:17 Dose: 30 unit Insulin Human Lispro (Insulin Lispro 100 Unit/Ml 3 Ml Vial) 0 - 10 unit SUBCUT TIDAC COUNTS INCLUDE 234 BEDS AT THE [facility]; Protocol Last Admin: 08/02/24 09:32 Dose: 2 unit [place] Carbonate ([place] Carbonate Er 450 Mg Tablet.Er) 900 mg PO DAILY@1400 [facility] Last Admin: 08/01/24 13:23 Dose: 900 mg Loratadine (Loratadine 10 Mg Tablet) 10 mg PO DAILY COUNTS INCLUDE 234 BEDS AT THE [facility] Last Admin: 08/02/24 09:31 Dose: 10 mg Lorazepam (Lorazepam 1 Mg Tablet) 1 mg PO DAILY PRN PRN Reason: moderate to severe anxiety Last Admin: 08/01/24 18:05 Dose: 1 mg Magnesium Hydroxide (Milk Of Magnesia 30 Ml Oral.Susp) 30 ml PO DAILY PRN PRN Reason: Constipation Last Admin: 07/27/24 09:45 Dose: 30 ml Metformin HCl (Metformin Hcl Er 500 Mg Tab.Er.24h) 500 mg PO DAILY [facility] Last Admin: 08/02/24 09:30 Dose: 500 mg Nicotine (Nicotine 21 Mg Patch.Td24) 21 mg TRANSDERMA DAILY PRN PRN Reason: smoking cessation Last Admin: 08/01/24 10:22 Dose: 21 mg Nicotine Polacrilex (Nicotine Polacrilex 2 Mg Gum) 4 mg BUCCAL Q2H PRN PRN Reason: Nicotine Cravings Last Admin: 08/01/24 18:02 Dose: 4 mg Polyethylene Glycol (Polyethylene Glycol 3350 17 Gm Powd.Pack) 17 gm PO DAILY [facility] Last Admin: 08/02/24 09:31 Dose: 17 gm Prazosin HCl (Prazosin Hcl 1 Mg Capsule) 1 mg PO BEDTIME [facility]; Protocol Last Admin: 08/01/24 21:15 Dose: 1 mg Propranolol HCl (Propranolol Hcl 10 Mg Tablet) 10 mg PO BID@0900,1400 [facility]; Protocol Last Admin: 08/02/24 10:01 Dose: Not Given Quetiapine Fumarate (Quetiapine Fumarate 400 Mg Tablet) 400 mg PO BEDTIME [facility] Last Admin: 08/01/24 21:15 Dose: 400 mg Quetiapine Fumarate (Quetiapine Fumarate 100 Mg Tablet) 100 mg PO BEDTIME PRN PRN Reason: insomnia Risperidone (Risperidone 1 Mg Tablet) 1 mg PO DAILY PRN PRN Reason: AH/anxiety/agitation Last Admin: 08/01/24 18:09 Dose: 1 mg Risperidone (Risperidone 3 Mg Tablet) 3 mg PO DAILY [facility] Last Admin: 08/02/24 09:31 Dose: 3 mg Trazodone HCl (Trazodone Hcl 50 Mg Tablet) 50 mg PO BEDTIME MRX1 PRN PRN Reason: Insomnia Allergies Allergies Allergy/AdvReac Type Severity Reaction Status Date / Time No Known Allergies Allergy Verified 07/23/24 20:47 Assessment & Plan Assessment & Plan (1) Schizoaffective disorder, bipolar type: Status: Acute Code(s): F25.0 - Schizoaffective disorder, bipolar type (2) PTSD (post-traumatic stress disorder): Status: Acute Code(s): F43.10 - Post-traumatic stress disorder, unspecified (3) Cocaine use disorder: Status: Acute Code(s): F14.10 - Cocaine abuse, uncomplicated (4) Diabetes: Status: Acute Code(s): E11.9 - Type 2 diabetes mellitus without complications (5) Homeless: Status: Acute Code(s): Z59.00 - Homelessness unspecified Plan Pt is 48 year old female with history schizoaffective disorder, PTSD, cocaine/opioid use disorder who recently discharged from 07/14 and now self presents for worsening depression and SI following relapse. Patient reports that she was doing okay at the program, auditory hallucinations at a minimum. However this past , patient had an appointment to go to and was allowed to go alone which she knew was a mistake. Once on her own, away from the program she had cravings to use which fueled her AH which fueled her cravings; patient quickly found people with drugs and relapsed on cocaine. Patient quickly felt depressed add AH worsened further. She started feeling suicidal and night, presented to the hospital for safety. Denies any alcohol or other substance abuse. Formulation/clinical reasoning: Discussed medications and patient felt that current regimen was overall effective and she wants to remain on it. Hospital plan: 07/26 depressed; no SI. dealing with AH 07/27 Patient very triggered last night with high acuity on the unit and had significant flashbacks to past trauma; patient talked it through with nurse and benefited from p.r.n. Thorazine. Otherwise she is feeling overall pretty good and says AH is on the lower side; wants a program 07/28 Patient reports her mood is good and that she is overall doing well. Discussed medication and continued intermittent AH. She feels that current Risperdal dose may become more effective given a few more weeks as it has not reached his full potential; currently she wants to leave it at its current dose to which technical publications writer agrees. Regarding Seroquel, it does not really make her sleepy and so it is not ineffective p.r.n. for anxiety; she says rather, it is for mood stability. She does like Thorazine as a p.r.n. for when she is getting very dysregulated. Cigar Wrapper discussed that patient is on 2 scheduled antipsychotics with a 3rd as a p.r.n., and the combination significantly increases her risk of side effects. Patient understands this well but feels that the benefit far outweighs the risks as she is doing better. clinical reasoning Seroquel 400 mg q.h.s.: For bipolar depression; does not make her tired and is not effective as a p.r.n. Risperdal 3 mg daily: For treating AH Thorazine 50 mg p.r.n.: Used as a p.r.n. for agitation, panic attacks, PTSD flashbacks 07/29 patient remains doing well, coping with AH, utilizing resources, engaged in treatment. Open for TSS 07/30 remains doing well; did CBT exercise which resident with patient; patient will continue with CBT homework 07/31 remains stable, doing well, engaged; waiting on open bed at tSS 08/01: Continue current tx plan. 08/02: Continue current regimen and plans Patient remains in good behavioral and impulse control on the unit; she has a appropriate with peers and staff and engaged in treatment, attending groups and forthcoming in 1 on 1 sessions. Patient is stable on current medication regimen Plan: CV Q 15 minute checks Wellbutrin 300 mg daily; 150 mg at 14:00 Gabapentin 800 mg t.i.d. [place] 900 mg daily at 14:00 Prazosin 1 mg q.h.s. Seroquel 400 mg q.h.s. Risperdal 3 mg daily Suboxone 8/2 mg b.i.d. Lantus/ lispro sliding scale Metformin Propranolol Famotidine Patient educated on: medication risk/benefits Reason for continued inpatient stay Substantial Risk for: med/psych decompensation Time Spent With Patient Time: Total time managing care of this patient today ____ minutes.
[2024-08-02 11:52] LABS: Glucose, Whole Blood 212 mg/dL (60-115)
[2024-08-02] MEDS: risperiDONE 1 MG TABLET PO (12:25)
[2024-08-02] MEDS: LORazepam 1 MG TABLET PO ×2 (12:25→19:15)
[2024-08-02] MEDS: chlorproMAZINE HCl 25 MG TABLET 50 MG PO ×2 (12:25→19:15)
[2024-08-02] MEDS: Nicotine Polacrilex 2 MG GUM 4 MG BUCCAL ×3 (12:28→19:16)
[2024-08-02] MEDS: Lithium Carbonate ER 450 MG TABLET.ER 900 MG PO (15:14)
[2024-08-02] MEDS: buPROPion HCl XL 150 MG TAB.ER.24H PO (15:14)
[2024-08-02 15:15] VITALS: BP 122/62; PULSE 76
[2024-08-02] MEDS: Propranolol HCL 10 MG TABLET PO (15:15)
--- NOTE | 2024-08-02 15:48 | PC.NURSE ---
Monserratbernice's suboxone dose was a bit later as she wanted to wait until after she ate breakfast today.
[2024-08-02 17:22] LABS: Glucose, Whole Blood 139 mg/dL (60-115)
[2024-08-02 20:00] VITALS: BP 143/72; PULSE 76; RESP 16; TEMP 36.2; O2SAT 97
[2024-08-02 20:12] LABS: Glucose, Whole Blood 165 mg/dL (60-115)
[2024-08-02] MEDS: Insulin Glargine,Hum.rec.anlog 100 UNIT/ML 10 ML VIAL 30 UNIT SUBCUT (20:24)
[2024-08-02] MEDS: Prazosin HCL 1 MG CAPSULE PO (20:26)
[2024-08-02] MEDS: QUEtiapine Fumarate 400 MG TABLET PO (20:26)
[2024-08-03 08:00] VITALS: BP 115/68; PULSE 69; RESP 16; TEMP 36.4; O2SAT 99
[2024-08-03 08:13] LABS: Glucose, Whole Blood 187 mg/dL (60-115)
[2024-08-03] MEDS: Buprenorphine/Naloxone 8/2 mg FILM 1 FILM SUBLINGUAL ×2 (08:46→21:19)
[2024-08-03] MEDS: polyethylene glycoL 3350 17 GM POWD.PACK PO (08:46)
[2024-08-03] MEDS: Nicotine 21 MG PATCH.TD24 TRANSDERMA (08:47)
[2024-08-03] MEDS: risperiDONE 3 MG TABLET PO (08:47)
[2024-08-03] MEDS: Gabapentin 400 MG CAPSULE 800 MG PO ×3 (08:47→21:19)
[2024-08-03] MEDS: metFORMIN HCl ER 500 MG TAB.ER.24H PO (08:47)
[2024-08-03] MEDS: Docusate Sodium 100 MG CAPSULE PO ×2 (08:47→21:19)
[2024-08-03] MEDS: buPROPion HCl XL 300 MG TAB.ER.24H PO (08:47)
[2024-08-03] MEDS: Loratadine 10 MG TABLET PO (08:47)
[2024-08-03] MEDS: chlorproMAZINE HCl 25 MG TABLET 50 MG PO ×3 (08:48→21:23)
[2024-08-03] MEDS: Insulin Lispro 100 UNIT/ML 3 ML VIAL SUBCUT ×2 (08:48→17:31)
[2024-08-03] MEDS: Famotidine 20 MG TABLET PO ×2 (08:49→21:19)
[2024-08-03] MEDS: Nicotine Polacrilex 2 MG GUM 4 MG BUCCAL ×4 (08:52→21:25)
[2024-08-03 09:00] VITALS: BP 115/68; PULSE 69
[2024-08-03] MEDS: Propranolol HCL 10 MG TABLET PO ×2 (09:00→13:14)
--- NOTE | 2024-08-03 09:58 | P.PNPSI_ITS ---
Subjective Subjective Date of Service: 08/03/24 Reason For Visit: psychosis Subjective Notes: Conditional Voluntary Interim History: Patient was seen and discussed in rounds today. Records and plans were reviewed. She states that the increase of Ativan was very helpful to her anxiety and feeling more comfortable. No side effects. Eating and sleeping adequately. No auditory hallucinations. Little more social. Anxious about discharge planning. No SI. Attending Groups: Yes Review of Systems Review of Systems Yes all other systems are reviewed and are negative Mental Status Exam Mental Status Exam Narrative: In today's visit she is alert, oriented and pleasant. Normal speech. Good eye contact. Affect is appropriate and constricted. No acute signs of psychosis. Cognitively is grossly intact. Judgment is intact Diagnostics Vital Signs (24Hr): Vital Signs - 24 hr 08/02/24 10:01 08/02/24 15:15 08/02/24 20:00 Temperature 97.1 F Pulse Rate 81 76 76 Respiratory Rate 16 Blood Pressure 105/55 L 122/62 143/72 H Pulse Oximetry 97 Oxygen Delivery Method Room Air 08/03/24 08:00 08/03/24 09:00 Temperature 97.6 F Pulse Rate 69 69 Respiratory Rate 16 Blood Pressure 115/68 115/68 Pulse Oximetry 99 Oxygen Delivery Method Room Air BMI result Body Mass Index 27.8 Labs 07/24/24 09:48 07/30/24 08:26 Labs: Laboratory Results - last 48 hr 08/01/24 08/01/24 08/01/24 12:21 17:21 21:03 POC Glucose 71 94 118 H 08/02/24 08/02/24 08/02/24 08:30 11:44 17:18 POC Glucose 180 H 212 H 139 H 08/02/24 08/03/24 20:07 08:09 POC Glucose 165 H 187 H Medications Medications Current Medications Acetaminophen (Acetaminophen 325 Mg Tablet) 650 mg PO Q6H PRN PRN Reason: Headache/Pain Mild Scale (1-3) Last Admin: 07/27/24 09:23 Dose: 650 mg Al Hydroxide/Mg Hydroxide (Magnesium Hydrox/Alum Hydrox 30 Ml Oral.Susp) 30 ml PO Q6H PRN PRN Reason: Heartburn/Nausea Last Admin: 08/01/24 21:13 Dose: 30 ml Benztropine Mesylate (Benztropine Mesylate 0.5 Mg Tablet) 0.5 mg PO BID PRN PRN Reason: EPS/tremor/muscle twitch Buprenorphine/Naloxone (Buprenorphine/Naloxone 8/2 Mg Film) 1 film SUBLINGUAL BID [facility] Last Admin: 08/03/24 08:46 Dose: 1 film Bupropion HCl (Bupropion Hcl Xl 150 Mg Tab.Er.24h) 150 mg PO DAILY@1400 [facility] Last Admin: 08/02/24 15:14 Dose: 150 mg Bupropion HCl (Bupropion Hcl Xl 300 Mg Tab.Er.24h) 300 mg PO DAILY [facility] Last Admin: 08/03/24 08:47 Dose: 300 mg Chlorpromazine HCl (Chlorpromazine Hcl 25 Mg Tablet) 50 mg PO TID PRN PRN Reason: agitation Last Admin: 08/03/24 08:48 Dose: 50 mg Docusate Sodium (Docusate Sodium 100 Mg Capsule) 100 mg PO BID [facility] Last Admin: 08/03/24 08:47 Dose: 100 mg Famotidine (Famotidine 20 Mg Tablet) 20 mg PO BID [facility] Last Admin: 08/03/24 08:49 Dose: 20 mg Fluticasone Propionate (Fluticasone Propionate Nasal 16 Gm [place]) 1 spray NOSTRIL-B DAILY PRN PRN Reason: nasal congestion Gabapentin (Gabapentin 400 Mg Capsule) 800 mg PO TID [facility] Last Admin: 08/03/24 08:47 Dose: 800 mg Hydroxyzine HCl (Hydroxyzine Hcl 50 Mg Tablet) 50 mg PO TID PRN PRN Reason: milder Anxiety Last Admin: 08/01/24 21:22 Dose: 50 mg Hydroxyzine HCl (Hydroxyzine Hcl 25 Mg Tablet) 25 mg PO Q6H PRN PRN Reason: Anxiety Last Admin: 07/27/24 12:01 Dose: 25 mg Insulin Glargine (Insulin Glargine,Hum.Rec.Anlog 100 Unit/Ml 10 Ml Vial) 30 unit SUBCUT BEDTIME [facility] Last Admin: 08/02/24 20:24 Dose: 30 unit Insulin Human Lispro (Insulin Lispro 100 Unit/Ml 3 Ml Vial) 0 - 10 unit SUBCUT TIDAC [facility]; Protocol Last Admin: 08/03/24 08:48 Dose: 2 unit [place] Carbonate ([place] Carbonate Er 450 Mg Tablet.Er) 900 mg PO DAILY@1400 [facility] Last Admin: 08/02/24 15:14 Dose: 900 mg Loratadine (Loratadine 10 Mg Tablet) 10 mg PO DAILY [facility] Last Admin: 08/03/24 08:47 Dose: 10 mg Lorazepam (Lorazepam 1 Mg Tablet) 1 mg PO BID PRN PRN Reason: moderate to severe anxiety Last Admin: 08/02/24 19:15 Dose: 1 mg Magnesium Hydroxide (Milk Of Magnesia 30 Ml Oral.Susp) 30 ml PO DAILY PRN PRN Reason: Constipation Last Admin: 07/27/24 09:45 Dose: 30 ml Metformin HCl (Metformin Hcl Er 500 Mg Tab.Er.24h) 500 mg PO DAILY [facility] Last Admin: 08/03/24 08:47 Dose: 500 mg Nicotine (Nicotine 21 Mg Patch.Td24) 21 mg TRANSDERMA DAILY PRN PRN Reason: smoking cessation Last Admin: 08/03/24 08:47 Dose: 21 mg Nicotine Polacrilex (Nicotine Polacrilex 2 Mg Gum) 4 mg BUCCAL Q2H PRN PRN Reason: Nicotine Cravings Last Admin: 08/03/24 08:52 Dose: 4 mg Polyethylene Glycol (Polyethylene Glycol 3350 17 Gm Powd.Pack) 17 gm PO DAILY [facility] Last Admin: 08/03/24 08:46 Dose: 17 gm Prazosin HCl (Prazosin Hcl 1 Mg Capsule) 1 mg PO BEDTIME [facility]; Protocol Last Admin: 08/02/24 20:26 Dose: 1 mg Propranolol HCl (Propranolol Hcl 10 Mg Tablet) 10 mg PO BID@0900,1400 [facility]; Protocol Last Admin: 08/03/24 09:00 Dose: 10 mg Quetiapine Fumarate (Quetiapine Fumarate 400 Mg Tablet) 400 mg PO BEDTIME [facility] Last Admin: 08/02/24 20:26 Dose: 400 mg Quetiapine Fumarate (Quetiapine Fumarate 100 Mg Tablet) 100 mg PO BEDTIME PRN PRN Reason: insomnia Risperidone (Risperidone 1 Mg Tablet) 1 mg PO DAILY PRN PRN Reason: AH/anxiety/agitation Last Admin: 08/02/24 12:25 Dose: 1 mg Risperidone (Risperidone 3 Mg Tablet) 3 mg PO DAILY [facility] Last Admin: 08/03/24 08:47 Dose: 3 mg Trazodone HCl (Trazodone Hcl 50 Mg Tablet) 50 mg PO BEDTIME MRX1 PRN PRN Reason: Insomnia Allergies Allergies Allergy/AdvReac Type Severity Reaction Status Date / Time No Known Allergies Allergy Verified 07/23/24 20:47 Assessment & Plan Assessment & Plan (1) Schizoaffective disorder, bipolar type: Status: Acute Code(s): F25.0 - Schizoaffective disorder, bipolar type (2) PTSD (post-traumatic stress disorder): Status: Acute Code(s): F43.10 - Post-traumatic stress disorder, unspecified (3) Cocaine use disorder: Status: Acute Code(s): F14.10 - Cocaine abuse, uncomplicated (4) Diabetes: Status: Acute Code(s): E11.9 - Type 2 diabetes mellitus without complications (5) Homeless: Status: Acute Code(s): Z59.00 - Homelessness unspecified Plan Pt is 48 year old female with history schizoaffective disorder, PTSD, cocaine/opioid use disorder who recently discharged from 07/14 and now self presents for worsening depression and SI following relapse. Patient reports that she was doing okay at the program, auditory hallucinations at a minimum. However this past , patient had an appointment to go to and was allowed to go alone which she knew was a mistake. Once on her own, away from the program she had cravings to use which fueled her AH which fueled her cravings; patient quickly found people with drugs and relapsed on cocaine. Patient quickly felt depressed add AH worsened further. She started feeling suicidal and night, presented to the hospital for safety. Denies any alcohol or other substance abuse. Formulation/clinical reasoning: Discussed medications and patient felt that current regimen was overall effective and she wants to remain on it. Hospital plan: 07/26 depressed; no SI. dealing with AH 07/27 Patient very triggered last night with high acuity on the unit and had significant flashbacks to past trauma; patient talked it through with nurse and benefited from p.r.n. Thorazine. Otherwise she is feeling overall pretty good and says AH is on the lower side; wants a program 07/28 Patient reports her mood is good and that she is overall doing well. Discussed medication and continued intermittent AH. She feels that current Risperdal dose may become more effective given a few more weeks as it has not reached his full potential; currently she wants to leave it at its current dose to which card writer hand agrees. Regarding Seroquel, it does not really make her sleepy and so it is not ineffective p.r.n. for anxiety; she says rather, it is for mood stability. She does like Thorazine as a p.r.n. for when she is getting very dysregulated. Service Inspector discussed that patient is on 2 scheduled antipsychotics with a 3rd as a p.r.n., and the combination significantly increases her risk of side effects. Patient understands this well but feels that the benefit far outweighs the risks as she is doing better. clinical reasoning Seroquel 400 mg q.h.s.: For bipolar depression; does not make her tired and is not effective as a p.r.n. Risperdal 3 mg daily: For treating AH Thorazine 50 mg p.r.n.: Used as a p.r.n. for agitation, panic attacks, PTSD flashbacks 07/29 patient remains doing well, coping with AH, utilizing resources, engaged in treatment. Open for TSS 07/30 remains doing well; did CBT exercise which resident with patient; patient will continue with CBT homework 07/31 remains stable, doing well, engaged; waiting on open bed at tSS 08/01: Continue current tx plan. 08/02: Continue current regimen and plans 08/03: Continue current regimen and plans Patient remains in good behavioral and impulse control on the unit; she has a appropriate with peers and staff and engaged in treatment, attending groups and forthcoming in 1 on 1 sessions. Patient is stable on current medication regimen Plan: CV Q 15 minute checks Wellbutrin 300 mg daily; 150 mg at 14:00 Gabapentin 800 mg t.i.d. [place] 900 mg daily at 14:00 Prazosin 1 mg q.h.s. Seroquel 400 mg q.h.s. Risperdal 3 mg daily Suboxone 8/2 mg b.i.d. Lantus/ lispro sliding scale Metformin Propranolol Famotidine Reason for continued inpatient stay Substantial Risk for: rapid decompensation Time Spent With Patient Time: Total time managing care of this patient today ____ minutes.
[2024-08-03 11:54] LABS: Glucose, Whole Blood 126 mg/dL (60-115)
[2024-08-03] MEDS: Fluticasone Propionate Nasal 16 GM SPRAY 1 SPRAY NOSTRIL-B (13:13)
[2024-08-03 13:14] VITALS: BP 125/78; PULSE 67
[2024-08-03] MEDS: Lithium Carbonate ER 450 MG TABLET.ER 900 MG PO (13:14)
[2024-08-03] MEDS: buPROPion HCl XL 150 MG TAB.ER.24H PO (13:14)
[2024-08-03] MEDS: LORazepam 1 MG TABLET PO ×2 (13:14→21:00)
[2024-08-03] MEDS: risperiDONE 1 MG TABLET PO (15:55)
[2024-08-03] MEDS: hydrOXYzine HCL 50 MG TABLET PO (15:57)
[2024-08-03 17:18] LABS: Glucose, Whole Blood 183 mg/dL (60-115)
[2024-08-03 19:57] VITALS: BP 139/79; PULSE 94; RESP 18; TEMP 36.9; O2SAT 97
[2024-08-03 21:20] LABS: Glucose, Whole Blood 82 mg/dL (60-115)
[2024-08-03] MEDS: Insulin Glargine,Hum.rec.anlog 100 UNIT/ML 10 ML VIAL 30 UNIT SUBCUT (21:21)
[2024-08-03] MEDS: Prazosin HCL 1 MG CAPSULE PO (21:22)
[2024-08-03] MEDS: QUEtiapine Fumarate 400 MG TABLET PO (21:23)
[2024-08-04 08:00] VITALS: BP 139/73; PULSE 83; RESP 16; TEMP 36.4; O2SAT 96
[2024-08-04 08:02] LABS: Glucose, Whole Blood 178 mg/dL (60-115)
--- NOTE | 2024-08-04 09:11 | HO.PSYCHPN ---
Subjective Subjective Date of Service: 08/04/24 Reason For Visit: psychosis Subjective Notes: Conditional Voluntary Interim History: Patient was seen and discussed in rounds today. Records and plans were reviewed. She has been stable and is doing better and continues to be fairly stable. She is medication compliant. Continues to have some auditory hallucinations but they are less and not as disturbing. Blood sugars have been within range. Continues to endorse some anxiety and depression. No SI. Attending Groups: Yes Review of Systems Review of Systems Yes all other systems are reviewed and are negative Mental Status Exam Mental Status Exam Narrative: In today's visit she is alert, oriented and pleasant. Normal speech. Good eye contact. Affect is appropriate and constricted. No acute signs of psychosis. Cognitively is grossly intact. Judgment is intact Diagnostics Vital Signs (24Hr): Vital Signs - 24 hr 08/03/24 13:14 08/03/24 19:57 Temperature 98.5 F Pulse Rate 67 94 Respiratory Rate 18 Blood Pressure 125/78 139/79 Pulse Oximetry 97 Oxygen Delivery Method Room Air BMI result Body Mass Index 27.8 Labs 07/24/24 09:48 07/30/24 08:26 Labs: Laboratory Results - last 48 hr 08/02/24 08/02/24 08/02/24 11:44 17:18 20:07 POC Glucose 212 H 139 H 165 H 08/03/24 08/03/24 08/03/24 08:09 11:50 17:15 POC Glucose 187 H 126 H 183 H 08/03/24 08/04/24 21:16 07:57 POC Glucose 82 178 H Medications Medications Current Medications Acetaminophen (Acetaminophen 325 Mg Tablet) 650 mg PO Q6H PRN PRN Reason: Headache/Pain Mild Scale (1-3) Last Admin: 07/27/24 09:23 Dose: 650 mg Al Hydroxide/Mg Hydroxide (Magnesium Hydrox/Alum Hydrox 30 Ml Oral.Susp) 30 ml PO Q6H PRN PRN Reason: Heartburn/Nausea Last Admin: 08/01/24 21:13 Dose: 30 ml Benztropine Mesylate (Benztropine Mesylate 0.5 Mg Tablet) 0.5 mg PO BID PRN PRN Reason: EPS/tremor/muscle twitch Buprenorphine/Naloxone (Buprenorphine/Naloxone 8/2 Mg Film) 1 film SUBLINGUAL BID [facility] Last Admin: 08/03/24 21:19 Dose: 1 film Bupropion HCl (Bupropion Hcl Xl 150 Mg Tab.Er.24h) 150 mg PO DAILY@1400 [facility] Last Admin: 08/03/24 13:14 Dose: 150 mg Bupropion HCl (Bupropion Hcl Xl 300 Mg Tab.Er.24h) 300 mg PO DAILY [facility] Last Admin: 08/03/24 08:47 Dose: 300 mg Chlorpromazine HCl (Chlorpromazine Hcl 25 Mg Tablet) 50 mg PO TID PRN PRN Reason: agitation Last Admin: 08/03/24 21:23 Dose: 50 mg Docusate Sodium (Docusate Sodium 100 Mg Capsule) 100 mg PO BID [facility] Last Admin: 08/03/24 21:19 Dose: 100 mg Famotidine (Famotidine 20 Mg Tablet) 20 mg PO BID [facility] Last Admin: 08/03/24 21:19 Dose: 20 mg Fluticasone Propionate (Fluticasone Propionate Nasal 16 Gm [place]) 1 spray NOSTRIL-B DAILY PRN PRN Reason: nasal congestion Last Admin: 08/03/24 13:13 Dose: 1 spray Gabapentin (Gabapentin 400 Mg Capsule) 800 mg PO TID [facility] Last Admin: 08/03/24 21:19 Dose: 800 mg Hydroxyzine HCl (Hydroxyzine Hcl 50 Mg Tablet) 50 mg PO TID PRN PRN Reason: milder Anxiety Last Admin: 08/03/24 15:57 Dose: 50 mg Hydroxyzine HCl (Hydroxyzine Hcl 25 Mg Tablet) 25 mg PO Q6H PRN PRN Reason: Anxiety Last Admin: 07/27/24 12:01 Dose: 25 mg Insulin Glargine (Insulin Glargine,Hum.Rec.Anlog 100 Unit/Ml 10 Ml Vial) 30 unit SUBCUT BEDTIME [facility] Last Admin: 08/03/24 21:21 Dose: 30 unit Insulin Human Lispro (Insulin Lispro 100 Unit/Ml 3 Ml Vial) 0 - 10 unit SUBCUT TIDAC [facility]; Protocol Last Admin: 08/03/24 17:31 Dose: 2 unit [place] Carbonate ([place] Carbonate Er 450 Mg Tablet.Er) 900 mg PO DAILY@1400 [facility] Last Admin: 08/03/24 13:14 Dose: 900 mg Loratadine (Loratadine 10 Mg Tablet) 10 mg PO DAILY [facility] Last Admin: 08/03/24 08:47 Dose: 10 mg Lorazepam (Lorazepam 1 Mg Tablet) 1 mg PO BID PRN PRN Reason: moderate to severe anxiety Last Admin: 08/03/24 13:14 Dose: 1 mg Magnesium Hydroxide (Milk Of Magnesia 30 Ml Oral.Susp) 30 ml PO DAILY PRN PRN Reason: Constipation Last Admin: 07/27/24 09:45 Dose: 30 ml Metformin HCl (Metformin Hcl Er 500 Mg Tab.Er.24h) 500 mg PO DAILY [facility] Last Admin: 08/03/24 08:47 Dose: 500 mg Nicotine (Nicotine 21 Mg Patch.Td24) 21 mg TRANSDERMA DAILY PRN PRN Reason: smoking cessation Last Admin: 08/03/24 08:47 Dose: 21 mg Nicotine Polacrilex (Nicotine Polacrilex 2 Mg Gum) 4 mg BUCCAL Q2H PRN PRN Reason: Nicotine Cravings Last Admin: 08/03/24 21:25 Dose: 4 mg Polyethylene Glycol (Polyethylene Glycol 3350 17 Gm Powd.Pack) 17 gm PO DAILY [facility] Last Admin: 08/03/24 08:46 Dose: 17 gm Prazosin HCl (Prazosin Hcl 1 Mg Capsule) 1 mg PO BEDTIME [facility]; Protocol Last Admin: 08/03/24 21:22 Dose: 1 mg Propranolol HCl (Propranolol Hcl 10 Mg Tablet) 10 mg PO BID@0900,1400 [facility]; Protocol Last Admin: 08/03/24 13:14 Dose: 10 mg Quetiapine Fumarate (Quetiapine Fumarate 400 Mg Tablet) 400 mg PO BEDTIME [facility] Last Admin: 08/03/24 21:23 Dose: 400 mg Quetiapine Fumarate (Quetiapine Fumarate 100 Mg Tablet) 100 mg PO BEDTIME PRN PRN Reason: insomnia Risperidone (Risperidone 1 Mg Tablet) 1 mg PO DAILY PRN PRN Reason: AH/anxiety/agitation Last Admin: 08/03/24 15:55 Dose: 1 mg Risperidone (Risperidone 3 Mg Tablet) 3 mg PO DAILY [facility] Last Admin: 08/03/24 08:47 Dose: 3 mg Trazodone HCl (Trazodone Hcl 50 Mg Tablet) 50 mg PO BEDTIME MRX1 PRN PRN Reason: Insomnia Allergies Allergies Allergy/AdvReac Type Severity Reaction Status Date / Time No Known Allergies Allergy Verified 07/23/24 20:47 Assessment & Plan Assessment & Plan (1) Schizoaffective disorder, bipolar type: Status: Acute Code(s): F25.0 - Schizoaffective disorder, bipolar type (2) PTSD (post-traumatic stress disorder): Status: Acute Code(s): F43.10 - Post-traumatic stress disorder, unspecified (3) Cocaine use disorder: Status: Acute Code(s): F14.10 - Cocaine abuse, uncomplicated (4) Diabetes: Status: Acute Code(s): E11.9 - Type 2 diabetes mellitus without complications (5) Homeless: Status: Acute Code(s): Z59.00 - Homelessness unspecified Plan Pt is 48 year old female with history schizoaffective disorder, PTSD, cocaine/opioid use disorder who recently discharged from 07/14 and now self presents for worsening depression and SI following relapse. Patient reports that she was doing okay at the program, auditory hallucinations at a minimum. However this past , patient had an appointment to go to and was allowed to go alone which she knew was a mistake. Once on her own, away from the program she had cravings to use which fueled her AH which fueled her cravings; patient quickly found people with drugs and relapsed on cocaine. Patient quickly felt depressed add AH worsened further. She started feeling suicidal and night, presented to the hospital for safety. Denies any alcohol or other substance abuse. Formulation/clinical reasoning: Discussed medications and patient felt that current regimen was overall effective and she wants to remain on it. Hospital plan: 07/26 depressed; no SI. dealing with AH 07/27 Patient very triggered last night with high acuity on the unit and had significant flashbacks to past trauma; patient talked it through with nurse and benefited from p.r.n. Thorazine. Otherwise she is feeling overall pretty good and says AH is on the lower side; wants a program 07/28 Patient reports her mood is good and that she is overall doing well. Discussed medication and continued intermittent AH. She feels that current Risperdal dose may become more effective given a few more weeks as it has not reached his full potential; currently she wants to leave it at its current dose to which insurance underwriter sales agrees. Regarding Seroquel, it does not really make her sleepy and so it is not ineffective p.r.n. for anxiety; she says rather, it is for mood stability. She does like Thorazine as a p.r.n. for when she is getting very dysregulated. Conveyor Monitor discussed that patient is on 2 scheduled antipsychotics with a 3rd as a p.r.n., and the combination significantly increases her risk of side effects. Patient understands this well but feels that the benefit far outweighs the risks as she is doing better. clinical reasoning Seroquel 400 mg q.h.s.: For bipolar depression; does not make her tired and is not effective as a p.r.n. Risperdal 3 mg daily: For treating AH Thorazine 50 mg p.r.n.: Used as a p.r.n. for agitation, panic attacks, PTSD flashbacks 07/29 patient remains doing well, coping with AH, utilizing resources, engaged in treatment. Open for [facility] 07/30 remains doing well; did CBT exercise which resident with patient; patient will continue with CBT homework 07/31 remains stable, doing well, engaged; waiting on open bed at [facility] 08/01: Continue current tx plan. 08/02: Continue current regimen and plans 08/03: Continue current regimen and plans 08/04: Continue current plans and regimen Patient remains in good behavioral and impulse control on the unit; she has a appropriate with peers and staff and engaged in treatment, attending groups and forthcoming in 1 on 1 sessions. Patient is stable on current medication regimen Plan: CV Q 15 minute checks Wellbutrin 300 mg daily; 150 mg at 14:00 Gabapentin 800 mg t.i.d. [place] 900 mg daily at 14:00 Prazosin 1 mg q.h.s. Seroquel 400 mg q.h.s. Risperdal 3 mg daily Suboxone 8/2 mg b.i.d. Lantus/ lispro sliding scale Metformin Propranolol Famotidine Reason for continued inpatient stay Substantial Risk for: rapid decompensation Time Spent With Patient Time: Total time managing care of this patient today ____ minutes.
[2024-08-04] MEDS: Buprenorphine/Naloxone 8/2 mg FILM 1 FILM SUBLINGUAL ×2 (09:16→20:36)
[2024-08-04] MEDS: Gabapentin 400 MG CAPSULE 800 MG PO ×3 (09:20→20:36)
[2024-08-04] MEDS: metFORMIN HCl ER 500 MG TAB.ER.24H PO (09:20)
[2024-08-04] MEDS: buPROPion HCl XL 300 MG TAB.ER.24H PO (09:20)
[2024-08-04] MEDS: Docusate Sodium 100 MG CAPSULE PO ×2 (09:20→20:37)
[2024-08-04 09:21] VITALS: BP 139/75; PULSE 83
[2024-08-04] MEDS: risperiDONE 3 MG TABLET PO (09:21)
[2024-08-04] MEDS: Loratadine 10 MG TABLET PO (09:21)
[2024-08-04] MEDS: Famotidine 20 MG TABLET PO ×2 (09:21→20:37)
[2024-08-04] MEDS: Propranolol HCL 10 MG TABLET PO ×2 (09:21→13:58)
[2024-08-04] MEDS: polyethylene glycoL 3350 17 GM POWD.PACK PO (09:22)
[2024-08-04] MEDS: Insulin Lispro 100 UNIT/ML 3 ML VIAL SUBCUT ×2 (09:22→17:41)
[2024-08-04] MEDS: chlorproMAZINE HCl 25 MG TABLET 50 MG PO ×3 (09:24→20:47)
[2024-08-04] MEDS: hydrOXYzine HCL 50 MG TABLET PO ×2 (09:24→20:47)
[2024-08-04] MEDS: Nicotine 21 MG PATCH.TD24 TRANSDERMA (09:29)
[2024-08-04] MEDS: Nicotine Polacrilex 2 MG GUM 4 MG BUCCAL ×3 (09:30→21:53)
[2024-08-04 11:43] LABS: Glucose, Whole Blood 92 mg/dL (60-115)
[2024-08-04] MEDS: LORazepam 1 MG TABLET PO ×2 (13:57→20:47)
[2024-08-04] MEDS: Lithium Carbonate ER 450 MG TABLET.ER 900 MG PO (13:57)
[2024-08-04 13:58] VITALS: BP 128/78; PULSE 72
[2024-08-04] MEDS: buPROPion HCl XL 150 MG TAB.ER.24H PO (13:58)
[2024-08-04 17:04] LABS: Glucose, Whole Blood 229 mg/dL (60-115)
[2024-08-04] MEDS: Insulin Glargine,Hum.rec.anlog 100 UNIT/ML 10 ML VIAL 30 UNIT SUBCUT (20:35)
[2024-08-04 20:36] VITALS: BP 149/91
[2024-08-04] MEDS: Prazosin HCL 1 MG CAPSULE PO (20:36)
[2024-08-04] MEDS: QUEtiapine Fumarate 400 MG TABLET PO (20:36)
[2024-08-04 20:45] VITALS: BP 149/91; PULSE 86; RESP 16; TEMP 37.1; O2SAT 99
[2024-08-05 07:54] LABS: Glucose, Whole Blood 264 mg/dL (60-115)
[2024-08-05 08:00] VITALS: BP 132/70; PULSE 90; TEMP 36.9; O2SAT 98
[2024-08-05] MEDS: Insulin Lispro 100 UNIT/ML 3 ML VIAL SUBCUT ×2 (08:45→13:22)
[2024-08-05] MEDS: Famotidine 20 MG TABLET PO ×2 (08:46→20:53)
[2024-08-05] MEDS: risperiDONE 3 MG TABLET PO (08:46)
[2024-08-05] MEDS: buPROPion HCl XL 300 MG TAB.ER.24H PO (08:46)
[2024-08-05] MEDS: Docusate Sodium 100 MG CAPSULE PO ×2 (08:46→20:53)
[2024-08-05] MEDS: Loratadine 10 MG TABLET PO (08:46)
[2024-08-05] MEDS: Gabapentin 400 MG CAPSULE 800 MG PO ×3 (08:46→20:53)
[2024-08-05] MEDS: metFORMIN HCl ER 500 MG TAB.ER.24H PO (08:46)
[2024-08-05] MEDS: Propranolol HCL 10 MG TABLET PO ×2 (08:46→13:53)
[2024-08-05] MEDS: Nicotine 21 MG PATCH.TD24 TRANSDERMA (08:50)
[2024-08-05] MEDS: polyethylene glycoL 3350 17 GM POWD.PACK PO (09:09)
[2024-08-05] MEDS: hydrOXYzine HCL 50 MG TABLET PO ×2 (09:10→20:55)
[2024-08-05] MEDS: Buprenorphine/Naloxone 8/2 mg FILM 1 FILM SUBLINGUAL ×2 (09:10→20:53)
[2024-08-05] MEDS: LORazepam 1 MG TABLET PO ×2 (09:10→16:04)
--- NOTE | 2024-08-05 10:01 | P.PNPSI_ITS ---
Subjective Subjective Date of Service: 08/05/24 Reason For Visit: psychosis Interim History: met with patient; discussed with team; reviewed chart pt feeling discouraged that [facility] does not have a bed available. Discussed other options Mental Status Exam Mental Status Exam Narrative: Pt is alert and oriented; behavior is calm, cooperative, friendly; patient is not in distress; dressed in casual attire with adequate hygiene; mood is described as ok and affect down; eye contact avoidant; Speech is softer, slower; some psychomotor retardation present; thought process is organized and goal directed; Thought content is on treatment; intermittent passive wish which is chronic, dealing with AH, tx; otherwise pertinent to relevant topics and without any delusional content, paranoid ideations or grandiosity; intermittent, chronic passive SI/no HI; intermittent AH. Patients insight and judgment fair Diagnostics Vital Signs (24Hr): Vital Signs - 24 hr 08/04/24 13:58 08/04/24 20:36 08/04/24 20:45 Temperature 98.7 F Pulse Rate 72 86 Respiratory Rate 16 Blood Pressure 128/78 149/91 H 149/91 H Pulse Oximetry 99 Oxygen Delivery Method Room Air 08/05/24 08:00 Temperature 98.4 F Pulse Rate 90 Respiratory Rate Blood Pressure 132/70 Pulse Oximetry 98 Oxygen Delivery Method Room Air BMI result Body Mass Index 27.8 Labs 07/24/24 09:48 07/30/24 08:26 Labs: Laboratory Results - last 48 hr 08/03/24 08/03/24 08/03/24 11:50 17:15 21:16 POC Glucose 126 H 183 H 82 08/04/24 08/04/24 08/04/24 07:57 11:40 17:00 POC Glucose 178 H 92 229 H 08/05/24 07:47 POC Glucose 264 H Medications Medications Current Medications Acetaminophen (Acetaminophen 325 Mg Tablet) 650 mg PO Q6H PRN PRN Reason: Headache/Pain Mild Scale (1-3) Last Admin: 07/27/24 09:23 Dose: 650 mg Al Hydroxide/Mg Hydroxide (Magnesium Hydrox/Alum Hydrox 30 Ml Oral.Susp) 30 ml PO Q6H PRN PRN Reason: Heartburn/Nausea Last Admin: 08/01/24 21:13 Dose: 30 ml Benztropine Mesylate (Benztropine Mesylate 0.5 Mg Tablet) 0.5 mg PO BID PRN PRN Reason: EPS/tremor/muscle twitch Buprenorphine/Naloxone (Buprenorphine/Naloxone 8/2 Mg Film) 1 film SUBLINGUAL BID [facility] Last Admin: 08/05/24 09:10 Dose: 1 film Bupropion HCl (Bupropion Hcl Xl 150 Mg Tab.Er.24h) 150 mg PO DAILY@1400 [facility] Last Admin: 08/04/24 13:58 Dose: 150 mg Bupropion HCl (Bupropion Hcl Xl 300 Mg Tab.Er.24h) 300 mg PO DAILY [facility] Last Admin: 08/05/24 08:46 Dose: 300 mg Chlorpromazine HCl (Chlorpromazine Hcl 25 Mg Tablet) 50 mg PO TID PRN PRN Reason: agitation Last Admin: 08/04/24 20:47 Dose: 50 mg Docusate Sodium (Docusate Sodium 100 Mg Capsule) 100 mg PO BID [facility] Last Admin: 08/05/24 08:46 Dose: 100 mg Famotidine (Famotidine 20 Mg Tablet) 20 mg PO BID [facility] Last Admin: 08/05/24 08:46 Dose: 20 mg Fluticasone Propionate (Fluticasone Propionate Nasal 16 Gm [place]) 1 spray NOSTRIL-B DAILY PRN PRN Reason: nasal congestion Last Admin: 08/03/24 13:13 Dose: 1 spray Gabapentin (Gabapentin 400 Mg Capsule) 800 mg PO TID [facility] Last Admin: 08/05/24 08:46 Dose: 800 mg Hydroxyzine HCl (Hydroxyzine Hcl 50 Mg Tablet) 50 mg PO TID PRN PRN Reason: milder Anxiety Last Admin: 08/05/24 09:10 Dose: 50 mg Hydroxyzine HCl (Hydroxyzine Hcl 25 Mg Tablet) 25 mg PO Q6H PRN PRN Reason: Anxiety Last Admin: 07/27/24 12:01 Dose: 25 mg Insulin Glargine (Insulin Glargine,Hum.Rec.Anlog 100 Unit/Ml 10 Ml Vial) 30 unit SUBCUT BEDTIME [facility] Last Admin: 08/04/24 20:35 Dose: 30 unit Insulin Human Lispro (Insulin Lispro 100 Unit/Ml 3 Ml Vial) 0 - 10 unit SUBCUT TIDAC [facility]; Protocol Last Admin: 08/05/24 08:45 Dose: 6 unit [place] Carbonate ([place] Carbonate Er 450 Mg Tablet.Er) 900 mg PO DAILY@1400 [facility] Last Admin: 08/04/24 13:57 Dose: 900 mg Loratadine (Loratadine 10 Mg Tablet) 10 mg PO DAILY [facility] Last Admin: 08/05/24 08:46 Dose: 10 mg Lorazepam (Lorazepam 1 Mg Tablet) 1 mg PO BID PRN PRN Reason: moderate to severe anxiety Last Admin: 08/05/24 09:10 Dose: 1 mg Magnesium Hydroxide (Milk Of Magnesia 30 Ml Oral.Susp) 30 ml PO DAILY PRN PRN Reason: Constipation Last Admin: 07/27/24 09:45 Dose: 30 ml Metformin HCl (Metformin Hcl Er 500 Mg Tab.Er.24h) 500 mg PO DAILY [facility] Last Admin: 08/05/24 08:46 Dose: 500 mg Nicotine (Nicotine 21 Mg Patch.Td24) 21 mg TRANSDERMA DAILY PRN PRN Reason: smoking cessation Last Admin: 08/05/24 08:50 Dose: 21 mg Nicotine Polacrilex (Nicotine Polacrilex 2 Mg Gum) 4 mg BUCCAL Q2H PRN PRN Reason: Nicotine Cravings Last Admin: 08/04/24 21:53 Dose: 4 mg Polyethylene Glycol (Polyethylene Glycol 3350 17 Gm Powd.Pack) 17 gm PO DAILY [facility] Last Admin: 08/05/24 09:09 Dose: 17 gm Prazosin HCl (Prazosin Hcl 1 Mg Capsule) 1 mg PO BEDTIME [facility]; Protocol Last Admin: 08/04/24 20:36 Dose: 1 mg Propranolol HCl (Propranolol Hcl 10 Mg Tablet) 10 mg PO BID@0900,1400 [facility]; Protocol Last Admin: 08/05/24 08:46 Dose: 10 mg Quetiapine Fumarate (Quetiapine Fumarate 400 Mg Tablet) 400 mg PO BEDTIME [facility] Last Admin: 08/04/24 20:36 Dose: 400 mg Quetiapine Fumarate (Quetiapine Fumarate 100 Mg Tablet) 100 mg PO BEDTIME PRN PRN Reason: insomnia Risperidone (Risperidone 1 Mg Tablet) 1 mg PO DAILY PRN PRN Reason: AH/anxiety/agitation Last Admin: 08/03/24 15:55 Dose: 1 mg Risperidone (Risperidone 3 Mg Tablet) 3 mg PO DAILY [facility] Last Admin: 08/05/24 08:46 Dose: 3 mg Trazodone HCl (Trazodone Hcl 50 Mg Tablet) 50 mg PO BEDTIME MRX1 PRN PRN Reason: Insomnia Allergies Allergies Allergy/AdvReac Type Severity Reaction Status Date / Time No Known Allergies Allergy Verified 07/23/24 20:47 Assessment & Plan Assessment & Plan (1) Schizoaffective disorder, bipolar type: Status: Acute Code(s): F25.0 - Schizoaffective disorder, bipolar type (2) PTSD (post-traumatic stress disorder): Status: Acute Code(s): F43.10 - Post-traumatic stress disorder, unspecified (3) Cocaine use disorder: Status: Acute Code(s): F14.10 - Cocaine abuse, uncomplicated (4) Diabetes: Status: Acute Code(s): E11.9 - Type 2 diabetes mellitus without complications (5) Homeless: Status: Acute Code(s): Z59.00 - Homelessness unspecified Plan Pt is 48 year old female with history schizoaffective disorder, PTSD, cocaine/opioid use disorder who recently discharged from 07/14 and now self presents for worsening depression and SI following relapse. Patient reports that she was doing okay at the program, auditory hallucinations at a minimum. However this past , patient had an appointment to go to and was allowed to go alone which she knew was a mistake. Once on her own, away from the program she had cravings to use which fueled her AH which fueled her cravings; patient quickly found people with drugs and relapsed on cocaine. Patient quickly felt depressed add AH worsened further. She started feeling suicidal and night, presented to the hospital for safety. Denies any alcohol or other substance abuse. Formulation/clinical reasoning: Discussed medications and patient felt that current regimen was overall effective and she wants to remain on it. Hospital plan: 07/26 depressed; no SI. dealing with AH 07/27 Patient very triggered last night with high acuity on the unit and had significant flashbacks to past trauma; patient talked it through with nurse and benefited from p.r.n. Thorazine. Otherwise she is feeling overall pretty good and says AH is on the lower side; wants a program 07/28 Patient reports her mood is good and that she is overall doing well. Discussed medication and continued intermittent AH. She feels that current Risperdal dose may become more effective given a few more weeks as it has not reached his full potential; currently she wants to leave it at its current dose to which senior writer agrees. Regarding Seroquel, it does not really make her sleepy and so it is not ineffective p.r.n. for anxiety; she says rather, it is for mood stability. She does like Thorazine as a p.r.n. for when she is getting very dysregulated. Dials Inspector discussed that patient is on 2 scheduled antipsychotics with a 3rd as a p.r.n., and the combination significantly increases her risk of side effects. Patient understands this well but feels that the benefit far outweighs the risks as she is doing better. clinical reasoning Seroquel 400 mg q.h.s.: For bipolar depression; does not make her tired and is not effective as a p.r.n. Risperdal 3 mg daily: For treating AH Thorazine 50 mg p.r.n.: Used as a p.r.n. for agitation, panic attacks, PTSD flashbacks 07/29 patient remains doing well, coping with AH, utilizing resources, engaged in treatment. Open for [facility] 07/30 remains doing well; did CBT exercise which resident with patient; patient will continue with CBT homework 07/31 remains stable, doing well, engaged; waiting on open bed at [facility] 08/01: Continue current tx plan. 08/05 remains stable but discouraged since program options dwindled Patient remains in good behavioral and impulse control on the unit; she has a appropriate with peers and staff and engaged in treatment, attending groups and forthcoming in 1 on 1 sessions. Patient is stable on current medication regimen Plan: CV Q 15 minute checks Wellbutrin 300 mg daily; 150 mg at 14:00 Gabapentin 800 mg t.i.d. [place] 900 mg daily at 14:00 Prazosin 1 mg q.h.s. Seroquel 400 mg q.h.s. Risperdal 3 mg daily Suboxone 8/2 mg b.i.d. Lantus/ lispro sliding scale Metformin Propranolol Famotidine Patient educated on: diagnosis and therapeutic strategies Informed Consent: understands Reason for continued inpatient stay Substantial Risk for: stable for discharge and rapid decompensation Time Spent With Patient Time: Total time managing care of this patient today ____ minutes.
[2024-08-05] MEDS: Nicotine Polacrilex 2 MG GUM 4 MG BUCCAL ×4 (11:41→20:59)
[2024-08-05 12:54] LABS: Glucose, Whole Blood 205 mg/dL (60-115)
[2024-08-05] MEDS: Fluticasone Propionate Nasal 16 GM SPRAY 1 SPRAY NOSTRIL-B (13:47)
[2024-08-05] MEDS: Lithium Carbonate ER 450 MG TABLET.ER 900 MG PO (13:48)
[2024-08-05] MEDS: buPROPion HCl XL 150 MG TAB.ER.24H PO (13:48)
[2024-08-05 13:53] VITALS: BP 141/77; PULSE 83
[2024-08-05] MEDS: risperiDONE 1 MG TABLET PO (16:04)
[2024-08-05 19:51] VITALS: BP 138/75; PULSE 80; RESP 16; TEMP 2.7; TEMP 36.9; O2SAT 99
[2024-08-05 20:12] LABS: Glucose, Whole Blood 78 mg/dL (60-115)
[2024-08-05 20:52] VITALS: BP 128/74
[2024-08-05] MEDS: Prazosin HCL 1 MG CAPSULE PO (20:52)
[2024-08-05] MEDS: QUEtiapine Fumarate 400 MG TABLET PO (20:53)
[2024-08-05] MEDS: chlorproMAZINE HCl 25 MG TABLET 50 MG PO (20:55)
[2024-08-05] MEDS: Insulin Glargine,Hum.rec.anlog 100 UNIT/ML 10 ML VIAL 30 UNIT SUBCUT (21:03)
[2024-08-05 21:14] LABS: Glucose, Whole Blood 181 mg/dL (60-115)
[2024-08-06 08:21] VITALS: BP 175/93; PULSE 80; TEMP 37.9; O2SAT 99
[2024-08-06 08:24] LABS: Creatinine Clr Calc Pharmacy 92.1; Estimated Glomerular Filt Rate > 60
[2024-08-06 08:33] VITALS: BP 175/93; PULSE 80
[2024-08-06] MEDS: Buprenorphine/Naloxone 8/2 mg FILM 1 FILM SUBLINGUAL ×2 (08:33→20:28)
[2024-08-06] MEDS: Docusate Sodium 100 MG CAPSULE PO ×2 (08:33→20:28)
[2024-08-06] MEDS: Propranolol HCL 10 MG TABLET PO ×2 (08:33→14:25)
[2024-08-06] MEDS: buPROPion HCl XL 300 MG TAB.ER.24H PO (08:33)
[2024-08-06] MEDS: Famotidine 20 MG TABLET PO ×2 (08:33→20:28)
[2024-08-06] MEDS: Gabapentin 400 MG CAPSULE 800 MG PO ×3 (08:34→20:28)
[2024-08-06] MEDS: Loratadine 10 MG TABLET PO (08:34)
[2024-08-06] MEDS: polyethylene glycoL 3350 17 GM POWD.PACK PO (08:35)
[2024-08-06 08:39] LABS: Glucose, Whole Blood 296 mg/dL (60-115)
[2024-08-06] MEDS: Insulin Lispro 100 UNIT/ML 3 ML VIAL SUBCUT (08:43)
[2024-08-06] MEDS: Nicotine Polacrilex 2 MG GUM 4 MG BUCCAL (09:59)
[2024-08-06] MEDS: risperiDONE 3 MG TABLET PO (10:58)
[2024-08-06] MEDS: metFORMIN HCl ER 500 MG TAB.ER.24H PO (10:58)
[2024-08-06 12:23] LABS: Glucose, Whole Blood 179 mg/dL (60-115)
[2024-08-06 14:25] VITALS: PULSE 89
[2024-08-06] MEDS: Lithium Carbonate ER 450 MG TABLET.ER 900 MG PO (14:25)
[2024-08-06] MEDS: Nicotine Polacrilex Lozenge 4 MG LOZENGE BUCCAL (14:26)
[2024-08-06] MEDS: buPROPion HCl XL 150 MG TAB.ER.24H PO (14:26)
[2024-08-06] MEDS: LORazepam 1 MG TABLET PO ×2 (15:31→22:17)
--- NOTE | 2024-08-06 17:00 | P.PNPSI_ITS ---
Subjective Subjective Date of Service: 08/06/24 Reason For Visit: psychosis Interim History: Met with patient; discussed with team Patient in a better mood today and feels that although she is very worried about being discharged to the street, before TSS bed is open, she is trying to prepare herself. She is very worried about relapse and decompensating and becoming suicidal med hopes to be able to wait in structured environment until a bed is available. Discussed AH and patient feels that it has been long enough on current dose of Risperdal and wants to increase dose to which fiction writer agrees. Mental Status Exam Mental Status Exam Narrative: Pt is alert and oriented; behavior is calm, cooperative, friendly; patient is not in distress; dressed in casual attire with adequate hygiene; mood is described as ok and affect down; eye contact a little avoidant; Speech is softer, slower; some psychomotor retardation present; thought process is organized and goal directed; Thought content is on treatment; intermittent passive wish which is chronic, dealing with AH, tx; otherwise pertinent to relevant topics and without any delusional content, paranoid ideations or grandiosity; intermittent, chronic passive SI/no HI; intermittent AH. Patients insight and judgment fair Diagnostics Vital Signs (24Hr): Vital Signs - 24 hr 08/05/24 19:51 08/05/24 20:52 08/06/24 08:21 Temperature 36.9 F L 100.2 F Pulse Rate 80 80 Respiratory Rate 16 Blood Pressure 138/75 128/74 175/93 H Pulse Oximetry 99 99 Oxygen Delivery Method Room Air Room Air 08/06/24 08:33 08/06/24 14:25 Temperature Pulse Rate 80 89 Respiratory Rate Blood Pressure 175/93 H Pulse Oximetry Oxygen Delivery Method BMI result Body Mass Index 27.8 Labs 07/24/24 09:48 08/06/24 07:54 Labs: Laboratory Results - last 48 hr 08/04/24 08/05/24 08/05/24 17:00 07:47 12:47 Creatinine Estim Creat Clear Calc Estimated GFR POC Glucose 229 H 264 H 205 H 08/05/24 08/05/24 08/06/24 17:31 21:09 07:54 Creatinine 0.89 Estim Creat Clear Calc 92.1 Estimated GFR > 60 POC Glucose 78 181 H 08/06/24 08/06/24 08:27 12:13 Creatinine Estim Creat Clear Calc Estimated GFR POC Glucose 296 H 179 H Medications Medications Current Medications Acetaminophen (Acetaminophen 325 Mg Tablet) 650 mg PO Q6H PRN PRN Reason: Headache/Pain Mild Scale (1-3) Last Admin: 07/27/24 09:23 Dose: 650 mg Al Hydroxide/Mg Hydroxide (Magnesium Hydrox/Alum Hydrox 30 Ml Oral.Susp) 30 ml PO Q6H PRN PRN Reason: Heartburn/Nausea Last Admin: 08/01/24 21:13 Dose: 30 ml Benztropine Mesylate (Benztropine Mesylate 0.5 Mg Tablet) 0.5 mg PO BID PRN PRN Reason: EPS/tremor/muscle twitch Buprenorphine/Naloxone (Buprenorphine/Naloxone 8/2 Mg Film) 1 film SUBLINGUAL BID [facility] Last Admin: 08/06/24 08:33 Dose: 1 film Bupropion HCl (Bupropion Hcl Xl 150 Mg Tab.Er.24h) 150 mg PO DAILY@1400 [facility] Last Admin: 08/06/24 14:26 Dose: 150 mg Bupropion HCl (Bupropion Hcl Xl 300 Mg Tab.Er.24h) 300 mg PO DAILY [facility] Last Admin: 08/06/24 08:33 Dose: 300 mg Chlorpromazine HCl (Chlorpromazine Hcl 25 Mg Tablet) 50 mg PO TID PRN PRN Reason: agitation Last Admin: 08/05/24 20:55 Dose: 50 mg Docusate Sodium (Docusate Sodium 100 Mg Capsule) 100 mg PO BID [facility] Last Admin: 08/06/24 08:33 Dose: 100 mg Famotidine (Famotidine 20 Mg Tablet) 20 mg PO BID [facility] Last Admin: 08/06/24 08:33 Dose: 20 mg Fluticasone Propionate (Fluticasone Propionate Nasal 16 Gm [place]) 1 spray NOSTRIL-B DAILY PRN PRN Reason: nasal congestion Last Admin: 08/05/24 13:47 Dose: 1 spray Gabapentin (Gabapentin 400 Mg Capsule) 800 mg PO TID [facility] Last Admin: 08/06/24 14:26 Dose: 800 mg Hydroxyzine HCl (Hydroxyzine Hcl 50 Mg Tablet) 50 mg PO TID PRN PRN Reason: milder Anxiety Last Admin: 08/05/24 20:55 Dose: 50 mg Hydroxyzine HCl (Hydroxyzine Hcl 25 Mg Tablet) 25 mg PO Q6H PRN PRN Reason: Anxiety Last Admin: 07/27/24 12:01 Dose: 25 mg Insulin Glargine (Insulin Glargine,Hum.Rec.Anlog 100 Unit/Ml 10 Ml Vial) 30 unit SUBCUT BEDTIME [facility] Last Admin: 08/05/24 21:03 Dose: 30 unit Insulin Human Lispro (Insulin Lispro 100 Unit/Ml 3 Ml Vial) 0 - 10 unit SUBCUT TIDAC [facility]; Protocol Last Admin: 08/06/24 12:42 Dose: Not Given [place] Carbonate ([place] Carbonate Er 450 Mg Tablet.Er) 900 mg PO DAILY@1400 [facility] Last Admin: 08/06/24 14:25 Dose: 900 mg Loratadine (Loratadine 10 Mg Tablet) 10 mg PO DAILY [facility] Last Admin: 08/06/24 08:34 Dose: 10 mg Lorazepam (Lorazepam 1 Mg Tablet) 1 mg PO BID PRN PRN Reason: moderate to severe anxiety Last Admin: 08/06/24 15:31 Dose: 1 mg Magnesium Hydroxide (Milk Of Magnesia 30 Ml Oral.Susp) 30 ml PO DAILY PRN PRN Reason: Constipation Last Admin: 07/27/24 09:45 Dose: 30 ml Metformin HCl (Metformin Hcl Er 500 Mg Tab.Er.24h) 500 mg PO DAILY [facility] Last Admin: 08/06/24 10:58 Dose: 500 mg Nicotine (Nicotine 21 Mg Patch.Td24) 21 mg TRANSDERMA DAILY PRN PRN Reason: smoking cessation Last Admin: 08/05/24 08:50 Dose: 21 mg Non-Formulary Med( (Nicotine 4mg Gum)) 1 each BUCCAL Q2H PRN PRN Reason: nicotine cravings Polyethylene Glycol (Polyethylene Glycol 3350 17 Gm Powd.Pack) 17 gm PO DAILY [facility] Last Admin: 08/06/24 08:35 Dose: 17 gm Prazosin HCl (Prazosin Hcl 1 Mg Capsule) 1 mg PO BEDTIME [facility]; Protocol Last Admin: 08/05/24 20:52 Dose: 1 mg Propranolol HCl (Propranolol Hcl 10 Mg Tablet) 10 mg PO BID@0900,1400 [facility]; Protocol Last Admin: 08/06/24 14:25 Dose: 10 mg Quetiapine Fumarate (Quetiapine Fumarate 400 Mg Tablet) 400 mg PO BEDTIME [facility] Last Admin: 08/05/24 20:53 Dose: 400 mg Quetiapine Fumarate (Quetiapine Fumarate 100 Mg Tablet) 100 mg PO BEDTIME PRN PRN Reason: insomnia Risperidone (Risperidone 1 Mg Tablet) 1 mg PO DAILY PRN PRN Reason: AH/anxiety/agitation Last Admin: 08/05/24 16:04 Dose: 1 mg Risperidone (Risperidone 3 Mg Tablet) 3 mg PO DAILY [facility] Last Admin: 08/06/24 10:58 Dose: 3 mg Trazodone HCl (Trazodone Hcl 50 Mg Tablet) 50 mg PO BEDTIME MRX1 PRN PRN Reason: Insomnia Allergies Allergies Allergy/AdvReac Type Severity Reaction Status Date / Time No Known Allergies Allergy Verified 07/23/24 20:47 Assessment & Plan Assessment & Plan (1) Schizoaffective disorder, bipolar type: Status: Acute Code(s): F25.0 - Schizoaffective disorder, bipolar type (2) PTSD (post-traumatic stress disorder): Status: Acute Code(s): F43.10 - Post-traumatic stress disorder, unspecified (3) Cocaine use disorder: Status: Acute Code(s): F14.10 - Cocaine abuse, uncomplicated (4) Diabetes: Status: Acute Code(s): E11.9 - Type 2 diabetes mellitus without complications (5) Homeless: Status: Acute Code(s): Z59.00 - Homelessness unspecified Plan Pt is 48 year old female with history schizoaffective disorder, PTSD, cocaine/opioid use disorder who recently discharged from 07/14 and now self presents for worsening depression and SI following relapse. Patient reports that she was doing okay at the program, auditory hallucinations at a minimum. However this past , patient had an appointment to go to and was allowed to go alone which she knew was a mistake. Once on her own, away from the program she had cravings to use which fueled her AH which fueled her cravings; patient quickly found people with drugs and relapsed on cocaine. Patient quickly felt depressed add AH worsened further. She started feeling suicidal and night, presented to the hospital for safety. Denies any alcohol or other substance abuse. Formulation/clinical reasoning: Discussed medications and patient felt that current regimen was overall effective and she wants to remain on it. Hospital plan: 07/26 depressed; no SI. dealing with AH 07/27 Patient very triggered last night with high acuity on the unit and had significant flashbacks to past trauma; patient talked it through with nurse and benefited from p.r.n. Thorazine. Otherwise she is feeling overall pretty good and says AH is on the lower side; wants a program 07/28 Patient reports her mood is good and that she is overall doing well. Discussed medication and continued intermittent AH. She feels that current Risperdal dose may become more effective given a few more weeks as it has not reached his full potential; currently she wants to leave it at its current dose to which fiction writer agrees. Regarding Seroquel, it does not really make her sleepy and so it is not ineffective p.r.n. for anxiety; she says rather, it is for mood stability. She does like Thorazine as a p.r.n. for when she is getting very dysregulated. French Binder discussed that patient is on 2 scheduled antipsychotics with a 3rd as a p.r.n., and the combination significantly increases her risk of side effects. Patient understands this well but feels that the benefit far outweighs the risks as she is doing better. clinical reasoning Seroquel 400 mg q.h.s.: For bipolar depression; does not make her tired and is not effective as a p.r.n. Risperdal 3 mg daily: For treating AH Thorazine 50 mg p.r.n.: Used as a p.r.n. for agitation, panic attacks, PTSD flashbacks 07/29 patient remains doing well, coping with AH, utilizing resources, engaged in treatment. Open for TSS 07/30 remains doing well; did CBT exercise which resident with patient; patient will continue with CBT homework 07/31 remains stable, doing well, engaged; waiting on open bed at tSS 08/01: Continue current tx plan. 08/05 remains stable but discouraged since program options dwindled 08/06 feeling a little better though still worried about not being in a program and hopeful that a bed will be available. Asks for Risperdal to be increased Patient remains in good behavioral and impulse control on the unit; she has a appropriate with peers and staff and engaged in treatment, attending groups and forthcoming in 1 on 1 sessions. Patient is stable on current medication regimen Plan: CV Q 15 minute checks Wellbutrin 300 mg daily; 150 mg at 14:00 Gabapentin 800 mg t.i.d. [place] 900 mg daily at 14:00 Prazosin 1 mg q.h.s. Seroquel 400 mg q.h.s. INCREASE TO Risperdal 4 mg daily Suboxone 8/2 mg b.i.d. Lantus/ lispro sliding scale Metformin Propranolol Famotidine Patient educated on: diagnosis, medication risk/benefits, substance abuse and therapeutic strategies Informed Consent: understands Reason for continued inpatient stay Substantial Risk for: stable for discharge and med/psych decompensation Time Spent With Patient Time: Total time managing care of this patient today ____ minutes.
[2024-08-06 17:22] LABS: Glucose, Whole Blood 194 mg/dL (60-115)
[2024-08-06] MEDS: risperiDONE 1 MG TABLET PO (17:30)
[2024-08-06 19:47] VITALS: BP 122/78; PULSE 76; RESP 16; TEMP 37.1; O2SAT 99
[2024-08-06] MEDS: Prazosin HCL 1 MG CAPSULE PO (20:28)
[2024-08-06] MEDS: QUEtiapine Fumarate 400 MG TABLET PO (20:28)
[2024-08-06] MEDS: hydrOXYzine HCL 50 MG TABLET PO (20:28)
[2024-08-06] MEDS: hydrOXYzine HCL 25 MG TABLET PO (20:28)
[2024-08-06] MEDS: Insulin Glargine,Hum.rec.anlog 100 UNIT/ML 10 ML VIAL 30 UNIT SUBCUT (20:29)
[2024-08-06 21:29] LABS: Glucose, Whole Blood 175 mg/dL (60-115)
[2024-08-06] MEDS: GUM BUCCAL (21:37)
[2024-08-06] MEDS: NICOTINE 4 MG BUCCAL (21:37)
[2024-08-07 07:00] VITALS: BMI 28.1
[2024-08-07 08:23] VITALS: BP 123/73; PULSE 80; RESP 18; TEMP 36.3; O2SAT 99
[2024-08-07 08:32] LABS: Glucose, Whole Blood 163 mg/dL (60-115)
[2024-08-07] MEDS: Insulin Lispro 100 UNIT/ML 3 ML VIAL SUBCUT ×3 (08:53→17:15)
[2024-08-07] MEDS: Famotidine 20 MG TABLET PO ×2 (08:55→20:06)
[2024-08-07] MEDS: Buprenorphine/Naloxone 8/2 mg FILM 1 FILM SUBLINGUAL ×2 (08:55→20:05)
[2024-08-07] MEDS: Docusate Sodium 100 MG CAPSULE PO ×2 (08:55→20:05)
[2024-08-07] MEDS: Propranolol HCL 10 MG TABLET PO ×2 (08:55→15:34)
[2024-08-07] MEDS: buPROPion HCl XL 300 MG TAB.ER.24H PO (08:55)
[2024-08-07] MEDS: Loratadine 10 MG TABLET PO (08:55)
[2024-08-07] MEDS: metFORMIN HCl ER 500 MG TAB.ER.24H PO (08:55)
[2024-08-07] MEDS: risperiDONE 2 MG TABLET 4 MG PO (08:56)
[2024-08-07] MEDS: polyethylene glycoL 3350 17 GM POWD.PACK PO (08:56)
[2024-08-07] MEDS: Gabapentin 400 MG CAPSULE 800 MG PO ×3 (08:56→20:05)
[2024-08-07] MEDS: Nicotine 21 MG PATCH.TD24 TRANSDERMA (08:56)
[2024-08-07] MEDS: GUM BUCCAL ×3 (09:15→20:55)
[2024-08-07] MEDS: Fluticasone Propionate Nasal 16 GM SPRAY 1 SPRAY NOSTRIL-B (09:15)
[2024-08-07] MEDS: NICOTINE 4 MG BUCCAL ×3 (09:15→20:55)
[2024-08-07] MEDS: LORazepam 1 MG TABLET PO ×2 (09:15→18:10)
--- NOTE | 2024-08-07 09:43 | P.PNPSI_ITS ---
Subjective Subjective Date of Service: 08/07/24 Reason For Visit: psychosis Interim History: met with patient; discussed with team pt says she is good. Says too early to tell if increased risperdal is making a difference but denies side-effects. Pt got into program today, one of her choice and she is excited about it. She feels ready for discharge and wants to go. Mental Status Exam Mental Status Exam Narrative: Pt is alert and oriented; behavior is calm, cooperative, friendly; patient is not in distress; dressed in casual attire with adequate hygiene; mood is described as good and affect congruent, brighter; eye contact appropriate; Speech is normal rate, volume and prosody; no psychomotor retardation present; thought process is organized and goal directed; Thought content is on treatment; otherwise pertinent to relevant topics and without any delusional content, paranoid ideations or grandiosity; intermittent, chronic passive SI/no HI; intermittent AH. Patients insight and judgment fair Diagnostics Vital Signs (24Hr): Vital Signs - 24 hr 08/06/24 14:25 08/06/24 19:47 08/07/24 08:23 Temperature 98.7 F 97.4 F Pulse Rate 89 76 80 Respiratory Rate 16 18 Blood Pressure 122/78 123/73 Pulse Oximetry 99 99 Oxygen Delivery Method Room Air Room Air BMI result Body Mass Index 27.8 Labs 07/24/24 09:48 08/06/24 07:54 Labs: Laboratory Results - last 48 hr 08/05/24 08/05/24 08/05/24 12:47 17:31 21:09 Creatinine Estim Creat Clear Calc Estimated GFR POC Glucose 205 H 78 181 H 08/06/24 08/06/24 08/06/24 07:54 08:27 12:13 Creatinine 0.89 Estim Creat Clear Calc 92.1 Estimated GFR > 60 POC Glucose 296 H 179 H 08/06/24 08/06/24 08/07/24 17:13 21:25 08:27 Creatinine Estim Creat Clear Calc Estimated GFR POC Glucose 194 H 175 H 163 H Medications Medications Current Medications Acetaminophen (Acetaminophen 325 Mg Tablet) 650 mg PO Q6H PRN PRN Reason: Headache/Pain Mild Scale (1-3) Last Admin: 07/27/24 09:23 Dose: 650 mg Al Hydroxide/Mg Hydroxide (Magnesium Hydrox/Alum Hydrox 30 Ml Oral.Susp) 30 ml PO Q6H PRN PRN Reason: Heartburn/Nausea Last Admin: 08/01/24 21:13 Dose: 30 ml Benztropine Mesylate (Benztropine Mesylate 0.5 Mg Tablet) 0.5 mg PO BID PRN PRN Reason: EPS/tremor/muscle twitch Buprenorphine/Naloxone (Buprenorphine/Naloxone 8/2 Mg Film) 1 film SUBLINGUAL BID [facility] Last Admin: 08/07/24 08:55 Dose: 1 film Bupropion HCl (Bupropion Hcl Xl 150 Mg Tab.Er.24h) 150 mg PO DAILY@1400 [facility] Last Admin: 08/06/24 14:26 Dose: 150 mg Bupropion HCl (Bupropion Hcl Xl 300 Mg Tab.Er.24h) 300 mg PO DAILY [facility] Last Admin: 08/07/24 08:55 Dose: 300 mg Chlorpromazine HCl (Chlorpromazine Hcl 25 Mg Tablet) 50 mg PO TID PRN PRN Reason: agitation Last Admin: 08/05/24 20:55 Dose: 50 mg Docusate Sodium (Docusate Sodium 100 Mg Capsule) 100 mg PO BID [facility] Last Admin: 08/07/24 08:55 Dose: 100 mg Famotidine (Famotidine 20 Mg Tablet) 20 mg PO BID [facility] Last Admin: 08/07/24 08:55 Dose: 20 mg Fluticasone Propionate (Fluticasone Propionate Nasal 16 [address] [place]) 1 spray NOSTRIL-B DAILY PRN PRN Reason: nasal congestion Last Admin: 08/07/24 09:15 Dose: 1 spray Gabapentin (Gabapentin 400 Mg Capsule) 800 mg PO TID [facility] Last Admin: 08/07/24 08:56 Dose: 800 mg Hydroxyzine HCl (Hydroxyzine Hcl 50 Mg Tablet) 50 mg PO TID PRN PRN Reason: milder Anxiety Last Admin: 08/06/24 20:28 Dose: 50 mg Hydroxyzine HCl (Hydroxyzine Hcl 25 Mg Tablet) 25 mg PO Q6H PRN PRN Reason: Anxiety Last Admin: 08/06/24 20:28 Dose: 25 mg Insulin Glargine (Insulin Glargine,Hum.Rec.Anlog 100 Unit/Ml 10 Ml Vial) 30 unit SUBCUT BEDTIME [facility] Last Admin: 08/06/24 20:29 Dose: 30 unit Insulin Human Lispro (Insulin Lispro 100 Unit/Ml 3 Ml Vial) 0 - 10 unit SUBCUT TIDAC [facility]; Protocol Last Admin: 08/07/24 08:53 Dose: 2 unit [place] Carbonate ([place] Carbonate Er 450 Mg Tablet.Er) 900 mg PO DAILY@1400 [facility] Last Admin: 08/06/24 14:25 Dose: 900 mg Loratadine (Loratadine 10 Mg Tablet) 10 mg PO DAILY [facility] Last Admin: 08/07/24 08:55 Dose: 10 mg Lorazepam (Lorazepam 1 Mg Tablet) 1 mg PO BID PRN PRN Reason: moderate to severe anxiety Last Admin: 08/07/24 09:15 Dose: 1 mg Magnesium Hydroxide (Milk Of Magnesia 30 Ml Oral.Susp) 30 ml PO DAILY PRN PRN Reason: Constipation Last Admin: 07/27/24 09:45 Dose: 30 ml Metformin HCl (Metformin Hcl Er 500 Mg Tab.Er.24h) 500 mg PO DAILY [facility] Last Admin: 08/07/24 08:55 Dose: 500 mg Nicotine (Nicotine 21 Mg Patch.Td24) 21 mg TRANSDERMA DAILY PRN PRN Reason: smoking cessation Last Admin: 08/07/24 08:56 Dose: 21 mg Non-Formulary Med( (Nicotine 4mg Gum)) 1 each BUCCAL Q2H PRN PRN Reason: nicotine cravings Last Admin: 08/07/24 09:15 Dose: 1 each Polyethylene Glycol (Polyethylene Glycol 3350 17 Gm Powd.Pack) 17 gm PO DAILY [facility] Last Admin: 08/07/24 08:56 Dose: 17 gm Prazosin HCl (Prazosin Hcl 1 Mg Capsule) 1 mg PO BEDTIME [facility]; Protocol Last Admin: 08/06/24 20:28 Dose: 1 mg Propranolol HCl (Propranolol Hcl 10 Mg Tablet) 10 mg PO BID@0900,1400 [facility]; Protocol Last Admin: 08/07/24 08:55 Dose: 10 mg Quetiapine Fumarate (Quetiapine Fumarate 400 Mg Tablet) 400 mg PO BEDTIME [facility] Last Admin: 08/06/24 20:28 Dose: 400 mg Quetiapine Fumarate (Quetiapine Fumarate 100 Mg Tablet) 100 mg PO BEDTIME PRN PRN Reason: insomnia Risperidone (Risperidone 1 Mg Tablet) 1 mg PO DAILY PRN PRN Reason: AH/anxiety/agitation Last Admin: 08/05/24 16:04 Dose: 1 mg Risperidone (Risperidone 2 Mg Tablet) 4 mg PO DAILY [facility] Last Admin: 08/07/24 08:56 Dose: 4 mg Trazodone HCl (Trazodone Hcl 50 Mg Tablet) 50 mg PO BEDTIME MRX1 PRN PRN Reason: Insomnia Allergies Allergies Allergy/AdvReac Type Severity Reaction Status Date / Time No Known Allergies Allergy Verified 07/23/24 20:47 Assessment & Plan Assessment & Plan (1) Schizoaffective disorder, bipolar type: Status: Acute Code(s): F25.0 - Schizoaffective disorder, bipolar type (2) PTSD (post-traumatic stress disorder): Status: Acute Code(s): F43.10 - Post-traumatic stress disorder, unspecified (3) Cocaine use disorder: Status: Acute Code(s): F14.10 - Cocaine abuse, uncomplicated (4) Diabetes: Status: Acute Code(s): E11.9 - Type 2 diabetes mellitus without complications (5) Homeless: Status: Acute Code(s): Z59.00 - Homelessness unspecified Plan Pt is 48 year old female with history schizoaffective disorder, PTSD, cocaine/opioid use disorder who recently discharged from 07/14 and now self presents for worsening depression and SI following relapse. Patient reports that she was doing okay at the program, auditory hallucinations at a minimum. However this past , patient had an appointment to go to and was allowed to go alone which she knew was a mistake. Once on her own, away from the program she had cravings to use which fueled her AH which fueled her cravings; patient quickly found people with drugs and relapsed on cocaine. Patient quickly felt depressed add AH worsened further. She started feeling suicidal and night, presented to the hospital for safety. Denies any alcohol or other substance abuse. Formulation/clinical reasoning: Discussed medications and patient felt that current regimen was overall effective and she wants to remain on it. Hospital plan: 07/26 depressed; no SI. dealing with AH 07/27 Patient very triggered last night with high acuity on the unit and had significant flashbacks to past trauma; patient talked it through with nurse and benefited from p.r.n. Thorazine. Otherwise she is feeling overall pretty good and says AH is on the lower side; wants a program 07/28 Patient reports her mood is good and that she is overall doing well. Discussed medication and continued intermittent AH. She feels that current Risperdal dose may become more effective given a few more weeks as it has not reached his full potential; currently she wants to leave it at its current dose to which life underwriter agrees. Regarding Seroquel, it does not really make her sleepy and so it is not ineffective p.r.n. for anxiety; she says rather, it is for mood stability. She does like Thorazine as a p.r.n. for when she is getting very dysregulated. Records Management Manager discussed that patient is on 2 scheduled antipsychotics with a 3rd as a p.r.n., and the combination significantly increases her risk of side effects. Patient understands this well but feels that the benefit far outweighs the risks as she is doing better. clinical reasoning Seroquel 400 mg q.h.s.: For bipolar depression; does not make her tired and is not effective as a p.r.n. Risperdal 3 mg daily: For treating AH Thorazine 50 mg p.r.n.: Used as a p.r.n. for agitation, panic attacks, PTSD flashbacks 07/29 patient remains doing well, coping with AH, utilizing resources, engaged in treatment. Open for TSS 07/30 remains doing well; did CBT exercise which resident with patient; patient will continue with CBT homework 07/31 remains stable, doing well, engaged; waiting on open bed at [facility]SS 08/01: Continue current tx plan. 08/05 remains stable but discouraged since program options dwindled 08/06 feeling a little better though still worried about not being in a program and hopeful that a bed will be available. Asks for Risperdal to be increased 08/07 pt says she is good. Says too early to tell if increased risperdal is making a difference but denies side-effects. Pt got into program today, one of her choice and she is excited about it. She feels ready for discharge and wants to go. Patient remains in good behavioral and impulse control on the unit; she has a appropriate with peers and staff and engaged in treatment, attending groups and forthcoming in 1 on 1 sessions. Patient is stable on current medication regimen Plan: CV Q 15 minute checks Wellbutrin 300 mg daily; 150 mg at 14:00 Gabapentin 800 mg t.i.d. [place] 900 mg daily at 14:00 Prazosin 1 mg q.h.s. Seroquel 400 mg q.h.s. INCREASE TO Risperdal 4 mg daily Suboxone 8/2 mg b.i.d. Lantus/ lispro sliding scale Metformin Propranolol Famotidine Patient educated on: diagnosis, medication risk/benefits and therapeutic strategies Informed Consent: understands Reason for continued inpatient stay Substantial Risk for: stable for discharge Time Spent With Patient Time: Total time managing care of this patient today ____ minutes.
[2024-08-07 12:23] LABS: Glucose, Whole Blood 227 mg/dL (60-115)
[2024-08-07] MEDS: buPROPion HCl XL 150 MG TAB.ER.24H PO (15:23)
[2024-08-07] MEDS: Lithium Carbonate ER 450 MG TABLET.ER 900 MG PO (15:24)
[2024-08-07 15:32] VITALS: BP 140/83; PULSE 82
[2024-08-07] MEDS: chlorproMAZINE HCl 25 MG TABLET 50 MG PO ×2 (15:33→20:55)
[2024-08-07 17:02] LABS: Glucose, Whole Blood 215 mg/dL (60-115)
[2024-08-07 17:42] VITALS: BMI 28.1
[2024-08-07] MEDS: risperiDONE 1 MG TABLET PO (18:10)
[2024-08-07 20:03] VITALS: BP 150/90; PULSE 95; TEMP 36.8; O2SAT 96
[2024-08-07] MEDS: Insulin Glargine,Hum.rec.anlog 100 UNIT/ML 10 ML VIAL 30 UNIT SUBCUT (20:05)
[2024-08-07] MEDS: QUEtiapine Fumarate 400 MG TABLET PO (20:05)
[2024-08-07] MEDS: Prazosin HCL 1 MG CAPSULE PO (20:06)
[2024-08-07] MEDS: hydrOXYzine HCL 50 MG TABLET PO (20:56)
[2024-08-07 21:19] LABS: Glucose, Whole Blood 96 mg/dL (60-115)
[2024-08-08 08:00] VITALS: BP 136/71; PULSE 93; RESP 16; TEMP 36.5; O2SAT 99
[2024-08-08 08:08] LABS: Glucose, Whole Blood 161 mg/dL (60-115)
[2024-08-08 08:31] LABS: Glucose, Whole Blood 187 mg/dL (60-115)
[2024-08-08] MEDS: metFORMIN HCl ER 500 MG TAB.ER.24H PO (08:48)
[2024-08-08] MEDS: Docusate Sodium 100 MG CAPSULE PO (08:48)
[2024-08-08] MEDS: buPROPion HCl XL 300 MG TAB.ER.24H PO (08:48)
[2024-08-08] MEDS: Gabapentin 400 MG CAPSULE 800 MG PO (08:48)
[2024-08-08] MEDS: Famotidine 20 MG TABLET PO (08:49)
[2024-08-08] MEDS: risperiDONE 2 MG TABLET 4 MG PO (08:49)
[2024-08-08] MEDS: Loratadine 10 MG TABLET PO (08:49)
[2024-08-08] MEDS: Propranolol HCL 10 MG TABLET PO (08:50)
[2024-08-08] MEDS: Insulin Lispro 100 UNIT/ML 3 ML VIAL SUBCUT (08:51)
[2024-08-08] MEDS: polyethylene glycoL 3350 17 GM POWD.PACK PO (09:01)
[2024-08-08] MEDS: hydrOXYzine HCL 25 MG TABLET PO (09:02)
[2024-08-08] MEDS: GUM BUCCAL (09:03)
[2024-08-08] MEDS: NICOTINE 4 MG BUCCAL (09:03)
[2024-08-08] MEDS: Nicotine 21 MG PATCH.TD24 TRANSDERMA (09:03)
--- NOTE | 2024-08-08 09:17 | P.DS_ITS ---
DS: Providers Provider Date of Service: 08/08/24 Date of admission: 07/24/24 15:24 Date of discharge: 08/08/24 Primary care physician: Unknown Physician Attending physician on admission: Padilla Mcallister Attending physician on discharge: Padilla Mcallister DS: Diagnosis Discharge Diagnosis (1) Schizoaffective disorder, bipolar type: Status: Acute (2) PTSD (post-traumatic stress disorder): Status: Acute (3) Cocaine use disorder: Status: Acute (4) Diabetes: Status: Acute (5) Homeless: Status: Acute DS: Medications Discharge Medications Home Medications: Previous Rx's ?Medication ?Instructions ?Recorded acetaminophen 325 mg tablet 650 mg (2 x 325 mg) PO Q6H PRN 07/13/24 Headache/Pain Mild Scale (1-3) #0 tabs blood-glucose meter (Advanced #1 ea 07/14/24 Glucose Meter) benztropine 0.5 mg tablet 0.5 mg PO BID PRN 08/08/24 EPS/tremor/muscle twitch 30 days #60 tabs blood sugar diagnostic (Advanced #100 ea 08/08/24 Glucose Meter Test Strips) blood-glucose calibrat control #1 ea 08/08/24 (Assure 4 Control Solution combo pack) buprenorphine 8 mg-naloxone 2 mg 1 film sublingual BID 30 days #60 08/08/24 sublingual film ea bupropion HCl 150 mg 24 hr tablet, 150 mg PO DAILY@1400 30 days #30 08/08/24 extended release tabs bupropion HCl 300 mg 24 hr tablet, 300 mg PO DAILY 30 days #30 tabs 08/08/24 extended release famotidine 20 mg tablet 20 mg PO BID 30 days #60 tabs 08/08/24 fluticasone propionate 50 1 spray intranasal DAILY PRN nasal 08/08/24 mcg/actuation nasal congestion 30 days #16 grams spray,suspension gabapentin 800 mg tablet 800 mg PO TID 30 days #90 tabs 08/08/24 hydroxyzine HCl 50 mg tablet 50 mg PO TID PRN milder Anxiety 30 08/08/24 days #90 tabs insulin glargine 100 unit/mL (3 30 unit (0.3 mL) subcut BEDTIME 30 08/08/24 mL) subcutaneous pen (Lantus days #9 mL Solostar U-100 Insulin) insulin lispro 100 unit/mL See Rx Instructions .Route 08/08/24 subcutaneous pen (Humalog KwikPen .COMPLEX 30 days #3 mL (U-100) Insulin) lancets (Lancets,Ultra Thin) #100 ea 08/08/24 lithium carbonate 450 mg 900 mg (2 x 450 mg) PO DAILY@1400 08/08/24 tablet,extended release 30 days #60 tabs loratadine 10 mg tablet 10 mg PO DAILY 30 days #30 tabs 08/08/24 lorazepam 1 mg tablet 1 mg PO DAILY PRN moderate to 08/08/24 severe anxiety 30 days #30 tabs metformin 500 mg tablet,extended 500 mg PO DAILY 30 days #30 tabs 08/08/24 release 24 hr nicotine (polacrilex) 4 mg gum 4 mg buccal Q2H PRN nicotine 08/08/24 cravings 30 days #100 ea nicotine 21 mg/24 hr daily 21 mg transdermal DAILY PRN 08/08/24 transdermal patch smoking cessation 28 days #28 ea pen needle, diabetic 32 gauge x #100 ea 08/08/24 5/32 (Pen Needle) polyethylene glycol 3350 17 gram 17 g PO DAILY 30 days #30 ea 08/08/24 oral powder packet prazosin 1 mg capsule 1 mg PO BEDTIME 30 days #30 caps 08/08/24 propranolol 10 mg tablet 10 mg PO BID@0900,1400 30 days #60 08/08/24 tabs quetiapine 400 mg tablet 400 mg PO BEDTIME 30 days #30 tabs 08/08/24 risperidone 1 mg tablet 1 mg PO DAILY PRN 08/08/24 AH/anxiety/agitation 30 days #30 tabs risperidone 4 mg tablet 4 mg PO BEDTIME 30 days #30 tabs 08/08/24 Mental Status Exam Mental Status Exam Narrative: Pt is alert and oriented; behavior is calm, cooperative, friendly; patient is not in distress; dressed in casual attire with adequate hygiene; mood is described as good and affect congruent, bright; eye contact appropriate; S peech is normal rate, volume and prosody; no psychomotor retardation present; thought process is organized and goal directed; Thought content is on treatment; otherwise pertinent to relevant topics and without any delusional content, paranoid ideations or grandiosity; intermittent, chronic passive SI/no HI; intermittent AH. Patients insight and judgment fair Data Data Completed and Pending Completed studies during hospitalization [Text1]: 08/01/24 08/01/24 08/01/24 09:15 12:21 17:21 Creatinine Estim Creat Clear Calc Estimated GFR POC Glucose 277 H 71 94 08/01/24 08/02/24 08/02/24 21:03 08:30 11:44 Creatinine Estim Creat Clear Calc Estimated GFR POC Glucose 118 H 180 H 212 H 08/02/24 08/02/24 08/03/24 17:18 20:07 08:09 Creatinine Estim Creat Clear Calc Estimated GFR POC Glucose 139 H 165 H 187 H 08/03/24 08/03/24 08/03/24 11:50 17:15 21:16 Creatinine Estim Creat Clear Calc Estimated GFR POC Glucose 126 H 183 H 82 08/04/24 08/04/24 08/04/24 07:57 11:40 17:00 Creatinine Estim Creat Clear Calc Estimated GFR POC Glucose 178 H 92 229 H 08/05/24 08/05/24 08/05/24 07:47 12:47 17:31 Creatinine Estim Creat Clear Calc Estimated GFR POC Glucose 264 H 205 H 78 08/05/24 08/06/24 08/06/24 21:09 07:54 08:27 Creatinine 0.89 Estim Creat Clear Calc 92.1 Estimated GFR > 60 POC Glucose 181 H 296 H 08/06/24 08/06/24 08/06/24 12:13 17:13 21:25 Creatinine Estim Creat Clear Calc Estimated GFR POC Glucose 179 H 194 H 175 H 08/07/24 08/07/24 08/07/24 08:27 12:18 16:58 Creatinine Estim Creat Clear Calc Estimated GFR POC Glucose 163 H 227 H 215 H 08/07/24 08/08/24 08/08/24 21:15 08:04 08:27 Creatinine Estim Creat Clear Calc Estimated GFR POC Glucose 96 161 H 187 H 07/23/24 Unknown Urine clean catch - Clean Catch Midstream Urine Culture - Final DS: Summary Hospital Course Hospital Course: Pt is 48 year old female with history schizoaffective disorder, PTSD, cocaine/opioid use disorder who recently discharged from 07/14 and now self presents for worsening depression and SI following relapse. Patient reports that she was doing okay at the program, auditory hallucinations at a minimum. However this past , patient had an appointment to go to and was allowed to go alone which she knew was a mistake. Once on her own, away from the program she had cravings to use which fueled her AH which fueled her cravings; patient quickly found people with drugs and relapsed on cocaine. Patient quickly felt depressed add AH worsened further. She started feeling suicidal and night, presented to the hospital for safety. Denies any alcohol or other substance abuse. Formulation/clinical reasoning: Discussed medications and patient felt that current regimen was overall effective and she wants to remain on it. Hospital plan: 07/26 depressed; no SI. dealing with AH 07/27 Patient very triggered last night with high acuity on the unit and had significant flashbacks to past trauma; patient talked it through with nurse and benefited from p.r.n. Thorazine. Otherwise she is feeling overall pretty good and says AH is on the lower side; wants a program 07/28 Patient reports her mood is good and that she is overall doing well. Disc ussed medication and continued intermittent AH. 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 Regarding Seroquel, it does not really make her sleepy and so it is not ineffective p.r.n. for anxiety; she says rather, it is for mood stability. She does like Thorazine as a p.r.n. for when she is getting very dysregulated. Shoe Fitter discussed that patient is on 2 scheduled antipsychotics with a 3rd as a p.r.n., and the combination significantly increases her risk of side effects. Patient understands this well but feels that the benefit far outweighs the risks as she is doing better. -patient remains in good behavioral and impulse control, engaged in treatment, attending groups and appropriate with peers and staff. 07/29 patient remains doing well, coping with AH, utilizing resources, engaged in treatment. Open for TSS 07/30 remains doing well; did CBT exercise which resident with patient; patient will continue with CBT homework 08/06 discussed AH and patient felt that she had waited long enough to see if current Risperdal dose proved to be increasingly effective; would like Risperdal increased to help further curb AH Patient was accepted to a program of her choice for which was very happy about. Patient had remained in good behavioral and impulse control throughout her time in the unit; intermittent passive SI remained but only at its chronic level and was easily dismissed. She is future oriented and optimistic about continuing treatment and remaining sober. Patient is eating and sleeping well and tolerating medications which she is feels are helpful. Patient is discharging to a supportive and structured dual diagnosis program. She is not in imminent risk for harm to self or others appropriate to return to the community for treatment. Medications: INCREASEd Risperdal to 4 mg daily Wellbutrin 300 mg daily; 150 mg at 14:00 Gabapentin 800 mg t.i.d. [place] 900 mg daily at 14:00 Prazosin 1 mg q.h.s. Seroquel 400 mg q.h.s. Suboxone 8/2 mg b.i.d. Thorazine p.r.n. for agitation clinical reasoning regarding medication regimen: Seroquel 400 mg q.h.s.: For bipolar depression; it does not cause sedation and ineffective as a p.r.n. Risperdal 3 mg daily: For treating AH Thorazine 50 mg p.r.n.: Used as a p.r.n. for agitation, panic attacks, PTSD flashbacks Time spent discussing smoking cessation with patient: 3 to 10 minutes Status at Discharge Functional status at discharge: independent ambulation Overall status at discharge: patient is back to baseline Time Spent with Patient Time attestation: Total time managing care of this patient today _40___ minutes. Time spent: Greater than 30 minutes Specific discharge activities: Met with patient; discussed with team; prescriptions, charting Discharge Plan Discharge Anticipated Discharge Date/Time: 08/08/24 11:30 Patient Disposition: [facility] Discharge Diagnosis: Schizoaffective disorder, bipolar type, most recent episode depressed, in full remission Referrals: Physician,Unknown J [Primary Care Provider] - 1 Week Discharge Medications: New polyethylene glycol 3350 17 gram Powder In Packet 17 g PO DAILY 30 Days Qty: 30 1RF Rx Instructions: hold for loose stool docusate sodium 100 mg Capsule 100 mg PO BID 30 Days Qty: 60 1RF Rx Instructions: hold for loose stool chlorpromazine 50 mg tablet 50 mg PO TID PRN (Reason: agitation) 30 Days Qty: 60 1RF Continued acetaminophen 325 mg Tablet 650 mg PO Q6H PRN (Reason: Headache/Pain Mild Scale (1-3)) Qty: 0 0RF (DME) blood-glucose meter [Advanced Glucose Meter] Misc See Rx Instructions .Route Qty: 1 0RF Rx Instructions: As directed: use 4x a day before meals and at bedtime to assess insulin benztropine 0.5 mg tablet 0.5 mg PO BID PRN (Reason: EPS/tremor/muscle twitch) 30 Days Qty: 60 1RF prazosin 1 mg Capsule 1 mg PO BEDTIME 30 Days Qty: 30 1RF Protocol: Hold for SBP< HOLD for SBP < : 90 hydroxyzine HCl 50 mg Tablet 50 mg PO TID PRN (Reason: milder Anxiety) 30 Days Qty: 90 1RF (DME) Advanced Gluc Meter Test Strip Strip See Rx Instructions .Route Qty: 100 1RF Rx Instructions: As directed: use 4x a day before meals and at bedtime to assess insulin lithium carbonate 450 mg Tablet Extended Release 900 mg PO DAILY@1400 30 Days Qty: 60 1RF propranolol 10 mg Tablet 10 mg PO BID@0900,1400 30 Days Qty: 60 1RF Protocol: Hold for SBP/HR < HOLD for SBP < : 90 HOLD for HR < : 60 (DME) lancets [Lancets,Ultra Thin] Misc See Rx Instructions .Route Qty: 100 1RF Rx Instructions: As directed: use 4xday before meals and bedtime as needed for administering insulin famotidine 20 mg Tablet 20 mg PO BID 30 Days Qty: 60 1RF gabapentin 800 mg tablet 800 mg PO TID 30 Days Qty: 90 1RF nicotine (polacrilex) 4 mg gum 4 mg buccal Q2H PRN (Reason: nicotine cravings) 30 Days Qty: 100 1RF nicotine 21 mg/24 hr Patch 24 Hour 21 mg transdermal DAILY PRN (Reason: smoking cessation) 28 Days Qty: 28 1RF lorazepam 1 mg Tablet 1 mg PO DAILY PRN (Reason: moderate to severe anxiety) 30 Days Qty: 30 1RF fluticasone propionate 50 mcg/actuation [place],Suspension 1 spray intranasal DAILY PRN (Reason: nasal congestion) 30 Days Qty: 16 1RF metformin 500 mg Tablet Extended Release 24 Hr 500 mg PO DAILY 30 Days Qty: 30 1RF risperidone 1 mg Tablet 1 mg PO DAILY PRN (Reason: AH/anxiety/agitation) 30 Days Qty: 30 1RF loratadine 10 mg tablet 10 mg PO DAILY 30 Days Qty: 30 1RF (DME) Assure 4 Control Solution Combo Pack See Rx Instructions .Route Qty: 1 1RF Rx Instructions: As directed: use monthly or when starting new test strips insulin lispro [Humalog KwikPen Insulin] 100 unit/mL insulin pen See Rx Instructions .ROUTE .COMPLEX 30 Days Qty: 3 1RF Rx Instructions: quantity 1 pen give units as needed before each meal according to sliding scale below Less than or equal to 110 ---- Give (units): 0 111 to 150 Give (units): 0 151 to 200 Give (units): 2 201 to 250 Give (units): 4 251 to 300 Give (units): 6 301 to 350 Give (units): 8 Greater than 350 Give (units): 10 Call your PCP if Blood Glucose is at or over:350 bupropion HCl 300 mg tablet extended release 24 hr 300 mg PO DAILY 30 Days Qty: 30 1RF bupropion HCl 150 mg Tablet Extended Release 24 Hr 150 mg PO DAILY@1400 30 Days Qty: 30 1RF quetiapine 400 mg tablet 400 mg PO BEDTIME 30 Days Qty: 30 1RF insulin glargine [Lantus Solostar U-100 Insulin] 100 unit/mL (3 mL) insulin pen 30 unit subcut BEDTIME 30 Days Qty: 9 1RF Rx Instructions: quantity 3 pens (DME) pen needle, diabetic [Pen Needle] 32 gauge x 5/32 needle See Rx Instructions .Route Qty: 100 1RF Rx Instructions: As directed: use 4xday before meals and bedtime as needed for administering insulin buprenorphine-naloxone 8-2 mg film 1 film sublingual BID 30 Days Qty: 60 0RF Changed risperidone 4 mg tablet 4 mg PO BEDTIME 30 Days Qty: 30 1RF Discharge Orders: Discharge Order (Routine); Ordered 08/08/24 Ordered By: Padilla Mcallister Diet: Regular diet Activity on Discharge: As tolerated Stand Alone Forms: Patient Portal Discharge page Print Language: Macedonian Care Plan Goals: Maintain mood and safe behaviors Take medications as prescribed Continue to pursue sobriety Practice coping skills Continue with outpatient providers and reach out to them as needed Health Concerns: Mood stability and behaviors Sobriety Diabetes Plan of Treatment: Follow up with your PCP, psychiatric provider and other outpatient providers reg arding above concerns Take medications as prescribed Assessment: Risk assessment at time of discharge:? Patient was interviewed prior to discharge and found to be fully oriented and without any SI or HI. Patient has improved insight and judgment and wants to continue treatment. Patient is not in imminent risk of harm to self or others and has a safety plan that includes presenting to the closest ER or calling 911 if feeling unsafe.? Patient has been observed closely by nursing and unit staff throughout admission; patient has not engaged in any behaviors that suggest dangerousness to self or others and has demonstrated appropriate behaviors and impulse control
[2024-08-08 09:54] LABS: Lithium 0.57 mmol/L (0.60-1.20)
[2024-08-08] MEDS: Naloxone HCl Nasal TAKE HOME 4 MG SPRAY 8 MG NOSTRILALT (10:01)
[2024-08-08] MEDS: Buprenorphine/Naloxone 8/2 mg FILM 1 FILM SUBLINGUAL (10:01)
== END 2024-08-08 11:57 | disposition home or self-care (01) | DRG 885 ==
LOC: HO.ED 07-24 11:47 → HO.PM5 07-24 15:56
PROVIDERS: Emergency Medicine; Registered Nurse Emergency; Admitting Provider Psychiatry & Neurology Psychiatry; Emergency Provider Student in an Organized Health Care Education/Training Program; Visit Provider Psychiatry & Neurology Psychiatry
DX: F25.0 Schizoaffective disorder, bipolar type (principal); R45.851 Suicidal ideations; Z59.02 Unsheltered homelessness; F11.20 Opioid dependence, uncomplicated; F10.10 Alcohol abuse, uncomplicated; F14.10 Cocaine abuse, uncomplicated; E11.9 Type 2 diabetes mellitus without complications; F43.10 Post-traumatic stress disorder, unspecified; F17.210 Nicotine dependence, cigarettes, uncomplicated; Z71.6 Tobacco abuse counseling; Z79.84 Long term (current) use of oral hypoglycemic drugs; Z79.899 Other long term (current) drug therapy
CPT/HCPCS: 36415; 80048; 80053; 80076; 80143; 80178; 80179; 80307; 81001; 82565; 82947; 84702; 85025; 87086; 99285; S9485

== ENCOUNTER → 2024-07-24 15:24 | Outpatient (BNV) | payer OTHER, SELFPAY | PROVIDERS: Admitting Provider Psychiatry & Neurology Psychiatry; Emergency Provider Student in an Organized Health Care Education/Training Program; Visit Provider Psychiatry & Neurology Psychiatry | DX: F25.0 Schizoaffective disorder, bipolar type (principal); F14.10 Cocaine abuse, uncomplicated; F43.11 Post-traumatic stress disorder, acute; E11.9 Type 2 diabetes mellitus without complications; Z59.00 Homelessness unspecified | CPT/HCPCS: 90792; 99231; 99232; 99239 ==